=== PATIENT | female | born 1935 | race Caucasian/White ===

== ENCOUNTER 2017-02-15 10:19 | Emergency (ER) | payer MEDICARE, OTHER | END 2017-02-15 14:36 | disposition home or self-care (01) | LOC: D.ER 10:19 | DX: M54.5 Low back pain (principal); M54.2 Cervicalgia; R07.89 Other chest pain; V43.52XA Car driver injured in collision with other type car in traffic accident, initial encounter; Y93.89 Activity, other specified; Y92.410 Unspecified street and highway as the place of occurrence of the external cause; E78.5 Hyperlipidemia, unspecified; K58.9 Irritable bowel syndrome, unspecified ==

== ENCOUNTER → 2018-06-20 08:50 | Outpatient (CLI) | payer MEDICARE, OTHER | END | disposition home or self-care (01) | LOC: D.RT 06-16 09:00 | DX: J42 Unspecified chronic bronchitis (principal); R05 Cough ==

== ENCOUNTER → 2018-07-13 13:02 | Outpatient (CLI) | payer MEDICARE, OTHER | END | disposition home or self-care (01) | LOC: D.CT 13:02 | DX: I27.9 Pulmonary heart disease, unspecified (principal) ==

== ENCOUNTER → 2018-07-17 13:16 | Outpatient (CLI) | payer MEDICARE, OTHER | END | disposition home or self-care (01) | LOC: D.NM 07-14 11:00 | DX: I26.99 Other pulmonary embolism without acute cor pulmonale (principal) ==

== ENCOUNTER → 2018-12-14 08:09 | Outpatient (CLI) | payer MEDICARE, OTHER ==
[2018-12-14 08:37] LABS: BASOPHILS 0.4 % (0-2); HEMOGLOBIN 12.9 g/dL (12-16); IMMATURE GRANULOCYTES 0.2 % (0-5); LYMPHOCYTES 25.9 % (15-50); MCH 28.7 pg (26.0-34.0); MCHC 33.1 g/dL (31.0-37.0); MCV 86.9 fL (80.0-100.0); MEAN PLATELET VOLUME 10.2 fL (7.4-10.4); MONOCYTES 7.2 % (2-11); NEUTROPHILS 64.3 % (40-80); PLATELET COUNT 261 10x3/uL (130-400); RBC 4.49 10x6/uL (4.00-5.40); RDW 14.6 % (11.5-14.5)
[2018-12-17 03:06] LABS: IMMUNOGLOBULIN E 8 IU/mL (0-100)
== END | disposition home or self-care (01) ==
LOC: D.LAB 08:00 → D.CT 08:30
PROVIDERS: Internal Medicine Pulmonary Disease
DX: J98.11 Atelectasis (principal); J45.991 Cough variant asthma

== ENCOUNTER 2019-08-21 07:04 | Outpatient (CLI) | payer MEDICARE, OTHER | END 2019-08-21 23:59 | disposition home or self-care (01) | LOC: D.MAMMO 07:04 | PROVIDERS: ATTEND Family Medicine | DX: Z12.31 Encounter for screening mammogram for malignant neoplasm of breast (principal) ==

== ENCOUNTER 2020-02-01 15:56 | Inpatient (IN) | payer MEDICARE, OTHER ==
[~2020-02-01] VITALS: Ht 157.5 cm; Wt 87.2 kg
--- NOTE | 2020-02-01 16:30 | NUR ---
PT ARRIVES TO ROOM VIA WHEELCHAIR AAO X 4. AT BEDSIDE. PT REPORTSABDOMINAL DISCOMFORT AND STATES THAT SHE HAS NOT HAD A BM SINCE 01/25/2020. PT ABDOMEN IS DISTENDED AND TENDER UPON PALPATION. BS ARE HYPOACTIVE AND VERY FAINT. PT REPORTS THAT SHE IS STILL PASSING GAS BUT STATES "JUST LITTLE BITTY ONES". PT DENIES PRESENCE OF BURNING/DYSURIA. PT DENIES PRESENCE OF N/V AT THIS TIME. RESPIRATIONS ARE EVEN ADN UNLABORED. BRUISES NOTED TO BLE. DISCOLORATION NOTED TO PT LIPS. BILATERAL PEDAL PULSES PALP. INCENTIVE SPIROMETER AT BEDSIDE. PT EDUCATED ON USE AND PT VERBALIZES UNDERSTANDING. BENJA ALARM PLACED ON PT BED. PT STATES "I FALL ALL OF THE TIME. I DONT KNOW WHY. I JUST GET DIZZY AND FALL DOWN". PT EDUCATED ON FALL RISKS AND FALL PRECAUTIONS. PT VERBALIZES UNDERSTANDING AND AGREES TO USE CALL LIGHT FOR ASSISTANCE. ALL FALL PRECAUTIONS IN PLACE EXCEPT FOR YELLOW GOWN. PT STATES "I JUST CHANGED INTO THIS ONE". BED IS IN THE LOWEST POSITION. CALL LIGHT AND BEDSIDE TABLE ARE WITHIN REACH. SIDE RAILS X 2. PT DENIES FURTHER NEEDS. WILL CONT TO MONITOR.
[2020-02-01] MEDS ORDERED: PHENERGAN25 M1 PO (16:37)
[2020-02-01] MEDS ORDERED: AMBIEN10 MG PO (16:38)
[2020-02-01] MEDS ORDERED: FENOFIBRATE134 MG PO (16:39)
[2020-02-01] MEDS ORDERED: ZOCOR20 MG PO (16:40)
[2020-02-01] MEDS ORDERED: PAZEO2.5 ML EACH EYE (16:42)
[2020-02-01 17:00] VITALS: BP 140/60; BMI 28.6
--- NOTE | 2020-02-01 17:25 | NUR ---
20G X 1 ATTEMPT TO RIGHT AC. PT TOLERATED WELL.
[2020-02-01 17:55] LABS: ALBUMIN 3.1 g/dL (3.4-5.0); BILIRUBIN - DIRECT 0.74 mg/dL (0.00-0.30); BILIRUBIN - INDIRECT 0.36 mg/dL (0.00-1.00); BILIRUBIN - TOTAL 1.1 mg/dL (0.2-1.3); PROTEIN - SERUM 6.2 g/dL (6.4-8.2)
[2020-02-01 19:20] LABS: CALCIUM 9.5 mg/dL (8.5-10.1); CARBON DIOXIDE 19.7 mmol/L (21.0-32.0); CREATININE - SERUM 1.9 mg/dL (0.6-1.3); POTASSIUM - SERUM 3.7 mmol/L (3.5-5.1)
[2020-02-01 20:00] VITALS: BP 142/71
[2020-02-01 21:20] VITALS: BP 117/74
--- NOTE | 2020-02-01 21:20 | NUR ---
REC'D PATIENT FROM FLOOR, IN W/C. UNSTEADY GAIT TO TRANSFER TO BED. A/O X 4. CLEAR SPEECH. BREATHING ON ROOM AIR AT 94%. BOWEL SOUNDS ACTIVE X 4 QUADS. NORMAL SINUS. ABD FIRM AND DISTENDED. F/C PLACED WITH IMMEDIATE 350ML URINE RETURN. ORIENTED TO ROOM.
--- NOTE | 2020-02-01 21:22 | NUR ---
PT STARTED ON DILAUDID HARNESS CUTTER AND THEN TAKEN TO ICU VIA WHEELCHAIR AFTER REPORT WAS CALLED TO ICU. ROOM [id number]
[2020-02-01 21:45] LABS: BASOPHILS 0.1 % (0-2); EOSINOPHILS 0 % (0-7); HEMATOCRIT 31.9 % (36.0-48.0); HEMOGLOBIN 11.1 g/dL (12-16); IMMATURE GRANULOCYTES 2.3 % (0-5); LYMPHOCYTES 6.2 % (15-50); MCH 29.2 pg (26.0-34.0); MCHC 34.8 g/dL (31.0-37.0); MCV 83.9 fL (80.0-100.0); MEAN PLATELET VOLUME 10.1 fL (7.4-10.4); MONOCYTES 4.9 % (2-11); NEUTROPHILS 86.5 % (40-80); PLATELET COUNT 253 10x3/uL (130-400); RDW 14.5 % (11.5-14.5); WBC 15.4 10x3/uL (4.8-10.8)
[2020-02-01 21:51] LABS: ANION GAP 10.9 mmol/L (8-16); CALCIUM 9.7 mg/dL (8.5-10.1); CREATININE - SERUM 1.6 mg/dL (0.6-1.3); POTASSIUM - SERUM 3.3 mmol/L (3.5-5.1)
[2020-02-01 21:55] LABS: CARBON DIOXIDE 27.4 mmol/L (21.0-32.0)
[2020-02-01 22:00] VITALS: BP 118/64
[2020-02-01 22:03] LABS: BILIRUBIN NEGATIVE (NEGATIVE); GLUCOSE NEGATIVE (NEGATIVE); KETONE NEGATIVE (NEGATIVE); NITRITE NEGATIVE (NEGATIVE); SPECIFIC GRAVITY 1.015 (1.005-1.020); UROBILINOGEN NORMAL (NORMAL)
[2020-02-01 23:00] VITALS: BP 116/51
--- NOTE | 2020-02-01 23:00 | NUR ---
DENIES ANY NEEDS. CALL LIGHT IN REACH. CONT C/O PAIN BUT STATES HYDROMORPHONE HELPS.
[2020-02-02] VITALS (27 sets, daily range): BP systolic 76–149; BP diastolic 53–94
--- NOTE | 2020-02-02 01:00 | NUR ---
PATIENT MILD CONFUSION ABOUT WHAT IS HAPPENING RIGHT NOW, BUT ABLE TO ANSWER CORRECTLY PERSON, PLACE, AND TIME. PATIENT WAS HITTING DIRECTOR OF COMMUNITY EDUCATION BUTTON AND SAYING SHE WAS TRYING TO TURN IT OFF. EDUCATED ON USE OF DIRECTOR OF COMMUNITY EDUCATION AND DIRECTOR OF COMMUNITY EDUCATION BUTTON, PATIENT STILL CONFUSED. DENIES ANY PAIN. HOLDING HYDROMORPHONE AT THIS TIME. PATIENT ISN'T DROWSY, JUST CONFUSION AT TO WHAT IS HAPPENING RIGHT NOW.
--- NOTE | 2020-02-02 03:00 | NUR ---
RE-ASSESSMENT COMPLETED. PT VERY CONFUSED. PATIENT IS SAYING SHE IS NOT GOING TO HAVE TO SURGERY, ASKING "WHY ARE YOU DOING THIS TO ME." ATTEMPTED TO REORIENT SEVERAL TIMES.
[2020-02-02 04:34] LABS: BASOPHILS 0.1 % (0-2); EOSINOPHILS 0.2 % (0-7); HEMATOCRIT 31.2 % (36.0-48.0); HEMOGLOBIN 10.8 g/dL (12-16); IMMATURE GRANULOCYTES 3.1 % (0-5); LYMPHOCYTES 5.7 % (15-50); MCH 28.7 pg (26.0-34.0); MCHC 34.6 g/dL (31.0-37.0); MEAN PLATELET VOLUME 10.1 fL (7.4-10.4); MONOCYTES 6.5 % (2-11); NEUTROPHILS 84.4 % (40-80); PLATELET COUNT 251 10x3/uL (130-400); RBC 3.76 10x6/uL (4.00-5.40); RDW 14.5 % (11.5-14.5); WBC 13.2 10x3/uL (4.8-10.8)
[2020-02-02 04:48] LABS: ALBUMIN 2.5 g/dL (3.4-5.0); BILIRUBIN - TOTAL 0.88 mg/dL (0.2-1.3); CALCIUM 9.1 mg/dL (8.5-10.1); CARBON DIOXIDE 31.2 mmol/L (21.0-32.0); CREATININE - SERUM 1.4 mg/dL (0.6-1.3); MAGNESIUM - SERUM 2.2 mg/dL (1.8-2.4); PHOSPHOROUS 2.8 mg/dL (2.5-4.9); PROTEIN - SERUM 6.3 g/dL (6.4-8.2)
[2020-02-02 04:54] LABS: ANION GAP 11.5 mmol/L (8-16); POTASSIUM - SERUM 2.7 mmol/L (3.5-5.1)
--- NOTE | 2020-02-02 05:00 | NUR ---
REFUSES BATH. TRIED CALLING (LEFT MESSAGE) AND SON-IN-LAW (LEFT MESSAGE). PLACED PHONE IN PATIENT'S ROOM AND EDUCATED PT THAT WE'RE WAITING ON RETURN CALL. PATIENT ASKED IF SHE COULD USE THE PHONE TO CALL AND THIS NURSE HANDED PHONE TO PATIENT
--- NOTE | 2020-02-02 06:41 | NUR ---
PATIENT CONT TO REFUSE BATH. STATES SHE ISN'T HAVING SURGERY. PATIENT STATES THAT SHE WAS NEVER TOLD ABOUT SURGERY. [facility] CALLED DR. MCLEOD AND NEW ORDER FOR ELECT PROTOCOL. ATTEMPTED TO REORIENT AGAIN. REC'D PHONE CALL FROM , UPDATED HIM. HE STATED SHE IS HAVING SURGERY AND ASKED TO TALK TO HER.
--- NOTE | 2020-02-02 10:25 | NUR ---
CONCENTS SIGNED BY PTS THIS AM. PT CONFUSED. ASSISTED TO BSC FOR BM. PT DID NOT HAVE RESULTS. PAIN WELL CONTROLED USING PRESS LEADER.
[2020-02-02 14:00] LABS: HEMATOCRIT 35.1 % (36.0-48.0); HEMOGLOBIN 11.8 g/dL (12-16); MCH 28.6 pg (26.0-34.0); MCHC 33.6 g/dL (31.0-37.0); MEAN PLATELET VOLUME 10.4 fL (7.4-10.4); RBC 4.12 10x6/uL (4.00-5.40); RDW 14.9 % (11.5-14.5)
[2020-02-02 14:03] LABS: MCV 85.2 fL (80.0-100.0); PLATELET COUNT 335 10x3/uL (130-400); WBC 9.8 10x3/uL (4.8-10.8)
[2020-02-02 14:07] LABS: CALCIUM 7.3 mg/dL (8.5-10.1); CARBON DIOXIDE 24.7 mmol/L (21.0-32.0); CREATININE - SERUM 1.2 mg/dL (0.6-1.3)
[2020-02-02 14:08] LABS: POTASSIUM - SERUM 3.7 mmol/L (3.5-5.1)
[2020-02-02 14:52] LABS: EOSINOPHILS 1 % (0-7); LYMPHOCYTES 12 % (15-50); MONOCYTES 6 % (2-11); NEUTROPHILS 81 % (40-80); PLATELET ESTIMATE NORMAL
--- NOTE | 2020-02-02 15:47 | NUR ---
DR REBOLLEDO HERE AT BS AND HE SPOKE TO SEVERAL FAMILY MEMBERS AT BS. PT CONFUSED AND ATTEMPTING TO PULL AT LINES. REC'D ORDER FOR RESTRAINTS TO WRIST.
[2020-02-02 18:26] LABS: BASOPHILS 0.2 % (0-2); EOSINOPHILS 0 % (0-7); HEMATOCRIT 35.6 % (36.0-48.0); HEMOGLOBIN 11.9 g/dL (12-16); IMMATURE GRANULOCYTES 2.5 % (0-5); LYMPHOCYTES 3.9 % (15-50); MCH 28.6 pg (26.0-34.0); MCHC 33.4 g/dL (31.0-37.0); MCV 85.6 fL (80.0-100.0); MEAN PLATELET VOLUME 10.5 fL (7.4-10.4); MONOCYTES 7.1 % (2-11); NEUTROPHILS 86.3 % (40-80); PLATELET COUNT 333 10x3/uL (130-400); RBC 4.16 10x6/uL (4.00-5.40); RDW 15.1 % (11.5-14.5)
[2020-02-02 18:32] LABS: WBC 12.9 10x3/uL (4.8-10.8)
--- NOTE | 2020-02-02 18:46 | NUR ---
PT TACHYCARDIA HR 130, EKG SHOWS ST. PT RESPONDING VERY LITTLE TO VERBAL AND PAINFUL STIMULI. NARCAN GIVEN WITH VERY LITTLE RESULTS. ABG'S AND CALLED TO DR REBOLLEDO. 1 AMP SODIUM BICARB GIVEN. PT IS WAKING UP A LITTLE MORE.ENCOURAGED TO COUGH. PT DOES COUGH WITH FAIR EFFORT. UPO REPORTED 30CC FOR PAST 4 HRS, REC'D ORDER FOR BUMEX.
--- NOTE | 2020-02-02 19:00 | NUR ---
ASSESSMENT COMPLETED. LAYING IN BED. EYES CLOSED, LETHARGIC. RESPONDS TO NAME BUT CONFUSED TO PLACE, TIME, AND SITUATION. O2 AT 4L HF NC. REPOSITIONED
--- NOTE | 2020-02-02 21:00 | NUR ---
FROM 0717-0078, URINE OUTPUT WAS [address] SINCLAIR AND DR. POWELL WAS NOTIFIED AND CONSULT APPROX AROUND 1999. NEW ORDERS FROM DR. POWELL FOR BIPAP AT 40%. RT PLACED ON PATIENT. NO HYDROMORHPONE HAS BEEN GIVEN. ASKED PATIENT IF SHE WAS IN PAIN AND SHE RESPONDED WITH NO. CONT BEING LETHARGIC
--- NOTE | 2020-02-02 23:00 | NUR ---
RE-ASSESSMENT COMPLETED. REPOSITIONED. NEW ORDERS REC'D FROM DR. SINCLAIR TO CHANGE FLUIDS. URINE OUTPUT FROM 9664-1038= 8 ML. NEW FLUIDS WERE STARTED. PT CONT CONFUSION. ATTEMPTED TO REORIENT.
[2020-02-03] VITALS (24 sets, daily range): BP systolic 113–162; BP diastolic 58–86
--- NOTE | 2020-02-03 01:00 | NUR ---
REPOSITIONED. BIPAP ON. DENIES ANY PAIN OR NEEDS. RESPONDING MORE TO NURSE. URINE OUTPUT HOURLY IS NOT CHANGING, APPROX 10ML/HR.
--- NOTE | 2020-02-03 02:04 | NUR ---
SPOKE WITH DR. SINCLAIR. HEART RATE IN 130'S AND URINE OUTPUT STILL LOW. NEW ORDER FOR FLUID BOLUS OF 200 ML, CXR THIS AM, TROP AND BNP LAB WITH AM LABS.
--- NOTE | 2020-02-03 03:00 | NUR ---
RE-ASSESSMENT COMPLETED. URINE OUTPUT INCREASING. HEART RATE DECREASING.
--- NOTE | 2020-02-03 05:00 | NUR ---
URINE OUTPUT CONT TO INCREASE. REPOSITIONED. BIPAP ON. DENIES ANY NEEDS
[2020-02-03 05:35] LABS: BASOPHILS 0.3 % (0-2); EOSINOPHILS 0 % (0-7); HEMATOCRIT 30.8 % (36.0-48.0); HEMOGLOBIN 10.4 g/dL (12-16); IMMATURE GRANULOCYTES 1.3 % (0-5); LYMPHOCYTES 5.6 % (15-50); MCH 28.6 pg (26.0-34.0); MCHC 33.8 g/dL (31.0-37.0); MCV 84.6 fL (80.0-100.0); MEAN PLATELET VOLUME 10.3 fL (7.4-10.4); MONOCYTES 7.6 % (2-11); NEUTROPHILS 85.2 % (40-80); PLATELET COUNT 307 10x3/uL (130-400); RBC 3.64 10x6/uL (4.00-5.40); RDW 15.2 % (11.5-14.5); WBC 15.2 10x3/uL (4.8-10.8)
[2020-02-03 06:11] LABS: ALKALINE PHOSPHATASE 48 U/L (30-120); ALT (SGPT) 21 U/L (10-68); CALC OSMOLALITY 299 mosm/kg (275-300); CALCIUM 7.3 mg/dL (8.5-10.1); CARBON DIOXIDE 25.6 mmol/L (21.0-32.0); CHLORIDE - SERUM 110 mmol/L (98-107); GLUCOSE 168 mg/dL (74-106); MAGNESIUM - SERUM 1.9 mg/dL (1.8-2.4); POTASSIUM - SERUM 3.8 mmol/L (3.5-5.1); PRO BNP 1216 pg/mL (0-450); SODIUM 144 mmol/L (136-145); UREA NITROGEN 37 mg/dL (7-18)
[2020-02-03 06:17] LABS: CREATININE - SERUM 1.6 mg/dL (0.6-1.3); PHOSPHOROUS 3.6 mg/dL (2.5-4.9)
[2020-02-03 06:18] LABS: ALBUMIN 1.4 g/dL (3.4-5.0); PROTEIN - SERUM 4.5 g/dL (6.4-8.2); TROPONIN-I < 0.017 ng/mL (0.000-0.060); eGFR NON AFRICAN AMERICAN 33 mL/min (90-120)
--- NOTE | 2020-02-03 10:54 | NUR ---
DR POWELL SPOKE TO FAMILY AT . PT BATHED AND TURNED. INSTRUCTED I.S. PT WITH POOR EFFORT. WILL CONTINUE TO ASST WITH I.S.
--- NOTE | 2020-02-03 11:52 | NUR ---
PT TURNED AND ASSISTED WITH I.S. PT PULLS LESS THAN 500 ON IS WITH FAIR EFFORT. PT STILL CONFUSED BUT IS FOLLOWING COMMAND.
--- NOTE | 2020-02-03 15:55 | OP ---
PATIENT NAME: MIKE CASANOVA MEDICAL RECORD: [id number] :37 LOCATION:[facility] D.2306 ADMISSION DATE:02/01/20 SURGEON: OMA REBOLLEDO MD DATE OF OPERATION: 02/02/2020 PREOPERATIVE DIAGNOSES: 1. Pneumoperitoneum 2. Metabolic acidosis. 3. Acute kidney injury. POSTOPERATIVE DIAGNOSES: 1. Pneumoperitoneum 2. Metabolic acidosis. 3. Acute kidney injury. 4. Perforated sigmoid diverticulitis with diffuse peritonitis. 5. Hinchey grade IV, diverticular perforation. 6. Right large ovarian cyst. PROCEDURE: 1. Open subtotal colectomy. 2. Right oophorectomy. 3. Central venous line placement. SURGEON: Oma Rebolledo MD ROLL FORMER: None. BLOOD LOSS: Please see the anesthesia sheet. DRAINS: Times 2 (19-Greek round fully fluted drains). COMPLICATIONS: None. The risks, possible complications, and alternatives of the procedure were explained to the patient. She elects to proceed. I also discussed this with the patient's family. I specifically discussed with them the risk of bleeding requiring emergency reoperation, infection, and colostomy formation. OPERATIVE COURSE: The patient was conveyed to the operating room electively on 02/02/2020. General anesthesia was induced by the anesthesia staff. The right neck was sterilely prepped and draped. A local anesthetic was used to infiltrate the skin and subcutaneous tissues at the base of the right neck. The right internal jugular vein was percutaneously accessed in an antegrade fashion. A guidewire passed easily. A small skin irwin was accomplished. A vessel dilator was used to dilate a subcutaneous tract. . A 16-cm triple lumen central venous catheter was inserted to the hub. It was sutured in place times 3. All lumens flushed easily and aspirated dark, nonpulsatile blood. An x-ray will be obtained postoperatively. The central venous line was placed due to the need for multiple drips postoperatively as well as TPN. The abdomen was sterilely prepped and draped. A small paramedian incision was accomplished at the umbilicus. I entered the peritoneal cavity through the linea alba. I noted a feculent smell. No bilious staining and therefore, I felt that this was likely a diverticular perforation rather than a perforated OPERATIVE REPORT [id number] MIKE CASANOVA gastric or duodenal ulcer. I lengthened my incision in cephalad caudad direction. An Malcolm retractor was placed. Indeed, I identified an area of perforation of the sigmoid colon and there was a diffuse contamination with exudate as well as purulence throughout the abdominal cavity. There was an area of supple rectum distal to the sigmoid colon. As I have discussed with the patient and her family preoperatively, I may be myself in a situation where I will have to give her a Estela procedure with a colostomy versus a subtotal colectomy with a ileorectostomy. The patient has a terrible constipation and states frankly she would not mind having looser stools. We discussed how a diversion of the fecal stream must occur or we could eliminate the proximal fecal strain by removal of the colon by a subtotal colectomy. I chose the distal and extended my resection to the junction of the sigmoid colon and the rectum. A window was created in the mesorectum here and I stapled across this junction with the TOI-75 stapler. I incised along the left white line of Toldt. I entered the left inner sigmoid fossa. The left ureter was retracted during the operation and was undamaged. I began to takedown the mesentery of the sigmoid colon with the Super Jaw EnSeal device. I took down the mesentery of the descending colon through the Super Jaw EnSeal device, which ligates and divides. I took down splenic flexure of the colon. I then removed a good bit of the omentum from the transverse colon utilizing the Super Jaw EnSeal device. I came around sealed and divided the transverse colon mesentery. I incised the retroperitoneal attachments to the hepatic flexure. I then incised along the ileum and I stapled across the distal ileum with a TOI-75 stapler. The specimen was sent to pathology. I irrigated with hydrogen peroxide and aspirated. We removed as much of the exudate off the small bowel as we could just by wiping it away. I elevated the large right ovarian cyst. I then excised the ovary with the cyst by sealing and dividing just proximal to the ovary, it from the fallopian tube. I then irrigated and aspirated again. There was no evidence of bleeding. I brought the ileum into position to the rectal suturing the antimesenteric borders together in a side by side with 3-0 Vicryls. A small enterotomy and small proctotomy were accomplished. Anvils of the TOI-75 stapler with a green load were advanced and fired. The resulting antrorectal defect was closed with a single firing of the TA 60 stapler. There appeared to have been no leakage from this anastomosis. It appeared to be widely patent. I ensured the small bowel was not twisted on its mesentery. I ran the small bowel from the ligament of Treitz to the anastomosis. I checked placement of the nasogastric tube and it was well placed within the stomach. Two 19-Greek drains were brought out, one in the left flank and one in the right flank, one on the right was placed under the acute margin of the liver. The one on the left was placed down in the pelvis. The midline fascia was approximated with a running looped #1 PDS from cephalad to caudad direction. The drain was sutured to skin with 3-0 nylons. A wound VAC sponge was cut to the midline defect. Cellophane-type dressings were applied over the wound VAC sponge which was then scored stents. The wound VAC OPERATIVE REPORT [id number] MIKE CASANOVA J disc was applied and it held a good "raisin" and applied to suction. The patient was then extubated and conveyed post-anesthesia care unit and then she will be returned to the intensive care unit. TRANSINT:[id number] Voice Confirmation ID: [id number] DOCUMENT ID: [id number] OMA REBOLLEDO MD at 1555 CC: DARVIN MCLEOD [id number] DICTATION DATE: 02/02/201948 [employer] MATH TUTOR: 02/03/20 0135 [facility] IN [facility] [address] [id number]
--- NOTE | 2020-02-03 16:39 | CN ---
PATIENT NAME:MIKE CASANOVA MEDICAL RECORD: [id number] : 39 LOCATION:[facility]2306 ADMIT DATE: 02/01/20 ACCOUNT: [id number] CONSULTING PHYSICIAN: BRYANT SINCLAIR MD REFERRING PHYSICIAN: DARVIN MCLEOD MD DATE OF CONSULTATION: 02/02/2020 RENAL CONSULTATION CONSULTING PHYSICIAN: Darvin Mcleod MD The patient is in room 2306 at [facility] in [place], [place]. REASON FOR CONSULTATION: Assistance in management of postoperative oliguria and acute kidney injury. HISTORY OF PRESENT ILLNESS: This is an 84-year-old female who was admitted from primary care doctor's office with obstipation and pneumoperitoneum with obstipation for over a week. The patient underwent surgical resection and was noted to have hypotension and decreased urine output postoperative period. Over the last couple of hours, the patient has been receiving volume resuscitation, had been on some pressor support in the ICU and has started to urinate more. The patient has been evaluated, treatment plan reviewed, chart reviewed and discussed with nursing staff. The patient is unable to give much of a history as she is somewhat lethargic after her operative procedure. The patient had primary anastomosis after partial colectomy. Currently, she is in the ICU setting, on pressor support, IV fluids and blood pressure in the mid 110s-115 systolic with heart rate in the 115-120s. PAST MEDICAL AND SURGICAL HISTORY: Pertinent for: 1. Emphysema. 2. Frailty. 3. Chronic bowel disease. ALLERGIES: REPORTED TO NONSTEROIDAL MEDICATIONS. MEDICATIONS: Medications were reviewed included fibrate from outpatient, simvastatin, zolpidem, promethazine, and eyedrops. REVIEW OF SYSTEMS: Unable to obtain review of systems and they were mostly obtained from the records. Apparently, though she had been having abdominal complaints, constipation for about a week and was getting around to assure she was very weak. No reports of nonsteroidals in records were noted. PHYSICAL EXAMINATION: VITAL SIGNS: Blood pressure in the 115 range, heart rate in the 120s. GENERAL: She is lethargic, but she does arouse and tries to mumble. She did not recognize and I said that she will be alright, she said no. NECK: Neck veins appear to be flattened. CARDIAC: No lift or heave. CHEST: She is breathing comfortably. She has nasal cannula oxygen. CONSULT REPORT [id number] MIKE CASANOVA ABDOMEN: Shows incision. EXTREMITIES: She has tenting of the skin, warm extremities, nailbeds. Good capillary refill. Overall, she appears to be volume deplete. LABORATORY AND DIAGNOSTIC TESTS: Reveal white cell count 15.4, hemoglobin 11.1, and platelet count is 253 and that was from 02/01/2020. From 02/03/2020 the most recent the white count has come down to 9.8, hemoglobin 11.8, platelet count 335. Sodium most recent today on 02/02/2020 revealed sodium 141, potassium 3.7, chloride 109, bicarbonate 24.7, BUN 34, creatinine 1.2, which is down from 1.6 on admission 02/01/2020, glucose 175, calcium 7.3, albumin 2.5. Cultures are pending. Medications have been reviewed and currently include IV Pepcid, Zosyn, and IV Protonix as well as a hydromorphone pump. Imaging results revealed a chest x-ray that revealed pneumoperitoneum and abdominal CT that revealed uelja-ql-vrfisfwg amount of free air within the abdomen concerning for rupture of hollow viscus of unknown origin. Findings concerning for enteritis versus ileus versus small-bowel obstruction. Moderate severe distention of the gallbladder concerning for hydrops,left adnexal mass, probably representing ovarian cyst, wall thickening of the sigmoid colon, which was felt to be related to under distention and/or colitis. IMPRESSION: 1. Status post subtotal colectomy with ileorectostomy for pneumoperitoneum and perforation of sigmoid colon due to diverticulitis. 2. Sepsis related to above. 3. Acute kidney injury with volume depletion, likely reversible. 4. Malnutrition. 5. Chronic obstructive pulmonary disease. RECOMMENDATIONS: 1. Continue IV fluids. I agree with surgical medical management. I suspect that the patient may get a little worse before it gets better. However, it is a good sign that she is starting to urinate after appropriate volume expansion at this time. 2. Avoid nonsteroidal medications, other nephrotoxic medications. We may end up switching her IV fluids a little bit and monitor the progress. Again, I expect hopefully that she will continue to improve with the current treatment plan. We will continue to follow. The case has been discussed with surgery. TRANSINT:[id number] Voice Confirmation ID: [id number] DOCUMENT ID: [id number] BRYANT SINCLAIR MD at 1639 CC: MAXIMINO GODINEZ MD [id number] DICTATION DATE: 02/02/202117 STOCK RANCH SUPERVISOR: 02/03/20 1246 ADM IN [place] [id number] [place] [id number]
--- NOTE | 2020-02-03 18:58 | NUR ---
1500-DR SINCLAIR HERE ON ROUNDS. REC'D NEW ORDERS. PT TURNED AND REPOSITIONED FOR COMFORT.
--- NOTE | 2020-02-03 19:00 | NUR ---
ASSESSMENT COMPLETED. CONFUSION CONT. REPOSITIONED. TEMP 100.1. TOOK BLANKETS OFF PATIENT
--- NOTE | 2020-02-03 21:00 | NUR ---
TEMP 99.3. CALL DR. REBOLLEDO WITH NEW ORDERS REC'D.
--- NOTE | 2020-02-03 23:00 | NUR ---
RE-ASSESSMENT COMPLETED. BIPAP ON. REPOSITIONED
[2020-02-04] VITALS (24 sets, daily range): BP systolic 151–171; BP diastolic 63–93; Ht 157.5 cm; Wt 87.2 kg
--- NOTE | 2020-02-04 01:00 | NUR ---
TEMP CONT TO COME DOWN. REPOSITIONED
--- NOTE | 2020-02-04 03:00 | NUR ---
RE-ASSESSMENT COMPLETED. REPOSITIONED. BIPAP ON
--- NOTE | 2020-02-04 05:00 | NUR ---
CONFUSION CONT. REPOSITIONED.
--- NOTE | 2020-02-04 06:07 | NUR ---
TEMP 99.3. CALLED DR. REBOLLEDO AND NEW ORDERS REC'D.
[2020-02-04 07:05] LABS: MCH 28.4 pg (26.0-34.0); MCHC 34.1 g/dL (31.0-37.0); MCV 83.3 fL (80.0-100.0); MEAN PLATELET VOLUME 10.1 fL (7.4-10.4); PLATELET COUNT 278 10x3/uL (130-400); RDW 15.4 % (11.5-14.5); WBC 17.1 10x3/uL (4.8-10.8)
[2020-02-04 07:06] LABS: HEMATOCRIT 22.9 % (36.0-48.0); HEMOGLOBIN 7.8 g/dL (12-16); RBC 2.75 10x6/uL (4.00-5.40)
--- NOTE | 2020-02-04 07:30 | NUR ---
0700 DR BROWN AT BEDSIDE PT PLACED ON CONTACT ISOLATION RE ESBL IN ABDOMINAL WOUND PATIENT WEARING BPAP AT40% NO DISTRESS NOTED ASSESSMENT COMPLETE
[2020-02-04 07:42] LABS: ALBUMIN 1.4 g/dL (3.4-5.0); ANION GAP 11.3 mmol/L (8-16); BILIRUBIN - TOTAL 0.54 mg/dL (0.2-1.3); CALCIUM 7.1 mg/dL (8.5-10.1); CARBON DIOXIDE 26.7 mmol/L (21.0-32.0); MAGNESIUM - SERUM 1.9 mg/dL (1.8-2.4); PROTEIN - SERUM 4.4 g/dL (6.4-8.2)
[2020-02-04 07:43] LABS: PHOSPHOROUS 1.9 mg/dL (2.5-4.9)
[2020-02-04 10:11] LABS: LYMPHOCYTES 11 % (15-50); MONOCYTES 11 % (2-11); NEUTROPHILS 71 % (40-80); PLATELET ESTIMATE NORMAL
[2020-02-04 10:12] LABS: ANISOCYTOSIS OCC
--- NOTE | 2020-02-04 10:32 | NUR ---
0900 SPOUSE AT BEDSIDE INSTRUCTED ON PPE VOICED UNDERSTANDING
--- NOTE | 2020-02-04 10:34 | NUR ---
1015 STARTED ONE UNIT PRBC ORDERED BY DR BROWN
--- NOTE | 2020-02-04 12:45 | NUR ---
1230 PRBC INFUSION COMPLETE NO INDICATION OF ANY REACTION PLACED BPAP ON STANDBY AND PUT ON 4L NC 99% NOTED
--- NOTE | 2020-02-04 12:47 | NUR ---
1245 DR WONG ROUNDING ON PATIENT CVP 7
[2020-02-04 18:19] LABS: HEMATOCRIT 28.5 % (36.0-48.0); HEMOGLOBIN 9.4 g/dL (12-16)
--- NOTE | 2020-02-04 19:00 | NUR ---
Report received, care assumed. Pt is laying in bed with eyes open. No needs at this time. Inital assessment completed, see flowsheet for details. No s/s of distress noted at this time. Will continue to monitor.
--- NOTE | 2020-02-04 21:00 | NUR ---
Pt is resting in bed with visiting at bedside. Pt compains about gown being on, about the stickers being on, she wants all of it off and wants to leave. Attempted to reorient pt, she said that we were all liars. No needs noted. No s/s of distress. Will continue to monitor.
--- NOTE | 2020-02-04 23:00 | NUR ---
Reassessment completed, see flowsheet for details. Pt is laying in bed with eyes open at this time. No needs noted. No s/s of distress. Will continue to monitor.
[2020-02-05] VITALS (24 sets, daily range): BP systolic 134–187; BP diastolic 65–95
--- NOTE | 2020-02-05 01:00 | NUR ---
Pt is laying in bed with eyes closed. No needs voiced at this time. No s/s of distress. Will continue to monitor.
--- NOTE | 2020-02-05 03:00 | NUR ---
Reassessment completed, see flowsheet for details. No needs voiced at this time. No s/s of distress. Will continue to monitor.
--- NOTE | 2020-02-05 05:00 | NUR ---
Pt is laying in bed with eyes closed. No needs voiced. No s/s of distress noted. Will continue to monitor.
[2020-02-05 06:03] LABS: ANION GAP 8.8 mmol/L (8-16); CALCIUM 7.8 mg/dL (8.5-10.1); CARBON DIOXIDE 31.4 mmol/L (21.0-32.0); CREATININE - SERUM 0.8 mg/dL (0.6-1.3); MAGNESIUM - SERUM 1.8 mg/dL (1.8-2.4); PHOSPHOROUS 1.6 mg/dL (2.5-4.9); POTASSIUM - SERUM 3.2 mmol/L (3.5-5.1); VANCOMYCIN - RANDOM 7.3 ug/mL (10.0-20.0)
--- NOTE | 2020-02-05 07:10 | NUR ---
REPORT RECIEVED FROM [facility] SHIFT AND PATIENT CARE ASSUMED. PATIENT LAYING IN BED ON BACK WITH EYES OPEN.PATIENT DID NOT HAVE A VERBAL OR NON VERBAL RESPONSE TO ANY QUESTIONS. INITIAL ASSESMENT COMPLETED. SEE FLOWSHEET. NO S/S OF DISTRESS WILL CONTINUE WITH PLAN OF CARE. SR UPX 2 BED INH LOW POSTION AND CALL LIGHT IN REACH.
[2020-02-05 07:32] LABS: BASOPHILS 0.4 % (0-2); EOSINOPHILS 0.2 % (0-7); IMMATURE GRANULOCYTES 7.5 % (0-5); LYMPHOCYTES 6.8 % (15-50); MCH 28.3 pg (26.0-34.0); MCHC 33.5 g/dL (31.0-37.0); MCV 84.4 fL (80.0-100.0); MEAN PLATELET VOLUME 10.2 fL (7.4-10.4); MONOCYTES 5.6 % (2-11); NEUTROPHILS 79.5 % (40-80); PLATELET COUNT 282 10x3/uL (130-400); RDW 15.4 % (11.5-14.5); WBC 16.6 10x3/uL (4.8-10.8)
[2020-02-05 07:41] LABS: HEMOGLOBIN 11.4 g/dL (12-16); RBC 4.03 10x6/uL (4.00-5.40)
--- NOTE | 2020-02-05 08:15 | NUR ---
IN RROM. ANSWERED ALL QUESTIONS TO SATISFACTION.
--- NOTE | 2020-02-05 10:30 | NUR ---
DR WONG IN ROOM. NEW ORDERS RECEIVED.
--- NOTE | 2020-02-05 11:45 | NUR ---
RE-ASSESMENT COMPLETED. PATIENT IS STABLE AND VSS. WILL CONTINUE TO MONITOR. SR UP X 2 BED IN LOW POSITION AND CALL LIGHT IN REACH.
--- NOTE | 2020-02-05 13:11 | NUR ---
Nutrition follow-up: Chart, labs reviewed TPN @ 60 ml/hr Labs: K, PO4 low TPN electolytes adjusted and new TPN ordered @ 60 ml/hr Also ordered 20% 250 ml intralipids q [address] Pittman - no return of bowel function today RDN following.
--- NOTE | 2020-02-05 13:45 | NUR ---
DR REBOLLEDO IN ROOM. NEW ORDERS RECIEVED TO PULL JESSICA DRAINS. DENTON JESSICA DRAINS REMOVED PER PROTOCOL WITH PRESSURE DRSG APPLIED. PATIENT TOLERATED WELL. WILL CONTINUE WITH PLAN OF CARE. SR UP X 2 BED IN LOW POSITION AND CALL LIGHT IN REACH.
--- NOTE | 2020-02-05 16:19 | NUR ---
PATIENT RESTING QUIETLY WITH AT BS. PATIENT IS STABLE AND VSS. WILL CONTINUE TO MONITOR. SR UP X 2 BED IN LOW POSITION AND CALL LIGHT IN REACH.
--- NOTE | 2020-02-05 18:20 | NUR ---
PATIENT IS AWAKE AND ALERT. ORIENTED TO NAME ONLY. PERFORMED ORAL CARE, WIPED DOWN WITH BATH CLOTHS, APPLIED LOTION ALL OVER INCLUDING FACE. BRUSHED PATIENT HAIR AND COMLETE LINEN CHANGE COMPLETED. WHEN ASKED PATIENT IF ANYTHING ELSE NEEDED PATIENT REPLIED"IM JUST PERFECT." PATIENT SPOUSE ASKED IF THIS NURSE COULD RETURN TOMORROW FOR PATIENT CARE. REPOSITIONED PATIENT FOR COMFORT. RANGE OF MOTION TO ALL EXTREMETIES. WILL CONTINUE TO MONITOR. SR UP X 2 BED IN LOW POSITION AND CALL LIGHT IN REACH.
[2020-02-05 18:30] LABS: ANION GAP 8.4 mmol/L (8-16); CALCIUM 7.7 mg/dL (8.5-10.1); CARBON DIOXIDE 33.2 mmol/L (21.0-32.0); CREATININE - SERUM 0.8 mg/dL (0.6-1.3); POTASSIUM - SERUM 3.6 mmol/L (3.5-5.1)
--- NOTE | 2020-02-05 19:45 | NUR ---
RECIEVED SHIFT REPORT FROM DAY[facility]. PT ALERT AND ORIENTED TO SELF ONLY. PT STATES NO NEEDS AT THIS TIME. IV SITE RT INTERNAL JUGULAR DRESSING CLEAN DRY AND INTACT. FLUIDS GOING. RT AC SL DRESSING CLEAN DRY AND INTACT. NO SIGNS OF INFECTION OR INFULTRATION. LUNG SOUNDS DIMINISHED. BOWEL SOUNDS HYPO ACTIVEX4. SOFT WRIST RESTRAINTS IN PLACE. WOUND VAC TO ABD DRESSING CLEAN DRY AND INTACT. JUDD IN PLACE CLEAN DRY AND ITNACT. SCDS ON. BED ALARM ON. BED RAILS UPX2. NG TUBE LT NARE. WILL CONTINUE PLAN OF CARE. CALL LIGHT IN REACH. BED LOWERED AND LOCKED.
--- NOTE | 2020-02-05 20:40 | MORECARE ---
CASE MANAGEMENT DISCHARGE SUMMARY PATIENT: MIKE CASANOVA UNIT: [id number] ADM DATE: 02/01/20 AGE: 84 : 37 SEX: F ROOM/BED: D.2306 AUTHOR: SHAR EUBANKS PHYSICIAN: REFERRING PHYSICIAN: DARVIN MCLEOD MD DATE OF SERVICE: 02/05/20 Discharge Plan Patient Name: MIKE CASANOVA [facility] [facility] 1935 Planned Disposition: Anticipated Discharge Date: Discharge Date: Expected LOS: Initial Reviewer: [email or web address] Initial Review Date: 02/01/2020 Generated: 02/05/20 9:39 pm DCPIA - Discharge Planning Initial Assessment Updated by [email or web address]: Cassi Whalen on 02/05/20 8:38 pm * Is the patient Alert and Oriented? Yes * How many steps to enter\exit or inside your home? Patient Name: MIKE CASANOVA Page [id number] at 2040 All edits/amendments must be made on the electronic document DICTATION DATE: 02/05/202038 GLASS TECHNICIAN/INSTALLER: VINCENT 02/05/202038 RPT#: [id number] DC DATE: STATUS: ADM IN [facility] [address] [place] [address] END OF REPORT
--- NOTE | 2020-02-05 20:47 | MORECARE ---
CASE MANAGEMENT DISCHARGE SUMMARY PATIENT: MIKE CASANOVA UNIT: [id number] ADM DATE: 02/01/20 AGE: 84 : 37 SEX: F ROOM/BED: D.2306 AUTHOR: SHAR EUBANKS PHYSICIAN: REFERRING PHYSICIAN: DARVIN MCLEOD MD DATE OF SERVICE: 02/05/20 Discharge Plan Patient Name: MIKE CASANOVA Facility: [facility]:[place] : 1935 Planned Disposition: Anticipated Discharge Date: Discharge Date: Expected LOS: Initial Reviewer: [id number] Initial Review Date: 02/01/2020 Generated: 02/05/20 9:47 pm Comments DCP- Discharge Planning Updated by [email or web address]: Cassi Whalen on 02/05/20 7:[address] CM attempted to meet with patient but she is slightly confused per nursing. Family not available at this time. CM will try call them for d/c plan. CM will continue to follow and assist as needed with discharge planning / needs. DCPIA - Discharge Planning Initial Assessment Updated by [id number]: Cassi Whalen on 02/05/20 8:38 pm * Is the patient Alert and Oriented? Yes * How many steps to enter\exit or inside your home? Last DP export: 02/05/20 7:40 p Patient Name: MIKE CASANOVA Page 23706 at 2046 All edits/amendments must be made on the electronic document DICTATION DATE: 02/05/202046 LABEL REWINDER: VINCENT 02/05/202046 RPT#: [id number] DC DATE: STATUS: ADM IN [facility] [address] [place] [address] END OF REPORT
--- NOTE | 2020-02-05 22:00 | NUR ---
PT RESTING IN BED. EYES CLOSED. NO SIGNS OF DISTRESS. BREATHING EVEN AND UNLABORED. VITAL SIGNS STABLE. 2LO2 NASAL CANNULA. WILL CONTINUE PLAN OF CARE. CALL LIGHT IN REACH. BED LOWERED AND LOCKED. FSBS 104.
[2020-02-06] VITALS (20 sets, daily range): BP systolic 120–167; BP diastolic 59–91
--- NOTE | 2020-02-06 | NUR ---
PT RESTING IN BED. ALERT TO SELF ONLY. PT STATES NO NEEDS AT THIS TIME. JUDD CARE DONE. SOFT WRIST RESTRAINTS ON. BED LOWERED AND LOCKED. BED RAILS UPX2. WILL CONTINUE PLAN OF CARE. CALL LIGHT IN REACH.
--- NOTE | 2020-02-06 02:00 | NUR ---
PT RESTING IN BED. EYES CLOSED. NO SIGNS OF DISTRESS. VITALS STABLE. WILL CONTINUE PLAN OF CARE. CALL LIGHT IN REACH. BED LOWERED AND LOCKED.
--- NOTE | 2020-02-06 03:32 | NUR ---
PT RESTING IN BED. ALERT TO SELF. ORAL CARE PREFORMED. NO SIGNS OF DISTRESS. BREATHING EVEN AND UNLABORED. 2LO2 NASAL CANNULA. WILL CONITNUE PLAN OF CARE. CALL LIGHT IN REACH. BED LOWERED AND LOCKED. BED RAILS UPX2.
--- NOTE | 2020-02-06 06:00 | NUR ---
PT RESTING IN BED. EYES OPEN. ORIENTED TO SELF. PT HAD BOWEL MOVEMENT WITHOUT KNOWING SHE DID. FULL BED BATH GIVEN. PT STATES NO OTHER NEEDS AT THIS TIME. VITALS STABLE. WILL CONTINUE PLAN OF CARE. CALL LIGHT IN REACH. BED LOWERED AND LOCKED.
--- NOTE | 2020-02-06 06:30 | NUR ---
I have reviewed this patient and I concur with the Shift Assessment completed by the Licensed Practical Nurse today this shift.
[2020-02-06 07:07] LABS: ALBUMIN 1.6 g/dL (3.4-5.0); ALKALINE PHOSPHATASE 69 U/L (30-120); ALT (SGPT) 19 U/L (10-68); BILIRUBIN - TOTAL 0.66 mg/dL (0.2-1.3); CALC OSMOLALITY 286 mosm/kg (275-300); CALCIUM 7.8 mg/dL (8.5-10.1); CARBON DIOXIDE 32.4 mmol/L (21.0-32.0); CHLORIDE - SERUM 105 mmol/L (98-107); CREATININE - SERUM 0.7 mg/dL (0.6-1.3); GLUCOSE 106 mg/dL (74-106); MAGNESIUM - SERUM 1.9 mg/dL (1.8-2.4); PHOSPHOROUS 3.1 mg/dL (2.5-4.9); POTASSIUM - SERUM 3.6 mmol/L (3.5-5.1); PROTEIN - SERUM 5.1 g/dL (6.4-8.2); SODIUM 142 mmol/L (136-145); UREA NITROGEN 23 mg/dL (7-18); eGFR NON AFRICAN AMERICAN 85 mL/min (90-120)
--- NOTE | 2020-02-06 07:21 | NUR ---
LAB HERE FOR VANC TROUGH, DRAWN FROM CVL
[2020-02-06 07:35] LABS: BASOPHILS 0.2 % (0-2); EOSINOPHILS 0.7 % (0-7); HEMATOCRIT 32.2 % (36.0-48.0); HEMOGLOBIN 10.6 g/dL (12-16); IMMATURE GRANULOCYTES 8.4 % (0-5); LYMPHOCYTES 11.1 % (15-50); MCHC 32.9 g/dL (31.0-37.0); MEAN PLATELET VOLUME 9.8 fL (7.4-10.4); MONOCYTES 8.5 % (2-11); NEUTROPHILS 71.1 % (40-80); PLATELET COUNT 328 10x3/uL (130-400); RBC 3.79 10x6/uL (4.00-5.40); RDW 15.4 % (11.5-14.5); WBC 19.3 10x3/uL (4.8-10.8)
--- NOTE | 2020-02-06 09:00 | NUR ---
MORNING MEDS GIVEN PER JAN FLOWSHEET
--- NOTE | 2020-02-06 09:29 | NUR ---
Nutrition follow-up: NPO TPN @ 60 ml/hr intralipids Q 48 hours Labs reviewed Will continue current TPN at this time RDN following.
--- NOTE | 2020-02-06 09:45 | NUR ---
INCONTINENT OF DIARRHEA STOOL, SKINCARE AND LINEN CHANGE COMPLETED
--- NOTE | 2020-02-06 11:00 | NUR ---
NO ACUTE CHANGE FROM PREVIOUS ASSESSMENT, VSS, DENIES PAIN AT THIS TIME
--- NOTE | 2020-02-06 11:26 | NUR ---
WOUND VAC DRESSING CHANGE DATE: 02/06/2020 WOUND LOCATION: abdomen WOUND MEASUREMENTS: 16cm x 4cm x 3cm WOUND DESCRIPTION: pink MUSCLE, TENDON, OR BONE EXPOSED? no DRAINAGE AMOUNT/DESCRIPTION: moderate serosanguinous ODOR? no TYPE OF SPONGE USED AND AMOUNT: black x 2 (wound bed x 1 + trac pad x 1) SETTINGS: -125mmhg low continuous TEACHING: na
--- NOTE | 2020-02-06 11:45 | NUR ---
INCONTINENT OF DIARRHEA STOOL, SKINCARE AND LINEN CHANGE COMPLETED
--- NOTE | 2020-02-06 14:00 | NUR ---
YELLING FROM ROOM, INCONTINENT OF FORMED AND DIARRHEA STOOL, SKINCARE AND LINEN CHANGE COMPLETED
--- NOTE | 2020-02-06 15:30 | NUR ---
YELLING FROM ROOM, INCONTINENT OF DIARRHEA STOOL, SKINCARE AND LINEN CHANGE COMPLETED
--- NOTE | 2020-02-06 16:06 | NUR ---
SPOUSE AT BEDSIDE, STATUS UPDATED, AWAITING FILMS TO BE COMPLETED TOMORROW FOR CT ABDOMEN/PELVIS,
--- NOTE | 2020-02-06 16:50 | NUR ---
CALLED TO ROOM INCONTINENT OF SMALL DIARRHEA STOOL, SKINCARE AND LINC CHANGE COMPLETED
--- NOTE | 2020-02-06 17:08 | NUR ---
CALLED TO ROOM, INCONTINENT OF STOOL, SKINCARE AND LINEN CHANGE COMPLETED
--- NOTE | 2020-02-06 18:45 | NUR ---
REPORT CALLED TO TONNY ON [facility] FOR PENDING TRASFER TO [phone] PC TO SPOUSE, GIVEN ROOM NUMBER FOR PENDING TRANSFER TO [phone]
--- NOTE | 2020-02-06 19:30 | NUR ---
ADMITED TO ROOM FROM ICUALERT AND ORIENTIATED, ABD DRESSING AND WOUND VAC INTACT, CONFUSED AT TIMES, RIGHT IJ DRESSING INTACT, DENIES PAIN OR NEEDS AT THIS TIME, ORIENTIATED TO CALL LIGHT, SEE ASSESSMENT
--- NOTE | 2020-02-06 19:35 | NUR ---
TRANSFERRED TO 2209 VIA BED, AAO, NO SIGNS OF DISTRESS, SET UP IN ROOM, RESTING QUIETLLY WITH CALL LIGHT IN REACH, NO NEEDS AT THIS TIME
--- NOTE | 2020-02-06 21:45 | NUR ---
INCONTIENT OF SMALL AMOUT LIQUID STOOL, PADS CHANGED SKIN CARE
[2020-02-07 00:20] VITALS: BP 138/54
--- NOTE | 2020-02-07 02:10 | NUR ---
INCONTIENT OF SM AMOUT LOOSE STOOL, PADS CHANGED WITH SKIN CARE GIVEN
[2020-02-07 06:03] LABS: ALBUMIN 1.5 g/dL (3.4-5.0); ANION GAP 8.4 mmol/L (8-16); BILIRUBIN - TOTAL 0.52 mg/dL (0.2-1.3); CARBON DIOXIDE 28.3 mmol/L (21.0-32.0); CREATININE - SERUM 0.8 mg/dL (0.6-1.3); MAGNESIUM - SERUM 2.1 mg/dL (1.8-2.4); POTASSIUM - SERUM 3.7 mmol/L (3.5-5.1); PROTEIN - SERUM 4.7 g/dL (6.4-8.2)
[2020-02-07 06:13] LABS: PHOSPHOROUS 4.1 mg/dL (2.5-4.9)
[2020-02-07 06:17] VITALS: BP 128/56
[2020-02-07 06:54] LABS: HEMATOCRIT 29.2 % (36.0-48.0); HEMOGLOBIN 9.6 g/dL (12-16); MCH 28.2 pg (26.0-34.0); MCHC 32.9 g/dL (31.0-37.0); MCV 85.9 fL (80.0-100.0); PLATELET COUNT 351 10x3/uL (130-400); RDW 15.6 % (11.5-14.5); WBC 19.8 10x3/uL (4.8-10.8)
--- NOTE | 2020-02-07 08:54 | NUR ---
PATIENT CLEANED UP. SOME BM IN FRONT OF PATIENT. SM AMOUNT IN BACK. BED ALARM APPLIED. PT GIVEN ORAL CONTRAST BY DARA FROM CT. CL IN REACH. MACI IN ROOM. WCTM
[2020-02-07 08:58] VITALS: BP 132/63
[2020-02-07 09:21] LABS: ANISOCYTOSIS OCC; HYPOCHROMASIA OCC; LYMPHOCYTES 21 % (15-50); MONOCYTES 19 % (2-11); NEUTROPHILS 59 % (40-80); PLATELET ESTIMATE NORMAL
--- NOTE | 2020-02-07 11:32 | NUR ---
Nutrition follow-up: Chart and labs reviewed Electrolytes adjusted TPN @ 60 ml/hr RDN following.
[2020-02-07 12:26] VITALS: BP 142/65
--- NOTE | 2020-02-07 14:03 | NUR ---
PATIENT STATES SHE IS READY TO GET UP AND START MOVING. CL IN REACH. MACI IN ROOM. WCTM
--- NOTE | 2020-02-07 14:56 | NUR ---
DAUGHTER LILY IN ROOM. PATIENT CLEANED UP. HAD A GREEN LOOSE BM. CL IN REACH. WCTM
[2020-02-07 17:15] VITALS: BP 145/60
[2020-02-07 18:08] LABS: AEROBE ID Final report (())
--- NOTE | 2020-02-07 18:40 | NUR ---
PATIENT STATES SHE IS FINISHED EATING. RECLINED HER BACK TO HER LIKING. CL IN REACH. TM
[2020-02-07 20:00] VITALS: BP 124/49
[2020-02-08] VITALS: BP 131/62
[2020-02-08 04:00] VITALS: BP 140/53
[2020-02-08 06:36] LABS: ANION GAP 9.7 mmol/L (8-16); CALCIUM 8.1 mg/dL (8.5-10.1); CARBON DIOXIDE 26.3 mmol/L (21.0-32.0); CREATININE - SERUM 0.8 mg/dL (0.6-1.3); PHOSPHOROUS 4.3 mg/dL (2.5-4.9)
--- NOTE | 2020-02-08 07:36 | NUR ---
ALERT AND ORIENTED TO SELF. LUNGS CLEAR BILATERALLY. HEART SOUNDS S1 AND S2 HEARD IN ALL [place]. BOWEL SOUNDS ACTIVE X 4. WOUND VAC IN PLACE TO MIDLINE ABD INCISION. IV TO RIGHT IJ PATENT WITHOUT REDNESS. IV TO RIGHT AC PATENT WITHOUT REDNESS. BED LOW. FALL PRECAUTIONS IN PLACE. CALL LLANOS AND PERSONAL ITEMS IN REACH. WILL CONTINUE TO MONITOR.
[2020-02-08 08:18] LABS: BASOPHILS 0.1 % (0-2); HEMATOCRIT 28.9 % (36.0-48.0); HEMOGLOBIN 9.4 g/dL (12-16); IMMATURE GRANULOCYTES 9.6 % (0-5); LYMPHOCYTES 9.3 % (15-50); MCH 28.2 pg (26.0-34.0); MCHC 32.5 g/dL (31.0-37.0); MCV 86.8 fL (80.0-100.0); MEAN PLATELET VOLUME 10.3 fL (7.4-10.4); MONOCYTES 6.9 % (2-11); NEUTROPHILS 73.1 % (40-80); PLATELET COUNT 393 10x3/uL (130-400); RBC 3.33 10x6/uL (4.00-5.40); RDW 15.7 % (11.5-14.5); WBC 20.4 10x3/uL (4.8-10.8)
[2020-02-08 09:39] VITALS: BP 153/67
--- NOTE | 2020-02-08 11:56 | NUR ---
WOUND VAC DRESSING CHANGE DATE: 02/08/2020 WOUND LOCATION: midline abd WOUND MEASUREMENTS: 16cm x 4cm x 3cm WOUND DESCRIPTION: pink MUSCLE, TENDON, OR BONE EXPOSED? no DRAINAGE AMOUNT/DESCRIPTION: moderate serous ODOR? no TYPE OF SPONGE USED AND AMOUNT: black x 2 SETTINGS: -125mmhg low continuous TEACHING: n/a pt slept through dressing change
--- NOTE | 2020-02-08 12:15 | NUR ---
Nutrition follow-up: Diet advanced to clear liquids TPN continues @ 60 ml/hr with intralipids q 48 hours Labs reviewed Will continue current TPN RDN following.
[2020-02-08 12:17] VITALS: BP 141/60
--- NOTE | 2020-02-08 14:41 | NUR ---
RESTING IN BED. AT BEDSIDE. WILL CONTINUE TO MONITOR.
[2020-02-08 16:37] VITALS: BP 144/57
[2020-02-08 20:00] VITALS: BP 147/70
[2020-02-09] VITALS: BP 113/59
--- NOTE | 2020-02-09 00:21 | NUR ---
CLEANED PATIENT FROM INCONTINENT STOOL. LIQUID. APPLIED BOUDREAUXS, TOLERATED WELL. RESPOSITIONED TO RIGHT SIDE.
[2020-02-09 04:00] VITALS: BP 127/51
[2020-02-09 06:51] LABS: ANION GAP 10.9 mmol/L (8-16); CALCIUM 8.2 mg/dL (8.5-10.1); CARBON DIOXIDE 25.3 mmol/L (21.0-32.0); CREATININE - SERUM 0.8 mg/dL (0.6-1.3); PHOSPHOROUS 3.4 mg/dL (2.5-4.9); POTASSIUM - SERUM 4.2 mmol/L (3.5-5.1)
[2020-02-09 08:00] VITALS: BP 123/59
--- NOTE | 2020-02-09 08:25 | NUR ---
RESTING IN BED, EYES CLOSED, NO DISTRESS NOTED, IV INFUSING PER RIJ, JUDD TO GRAVITY, WOUND VAC TO ABD, CONTACT ISOLATION, CONT TO MONITOR
[2020-02-09 12:01] VITALS: BP 137/56
[2020-02-09 16:00] VITALS: BP 143/61
[2020-02-09 17:08] LABS: AEROBE ID Final report (())
--- NOTE | 2020-02-09 18:00 | NUR ---
PT HAVING LOOSE ORANGE STOOLS TODAY, MEDICATED X1, CONT TO MONITOR
[2020-02-09 19:38] VITALS: BP 147/67
--- NOTE | 2020-02-09 22:00 | NUR ---
RESPOSITIONED TO THE LEFT SIDE
--- NOTE | 2020-02-10 01:45 | NUR ---
TUBING CHANGED PER POLICY PROTOCOL.
[2020-02-10 04:33] VITALS: BP 124/46
[2020-02-10 05:48] LABS: BASOPHILS 0.2 % (0-2); EOSINOPHILS 1.7 % (0-7); HEMOGLOBIN 8.3 g/dL (12-16); IMMATURE GRANULOCYTES 4.3 % (0-5); LYMPHOCYTES 10.9 % (15-50); MCH 28.2 pg (26.0-34.0); MCHC 31.9 g/dL (31.0-37.0); MCV 88.4 fL (80.0-100.0); MEAN PLATELET VOLUME 10.1 fL (7.4-10.4); MONOCYTES 8.1 % (2-11); NEUTROPHILS 74.8 % (40-80); PLATELET COUNT 449 10x3/uL (130-400); RBC 2.94 10x6/uL (4.00-5.40); RDW 15.6 % (11.5-14.5)
[2020-02-10 05:55] LABS: WBC 12.5 10x3/uL (4.8-10.8)
[2020-02-10 06:01] LABS: ALBUMIN 1.4 g/dL (3.4-5.0); ALKALINE PHOSPHATASE 44 U/L (30-120); ALT (SGPT) 10 U/L (10-68); BILIRUBIN - TOTAL 0.47 mg/dL (0.2-1.3); CALC OSMOLALITY 277 mosm/kg (275-300); CALCIUM 8.1 mg/dL (8.5-10.1); CARBON DIOXIDE 23.8 mmol/L (21.0-32.0); CHLORIDE - SERUM 107 mmol/L (98-107); CREATININE - SERUM 0.7 mg/dL (0.6-1.3); GLUCOSE 106 mg/dL (74-106); MAGNESIUM - SERUM 1.8 mg/dL (1.8-2.4); PHOSPHOROUS 2.9 mg/dL (2.5-4.9); PROTEIN - SERUM 4.7 g/dL (6.4-8.2); SODIUM 138 mmol/L (136-145); eGFR NON AFRICAN AMERICAN 85 mL/min (90-120)
[2020-02-10 06:03] LABS: UREA NITROGEN 18 mg/dL (7-18)
--- NOTE | 2020-02-10 07:54 | NUR ---
RESTING IN BED, EYES CLOSED, NO DISTRESS NOTED, IV INFUSING WITH NS, TPN AND PROTONIX, JUDD TO GRAVITY, WOUND VAC TO ABD, O2 AT 2L PER NC, CONT TO MONITOR SUGARS AND PAIN
[2020-02-10 09:02] VITALS: BP 132/66
[2020-02-10 11:29] VITALS: BP 138/66
--- NOTE | 2020-02-10 11:36 | NUR ---
UP IN CHAIR FOR APPROX 1 HR, C/O BEING TIRED, CONT TO MONITOR SUGARS
--- NOTE | 2020-02-10 12:39 | NUR ---
Nutrition follow-up: Diet:full liquids TPN at 60 ml/hr; intrappids q 48 hours Labs reviewed Will continue current TPN regimen RDN following.
[2020-02-10 16:05] VITALS: BP 143/54
--- NOTE | 2020-02-10 17:46 | NUR ---
REHAB NOTE - Acute Rehab Unit will continue to monitor for patient placement with the Acute Rehab Unit.
--- NOTE | 2020-02-10 18:44 | MORECARE ---
CASE MANAGEMENT DISCHARGE SUMMARY PATIENT: MIKE CASANOVA UNIT: [id number] ADM DATE: 02/01/20 AGE: 84 : 37 SEX: F ROOM/BED: D.2210 AUTHOR: SHAR EUBANKS PHYSICIAN: REFERRING PHYSICIAN: DARVIN MCLEOD MD DATE OF SERVICE: 02/10/20 Discharge Plan Patient Name: MIKE CASANOVA Facility: [facility]:[place] : 1935 Planned Disposition: Inpatient Rehab Anticipated Discharge Date: Discharge Date: Expected LOS: Initial Reviewer: [email or web address] Initial Review Date: 02/01/2020 Generated: 02/10/20 7:44 pm DCP- Discharge Planning Updated by [email or web address]: Cassi Whalen on 02/05/20 7:[address] CM attempted to meet with patient but she is slightly confused per nursing. Family not available at this time. CM will try call them for d/c plan. CM will continue to follow and assist as needed with discharge planning / needs. DCPIA - Discharge Planning Initial Assessment Updated by [email or web address]: Cassi Whalen on 02/10/20 6:44 pm * Is the patient Alert and Oriented? Yes * How many steps to enter\exit or inside your home? * PCP SHANI * Pharmacy [facility] * Preadmission Environment Home with Family * ADLs Independent * Equipment Walker * List name and contact numbers for known caregivers / representatives who currently or will assist patient after discharge: KRZYSZTOF GUTIERREZ [phone] MACI CASANOVA - [phone] * Verbal permission to speak to the caregivers and representatives has been obtained from the patient. Yes * Community resources currently utilized None * Additional services required to return to the preadmission environment? No * Can the patient safely return to the preadmission environment? Yes * Has this patient been hospitalized within the prior 30 days at any hospital? No Last DP export: 02/05/20 7:47 p Patient Name: MIKE CASANOVA Page 54539 at 5374 All edits/amendments must be made on the electronic document DICTATION DATE: 03/22/20 1844 GROCERY STORE BAGGER: VINCENT 02/10/201843 RPT#: [id number] DC DATE: STATUS: ADM IN [facility] [address] [place] [address] END OF REPORT
--- NOTE | 2020-02-10 18:51 | MORECARE ---
CASE MANAGEMENT DISCHARGE SUMMARY PATIENT: MIKE CASANOVA UNIT: [id number] ADM DATE: 02/01/20 AGE: 84 : 37 SEX: F ROOM/BED: D.2210 AUTHOR: RAIMUNDO,DOC PHYSICIAN: REFERRING PHYSICIAN: DARVIN MCLEOD MD DATE OF SERVICE: 02/10/20 Discharge Plan Patient Name: MIKE CASANOVA Facility: [facility]:[place] : 1935 Planned Disposition: Inpatient Rehab Anticipated Discharge Date: Discharge Date: Expected LOS: Initial Reviewer: [email or web address] Initial Review Date: 02/01/2020 Generated: 02/10/20 7:50 pm Comments DCP- Discharge Planning Updated by [email or web address]: Cassi Whalen on 02/10/20 5:[address] Patient Name: MIKE CASANOVA Admission Status: Urgent Accout number: [id number] Admission Date: 02-01-2020 : 1935 Admission Diagnosis: Attending: DARVIN MCLEOD Current LOS: 9 Anticipated DC Date: Planned Disposition: Inpatient Rehab Primary Insurance: MEDICARE A & B Discharge Planning Comments: CM spoke with patient to complete initial dc planning assessment. CM educated patient on the CM role and verbal consent given by patient to complete assessment. Patient lives at home with her where she is independent with her care. At discharge patient plans to go to inpatient rehab @ [facility]. FRANCA completed CM discussed availability of home health, rehab services, and medical equipment. Patient states that her family will drive her home upon discharge. Patient may require HH upon discharge for wound care. Patient denied known discharge needs at this time. CM will continue to follow and will assist as needed with dc plans/needs. Stopperer Assembler: Cassi Whalen DCP- Discharge Planning Updated by [id number]: Cassi Whalen on 02/05/20 7:[address] CM attempted to meet with patient but she is slightly confused per nursing. Family not available at this time. CM will try call them for d/c plan. CM will continue to follow and assist as needed with discharge planning / needs. DCPIA - Discharge Planning Initial Assessment Updated by [email or web address]: Cassi Whalen on 02/10/20 6:44 pm * Is the patient Alert and Oriented? Yes * How many steps to enter\exit or inside your home? * PCP SHANI * Pharmacy [facility] * Preadmission Environment Home with Family * ADLs Independent * Equipment Walker * List name and contact numbers for known caregivers / representatives who currently or will assist patient after discharge: KRZYSZTOF GUTIERREZ [phone] MACI CASANOVA - [phone] * Verbal permission to speak to the caregivers and representatives has been obtained from the patient. Yes * Community resources currently utilized None * Additional services required to return to the preadmission environment? No * Can the patient safely return to the preadmission environment? Yes * Has this patient been hospitalized within the prior 30 days at any hospital? No Last DP export: 02/10/20 5:44 p Patient Name: MIKE CASANOVA Page [id number] at 1851 All edits/amendments must be made on the electronic document DICTATION DATE: 02/10/201849 MERCHANDISING ASSISTANT: VINCENT 02/10/201849 RPT#: [id number] DC DATE: STATUS: ADM IN [facility] [address] [place] [address] END OF REPORT
--- NOTE | 2020-02-10 19:15 | NUR ---
PATIENT AWAKE AND WATCHING TV. DENIES PAIN. PATIENT HAS RIGHT EJ, NS/INT ABX/PROTONIX/AND TPN INFUSING. WEARING 2L VIA HFC. WEARING SCD'S BILATERALLY. CURRENTLY HAS A JUDD CATHETER. PATIENT IS ALERT TO SELF, PLACE, AND SITUATION. DISORIENTED TO TIME. REORIENTED PATIENT. REPOSITIONED TO SIDE. DENIES FURTHER NEEDS AT THIS TIME. CALL LIGHT IN REACH. CPOC. BENJA ALARM IN PLACE.
[2020-02-10 20:00] VITALS: BP 135/43
--- NOTE | 2020-02-10 22:55 | NUR ---
INCONTINENT BOWEL MOVEMENT. BED BATH AND CHANGE PROVIDED. CPOC.
[2020-02-11] VITALS: BP 150/43
--- NOTE | 2020-02-11 01:48 | NUR ---
I have reviewed this patient and I concur with the Shift Assessment completed by the Licensed Practical Nurse today this shift.
--- NOTE | 2020-02-11 03:04 | NUR ---
LARGE INCONTINENT BOWEL MOVEMENT. BED CHANGE AND BED BATH PROVIDED.
[2020-02-11 04:00] VITALS: BP 147/52
[2020-02-11 04:58] LABS: ANION GAP 11.2 mmol/L (8-16); CALCIUM 7.7 mg/dL (8.5-10.1); CARBON DIOXIDE 23.7 mmol/L (21.0-32.0); CREATININE - SERUM 0.8 mg/dL (0.6-1.3); MAGNESIUM - SERUM 1.6 mg/dL (1.8-2.4); POTASSIUM - SERUM 3.9 mmol/L (3.5-5.1); VANCOMYCIN - TROUGH 17.5 ug/mL (10.0-20.0)
--- NOTE | 2020-02-11 09:00 | NUR ---
Nutrition follow-up: TPN rate decreased to 40 ml/hr per Dr. [facility]man Pharm[facility] notified. Labs reviewed Diet advanced to regular as tolerated PO intake poor at this time; however, as TPN rated decreases pts appetite may increase 2/2 dextrose infusion may cause anorexia. RDN following.
[2020-02-11 09:05] VITALS: BP 138/45
[2020-02-11 11:51] VITALS: BP 131/48
--- NOTE | 2020-02-11 13:57 | NUR ---
WOUND VAC DRESSING CHANGE DATE: 02/11/2020 WOUND LOCATION: abdomen WOUND MEASUREMENTS: 16cm x 3.5cm x 2cm (improved) WOUND DESCRIPTION: pink MUSCLE, TENDON, OR BONE EXPOSED? no DRAINAGE AMOUNT/DESCRIPTION: small serosanguinous ODOR? no TYPE OF SPONGE USED AND AMOUNT: black SETTINGS:-125mmhg low continuous Pt tolerated well.
[2020-02-11 15:26] VITALS: BP 132/57
[2020-02-11 16:08] LABS: AEROBE ID Final report (())
[2020-02-11 20:29] VITALS: BP 123/42
--- NOTE | 2020-02-11 22:55 | NUR ---
REC'D CHGE OF SHIFT WALKING ROUNDS SUPINE POSITION 02 HIGH XOCHILT RESP DEEP AND EVEN.ADB DRSG DRY AND INTACT WITH WOUND VAC IN PLACE JUDD PATENT DRAINING LITE STRAW YELLOW COLORED URINE. WILL CONTINUE TO MONITOR AND FOLLOW CURRENT PLAN OF CARE.
--- NOTE | 2020-02-11 23:45 | NUR ---
I have reviewed this patient and I concur with the Shift Assessment completed by the Licensed Practical Nurse today this shift.
[2020-02-12 00:25] VITALS: BP 127/52
[2020-02-12 05:48] VITALS: BP 120/82
--- NOTE | 2020-02-12 07:01 | NUR ---
PT IS RESTING IN BED WITH EYES OPEN. RESPIRATIONS ARE EVEN AND UNLABORED. PT IS CONFUSED TO SITUATION BUT IS EASILY REORIENTED AT THIS TIME. JUDD CATHETER CLAMPED TO D/C CATHETER UPON COMPLETION OF BLADDER TRANINIG. MIDLINE INCISION TO ABDOMEN NOTED WITH WOUND VAC IN PLACE DRESSING IS CDI. SCDS ARE ON BLE. RIGHT IJ INFUSING PER ORDER WITHOUT DIFFICULTY. FALL PRECAUTIONS ARE IN PLACE. PT DENIES PRESENCE OF PAIN/N/V/DYSPNEA AT THIS TIME. BED IS IN THE LOWEST POSITION. CALL LIGHT AND BEDSIDE TABLE ARE WITHIN REACH. SIDE RAILS X 2. PT DENIES FURTHER NEEDS. WILL CONT TO MONITOR.
[2020-02-12 07:48] LABS: CALC OSMOLALITY 282 mosm/kg (275-300); CALCIUM 8.1 mg/dL (8.5-10.1); CARBON DIOXIDE 26.8 mmol/L (21.0-32.0); CHLORIDE - SERUM 108 mmol/L (98-107); CREATININE - SERUM 0.6 mg/dL (0.6-1.3); GLUCOSE 113 mg/dL (74-106); MAGNESIUM - SERUM 1.8 mg/dL (1.8-2.4); PHOSPHOROUS 3.3 mg/dL (2.5-4.9); POTASSIUM - SERUM 4.2 mmol/L (3.5-5.1); SODIUM 141 mmol/L (136-145); UREA NITROGEN 14 mg/dL (7-18); eGFR NON AFRICAN AMERICAN > 90 mL/min (90-120)
[2020-02-12 08:46] VITALS: BP 131/72
--- NOTE | 2020-02-12 08:46 | NUR ---
PT STATES URGE TO VOID. JUDD CATHETER UNCLAMPED AND URINE FLOWS WITHOUT DIFFICULTY INTO COLLECTION BAG. PT STATES FEELING OF RELIEF. JUDD CLAMPED AGAIN FOR BLADDER TRAINING.
--- NOTE | 2020-02-12 10:29 | MORECARE ---
CASE MANAGEMENT DISCHARGE SUMMARY PATIENT: MIKE CASANOVA UNIT: [id number] ADM DATE: 02/01/20 AGE: 84 : 37 SEX: F ROOM/BED: D.2210 AUTHOR: RAIMUNDO,DOC PHYSICIAN: REFERRING PHYSICIAN: DARVIN MCLEOD MD DATE OF SERVICE: 02/12/20 Discharge Plan Patient Name: MIKE CASANOVA Facility: [facility]:[place] : 1935 Planned Disposition: Inpatient Rehab Anticipated Discharge Date: Discharge Date: Expected LOS: Initial Reviewer: [email or web address] Initial Review Date: 02/01/2020 Generated: 02/12/20 11:29 am Comments DCP- Discharge Planning Updated by [email or web address]: Alma Souza on 02/12/20 9:[address] PATIENT TO BE DISCHARGED TO INPATIENT REHAB TODAY, IMM SERVED AND EXPLAINED TO SPOUSE AND FRANCA ALSO SIGNED FOR [facility] IN[facility]IENT REHAB. [facility]. CM TO FOLLOW AND ASSIST NEEDED DCP- Discharge Planning Updated by [email or web address]: Cassi Whalen on 02/10/20 5:[address] Patient Name: MIKE CASANOVA Admission Status: Urgent Accout number: [id number] Admission Date: 02-01-2020 : 1935 Admission Diagnosis: Attending: DARVIN MCLEOD Current LOS: 9 Anticipated DC Date: Planned Disposition: Inpatient Rehab Primary Insurance: MEDICARE A & B Discharge Planning Comments: CM spoke with patient to complete initial dc planning assessment. CM educated patient on the CM role and verbal consent given by patient to complete assessment. Patient lives at home with her where she is independent with her care. At discharge patient plans to go to inpatient rehab @ [facility]. FRANCA completed CM discussed availability of home health, rehab services, and medical equipment. Patient states that her family will drive her home upon discharge. Patient may require HH upon discharge for wound care. Patient denied known discharge needs at this time. CM will continue to follow and will assist as needed with dc plans/needs. Motor Equipment Sergeant: Cassi Whalen DCP- Discharge Planning Updated by [email or web address]: Cassi Whalen on 02/05/20 7:[address] CM attempted to meet with patient but she is slightly confused per nursing. Family not available at this time. CM will try call them for d/c plan. CM will continue to follow and assist as needed with discharge planning / needs. DCPIA - Discharge Planning Initial Assessment Updated by [email or web address]: Cassi Whalen on 02/10/20 6:44 pm * Is the patient Alert and Oriented? Yes * How many steps to enter\exit or inside your home? * PCP SHANI * Pharmacy [facility] * Preadmission Environment Home with Family * ADLs Independent * Equipment Walker * List name and contact numbers for known caregivers / representatives who currently or will assist patient after discharge: KRZYSZTOF GUTIERREZ [phone] MACI CASANOVA - [phone] * Verbal permission to speak to the caregivers and representatives has been obtained from the patient. Yes * Community resources currently utilized None * Additional services required to return to the preadmission environment? No * Can the patient safely return to the preadmission environment? Yes * Has this patient been hospitalized within the prior 30 days at any hospital? No Coverage Notice Reviewer: [id number] - Cassi Whalen Notice Issued Date-Time: 02/10/2020 16:45 Notice Type: Patient Choice Letter Notice Delivered To: Patient Relationship to Patient: Self Eligibility Supervisor Name: Delivery Method: PHONE - Phone Soraya Days: Prior Verbal Notification: Yes Recipient Understood Notice: Yes Recipient Signature: Med Rec Note Co-signed by Attending: Coverage Notice Comment: PATIENT GAVE VERBAL CONSENT D/T ISOLATION Reviewer: [id number] - Alma Souza Notice Issued Date-Time: 02/12/2020 10:20 Notice Type: IM Discharge Notice Notice Delivered To: Family Member Relationship to Patient: Spouse Eligibility Supervisor Name: HUDSON BENTLEY Delivery Method: HAND - Hand Delivered Soraya Days: Prior Verbal Notification: Recipient Understood Notice: Yes Recipient Signature: Yes Med Rec Note Co-signed by Attending: Coverage Notice Comment: IMM SERVED AND EXPLAINED FRANCA FOR INPATIENT REHAB AT [facility] Last DP export: 02/10/20 5:51 p Patient Name: MIKE CASANOVA Page [id number] at 1029 All edits/amendments must be made on the electronic document DICTATION DATE: 02/12/20 1029 AGRICULTURAL AND FORESTRY SUPERVISOR: VINCENT 02/12/20 1029 RPT#: [id number] DC DATE: STATUS: ADM IN [facility] [address] [place] [address] END OF REPORT
--- NOTE | 2020-02-12 10:30 | NUR ---
JUDD CATHETER DC PER ORDER. 10ML SALINE REMOVED FROM STABILIZATION BULB PRIOR TO REMOVAL OF CATHETER TUBING. 250ML DARK YELLOW URINE EMPTIED FROM BAG. PT TOLERATED WELL.
[2020-02-12] MEDS ORDERED: LOPERAMIDE HCL2 MG PO (10:41)
[2020-02-12] MEDS ORDERED: FLORAJEN3 CAPS460 MG PO (10:41)
--- NOTE | 2020-02-12 15:22 | NUR ---
ALL DISCHARGE INSTRUCTIONS COVERED WITH PT. PT IS AAO X 4. ALL DISCHARGE PAPERS SIGNED. PT STATES THAT SHE HAS ALL BELONGINGS EXCEPT FOR "A PAIR OF GLASSES THAT I HAVENT SEEN IN A FEW DAYS". PT TRANSPORTED FROM ROOM VIA WHEELCHAIR WITH WOUND VAC DRESSING INTACT AND CVL INFUSING PER ORDER. DVL DRESSING IS CDI WITH BIOPATCH IN PLACE. PT DENIES FURTHER QUESTIONS/NEEDS/CONCERNS AT THIS TIME. WILL NOTIFY PT FAMILY OF PT TRANSFER. PT THANKS THIS NURSE FOR CARE GIVEN DURING THIS SHIFT AND DENIES FURTHER NEEDS.
--- NOTE | 2020-02-12 15:51 | MORECARE ---
CASE MANAGEMENT DISCHARGE SUMMARY PATIENT: MIKE CASANOVA UNIT: [id number] ADM DATE: 02/01/20 AGE: 84 : 37 SEX: F ROOM/BED: D.2210 AUTHOR: RAIMUNDO,DOC PHYSICIAN: REFERRING PHYSICIAN: DARVIN MCLEOD MD DATE OF SERVICE: 02/12/20 Discharge Plan Patient Name: MIKE CASANOVA Facility: [facility]:[place] : 1935 Planned Disposition: Inpatient Rehab Anticipated Discharge Date: Discharge Date: 02/12/2020 Expected LOS: 0 Initial Reviewer: [email or web address] Initial Review Date: 02/01/2020 Generated: 02/12/20 4:50 pm Comments DCP- Discharge Planning Updated by [email or web address]: Alma Souza on 02/12/20 9:[address] PATIENT TO BE DISCHARGED TO INPATIENT REHAB TODAY, IMM SERVED AND EXPLAINED TO SPOUSE AND FRANCA ALSO SIGNED FOR [facility]PAT[facility]AB. [facility]. CM TO FOLLOW AND ASSIST NEEDED DCP- Discharge Planning Updated by [id number]: Cassi Whalen on 02/10/20 5:[address] Patient Name: MIKE CASANOVA Admission Status: Urgent Accout number: [id number] Admission Date: 02-01-2020 : 1935 Admission Diagnosis: Attending: DARVIN MCLEOD Current LOS: 9 Anticipated DC Date: Planned Disposition: Inpatient Rehab Primary Insurance: MEDICARE A & B Discharge Planning Comments: CM spoke with patient to complete initial dc planning assessment. CM educated patient on the CM role and verbal consent given by patient to complete assessment. Patient lives at home with her where she is independent with her care. At discharge patient plans to go to inpatient rehab @ [facility]. FRANCA completed CM discussed availability of home health, rehab services, and medical equipment. Patient states that her family will drive her home upon discharge. Patient may require HH upon discharge for wound care. Patient denied known discharge needs at this time. CM will continue to follow and will assist as needed with dc plans/needs. Sewing Demonstrator: Cassi Whalen DCP- Discharge Planning Updated by [email or web address]: Cassi Whalen on 02/05/20 7:[address] CM attempted to meet with patient but she is slightly confused per nursing. Family not available at this time. CM will try call them for d/c plan. CM will continue to follow and assist as needed with discharge planning / needs. DCPIA - Discharge Planning Initial Assessment Updated by [id number]: Cassi Whalen on 02/10/20 6:44 pm * Is the patient Alert and Oriented? Yes * How many steps to enter\exit or inside your home? * PCP SHANI * Pharmacy [facility] * Preadmission Environment Home with Family * ADLs Independent * Equipment Walker * List name and contact numbers for known caregivers / representatives who currently or will assist patient after discharge: KRZYSZTOF GUTIERREZ [phone] MACI CASANOVA - [phone] * Verbal permission to speak to the caregivers and representatives has been obtained from the patient. Yes * Community resources currently utilized None * Additional services required to return to the preadmission environment? No * Can the patient safely return to the preadmission environment? Yes * Has this patient been hospitalized within the prior 30 days at any hospital? No Coverage Notice Reviewer: [id number] - Cassi Marlee Notice Issued Date-Time: 02/10/2020 16:45 Notice Type: Patient Choice Letter Notice Delivered To: Patient Relationship to Patient: Self Toy Mechanic Name: Delivery Method: PHONE - Phone Soraya Days: Prior Verbal Notification: Yes Recipient Understood Notice: Yes Recipient Signature: Med Rec Note Co-signed by Attending: Coverage Notice Comment: PATIENT GAVE VERBAL CONSENT D/T ISOLATION Reviewer: [id number] - Alma Souza Notice Issued Date-Time: 02/12/2020 10:20 Notice Type: IM Discharge Notice Notice Delivered To: Family Member Relationship to Patient: Spouse Toy Mechanic Name: HUDSON BENTLEY Delivery Method: HAND - Hand Delivered Soraya Days: Prior Verbal Notification: Recipient Understood Notice: Yes Recipient Signature: Yes Med Rec Note Co-signed by Attending: Coverage Notice Comment: IMM SERVED AND EXPLAINED FRANCA FOR INPATIENT REHAB AT [facility] Last DP export: 02/12/20 9:29 a Patient Name: MIKE CASANOVA Page [phone] at 1551 All edits/amendments must be made on the electronic document DICTATION DATE: 02/12/20 1550 TOBACCO CLASSER: VINCENT 02/12/20 1550 RPT#: [id number] DC DATE:02/12/20 STATUS: DIS IN [facility] [address] [place] [address] END OF REPORT
== END 2020-02-12 15:26 | DRG 853 ==
LOC: D.ICU 15:56 → D.SDCHOLD 15:56 → D.MS 15:56 → D.ICU 21:26 → D.MS 02-06 19:30
PROVIDERS: Anesthesiology; Internal Medicine Nephrology; Internal Medicine Pulmonary Disease; Surgery; ADMIT Family Medicine; ATTEND Family Medicine
PROC: 0UT00ZZ Resection of Right Ovary, Open Approach (ICD-10-PCS; 2020-02-02)
PROC: 05HM33Z Insertion of Infusion Device into Right Internal Jugular Vein, Percutaneous Approach (ICD-10-PCS; 2020-02-02)
PROC: 0DTL0ZZ Resection of Transverse Colon, Open Approach (ICD-10-PCS; principal; 2020-02-02 11:30)
PROC: 5A09457 Assistance with Respiratory Ventilation, 24-96 Consecutive Hours, Continuous Positive Airway Pressure (ICD-10-PCS; 2020-02-03)
PROC: 5A09357 Assistance with Respiratory Ventilation, Less than 24 Consecutive Hours, Continuous Positive Airway Pressure (ICD-10-PCS; 2020-02-09)
DX: A41.9 Sepsis, unspecified organism (principal); J95.821 Acute postprocedural respiratory failure; G93.41 Metabolic encephalopathy; N17.9 Acute kidney failure, unspecified; K57.20 Diverticulitis of large intestine with perforation and abscess without bleeding; J98.11 Atelectasis; E46 Unspecified protein-calorie malnutrition; K66.8 Other specified disorders of peritoneum; D64.9 Anemia, unspecified; J43.9 Emphysema, unspecified; N83.201 Unspecified ovarian cyst, right side; Z68.36 Body mass index [BMI] 36.0-36.9, adult; E87.6 Hypokalemia; I10 Essential (primary) hypertension; E11.9 Type 2 diabetes mellitus without complications; Z87.891 Personal history of nicotine dependence

== ENCOUNTER 2020-02-12 15:13 | Inpatient (IN) | payer MEDICARE, OTHER ==
[~2020-02-12] VITALS: Ht 157.5 cm; Wt 68.0 kg
--- NOTE | ~2020-02-12 | RHP ---
PATIENT: MIKE CASANOVA MEDICAL RECORD: [id number] ACCOUNT: [id number] LOCATION:[id number] : [birth year] ADMISSION DATE: 02/12/20 REHABILITATION HISTORY AND PHYSICAL EXAMINATION POST ADMISSION PHYSICIAN EXAMINATION ADMITTING DIAGNOSIS: Metabolic acute encephalopathy. HISTORY OF PRESENT ILLNESS: The patient is an 84-year-old female patient who is a direct admit from PCP's office. She presented in the office not feeling well. She had a dry mouth, not had a bowel movement for over a week. She has some abdominal discomfort. She denied fever, was having intermittent chills. She denied cough. She was noted to have leukocytosis with a white count of 13,000. She was admitted for IV fluids and IV antibiotics. General surgery and nephrology were consulted. CT of her abdomen and pelvis showed a moderate amount of free air within the diaphragm concerning for rupture of a hollow viscus. The patient had an enteritis versus ileus and small-bowel obstruction, wall thickening of her sigmoid colon. She had some under distention and colitis. She had moderate to severe distention of her gallbladder concerning for hydrops. The patient wean in for surgery. She had some abnormal ABGs status post procedure and metabolic acidosis. She had pulmonary consultation done. The patient had postop fever with a T-max of 100, confusion, sinus tachycardia. She had acute blood loss anemia and received blood for this. She also had been on TPN and IV albumin. Previously, she was living along with her spouse and was independent with ADLs and mobility. Currently, she had prolonged immobility, generalized weakness, especially in her lower extremities, affecting her tolerance for PT. She is very fatigued, has limited flexion and extension, proximal muscle strength is decreased. She is mod to max assist for ADLs and mod to max assist for sit to stand and bed to chair. She will need acute rehab to get back to her prior level of functioning and return home. COMORBIDITIES: Include acute encephalopathy, respiratory failure, acute kidney injury, anemia, anxiety, debility, fatigue, low albumin, metabolic acidosis. She is status post open subtotal colectomy, status post a right oophorectomy, status post central venous line PEG placement. PAST MEDICAL HISTORY: Significant for cataracts, she has got a history of emphysema, asthma, chronic cough. PAST SURGICAL HISTORY: Includes neck surgery. ALLERGIES: NONSTEROIDAL ANTI-INFLAMMATORIES. CURRENT MEDICATIONS: Include Floranex daily. She is on Calmoseptine to apply daily. She is on fenofibrate 145 mg daily, simvastatin 20 mg at bedtime. She is on Beverly 10/325 one tab q.4 hours p.r.n., promethazine 25 mg t.i.d. p.r.n., Imodium 2 mg q.6 hours p.r.n. diarrhea. HABITS: No alcohol or tobacco use. FAMILY HISTORY: Noncontributory. SOCIAL HISTORY: The patient hopes to return back home and get back to her prior level of functioning. HISTORY AND PHYSICAL [id number] MIKE CASANOVA REVIEW OF SYSTEMS: GENERAL: Does complain of weakness and fatigue. HEENT: Denies cold, cough, or congestion. CARDIOVASCULAR: Denies any chest pain. PHYSICAL EXAMINATION: VITAL SIGNS: Stable, afebrile. GENERAL: An elderly female, in no acute distress upon exam. HEENT: Normocephalic and atraumatic. Mucosa moist. NECK: Supple. No lymphadenopathy. LUNGS: Clear at this time with no wheeze or rales. HEART: Regular rate and rhythm. No murmurs, rubs, or gallops. ABDOMEN: Soft. She does have tenderness which is appropriate for this stage, status post surgery. She does have normal bowel sounds at this time, surgical incision was good. EXTREMITIES: No clubbing, cyanosis or edema. NEUROLOGIC: She is intact. LABORATORY DATA: Her white count is 11.4, H&H 8 and 25, and platelet count was noted to be 682. Sodium 137, potassium 3.8, BUN and creatinine of 13 and 0.7, and blood sugar is noted to be 149. ASSESSMENT: This is an 84-year-old female patient admitted to rehab with a working diagnosis of acute metabolic encephalopathy. The patient has potential to make improvement. We instituted the following multidisciplinary therapies including but not limited to physical, occupational, respiratory, speech, nutritional services, prosthetics and orthotics. Given her complex medical condition and risks for more complications, rehabilitation services cannot be provided at a low level of care such as senior living facility. PLAN: 1. Admit to [facility] for intensive inpatient therapy to include the following disciplines: A. Physical therapy to improve gait, all transfer skills and bed mobility to a modified independent level. B. Occupational therapy to improve activities of daily living. C. Case management to assist with discharge planning and placement options. D. Nutrition to assist with nutritional needs. E. Rehabilitation nursing to assist in monitoring the patient's underlying medical conditions and to assist with any type of bowel or bladder management. 2. The patient's current medication and medical care will be continued. 3. The patient will be placed on standard fall precautions. 4. I am going to add some Questran for loose bowel movements. 5. We will discuss the patient with care team staff meeting this week. TRANSINT:[id number] Voice Confirmation ID: [id number] DOCUMENT ID: [id number] WILLIAM notes whether there has been none or any medical/functional change since admission: - No change since pre-admission screen. WILLIAM attests patient continues to be appropriate for IRF: - Continues to be appropriate. HISTORY AND PHYSICAL [id number] MIKE CASANOVA JOHN SCOTT MD CC: [id number] DICTATION DATE: 02/13/20 1203 REGISTERED DENTAL HYGIENIST: 02/13/20 1239 ADM IN [place] [place] [id number] [place] [address]
[~2020-02-12 15:13] MED LIST: AMBIEN10 MG PO; FENOFIBRATE134 MG PO; FLORAJEN3 CAPS460 MG PO; LOPERAMIDE HCL2 MG PO; PAZEO2.5 ML EACH EYE; PHENERGAN25 M1 PO; ZOCOR20 MG PO
[2020-02-12 15:23] VITALS: BP 155/54; BMI 27.5
--- NOTE | 2020-02-12 19:30 | NUR ---
GREETED PATIENT AND INTRODUCED MYSELF HER NURSE. PATIENT CLEANED OF INCONTINENT URINE AND REPOSTIONED FOR COMFORT IN BED. RESPIRATIONS EVEN. NO S/S OF DISTRESS. CALL LIGHT ON RIGHT SIDE OF PATIENT WITHIN REACH.
[2020-02-12 20:00] VITALS: BP 150/62
[2020-02-13 05:44] LABS: CALC OSMOLALITY 276 mosm/kg (275-300); CALCIUM 7.7 mg/dL (8.5-10.1); CHLORIDE - SERUM 105 mmol/L (98-107); CREATININE - SERUM 0.7 mg/dL (0.6-1.3); GLUCOSE 149 mg/dL (74-106); POTASSIUM - SERUM 3.8 mmol/L (3.5-5.1); SODIUM 137 mmol/L (136-145); UREA NITROGEN 13 mg/dL (7-18); eGFR NON AFRICAN AMERICAN 85 mL/min (90-120)
[2020-02-13 06:23] LABS: HEMATOCRIT 25.9 % (36.0-48.0); HEMOGLOBIN 8.4 g/dL (12-16); LYMPHOCYTES 13.2 % (15-50); MCH 28.6 pg (26.0-34.0); MCHC 32.4 g/dL (31.0-37.0); MCV 88.1 fL (80.0-100.0); MEAN PLATELET VOLUME 10.4 fL (7.4-10.4); NEUTROPHILS 76.6 % (40-80); RBC 2.94 10x6/uL (4.00-5.40); RDW 14.7 % (11.5-14.5); WBC 11.4 10x3/uL (4.8-10.8)
[2020-02-13 06:27] LABS: PLATELET COUNT 682 10x3/uL (130-400)
[2020-02-13 08:00] VITALS: BP 143/56
--- NOTE | 2020-02-13 09:16 | NUR ---
PATIENT ADMITTED [facility] FROM ACUTE FLOOR. IS PATIENT PCP. DME AT HOME IS A WALKER. DISCHARGE PLANS ARE FOR PATIENT TO DISCHARGE HOME WITH SPOUSE. WILL CONTINUE TO FOLLOW WITH PATIENT.
[2020-02-13 13:09] VITALS: Ht 157.5 cm; Wt 68.0 kg
--- NOTE | 2020-02-13 14:32 | NUR ---
WOUND VAC DRESSING CHANGE DATE: 02/13/20 WOUND LOCATION: ABDOMEN WOUND MEASUREMENTS: 15.5CM X 3.5CM X 2CM (IMPROVED) WOUND DESCRIPTION: PINK/RED MUSCLE, TENDON, OR BONE EXPOSED? NO DRAINAGE AMOUNT/DESCRIPTION: SMALL SEROSANGUINOUS ODOR? NONE TYPE OF SPONGE USED AND AMOUNT: BLACK X 1 SETTINGS: -125MMHG LOW CONTINUOUS TEACHING: FREQUENCY OF DRESSING CHANGES PT TOLERATED WELL.
--- NOTE | 2020-02-13 14:52 | NUR ---
CARE TEAM MEETING: PATIENT IS NEW TO UNIT AND WILL BE RA AT NEXT MEETING. WILL CONTINUE TO FOLLOW WITH PATIENT.
--- NOTE | 2020-02-13 19:50 | NUR ---
GREETED PATIENT AND INTRODUCED MYSELF HER NURSE. PATIENT IS CURRENTLY LAYING IN BED RECEIVING ONE UNIT OF PRBC. RESPIRATIONS EVEN. NO S/S OF DISTRESS. VITAL SIGNS STABLE. PT DENIES ANY FURHTER NEEDS AT THIS TIME. CALL LIGHT WITHIN REACH LAYING IN PATIENTS LAP.
--- NOTE | 2020-02-13 21:21 | NUR ---
INFUSION COMPLETE OF FIRST UNIT OF PRBC.
--- NOTE | 2020-02-13 21:48 | NUR ---
2ND UNIT OF PRBC STARTING TO INFUSE. PT AOX4. VITALS - T-98.3, P-101, RR-17, BP 154/56, SPO2 99.
[2020-02-13 22:00] VITALS: BP 132/49
--- NOTE | 2020-02-13 22:05 | NUR ---
15 MINUTE VITAL CHECK ON BLOOD INFUSION. T-98.1, P-100, RR-17, BP 153/58, SP02-99.
--- NOTE | 2020-02-14 00:20 | NUR ---
2ND UNIT OF PRBC COMPLETE. PT. AOX4. VITALS - T-98.2, P-103, RR-18, BP 164/65, SP02 - 94. CALL LIGHT IN REACH.
--- NOTE | 2020-02-14 01:51 | NUR ---
PT AWAKE AND WATCHING TV. RESPIRATIONS EVEN. NO S/S OF DISTRESS. CALL LIGHT WITHIN REACH LAYING ON PTS. LAP.
[2020-02-14 08:00] VITALS: BP 159/57
[2020-02-14 18:38] VITALS: BP 146/74
--- NOTE | 2020-02-14 20:00 | NUR ---
GREETED PATIENT AND INTRODUCED MYSELF HER NURSE. PATIENT IS CONFUSED THIS EVENING AND STATES THAT SHE DOESNT KNOW WHERE SHE IS. REORIENTATED PATIENT TO SURROUNDINGS AND STAFF. RESPIRATIONS EVEN. NO S/S OF DISTRESS. CALL LIGHT IN REACH.
--- NOTE | 2020-02-14 21:12 | NUR ---
PT EXTREMELY CONFUSED AT THIS TIME. ATTEMPTED TO REORIENT PATIENT. PT IS SCREAMING " I NEED POLICE PROTECTION, BECAUSE I KNOW WHAT IS GOING ON." THIS NURSE CALLED PATIENTS FROM HER ROOM AND ASKED IF HE COULD TRY AND CALM PATIENT DOWN. MARISA.
--- NOTE | 2020-02-14 22:37 | NUR ---
PT MUCH CALMER AND ORIENTATED AT THIS TIME. ASSISTED PATIENT TO BATHROOM USING ONE PERSON ASSIST AND WHEELCHAIR. BACK TO BED AND REPOSITIONED FOR COMFORT. CALL LIGHT WITHIN REACH LAYING ON PATIENTS CHEST.
--- NOTE | 2020-02-15 00:49 | NUR ---
PT RESTING QUIETLY WITH EYES CLOSED. RESPIRATIONS EVEN. NO S/S OF DISTRESS. CALL LIGHT WITHIN REACH LAYING ON PATIENTS LEFT SIDE.
[2020-02-15 06:49] LABS: BASOPHILS 0.6 % (0-2); EOSINOPHILS 1.1 % (0-7); HEMOGLOBIN 10.3 g/dL (12-16); IMMATURE GRANULOCYTES 0.5 % (0-5); MCH 27.7 pg (26.0-34.0); MCHC 32.2 g/dL (31.0-37.0); MEAN PLATELET VOLUME 9.6 fL (7.4-10.4); MONOCYTES 10.1 % (2-11); NEUTROPHILS 69.7 % (40-80); PLATELET COUNT 632 10x3/uL (130-400); RBC 3.72 10x6/uL (4.00-5.40); RDW 15.1 % (11.5-14.5); WBC 8.7 10x3/uL (4.8-10.8)
[2020-02-15 06:54] LABS: CALC OSMOLALITY 277 mosm/kg (275-300); CALCIUM 8.6 mg/dL (8.5-10.1); CARBON DIOXIDE 27.5 mmol/L (21.0-32.0); CHLORIDE - SERUM 106 mmol/L (98-107); CREATININE - SERUM 0.6 mg/dL (0.6-1.3); GLUCOSE 103 mg/dL (74-106); POTASSIUM - SERUM 3.3 mmol/L (3.5-5.1); SODIUM 139 mmol/L (136-145); UREA NITROGEN 13 mg/dL (7-18); eGFR NON AFRICAN AMERICAN > 90 mL/min (90-120)
[2020-02-15 08:02] VITALS: BP 146/68
--- NOTE | 2020-02-15 11:44 | NUR ---
WOUND VAC DRESSING CHANGE DATE: 02/15/2020 WOUND LOCATION: ABDOMEN WOUND MEASUREMENTS: 15.4CM X 3.5CM X 2CM WOUND DESCRIPTION: PINK/RED MUSCLE, TENDON, OR BONE EXPOSED? NO DRAINAGE AMOUNT/DESCRIPTION: SMALL SEROSANGUINOUS ODOR? NO TYPE OF SPONGE USED AND AMOUNT: BLACK X 1 SETTINGS: -125MMHG LOW CONTINUOUS TEACHING: DRESSING CHANGES M-W-F PT TOLERATED WELL.
--- NOTE | 2020-02-15 12:57 | NUR ---
RESTING QUIETLY IN BED. WOUND VAC IN PLACE TO ABD. DRAINAGE IS BLOODY LOOKING. SHE DENIES INCREASED PAIN. SCABS AND SCUFFS NOTED TO LLE. SHE ASKS FOR HELP WHEN SHE CAN DO THINGS FOR HERSELF (LIKE WIPING BUTTOCKS, LIFTING LEGS). SHE ALSO GETS UPSET WHEN SHE IS ENCOURAGED TO DO FOR HERSELF INSTEAD OF STAFF DOING TASKS FOR HER. CALL LIGHT IN REACH
--- NOTE | 2020-02-15 19:36 | NUR ---
AWAKE AND ALERT. RESTING IN BED WITH RESPIRATIONS UNLABORED. RIGHT IJ INTACT. REMAINS IN CONTACT ISOLATION. WOUND VAC IN PLACE. NO ACUTE DISTRESS NOTED. CALL LIGHT IN REACH.
[2020-02-15 20:00] VITALS: BP 159/64
--- NOTE | 2020-02-16 01:58 | NUR ---
RESTING IN BED WITH NO DISTRESS NOTED. RESPIRATIONS UNLABORED.
--- NOTE | 2020-02-16 07:38 | NUR ---
RESTING QUIETLY IN BED. NOT WEARING BIPAP AT PRESENT. SIDE RAILS UP X2. CALL LIGHT IN [facility]
[2020-02-16 08:21] VITALS: BP 175/71
--- NOTE | 2020-02-16 18:39 | NUR ---
LAYING DOWN IN BED. JUST HAD BM IN TOILET. WOUND VAC INTACT TO ABD. CALL LIGHT IN REACH
--- NOTE | 2020-02-16 19:38 | NUR ---
PT RESTING QUIETLY. CL IN REACH. NO DISTRESS NOTED. RESP EVEN AND UNLABORED. A.O X4. R IJ INTACT. WOUND VAC INTACT. ISOLATION FOR CONTACT. WILL CONTINUE TO MONITOR.
--- NOTE | 2020-02-17 01:14 | NUR ---
I have reviewed this patient and I concur with the Shift Assessment completed by the Licensed Practical Nurse today this shift.
[2020-02-17 09:23] VITALS: BP 148/67
[2020-02-17 13:15] LABS: BASOPHILS 0.5 % (0-2); EOSINOPHILS 1.2 % (0-7); HEMATOCRIT 35.5 % (36.0-48.0); HEMOGLOBIN 11.2 g/dL (12-16); IMMATURE GRANULOCYTES 0.5 % (0-5); LYMPHOCYTES 17.1 % (15-50); MCH 28.1 pg (26.0-34.0); MCHC 31.5 g/dL (31.0-37.0); MCV 89.2 fL (80.0-100.0); MEAN PLATELET VOLUME 9.7 fL (7.4-10.4); NEUTROPHILS 69.7 % (40-80); PLATELET COUNT 579 10x3/uL (130-400); RBC 3.98 10x6/uL (4.00-5.40); RDW 14.7 % (11.5-14.5); WBC 8.1 10x3/uL (4.8-10.8)
[2020-02-17 13:28] LABS: BILIRUBIN - DIRECT 0.23 mg/dL (0.00-0.30); BILIRUBIN - INDIRECT 0.24 mg/dL (0.00-1.00); BILIRUBIN - TOTAL 0.47 mg/dL (0.2-1.3); PROTEIN - SERUM 5.9 g/dL (6.4-8.2)
--- NOTE | 2020-02-17 14:26 | NUR ---
LABS CALLED TO DR LOPEZ.
--- NOTE | 2020-02-17 19:18 | NUR ---
PT LYING IN BED WATCHING TV. CL IN REACH. DENIES NEEDS OR PAIN AT THIS TIME. BED IN LOW SIDE RAILS X2. A/O X3. LUNGS CLEAR. BOWEL ACTIVE X4. RIGHT IJ INTACT. RESP EVEN AND UNLABORED. WILL CONTINUE TO MONITOR. BED ALARM ON.
[2020-02-17 22:34] VITALS: BP 156/78
--- NOTE | 2020-02-18 00:54 | NUR ---
I have reviewed this patient and I concur with the Shift Assessment completed by the Licensed Practical Nurse today this shift.
[2020-02-18 05:46] LABS: BASOPHILS 0.1 % (0-2); EOSINOPHILS 0.1 % (0-7); HEMATOCRIT 32.5 % (36.0-48.0); IMMATURE GRANULOCYTES 0.3 % (0-5); LYMPHOCYTES 9.2 % (15-50); MCH 27.6 pg (26.0-34.0); MCHC 30.8 g/dL (31.0-37.0); MCV 89.8 fL (80.0-100.0); MEAN PLATELET VOLUME 9.9 fL (7.4-10.4); MONOCYTES 8.4 % (2-11); NEUTROPHILS 81.9 % (40-80); PLATELET COUNT 519 10x3/uL (130-400); RBC 3.62 10x6/uL (4.00-5.40); RDW 14.6 % (11.5-14.5)
[2020-02-18 05:50] LABS: WBC 12.4 10x3/uL (4.8-10.8)
[2020-02-18 05:51] LABS: ANION GAP 12.4 mmol/L (8-16); CALCIUM 8.5 mg/dL (8.5-10.1); CARBON DIOXIDE 25.9 mmol/L (21.0-32.0); POTASSIUM - SERUM 3.3 mmol/L (3.5-5.1)
--- NOTE | 2020-02-18 07:45 | NUR ---
LAYING IN BED. EYES CLOSED. CALL LIGT IN REACH
[2020-02-18 08:20] VITALS: BP 154/93
--- NOTE | 2020-02-18 08:30 | NUR ---
SITTING UP IN BED FOR BREAKFAST. DENIES N/V THIS AM. DENIES ABD PAIN. STATES SHE HAS NOT HAD DIARRHEA IN LAST WHILE AND IS HOPEFUL IT WILL NO CONTINUE. SHE IS CONT OF B/B
--- NOTE | 2020-02-18 13:51 | NUR ---
Nutrition follow-up: Diet: Regular as tolerated Pt confused at times per nursing PO intake poor. Labs reviewed Wt: 150# +BM, loose Febrile at this time Will continue to provide food choices, honor food preferences and provide nutritional supplements and fortified foods. RDN following.
--- NOTE | 2020-02-18 14:32 | NUR ---
WOUND VAC DRESSING CHANGE DATE: 02/18/20 WOUND LOCATION: ABDOMEN WOUND MEASUREMENTS: 15CM X 2.5CM X 1CM (IMPROVED) WOUND DESCRIPTION: RED/PINK/VASCULAR MUSCLE, TENDON, OR BONE EXPOSED? NO DRAINAGE AMOUNT/DESCRIPTION: SMALL SEROSANGUINOUS ODOR? NO TYPE OF SPONGE USED AND AMOUNT: BLACK SETTINGS: -125MMHG LOW CONTINUOUS PT. TOLERATED WELL.
--- NOTE | 2020-02-18 15:57 | NUR ---
RESTING QUIETLY IN BED. EYES CLOSED. HAS HAD LOW GRADE FEVER TODAY AND STATED SHE DID NOT FEEL WELL. SHE REFUSED THERAPY. WOUND VAC STILL IN PLACE TO ABD. MIN DRAINAGE OF BLOODY LIQUID NOTED TO WOUND VAC. CALL LIGHT IN REACH, BED IN LOWEST POSITION, SIDE RAILS UP X2.
--- NOTE | 2020-02-18 19:08 | NUR ---
GREETED PATIENT AND INTRODUCED MYSELF HER NURSE. ASSISTED PATIENT TO BATHROOM USING WHEELCHAIR AND ONE PERSON ASSIST. RESPIRATIONS EVEN. NO S/S OF DISTRESS. CALL LIGHT WITHIN REACH LAYING ON PATIENTS RIGHT SIDE.
[2020-02-18 19:49] VITALS: BP 150/55
--- NOTE | 2020-02-18 23:42 | NUR ---
PT RESTING QUIETLY IN BED WATCHING TV. RESPIRATIONS EVEN. NO S/S OF DISTRESS. CALL LIGHT WITHIN REACH.
--- NOTE | 2020-02-19 03:03 | NUR ---
PT RESTING QUIETLY WITH EYES CLOSED. RESPIRATIONS EVEN. NO S/S OF DISTRESS. CALL LIGHT WITHIN REACH ON PATIENTS RIGHT SIDE.
[2020-02-19 06:52] LABS: BASOPHILS 0.4 % (0-2); EOSINOPHILS 3.3 % (0-7); HEMATOCRIT 34.5 % (36.0-48.0); HEMOGLOBIN 10.6 g/dL (12-16); IMMATURE GRANULOCYTES 0.6 % (0-5); MCH 27.5 pg (26.0-34.0); MCHC 30.7 g/dL (31.0-37.0); MCV 89.4 fL (80.0-100.0); MEAN PLATELET VOLUME 9.7 fL (7.4-10.4); MONOCYTES 12.8 % (2-11); NEUTROPHILS 68.9 % (40-80); RBC 3.86 10x6/uL (4.00-5.40); RDW 14.6 % (11.5-14.5)
[2020-02-19 07:02] LABS: PLATELET COUNT 412 10x3/uL (130-400)
[2020-02-19 08:00] VITALS: BP 155/62
--- NOTE | 2020-02-19 08:00 | NUR ---
SHIFT ASSMT COMPLETED.BREAKFAST GIVEN
--- NOTE | 2020-02-19 19:12 | NUR ---
GREETED PATIENT AND INTRODUCED MYSELF HER NURSE. PATIENT IS CURRENTLY LAYING IN BED WATCHING TV AT THIS TIME. BEDSIDE SHIFT REPORT COMPLETED FROM OFF GOING NURSE. RESPIRATIONS EVEN. NO S/S OF DISTRESS. DENIES ANY FURTHER NEEDS AT THIS TIME. CALL LIGHT WITHIN REACH LAYING ON PATIENTS LAP.
[2020-02-19 19:33] VITALS: BP 169/70
--- NOTE | 2020-02-19 23:43 | NUR ---
PT RESTING QUIETLY WITH EYES CLOSED. RESPIRATIONS EVEN. NO S/S OF DISTRESS. CALL LIGHT WITHIN REACH LAYING ON PATIENTS CHEST.
[2020-02-20 06:53] LABS: BASOPHILS 0.5 % (0-2); EOSINOPHILS 3.2 % (0-7); HEMOGLOBIN 10.2 g/dL (12-16); IMMATURE GRANULOCYTES 0.7 % (0-5); LYMPHOCYTES 16.9 % (15-50); MCH 27.4 pg (26.0-34.0); MCHC 30.9 g/dL (31.0-37.0); MCV 88.7 fL (80.0-100.0); MEAN PLATELET VOLUME 9.7 fL (7.4-10.4); MONOCYTES 11.6 % (2-11); NEUTROPHILS 67.1 % (40-80); PLATELET COUNT 366 10x3/uL (130-400); RBC 3.72 10x6/uL (4.00-5.40); RDW 14.4 % (11.5-14.5); WBC 5.9 10x3/uL (4.8-10.8)
[2020-02-20 07:00] LABS: CALC OSMOLALITY 274 mosm/kg (275-300); CALCIUM 8.1 mg/dL (8.5-10.1); CARBON DIOXIDE 26.9 mmol/L (21.0-32.0); CHLORIDE - SERUM 103 mmol/L (98-107); CREATININE - SERUM 0.7 mg/dL (0.6-1.3); GLUCOSE 114 mg/dL (74-106); POTASSIUM - SERUM 3.2 mmol/L (3.5-5.1); SODIUM 138 mmol/L (136-145); UREA NITROGEN 8 mg/dL (7-18); eGFR NON AFRICAN AMERICAN 85 mL/min (90-120)
[2020-02-20 07:35] VITALS: BP 149/66
--- NOTE | 2020-02-20 08:00 | NUR ---
SHIFT ASSMT COMPLETED.WND VAC TO ABD IN PLACE AND WORKING APPROP.
--- NOTE | 2020-02-20 11:33 | NUR ---
SPOUSE WOULD LIKE [facility] AT ICHARGE.
--- NOTE | 2020-02-20 14:31 | NUR ---
CARE TEAM MEETING: PATIENT IS DOING WELL IN THERAPY. TENATIVE DISCHARGE DATE IS 02/27/2020. WILL CONTINUE TO FOLLOW WITH PATIENT.
--- NOTE | 2020-02-20 14:35 | NUR ---
WOUND VAC DRESSING CHANGE DATE: 02/20/2020 WOUND LOCATION: ABDOMEN WOUND MEASUREMENTS: 14CM X 2CM X 1CM (IMPROVED) WOUND DESCRIPTION: BEEFY RED MUSCLE, TENDON, OR BONE EXPOSED? NO DRAINAGE AMOUNT/DESCRIPTION: SMALL SEROUS ODOR? NO TYPE OF SPONGE USED AND AMOUNT: BLACK X 1 SETTINGS:-125MMHG LOW CONTINUOUS TEACHING: HEALING PROCESS, FUNCTION OF WOUND VAC THERAPY, DRESSING CHANGES AND HOME THERAPY
--- NOTE | 2020-02-20 19:54 | NUR ---
PT IN BED ASLEEP, AROUSES TO VOICE, FALL PRECAUTIONS IN PLACE, NO NEEDS NOTED, FLUIDS/CALL LIGHT WITHIN REACH
--- NOTE | 2020-02-20 22:58 | NUR ---
PT ASLEEP, AROUSES EASILY TO VOICE, FALL PRECAUTIONS IN PLACE, FLUIDS/CALL LIGHT WITHIN REACH
--- NOTE | 2020-02-21 04:46 | NUR ---
PT ASLEEP FALL PRECAUTIONS IN PLACE, FLUIDS/CALL LIGHT WITHIN REACH
--- NOTE | 2020-02-21 07:30 | NUR ---
A/A/OX4. C/O PAIN AND REQUESTS TYLENOL. ONE TYLENOL EX STRENGTH GIVE PO WITH DIFFICULTY. NO OTHER REQUESTS VOICED. WOUND VAC OPERATING PROPERLY WITH MOD AMT BLOODY DRAINAGE IN CHAMBER. SIDERAILS UP X 2, CALL LIGHT IN REACH AND BED IN LOW LOCKED POSITION. WILL CONTINUE POC.
[2020-02-21 07:58] VITALS: BP 174/67
--- NOTE | 2020-02-21 15:38 | NUR ---
RESTING QUIETLY WITH EYES CLOSED, RESP EVEN AND UNLABORED. WOKE EASILY FOR MEDICATION WHEN NAME CALLED. DENIES ANY NEEDS OR PAIN AT THIS TIME.
--- NOTE | 2020-02-21 19:20 | NUR ---
PT LYING IN BED. ASSISTED TO AND FROM BATHROOM. DENIES FURTHER NEEDS. CL IN REACH. BED ALARM ON. BED IN LOW SIDE RAILS X2. WOUND VAC TO ABD INTACT. RESP EVEN AND UNLABORED. LUNGS CLEAR. BOWEL ACTIVE X4. A/O X4. WILL CONTINUE TO MONITOR.
--- NOTE | 2020-02-22 00:24 | NUR ---
I have reviewed this patient and I concur with the Shift Assessment completed by the Licensed Practical Nurse today this shift.
[2020-02-22 05:36] LABS: BASOPHILS 0.3 % (0-2); EOSINOPHILS 3.8 % (0-7); HEMATOCRIT 33.1 % (36.0-48.0); HEMOGLOBIN 10.3 g/dL (12-16); IMMATURE GRANULOCYTES 0.8 % (0-5); LYMPHOCYTES 27.6 % (15-50); MCH 27.5 pg (26.0-34.0); MCHC 31.1 g/dL (31.0-37.0); MCV 88.5 fL (80.0-100.0); MEAN PLATELET VOLUME 10.2 fL (7.4-10.4); NEUTROPHILS 55.5 % (40-80); PLATELET COUNT 374 10x3/uL (130-400); RBC 3.74 10x6/uL (4.00-5.40); RDW 14.7 % (11.5-14.5); WBC 6.3 10x3/uL (4.8-10.8)
[2020-02-22 05:47] LABS: CALC OSMOLALITY 278 mosm/kg (275-300); CALCIUM 8.7 mg/dL (8.5-10.1); CARBON DIOXIDE 28.5 mmol/L (21.0-32.0); CHLORIDE - SERUM 105 mmol/L (98-107); CREATININE - SERUM 0.6 mg/dL (0.6-1.3); GLUCOSE 107 mg/dL (74-106); POTASSIUM - SERUM 3.3 mmol/L (3.5-5.1); SODIUM 141 mmol/L (136-145); UREA NITROGEN 8 mg/dL (7-18); eGFR NON AFRICAN AMERICAN > 90 mL/min (90-120)
[2020-02-22 07:38] VITALS: BP 157/72
--- NOTE | 2020-02-22 13:08 | NUR ---
LAYING DOWN IN BED. HAS C/O NAUSEA WITH NO EMESIS. WOUND VAC IN PLACE TO ABD. MOD ASST TO TRANSFER. CALL LIGHT IN REACH. BED IN LOWEST POSITION.
--- NOTE | 2020-02-22 15:30 | NUR ---
WOUND VAC DRESSING CHANGE DATE: 02/22/2020 WOUND LOCATION: ABDOMEN WOUND MEASUREMENTS: 14CM X 2CM X 0.8CM (IMPROVED) WOUND DESCRIPTION: BEEFY RED MUSCLE, TENDON, OR BONE EXPOSED? NO DRAINAGE AMOUNT/DESCRIPTION: SMALL SEROUS ODOR? NO TYPE OF SPONGE USED AND AMOUNT: BLACK X 1 SETTINGS: -125MMHG LOW CONTINUOUS TEACHING: HOME HEALTH VAC DRESSING CHANGES/HEALING PROCESS PT TOLERATED WELL.
--- NOTE | 2020-02-22 19:50 | NUR ---
PATIENT RECEIVED SITTING UP IN BED. ASSESSMENT & VITAL SIGNS DONE. PATIENT TOILETED & HAD SOFT FORMED BM & VOID. PATIENT RETURNED TO BED. BED LOW. ALARM ON. CALL LIGHT WITHIN REACH. WILL CONTINUE TO MONITOR.
[2020-02-22 21:45] VITALS: BP 138/62
--- NOTE | 2020-02-23 02:59 | NUR ---
I have reviewed this patient and I concur with the Shift Assessment completed by the Licensed Practical Nurse today this shift.
--- NOTE | 2020-02-23 04:30 | NUR ---
PATIENT EYES CLOSED. RESPIRATIONS 18 & EVEN. BED LOW. ALARM ON. CALL LIGHT WITHIN REACH. WILL CONTINUE TO MONITOR.
[2020-02-23 08:00] VITALS: BP 134/71
--- NOTE | 2020-02-23 08:00 | NUR ---
SHIFT ASSMT COMPLETED.BREAKFAST GIVEN THIS AM.AMBULATED TO BATHROOM AND BACK TO .CL IN REACH.WND VAC IN WORKING ORDER.
--- NOTE | 2020-02-23 12:00 | NUR ---
REFUSES LUNCH.WILL HAVE AN ENSURE FOR LATER.
--- NOTE | 2020-02-23 16:00 | NUR ---
SITTING UP IN WC BESIDE BED.DENIES NEEDS.
[2020-02-23 20:00] VITALS: BP 147/66
--- NOTE | 2020-02-23 20:00 | NUR ---
PATIENT RECEIVED SITTING UP IN BED WATCHING TV. ASSESSMENT & VITAL SIGNS DONE. NO C/O PAIN OR DISTRESS. BED LOW. ALARM ON. CALL LIGHT WITHIN REACH. WILL CONTINUE TO MONITOR.
--- NOTE | 2020-02-24 01:27 | NUR ---
I have reviewed this patient and I concur with the Shift Assessment completed by the Licensed Practical Nurse today this shift.
[2020-02-24 08:00] VITALS: BP 137/64
--- NOTE | 2020-02-24 08:00 | NUR ---
SHIFT ASSMT COMPLETED.BREAKFAST GIVEN.TAKEN TO BATHROOM AND UP IN WC TO EAT.
--- NOTE | 2020-02-24 16:00 | NUR ---
UP TO BATHRM WITH RW.ENSURE GIVEN.STATES NO SUPPER TONIGHT.WND VAC WORKING ORDERED.
--- NOTE | 2020-02-24 19:20 | NUR ---
GREETED PATIENT AND INTRODUCED MYSELF HER NURSE. ASSISTED PATIENT TO BATHROOM USING ONE PERSON ASSIST AND WALKER. BACK TO BED AND REPOSITIONED FOR COMFORT. RESPIRATIONS EVEN. NO S/S OF DISTRESS. CALL LIGHT IN REACH. DENIES ANY FURTHER NEEDS AT THIS TIME.
[2020-02-24 20:00] VITALS: BP 114/63
--- NOTE | 2020-02-25 03:23 | NUR ---
PT RESTING QUIETLY WITH EYES CLOSED. RESPIRAITONS EVEN. NO S/S OF DISTRESS. CALL LIGHT IN REACH.
[2020-02-25 06:48] LABS: BASOPHILS 0.3 % (0-2); EOSINOPHILS 3.9 % (0-7); HEMOGLOBIN 10.9 g/dL (12-16); IMMATURE GRANULOCYTES 1.6 % (0-5); LYMPHOCYTES 21.6 % (15-50); MCH 27.5 pg (26.0-34.0); MCHC 30.3 g/dL (31.0-37.0); MCV 90.7 fL (80.0-100.0); MEAN PLATELET VOLUME 10.3 fL (7.4-10.4); MONOCYTES 12.2 % (2-11); NEUTROPHILS 60.4 % (40-80); PLATELET COUNT 339 10x3/uL (130-400); RBC 3.97 10x6/uL (4.00-5.40); RDW 15.1 % (11.5-14.5); WBC 10.2 10x3/uL (4.8-10.8)
[2020-02-25 07:00] LABS: CALC OSMOLALITY 273 mosm/kg (275-300); CALCIUM 9.3 mg/dL (8.5-10.1); CARBON DIOXIDE 30.6 mmol/L (21.0-32.0); CHLORIDE - SERUM 102 mmol/L (98-107); CREATININE - SERUM 0.7 mg/dL (0.6-1.3); GLUCOSE 111 mg/dL (74-106); POTASSIUM - SERUM 4.5 mmol/L (3.5-5.1); SODIUM 136 mmol/L (136-145); UREA NITROGEN 15 mg/dL (7-18); eGFR NON AFRICAN AMERICAN 85 mL/min (90-120)
[2020-02-25 07:54] VITALS: BP 127/64
--- NOTE | 2020-02-25 10:18 | NUR ---
LAYING IN BED RESTING QUIETLY. DENIES NEEDS OR C/O
--- NOTE | 2020-02-25 12:52 | NUR ---
SITTING UP IN WC IN ROOM, EYES CLOSED. DID NOT EAT MUCH LUNCH AT ALL, STILL C/O NAUSEA AT TIMES. NO EMESIS NOTED. ZOFRAN ODT WAS GIVEN AT HER REQUEST. SHE USES WALKER AND WC TO GET AROUND. WOUND VAC STILL IN PLACE TO ABD. MIN DRAINAGE NOTED. PT REMAINS ON ISOLATION. CALL LIGHT IN REACH
--- NOTE | 2020-02-25 14:05 | NUR ---
IN THERAPY GYM.
--- NOTE | 2020-02-25 15:44 | NUR ---
WOUND VAC DRESSING CHANGE DATE: 02/25/2020 WOUND LOCATION: ABD WOUND MEASUREMENTS: 13CM X 2CM X 0.7CM WOUND DESCRIPTION: RED/BEEFY MUSCLE, TENDON, OR BONE EXPOSED? NO DRAINAGE AMOUNT/DESCRIPTION: SMALL SEROUS ODOR? NO TYPE OF SPONGE USED AND AMOUNT: BLACK X 1 SETTINGS: -125MMHG LOW CONTINUOUS TEACHING: HOME WOUND VAC PT TOLERATED WELL.
--- NOTE | 2020-02-25 19:30 | NUR ---
GREETED PATIENT AND INTRODUCED MYSELF HER NURSE. ASSISTED PATIENT TO BATHROOM USING ONE PERSON ASSIST AND WALKER. BACK TO BED AND REPOSITIONED FOR COMFORT. RESPIRATIONS EVEN. NO S/S OF DISTRESS. CALL LIGHT IN REACH.
[2020-02-25 19:45] VITALS: BP 134/59
--- NOTE | 2020-02-26 01:56 | NUR ---
PT RESTING QUIETLY WITH EYES CLOSED. RESPIRATIONS EVEN. NO S/S OF DISTRESS. CALL LIGHT IN REACH.
[2020-02-26 08:00] VITALS: BP 141/68
--- NOTE | 2020-02-26 13:14 | NUR ---
Nutrition follow-up: Diet: Regular as tolerated Ensure PRN PO intake continues to be poor; pt refusing some meals Pt has been c/o nausea Wound VAC continues to abdomen labs reviewed Pt would benefit from an appetite stimulant RDN following.
--- NOTE | 2020-02-26 13:44 | NUR ---
RESTING QUIETLY IN BED. WOUND VAC STILL IN PLACE TO ABD. SHE RECENTLY HAD PAIN PILL FOR THERAPY COMING UP. SHE IS USING A WALKER VERY WELL AND IS DOING HER OWN [facility].
[2020-02-26 20:00] VITALS: BP 140/59
--- NOTE | 2020-02-26 20:00 | NUR ---
PATIENT RECEIVED SITTING UP IN BED WATCHING TV. ASSESSMENT & VITAL SIGNS DONE. NO C/O PAIN OR DISTRESS AT THIS TIME. CALL LIGHT WITHIN REACH. WOUND VAC CONTINUES. ALARM ON. WILL CONTINUE TO MONITOR.
--- NOTE | 2020-02-27 00:10 | NUR ---
PATIENT USED CALL LIGHT FOR ASSIST. PATIENT AMBULATED TO BATHROOM WITH SLOW, STEADY GAIT. VOID & SOFT BROWN COLORED BM. PATIENT RETURNED TO LOW BED. ALARM ON. CALL LIGHT WITHIN REACH. WILL CONTINUE TO MONITOR.
--- NOTE | 2020-02-27 02:44 | NUR ---
PATIENT USED CALL LIGHT FOR ASSIST. PATIENT USED ROLLING WALKER TO BATHROOM. SLOW, STEADY GAIT. VOID ONLY. PATIENT RETURNED TO LOW BED. ALARM ON. CALL LIGHT WITHIN REACH. WILL CONTINUE TO MONITOR.
--- NOTE | 2020-02-27 03:52 | NUR ---
I have reviewed this patient and I concur with the Shift Assessment completed by the Licensed Practical Nurse today this shift.
[2020-02-27 07:14] LABS: BASOPHILS 0.5 % (0-2); EOSINOPHILS 2.4 % (0-7); HEMATOCRIT 38.8 % (36.0-48.0); HEMOGLOBIN 11.9 g/dL (12-16); IMMATURE GRANULOCYTES 1.8 % (0-5); LYMPHOCYTES 32.6 % (15-50); MCH 27.7 pg (26.0-34.0); MCHC 30.7 g/dL (31.0-37.0); MCV 90.2 fL (80.0-100.0); MEAN PLATELET VOLUME 10.7 fL (7.4-10.4); MONOCYTES 12.3 % (2-11); NEUTROPHILS 50.4 % (40-80); RDW 15.1 % (11.5-14.5); WBC 11.6 10x3/uL (4.8-10.8)
[2020-02-27 07:20] LABS: PLATELET COUNT 461 10x3/uL (130-400)
[2020-02-27 07:28] LABS: ANION GAP 12.5 mmol/L (8-16); CALCIUM 9.4 mg/dL (8.5-10.1); CARBON DIOXIDE 30.3 mmol/L (21.0-32.0); CREATININE - SERUM 0.9 mg/dL (0.6-1.3); POTASSIUM - SERUM 4.8 mmol/L (3.5-5.1)
--- NOTE | 2020-02-27 08:00 | NUR ---
SHIFT ASSMT COMPLETED.PLAN TO DC HOME TODAY.
[2020-02-27 08:56] VITALS: BP 134/63
[2020-02-27] MEDS ORDERED: XANAX0.25 MG PO (08:58)
[2020-02-27] MEDS ORDERED: HYDROCODON-ACE1 EA10 PO (08:58)
[2020-02-27] MEDS ORDERED: FLAGYL500 MG PO (08:59)
--- NOTE | 2020-02-27 10:46 | NUR ---
PATIENT DISCHARGING HOME TODAY WITH FAMILY.[facility] WILL PROVIDE THERAPY AT HOME. [facility] HAS PROVIDED A WOUND VAC FOR PATIENT FOR HOME USE. DR. MCLEOD 03/04/20 @ 11:40, DR. REBOLLEDO 03/13/20 @ 9:15. PATIENT CHOICE FORM FOR HOME HEALTH AND [facility] FORM SIGNED,ONE GIVEN TO PATIENT AND ONE FILED IN CHART. [employer] FORM SIGNED BY PATIENT AND FORM GIVEN TO PATIENT. NO COMPARE DATA REVIEWED FAMILY HAS USED [facility] IN THE PAST. DISHCARGE INSTRUCTIONS FAXED TO PCP , HOME HEALTH AND REVIEWED WITH PATIENT PER PRIMARY NURSE.
--- NOTE | 2020-02-27 11:20 | NUR ---
SAMUEL WITH WND CARE CHANGED OVER FROM HOSPITAL WND VAC TO HOME WND VAC.
--- NOTE | 2020-02-27 13:25 | NUR ---
WOUND VAC DRESSING CHANGE DATE: 02/27/2020 WOUND LOCATION: ABD WOUND MEASUREMENTS: 13CM X 2CM X 0.5CM WOUND DESCRIPTION: BEEFY RED MUSCLE, TENDON, OR BONE EXPOSED? NO DRAINAGE AMOUNT/DESCRIPTION: SMALL SEROUS ODOR? NO TYPE OF SPONGE USED AND AMOUNT: BLACK SETTINGS: -125MMHG LOW CONTINUOUS TEACHING: HOME VAC USE/DRESSING CHAGES BY HH/TROUBLESHOOTING ALARMS
--- NOTE | 2020-02-27 13:30 | NUR ---
REVIEWED HOME CARE AND MEDS.KAPIL CALLED TO [facility].
== END 2020-02-27 13:15 | disposition home health service (06) | DRG 70 ==
LOC: D.REHAB 15:13
PROVIDERS: Family Medicine; ADMIT Emergency Medicine; ATTEND Emergency Medicine
DX: G93.41 Metabolic encephalopathy (principal); J96.90 Respiratory failure, unspecified, unspecified whether with hypoxia or hypercapnia; N17.9 Acute kidney failure, unspecified; E87.2 Acidosis; E87.1 Hypo-osmolality and hyponatremia; E46 Unspecified protein-calorie malnutrition; D64.9 Anemia, unspecified; F41.9 Anxiety disorder, unspecified; R53.81 Other malaise; R53.83 Other fatigue; J43.9 Emphysema, unspecified; Z98.890 Other specified postprocedural states; R13.12 Dysphagia, oropharyngeal phase; E87.6 Hypokalemia

== ENCOUNTER 2020-03-18 11:45 | Inpatient (IN) | payer MEDICARE, OTHER ==
[~2020-03-18] VITALS: Ht 157.5 cm; Wt 70.1 kg
[~2020-03-18 11:45] MED LIST changes: +FLAGYL500 MG PO; +HYDROCODON-ACE1 EA10 PO; +XANAX0.25 MG PO
[2020-03-18] MEDS ORDERED: HALOPERIDOL1 MG PO (11:53)
[2020-03-18] MEDS ORDERED: PROTONIX40 MG PO (11:54)
[2020-03-18] MEDS ORDERED: VALIUM10 MG PO (11:56)
[2020-03-18 12:20] LABS: CALC OSMOLALITY 272 mosm/kg (275-300); CALCIUM 9.7 mg/dL (8.5-10.1); CARBON DIOXIDE 27.4 mmol/L (21.0-32.0); CHLORIDE - SERUM 98 mmol/L (98-107); CREATININE - SERUM 0.8 mg/dL (0.6-1.3); GLUCOSE 85 mg/dL (74-106); POTASSIUM - SERUM 3.8 mmol/L (3.5-5.1); SODIUM 137 mmol/L (136-145); UREA NITROGEN 13 mg/dL (7-18); eGFR NON AFRICAN AMERICAN 73 mL/min (90-120)
[2020-03-18 12:29] LABS: ALKALINE PHOSPHATASE 75 U/L (30-120); ALT (SGPT) 12 U/L (10-68); AMYLASE - SERUM 33 U/L (25-115); LIPASE 61 U/L (73-393); MAGNESIUM - SERUM 1.5 mg/dL (1.8-2.4); PROTEIN - SERUM 6.9 g/dL (6.4-8.2); TROPONIN-I < 0.017 ng/mL (0.000-0.060)
[2020-03-18 12:37] LABS: BASOPHILS 0.4 % (0-2); EOSINOPHILS 6.2 % (0-7); HEMATOCRIT 40.4 % (36.0-48.0); HEMOGLOBIN 12.7 g/dL (12-16); IMMATURE GRANULOCYTES 0.3 % (0-5); LYMPHOCYTES 22.7 % (15-50); MCH 27.9 pg (26.0-34.0); MCHC 31.4 g/dL (31.0-37.0); MCV 88.8 fL (80.0-100.0); MEAN PLATELET VOLUME 10.7 fL (7.4-10.4); MONOCYTES 10.2 % (2-11); NEUTROPHILS 60.2 % (40-80); RBC 4.55 10x6/uL (4.00-5.40); RDW 14.1 % (11.5-14.5); WBC 7.8 10x3/uL (4.8-10.8)
[2020-03-18 12:39] LABS: PLATELET COUNT 300 10x3/uL (130-400)
[2020-03-18 13:30] VITALS: BP 133/74
--- NOTE | 2020-03-18 14:50 | NUR ---
PT INCONT OF LARGE AMTS WATERY, FOUL SMELLING STOOL. SPECIMEN OBTAINED, LABELED AT BS AND SENT TO LAB
[2020-03-18 15:30] VITALS: BP 137/69
--- NOTE | 2020-03-18 17:37 | NUR ---
REPORT TO EDILMA CHO
[2020-03-18 17:45] VITALS: BP 134/68
--- NOTE | 2020-03-18 18:01 | NUR ---
TRANSPORTED TO ROOM # 2231, TALIB MAXWELL. BANANA BAG INFUSING @ 125 ML/HR
--- NOTE | 2020-03-18 18:38 | NUR ---
SHE DOES NOT KNOW WHAT MEDICATIONS SHE TAKES. SHE TOLD ME A NUMBER FOR HER , MACI, . I JUST GOT A VOICE MAIL THAT WAS FULL, TIMES 2 ATTEMPTS. I CALLED [facility] TO VARIFIY HER MEDICATINS AND THEY DO NOT HAVE ANY INFORMATION ABOUT HER MEDICATIONS.
[2020-03-18 20:00] VITALS: BP 146/74
--- NOTE | 2020-03-18 22:57 | NUR ---
REMAINS VERBALLY UNCOOPERATIVE THREATING TO CALL POLICE SCREAMING SOMEONE CALL 911 THEY'RE TRYING TO KILL ME.DR. REBOLLEDO CALLING INQUIRING ABOUT PT COULD HEAR HER IN BACKGROUND SCREAMING.STATES WILL CALL [facility] TO MOVE TO ICU FOR CLOSER OBSERVATION AND MANAGEMENT FOR OVER NIGHT.REPORT CALLED TO [facility] VIA WHEELCHAIR
--- NOTE | 2020-03-18 23:14 | NUR ---
ATTEMPTED TO CALL AND NOTIFY OF TRANSFER TO CVICU OVERNIGHT PER DR. REBOLLEDO PATIENT VERY VERBAL SCREAMING CALL 911 HELP ME NUMBER STATES NOT RECEIVING CALLS AT THIS TIME
[2020-03-18 23:30] VITALS: BP 136/59
--- NOTE | 2020-03-18 23:53 | NUR ---
PT RECEIVED TO UNIT VIA WHEELCHAIR WITH NURSE AND TECH. PT TRANSFERRED SELF TO BED. PT PLACED ON MONITOR. CONFUSION NOTED. PT CALM WITH NO BEHAVIORS NOTED AT THIS TIME. PT WITH MVI TO LEFT WRIST. WILL CONTINUE TO OBSERVE.
[2020-03-19] VITALS (24 sets, daily range): BP systolic 96–157; BP diastolic 39–73; BMI 210.0
--- NOTE | 2020-03-19 02:16 | NUR ---
PT UP TO BEDSIDE COMMODE WITH URINE AND WATERY BM NOTED. NO OTHER NEEDS NOTED. PERICARE PROVIDED WITH BARRIER CREAM APPLIED. WILL CONTINUE TO OBSERVE.
[2020-03-19 04:07] LABS: BASOPHILS 0.4 % (0-2); EOSINOPHILS 2.3 % (0-7); HEMATOCRIT 34.4 % (36.0-48.0); HEMOGLOBIN 10.5 g/dL (12-16); IMMATURE GRANULOCYTES 0.5 % (0-5); LYMPHOCYTES 21.5 % (15-50); MCH 27.3 pg (26.0-34.0); MCHC 30.5 g/dL (31.0-37.0); MCV 89.4 fL (80.0-100.0); MEAN PLATELET VOLUME 10.3 fL (7.4-10.4); MONOCYTES 8.5 % (2-11); NEUTROPHILS 66.8 % (40-80); PLATELET COUNT 268 10x3/uL (130-400); RBC 3.85 10x6/uL (4.00-5.40); RDW 14.1 % (11.5-14.5); WBC 7.3 10x3/uL (4.8-10.8)
[2020-03-19 04:43] LABS: ALBUMIN 2.4 g/dL (3.4-5.0); ALKALINE PHOSPHATASE 60 U/L (30-120); ALT (SGPT) 9 U/L (10-68); BILIRUBIN - TOTAL 0.53 mg/dL (0.2-1.3); CALCIUM 8.5 mg/dL (8.5-10.1); CARBON DIOXIDE 22.3 mmol/L (21.0-32.0); CHLORIDE - SERUM 101 mmol/L (98-107); CREATININE - SERUM 0.7 mg/dL (0.6-1.3); GLUCOSE 79 mg/dL (74-106); PHOSPHOROUS 2.7 mg/dL (2.5-4.9); POTASSIUM - SERUM 3.6 mmol/L (3.5-5.1); PROTEIN - SERUM 5.5 g/dL (6.4-8.2); SODIUM 136 mmol/L (136-145); TROPONIN-I < 0.017 ng/mL (0.000-0.060); eGFR NON AFRICAN AMERICAN 85 mL/min (90-120)
[2020-03-19 04:47] LABS: CALC OSMOLALITY 269 mosm/kg (275-300); MAGNESIUM - SERUM 1.9 mg/dL (1.8-2.4); UREA NITROGEN 9 mg/dL (7-18)
--- NOTE | 2020-03-19 19:00 | NUR ---
REPORT RECEIVED. PT DISORIENTED TO PLACE, TIME, SITUATION. ASSESSMENT COMPLETED, SEE FLOWSHEET. PIV IN LEFT FOREARM, SEE IV FLOWSHEET. NO ACUTE DISTRESS NOTED AT THIS TIME.
--- NOTE | 2020-03-19 21:00 | NUR ---
PT ASSISTED TO BEDSIDE COMMODE. 300ML OUTPUT OF URINE NOTED. ASSISTED BACK TO BED WITHOUT DIFFICULTY.
--- NOTE | 2020-03-19 23:00 | NUR ---
PT RESTING IN BED, REASSESSMENT COMPLETED.
--- NOTE | 2020-03-19 23:45 | NUR ---
PT ASSISTED TO BEDSIDE COMMODE, SMALL AMOUNT OF LOOSE BM NOTED WITH MODERATE AMOUNT OF URINE. ASSISTED TO BED.
[2020-03-20] VITALS (22 sets, daily range): BP systolic 113–168; BP diastolic 44–72
--- NOTE | 2020-03-20 01:00 | NUR ---
PT RESTING IN BED, NO ACUTE DISTRESS NOTED.
--- NOTE | 2020-03-20 03:00 | NUR ---
PT DISORIENTED TO PLACE, TIME, SITUATION. PLEASANTLY CONFUSED. ASSISTED TO BEDSIDE COMMODE, DENIES PAIN AT THIS TIME. REASSESSMENT COMPLETED, SEE FLOWSHEET.
--- NOTE | 2020-03-20 05:00 | NUR ---
PT RESTING IN BED, NO ACUTE DISTRESS NOTED.
[2020-03-20 06:33] LABS: BASOPHILS 0.3 % (0-2); EOSINOPHILS 6.3 % (0-7); HEMATOCRIT 35.1 % (36.0-48.0); HEMOGLOBIN 10.7 g/dL (12-16); IMMATURE GRANULOCYTES 0.5 % (0-5); LYMPHOCYTES 27.8 % (15-50); MCH 27.2 pg (26.0-34.0); MCHC 30.5 g/dL (31.0-37.0); MCV 89.3 fL (80.0-100.0); MEAN PLATELET VOLUME 10.4 fL (7.4-10.4); MONOCYTES 12.5 % (2-11); NEUTROPHILS 52.6 % (40-80); PLATELET COUNT 246 10x3/uL (130-400); RBC 3.93 10x6/uL (4.00-5.40); RDW 14.2 % (11.5-14.5); WBC 6.3 10x3/uL (4.8-10.8)
[2020-03-20 07:03] LABS: ALBUMIN 2.3 g/dL (3.4-5.0); ALKALINE PHOSPHATASE 61 U/L (30-120); ALT (SGPT) 7 U/L (10-68); BILIRUBIN - TOTAL 0.45 mg/dL (0.2-1.3); CALCIUM 7.8 mg/dL (8.5-10.1); CHLORIDE - SERUM 107 mmol/L (98-107); GLUCOSE 73 mg/dL (74-106); PHOSPHOROUS 2.6 mg/dL (2.5-4.9); POTASSIUM - SERUM 3.3 mmol/L (3.5-5.1); PROTEIN - SERUM 5.2 g/dL (6.4-8.2); SODIUM 143 mmol/L (136-145); eGFR NON AFRICAN AMERICAN > 90 mL/min (90-120)
[2020-03-20 07:04] LABS: CALC OSMOLALITY 280 mosm/kg (275-300); CREATININE - SERUM 0.5 mg/dL (0.6-1.3); MAGNESIUM - SERUM 1.3 mg/dL (1.8-2.4); UREA NITROGEN 3 mg/dL (7-18)
[2020-03-20 09:05] LABS: BACTERIA MODERATE /hpf (NEGATIVE); BILIRUBIN NEGATIVE (NEGATIVE); EPITHELIAL CELLS RARE /hpf (0-5); GLUCOSE NEGATIVE (NEGATIVE); KETONE SMALL mg/dL (NEGATIVE); NITRITE NEGATIVE (NEGATIVE); RED CELLS - URINE RARE /hpf (0-5); UROBILINOGEN NORMAL (NORMAL); WHITE CELLS - URINE 0-5 /hpf (NEGATIVE)
[2020-03-20 09:06] LABS: HYALINE CAST RARE /lpf (NONE SEEN)
--- NOTE | 2020-03-20 19:00 | NUR ---
REPORT RECEIVED. ASSESSMENT COMPLETED, SEE FLOWSHEET. PIV IN LEFT FOREARM INFUSING, SEE IV FLOWSHEET. WILL CONTINUE TO MONITOR.
--- NOTE | 2020-03-20 22:27 | NUR ---
PT HAVING MULTIPLE LIQUID STOOLS OF GREEN-BROWN COLOR. BED BATH GIVEN, WILL CONTINUE TO MONITOR.
[2020-03-21] VITALS (24 sets, daily range): BP systolic 139–175; BP diastolic 57–92
--- NOTE | 2020-03-21 03:00 | NUR ---
REASSESSMENT COMPLETED, SEE FLOWSHEET. PT RESTING IN BED AT THIS TIME.
[2020-03-21 07:03] LABS: BASOPHILS 0.2 % (0-2); EOSINOPHILS 6.2 % (0-7); HEMATOCRIT 38.2 % (36.0-48.0); IMMATURE GRANULOCYTES 0.6 % (0-5); LYMPHOCYTES 27.4 % (15-50); MCH 27.2 pg (26.0-34.0); MCHC 31.4 g/dL (31.0-37.0); MONOCYTES 9.5 % (2-11); NEUTROPHILS 56.1 % (40-80); PLATELET COUNT 293 10x3/uL (130-400); RBC 4.41 10x6/uL (4.00-5.40)
[2020-03-21 07:22] LABS: MCV 86.6 fL (80.0-100.0); WBC 8.1 10x3/uL (4.8-10.8)
[2020-03-21 07:23] LABS: ALBUMIN 2.5 g/dL (3.4-5.0); ALKALINE PHOSPHATASE 66 U/L (30-120); ALT (SGPT) 7 U/L (10-68); BILIRUBIN - TOTAL 0.63 mg/dL (0.2-1.3); CALCIUM 8.3 mg/dL (8.5-10.1); CARBON DIOXIDE 20.7 mmol/L (21.0-32.0); CHLORIDE - SERUM 105 mmol/L (98-107); CREATININE - SERUM 0.6 mg/dL (0.6-1.3); GLUCOSE 80 mg/dL (74-106); SODIUM 140 mmol/L (136-145); eGFR NON AFRICAN AMERICAN > 90 mL/min (90-120)
[2020-03-21 07:27] LABS: CALC OSMOLALITY 273 mosm/kg (275-300); UREA NITROGEN 2 mg/dL (7-18)
[2020-03-21 07:38] LABS: POTASSIUM - SERUM 2.7 mmol/L (3.5-5.1)
--- NOTE | 2020-03-21 10:20 | NUR ---
Nutrition Follow-up: Pt confused. Nursing reports pt with poor PO intake but that pt states she will drink strawberry ensure; pt states she does not like meat or cream soups. Noted pt with multiple liquid stools overnight. Diet: Regular, Mech Soft Labs noted: K+ 2.7, Ca 8.3, Alb 2.5 Meds noted: Protonix, Questran, Lomotil, Imodium, Pepcid, NS @ 125, electrolyte protocol -+Ensure with meals. -Encourage PO intake and honor food preferences within diet restrictions. -Pt may benefit from appetite stimulant. -If PO intake remains poor, rec consider nutrition support. -Need new wt; last wt: 1147# (03/19). -RD following.
--- NOTE | 2020-03-21 18:18 | MORECARE ---
CASE MANAGEMENT DISCHARGE SUMMARY PATIENT: MIKE CASANOVA UNIT: [id number] ADM DATE: 03/19/20 AGE: 84 : 37 SEX: F ROOM/BED: [facility] AUTHOR: SHAR EUBANKS PHYSICIAN: REFERRING PHYSICIAN: EZEQUIEL RAYA MD DATE OF SERVICE: 03/21/20 Discharge Plan Patient Name: MIKE CASANOVA Facility: [facility]:[place] : 1935 Planned Disposition: Anticipated Discharge Date: Discharge Date: Expected LOS: Initial Reviewer: [email or web address] Initial Review Date: 03/18/2020 Generated: 03/21/20 7:18 pm Patient Name: MIKE ACSANOVA Page [phone] at 1818 All edits/amendments must be made on the electronic document DICTATION DATE: 03/21/201817 CORNCOB PIPE MANUFACTURING SUPERVISOR: VINCENT 03/21/201817 RPT#: [id number] DC DATE: STATUS: ADM IN [facility] [address] [place] [address] END OF REPORT
--- NOTE | 2020-03-21 18:32 | MORECARE ---
CASE MANAGEMENT DISCHARGE SUMMARY PATIENT: MIKE GONZALEZ UNIT: [id number] ADM DATE: 03/19/20 AGE: 84 : 37 SEX: F ROOM/BED: D.[facility] AUTHOR: RAIMUNDO,DOC PHYSICIAN: REFERRING PHYSICIAN: EZEQUIEL RAYA MD DATE OF SERVICE: 03/21/20 Discharge Plan Patient Name: MIKE GONZALEZ Facility: [facility]:[place] : 1935 Planned Disposition: Anticipated Discharge Date: Discharge Date: Expected LOS: Initial Reviewer: [email or web address] Initial Review Date: 03/18/2020 Generated: 03/21/20 7:31 pm Comments DCP- Discharge Planning Updated by [email or web address]: Cassi Whalen on 03/21/20 5:[address] Patient Name: MIKE GONZALEZ Admission Status: ER Accout number: [id number] Admission Date: 03-19-2020 : 1935 Admission Diagnosis:DIARRHEA, UNSPECIFIED Attending: EZEQUIEL RAYA Current LOS: 2 Anticipated DC Date: Planned Disposition: Primary Insurance: MEDICARE A & B Discharge Planning Comments: CM met with patient to complete initial dc planning assessment. CM educated patient on the CM role and verbal consent given by patient to complete assessment. Patient lives at home with her . At discharge patient plans to return home and feels this is a safe discharge. CM discussed availability of home health, rehab services, and medical equipment. Daughter would like patient to go to SNF facility. She states that her father is not able to take care. Patient denied known discharge needs at this time. CM will continue to follow and will assist as needed with dc plans/needs. Gasoline Catalyst Operator: Cassi Whalen DCPIA - Discharge Planning Initial Assessment Updated by [email or web address]: Cassi Whalen on 03/21/20 6:24 pm * Is the patient Alert and Oriented? Yes * How many steps to enter\exit or inside your home? * PCP [facility] * Pharmacy [facility] * Preadmission Environment Home with Family * ADLs Partial Dependent * Partial ADLs (Assistance needed) Ambulation Bathing Dressing Eating Medication Management Toileting Transfers * Equipment Rolling Walker * List name and contact numbers for known caregivers / representatives who currently or will assist patient after discharge: Aida Garcia - daughter - [phone] Jitendra Gonzalez - spouse- [phone] * Verbal permission to speak to the caregivers and representatives has been obtained from the patient. Yes * Community resources currently utilized Home Health * Please name any agencies selected above. [facility] * Additional services required to return to the preadmission environment? No * Can the patient safely return to the preadmission environment? Yes * Has this patient been hospitalized within the prior 30 days at any hospital? Yes Last DP export: 03/21/20 5:18 pm Patient Name: MIKE GONZALEZ Page [phone] at 1832 All edits/amendments must be made on the electronic document DICTATION DATE: 03/21/201830 ASSISTANT DRAFTER: VINCENT 03/21/201830 RPT#: [id number] DC DATE: STATUS: ADM IN [facility] [address] [place] [address] END OF REPORT
--- NOTE | 2020-03-21 19:00 | NUR ---
PT ASSESSMENT COMPLETED AT THIS TIME, NO CHANGES NOTED FROM NURSE REPORT, PT TALKING ON THE PHONE AND IS VERY CONFUSED, PT UNABLE TO UNDERSTAND THE NURSES NAME. PT C/O LEFT ARM HURTING AND BILAT FEET BURNING, PT'S FEET WERE UN COVERED AND PT STATED THAT WAS BETTER, PT'S IV WAS CHAECKED AND VERY GOOD BLOOD RETURN NOTED AND FLUSHED WITHOUT DIFFCULTY. VSS, WILL MONITOR FOR CHANGES
--- NOTE | 2020-03-21 21:13 | NUR ---
PT IS VERY CONFUSED, WAS ABLE TO GET PT TO TAKE LOMOTIL PILLS AFTER SOME TIME AND PT DRANK ABOUT HALF OF THE QUESTRAN LIGHT. PT STILL UNABLE TO BE REORIENTED, WILL MONITOR FOR CHANGES
--- NOTE | 2020-03-21 21:45 | NUR ---
IV WAS NOTED TO BE LEAKING FROM LEFT WRIST SITE, IV WAS REMOVED AND DRESSING WAS PLACED OVER SITE, CATH WAS INTACT, NO BLEEDING NOTED. 0 IV RESITED TO LEFT HAND, PT YELLING AND TRYING RESIST STAFF IV WAS SITED WITH 22 GA X 1 ATTEMPT, AND SECURED TO LEFT HAND AND F/A. PT STARTED TO CALM DOWN AFTER IV WAS SECURED. PT CALLING OUT FOR HER MOTHER AND GRANNY. UNABLE TO REORIENT PATIENT TO TIME, PLACE, OR SITUATION
--- NOTE | 2020-03-21 22:00 | NUR ---
PAGING ONCALL FOR PCP DUE TO INCREASED CONFUSION AND YELLING OUT
--- NOTE | 2020-03-21 22:05 | NUR ---
DR CHEN CALLED BACK WITH NEW ORDERS
--- NOTE | 2020-03-21 22:18 | NUR ---
PT YELLING OUT FOR HER SISTER AND GETTING UPSET WITH STAFF WHEN TRYING TO REORIENT PT, PRN HALDOL GIVEN AT THIS TIME
--- NOTE | 2020-03-21 23:00 | NUR ---
PT REASSESSMENT COMPLETED A THIS TIME, PT STILL VERY CONFUSED BUT LESS AGITATED, PT MORE CALM AND FOLLOWING DIRECTIONS. WILL MOINTOR FOR CHANGES
[2020-03-22] VITALS (23 sets, daily range): BP systolic 118–177; BP diastolic 45–99
--- NOTE | 2020-03-22 00:46 | NUR ---
PT ASSISTED UP TO BSC AT THIS TIME, PT VOIDED APPROX 150 ML OF URINE AND HAD A SMALL LOOSE BM
--- NOTE | 2020-03-22 01:00 | NUR ---
PT RESTING WITH EYE CLOSED, NO DISTRESS NOTED, WILL MONITOR FOR CHANGES
--- NOTE | 2020-03-22 03:01 | NUR ---
PT ASSISSTED BACK UP TO BSC, PT VERY ANXIOUS AND STATIGN THAT SHE WAS SCARED WHEN TRYING TO GET UP, PT GIVEN PRN MEDS AT THIS TIME, WILL MONITOR FOR HR TO DECREASE AND BECOME MORE STABLE
--- NOTE | 2020-03-22 05:06 | NUR ---
PT ASSISTED UP TO BSC AND PT VOIDED APPROX 200 ML, PT ASSISTED BACK TO BED, NO DISTRESS NOTED, WILL MONITOR FOR CHANGES
[2020-03-22 05:59] LABS: BASOPHILS 0.3 % (0-2); EOSINOPHILS 4.4 % (0-7); HEMATOCRIT 36.1 % (36.0-48.0); HEMOGLOBIN 11.5 g/dL (12-16); IMMATURE GRANULOCYTES 0.4 % (0-5); LYMPHOCYTES 23.4 % (15-50); MCH 27.3 pg (26.0-34.0); MCHC 31.9 g/dL (31.0-37.0); MCV 85.5 fL (80.0-100.0); MEAN PLATELET VOLUME 9.8 fL (7.4-10.4); MONOCYTES 10.4 % (2-11); NEUTROPHILS 61.1 % (40-80); PLATELET COUNT 288 10x3/uL (130-400); RBC 4.22 10x6/uL (4.00-5.40); RDW 14.2 % (11.5-14.5); WBC 6.9 10x3/uL (4.8-10.8)
[2020-03-22 06:27] LABS: ALBUMIN 2.2 g/dL (3.4-5.0); ALKALINE PHOSPHATASE 59 U/L (30-120); ALT (SGPT) 6 U/L (10-68); BILIRUBIN - TOTAL 0.55 mg/dL (0.2-1.3); CALC OSMOLALITY 273 mosm/kg (275-300); CALCIUM 8.2 mg/dL (8.5-10.1); CARBON DIOXIDE 18.9 mmol/L (21.0-32.0); CHLORIDE - SERUM 105 mmol/L (98-107); CREATININE - SERUM 0.5 mg/dL (0.6-1.3); GLUCOSE 96 mg/dL (74-106); POTASSIUM - SERUM 3.2 mmol/L (3.5-5.1); PROTEIN - SERUM 5.3 g/dL (6.4-8.2); SODIUM 139 mmol/L (136-145); eGFR NON AFRICAN AMERICAN > 90 mL/min (90-120)
[2020-03-22 06:37] LABS: UREA NITROGEN 1 mg/dL (7-18)
--- NOTE | 2020-03-22 09:37 | NUR ---
0930: DR. MCLEOD NOTIFIED OF POSITIVE D DIMER. NEW ORDER REC'D FOR CT ANGIO TO RULE OUT PE.
--- NOTE | 2020-03-22 09:50 | NUR ---
IV STARTED WITH 20G ON 1ST ATTEMPT IN R WRIST.
--- NOTE | 2020-03-22 09:58 | NUR ---
TO XRAY FOR CT.
--- NOTE | 2020-03-22 10:15 | NUR ---
RETURNED FROM CT.
--- NOTE | 2020-03-22 10:50 | NUR ---
NEW ORDERS REC'D FROM DR. MCLEOD.
[2020-03-22 14:10] LABS: POTASSIUM - SERUM 3.6 mmol/L (3.5-5.1)
[2020-03-22 14:13] LABS: MAGNESIUM - SERUM 0.9 mg/dL (1.8-2.4)
--- NOTE | 2020-03-22 17:45 | NUR ---
1730: MIDLINE ABD DRESSING CHANGED. SITE CLEANED WITH NS AND REDRESSED USING 4X4S WET TO DRY WITH NS AND SECURED WITH MEDIPORE TAPE. WOUND PINK. SMALL AMT MALODOROUS SEROUS DRAINAGE NOTED.
--- NOTE | 2020-03-22 19:00 | NUR ---
PT ASSESSMENT COMPLETED AT THIS TIME, NO CHANGES NOTED FROM NURSE REPORT, PT BEING ASSISTED BACK TO BED FROM BSC, PT IS STILL VERY CONFUSED, PT BECOMING VERY UPSET AND CRYING WHEN TAKING ABOUT HER FAMILY, VSS, WILL MONTIOR FOR CHANGES
--- NOTE | 2020-03-22 21:00 | NUR ---
PT RESTING WITH EYES CLOSED, RESP EVEN AND NON LABORED, VSS, WILL MONITOR FOR CHANGES
[2020-03-22 21:01] LABS: MAGNESIUM - SERUM 2.1 mg/dL (1.8-2.4); POTASSIUM - SERUM 3.5 mmol/L (3.5-5.1)
--- NOTE | 2020-03-22 23:00 | NUR ---
PT REASSESSMENT COMPLETED AT THIS TIME, PT IS AWAKE AND VERY CONFUSED, PT GIVEN SOME WATER TO DRINK, PT REPOSITIONED IN THE BED, VSS WILL MONITOR FOR CHANGES
[2020-03-23] VITALS (24 sets, daily range): BP systolic 96–166; BP diastolic 45–90
--- NOTE | 2020-03-23 01:13 | NUR ---
PT CONFUSED BUT FOLLOWING COMMANDS, PT ASSISTED UP TO BSC AND PATIENT VOIDED, HR 120-14, PT ASSISTED BACK TO BED AND AFTER PATIENT WE RESTING HR DECREASED TO 110-120 WILL MONITOR FOR CHANGES
--- NOTE | 2020-03-23 02:34 | NUR ---
PT ASSISTED UP TO BSC, PT CONFUSED BUT ASKING QUESTIONS ABOUT HER CARE AND HOW LONG IT WILL TAKE, PT UNABLE TO UNDER STAND THAT SHE IS HSOPITALIZED BUT CONCERNED ABOUT HER FAMILY AND GETTING UPSET AND TEARFUL, PT'S HR 140, PT WAS ASSISTED BACK TO BED AFTER VOIDING AND PT STILL CONCERED AND AKSING THE NURSE REANDOM QUESTIONS, PT GIVEN PRN ANXITEY MEDS AT THIS TIME
--- NOTE | 2020-03-23 03:00 | NUR ---
PT RESTING WITH EYES CLOSED, RESP EVEN AND NON LABORED, REASSESSMENT COMPLETED AND NO CHANGES NOTED FROM PREVIOUS EXAM
--- NOTE | 2020-03-23 04:35 | NUR ---
WHILE ROUNDING ON THE PATIENT, PT ADVISED THAT SHE NEED TO USE THE BATHROOM, PT WAS BEING ASSISTED UP TO THE BSC WHEN THE PT HAD A LARGE EPISODE OF WATERY DIARRHEA. PT WAS HELPED TO BSC WHERE SHE HAD APPROX 300 MORE ML OF WATERY DIARRHEA. PT GIVEN CHG BATH AND COMPLETE LINENS WHERE CHANGED, PT WAS THEN HELPED BACK TO BED
[2020-03-23 05:42] LABS: HEMATOCRIT 42.1 % (36.0-48.0); HEMOGLOBIN 13.6 g/dL (12-16); LYMPHOCYTES 24.6 % (15-50); MCH 27.9 pg (26.0-34.0); MCHC 32.3 g/dL (31.0-37.0); MCV 86.4 fL (80.0-100.0); MEAN PLATELET VOLUME 10.2 fL (7.4-10.4); NEUTROPHILS 62.5 % (40-80); PLATELET COUNT 300 10x3/uL (130-400); RBC 4.87 10x6/uL (4.00-5.40); RDW 14.8 % (11.5-14.5)
[2020-03-23 05:43] LABS: WBC 10.6 10x3/uL (4.8-10.8)
[2020-03-23 06:31] LABS: ALBUMIN 2.5 g/dL (3.4-5.0); ALKALINE PHOSPHATASE 73 U/L (30-120); CALC OSMOLALITY 275 mosm/kg (275-300); CALCIUM 8.5 mg/dL (8.5-10.1); CHLORIDE - SERUM 106 mmol/L (98-107); CREATININE - SERUM 0.4 mg/dL (0.6-1.3); GLUCOSE 111 mg/dL (74-106); PROTEIN - SERUM 5.9 g/dL (6.4-8.2); SODIUM 140 mmol/L (136-145); UREA NITROGEN 1 mg/dL (7-18); eGFR NON AFRICAN AMERICAN > 90 mL/min (90-120)
[2020-03-23 06:32] LABS: ALT (SGPT) 17 U/L (10-68); POTASSIUM - SERUM 4.4 mmol/L (3.5-5.1)
--- NOTE | 2020-03-23 10:00 | NUR ---
VERBALLY AGRESSIVE AND THREATENING. ON THE PHONE WITH DAUGHTER AND FOR OVER 10 MIN. UNWILLING TO TAKE QUESTRAN. THREW HER QUESTRAN ACROSS THE OVERBED TABLE. 1015: UNWILLING TO ASSIST WITH GETTING BACK TO BED. BACK TO BED WITH ASSISTANCE FROM 2 NURSES. REPOSITIONED ONTO R SIDE. INSTRUCTED ON USE OF CALL LIGHT.
--- NOTE | 2020-03-23 19:39 | NUR ---
PATIENT RESTING IN BED COVER ON. ON ROOM AIR. TALKING WITH STAFF.NO NEEDS AT THIS TIME.
--- NOTE | 2020-03-23 21:48 | NUR ---
PATIENT HAS TAKEN MEDICATION WITH NO ISSIUE THIS MEDPASS. IS NOW SLEEPING HEAD OF BED AT 35 [address]. PILLOW BETWEEN KNEES. IVTO RIGHT WRIST WITH NS AT 125ML/HR IN PLACE AND PATIENT. IV TO LEFT HAND IS SL. SHE IN ON LOVENOX BID. PATIENT IS CONFUSED X 3. REPORT SHOWED SMALL PE TO RIGHT SIDE . BRUSING AND EDEMA IS NOTE TO BUE AND BLE. DRESSING TO MIDLINE ABDOMEN IS CLEAN DRY AND INTACT. CALL LIGHT AND WATER IN REACH CHECKED OFTEN FOR NEEDS AND SAFETY.
--- NOTE | 2020-03-23 23:35 | NUR ---
PATIENT IN BED TRYING TO GET OUT , PULLING ON LINES, YELLING OUT. VALIUUM GIVEN PER PRN ORDER. MULTABLE ATEMPTS TO REORENT WITH NO RESULT. CHECKED OFTEN FOR NEEDS AND SAFETY.
[2020-03-24] VITALS (14 sets, daily range): BP systolic 119–195; BP diastolic 52–100
--- NOTE | 2020-03-24 01:40 | NUR ---
SLEEPING NO S/S OF DISTRESS. NPO AT MIDNIGHT. CHECKED OFTEN FOR NEEDS AND SAFETY.
--- NOTE | 2020-03-24 03:59 | NUR ---
AWAKLE WITH MULTABLE ATEMPS TO GET OUT OF BED. REDIRECT EACH TIMR. NPO AT MIDNIGHT PER ORDER.
--- NOTE | 2020-03-24 05:24 | NUR ---
PATIENT MOVING AROUND A LOT WHEN B/P TAKEN ATEMPTING TO GET UP.
--- NOTE | 2020-03-24 05:54 | NUR ---
PATIENT AWAKE VERY CONFUSED STAED SHE WAS HURTTING GAVE PRN MARYCO PER ORDRE WITH PROTONIX. SHE IS UPSET TALKING ABOUT PUTTING PEOPLE IN BOXES, AND CRYING, REDIRECTED HER. SHE WAS PULLING AT B/P CUFF, AND LINES REDIRECTED.RESTING AT THE MOMENT.
--- NOTE | 2020-03-24 07:00 | NUR ---
PT REPORT RECEIVED FROM WOOD ENGRAVER NURSE. NO ACUTE SIGNS OF DISTRESS NOTED. PT RESTING IN BED. EKG OBTAINED AND PLACED IN CHART. SHIFT ASSESSMENT COMPLETED. WILL CONTINUE TO MONITOR
--- NOTE | 2020-03-24 08:15 | NUR ---
DR MCLEOD IN ROOM SPEAKING WITH PT. NO NEW ORDERS RECEIVED. STATED THAT THE PT CAN GO TO MED 2 AFTER PROCEDURE TODAY.
--- NOTE | 2020-03-24 09:38 | NUR ---
Nutrition Follow-up: NPO for EGD and PEG placement. PO intake has been poor. Reportedly continues to have liquid stools. Wt: 148.8# (03/24); 145.2# (03/22) Labs reviewed Meds noted: Protonix, Questran, Imodium, Pepcid, NS @ 125, Lomotil, electrolyte protocol -When PEG ok to use, rec initiate Osmolite 1.5 @ 15 mL/hr and increase by 10 mL/hr to goal rate of 40 mL/hr (provides 1440 kcal, 60 g protein, 732 mL H2O daily) + H2O flushes 25 mL q hr. -Monitor wt. -RD following.
--- NOTE | 2020-03-24 13:50 | NUR ---
DR REBOLLEDO IN ROOM. PREPARING TO START EGD AND PEG TUBE PLACEMENT. WILL CONTINUE TO MONITOR
--- NOTE | 2020-03-24 16:00 | NUR ---
SPOKE WITH PT . UPDATE GIVEN.
--- NOTE | 2020-03-24 17:31 | NUR ---
CALLED REPORT TO [facility] ON MED 2. PREPARING TO TRANSFER PT OVER TO MED 2.
--- NOTE | 2020-03-24 17:49 | MORECARE ---
CASE MANAGEMENT DISCHARGE SUMMARY PATIENT: MIKE GONZALEZ UNIT: [id number] ADM DATE: 03/19/20 AGE: 84 : 37 SEX: F ROOM/BED: D[facility] AUTHOR: RAIMUNDO,DOC PHYSICIAN: REFERRING PHYSICIAN: EZEQUIEL RAYA MD DATE OF SERVICE: 03/24/20 Discharge Plan Patient Name: MIKE GONZALEZ Facility: [facility]:[place] : 1935 Planned Disposition: Anticipated Discharge Date: Discharge Date: Expected LOS: Initial Reviewer: [email or web address] Initial Review Date: 03/18/2020 Generated: 03/24/20 6:49 pm Comments DCP- Discharge Planning Updated by [email or web address]: Cassi Whalen on 03/21/20 5:[address] Patient Name: MIKE GONZALEZ Admission Status: ER Accout number: [id number] Admission Date: 03-19-2020 : 1935 Admission Diagnosis:DIARRHEA, UNSPECIFIED Attending: EZEQUIEL RAYA Current LOS: 2 Anticipated DC Date: Planned Disposition: Primary Insurance: MEDICARE A & B Discharge Planning Comments: CM met with patient to complete initial dc planning assessment. CM educated patient on the CM role and verbal consent given by patient to complete assessment. Patient lives at home with her . At discharge patient plans to return home and feels this is a safe discharge. CM discussed availability of home health, rehab services, and medical equipment. Daughter would like patient to go to SNF facility. She states that her father is not able to take care. Patient denied known discharge needs at this time. CM will continue to follow and will assist as needed with dc plans/needs. Division Controller: Cassi Whalen DCPIA - Discharge Planning Initial Assessment Updated by [email or web address]: Cassi Whalen on 03/21/20 6:24 pm * Is the patient Alert and Oriented? Yes * How many steps to enter\exit or inside your home? * PCP [facility] * Pharmacy [facility] * Preadmission Environment Home with Family * ADLs Partial Dependent * Partial ADLs (Assistance needed) Ambulation Bathing Dressing Eating Medication Management Toileting Transfers * Equipment Rolling Walker * List name and contact numbers for known caregivers / representatives who currently or will assist patient after discharge: Aida Garcia - daughter - [phone] Jitendra Gonzalez - spouse- [phone] * Verbal permission to speak to the caregivers and representatives has been obtained from the patient. Yes * Community resources currently utilized Home Health * Please name any agencies selected above. [facility] * Additional services required to return to the preadmission environment? No * Can the patient safely return to the preadmission environment? Yes * Has this patient been hospitalized within the prior 30 days at any hospital? Yes External Providers External Provider: [facility] Next Contact Date: Service Request Date: Service Type: Resolution: Reviewer: Comments: Last DP export: 03/21/20 5:32 pm Patient Name: MIKE GONZALEZ Page [phone] at 1740 All edits/amendments must be made on the electronic document DICTATION DATE: 03/24/201748 SKIDDER: VINCENT 03/24/201748 RPT#: [id number] DC DATE: STATUS: ADM IN [facility] [address] [place] [address] END OF REPORT
--- NOTE | 2020-03-24 17:57 | MORECARE ---
CASE MANAGEMENT DISCHARGE SUMMARY PATIENT: MIKE GONZALEZ UNIT: [id number] ADM DATE: 03/19/20 AGE: 84 : 37 SEX: F ROOM/BED: D.[facility] AUTHOR: RAIMUNDO,DOC PHYSICIAN: REFERRING PHYSICIAN: EZEQUIEL RAYA MD DATE OF SERVICE: 03/24/20 Discharge Plan Patient Name: MIKE GONZALEZ Facility: [facility]:[place] : 1935 Planned Disposition: Anticipated Discharge Date: Discharge Date: Expected LOS: Initial Reviewer: [email or web address] Initial Review Date: 03/18/2020 Generated: 03/24/20 6:56 pm Comments DCP- Discharge Planning Updated by [email or web address]: Cassi Whalen on 03/21/20 5:[address] Patient Name: MIKE GONZALEZ Admission Status: ER Accout number: [id number] Admission Date: 03-19-2020 : 1935 Admission Diagnosis:DIARRHEA, UNSPECIFIED Attending: EZEQUIEL RAYA Current LOS: 2 Anticipated DC Date: Planned Disposition: Primary Insurance: MEDICARE A & B Discharge Planning Comments: CM met with patient to complete initial dc planning assessment. CM educated patient on the CM role and verbal consent given by patient to complete assessment. Patient lives at home with her . At discharge patient plans to return home and feels this is a safe discharge. CM discussed availability of home health, rehab services, and medical equipment. Daughter would like patient to go to SNF facility. She states that her father is not able to take care. Patient denied known discharge needs at this time. CM will continue to follow and will assist as needed with dc plans/needs. Electronic Publisher: Cassi Whalen DCPIA - Discharge Planning Initial Assessment Updated by [email or web address]: Cassi Whalen on 03/21/20 6:24 pm * Is the patient Alert and Oriented? Yes * How many steps to enter\exit or inside your home? * PCP [facility] * Pharmacy [facility] * Preadmission Environment Home with Family * ADLs Partial Dependent * Partial ADLs (Assistance needed) Ambulation Bathing Dressing Eating Medication Management Toileting Transfers * Equipment Rolling Walker * List name and contact numbers for known caregivers / representatives who currently or will assist patient after discharge: Aida Garcia - daughter - [phone] Jitendra Gonzalez - spouse- [phone] * Verbal permission to speak to the caregivers and representatives has been obtained from the patient. Yes * Community resources currently utilized Home Health * Please name any agencies selected above. [facility] * Additional services required to return to the preadmission environment? No * Can the patient safely return to the preadmission environment? Yes * Has this patient been hospitalized within the prior 30 days at any hospital? Yes Last DP export: 03/24/20 4:49 pm Patient Name: MIKE GONZALEZ Page [phone] at 1757 All edits/amendments must be made on the electronic document DICTATION DATE: 03/24/201755 TECHNOLOGY INSTRUCTOR: VINCENT 03/24/201755 RPT#: [id number] DC DATE: STATUS: ADM IN [facility] [address] [place] [address] END OF REPORT
--- NOTE | 2020-03-24 18:03 | MORECARE ---
CASE MANAGEMENT DISCHARGE SUMMARY PATIENT: MIKE GONZALEZ UNIT: [id number] ADM DATE: 03/19/20 AGE: 84 : 37 SEX: F ROOM/BED: D.03 AUTHOR: RAIMUNDO,DOC PHYSICIAN: REFERRING PHYSICIAN: EZEQUIEL RAYA MD DATE OF SERVICE: 03/24/20 Discharge Plan Patient Name: MIKE GONZALEZ Facility: [facility]:[place] : 1935 Planned Disposition: Anticipated Discharge Date: Discharge Date: Expected LOS: Initial Reviewer: [email or web address] Initial Review Date: 03/18/2020 Generated: 03/24/20 7:03 pm Comments DCP- Discharge Planning Updated by [email or web address]: Cassi Whalen on 03/24/20 5:[address] CM called and spoke with daughter Aida [facility] [place] [phone]. Aida stated that she had spoken with he dad and they all agree that the patient needs jail care. FRANCA completed for [facility]. CM faxed over clinicals this evening for referral. CM will continue to follow and assist as needed with discharge planning / needs. DCP- Discharge Planning Updated by [email or web address]: Cassi Whalen on 03/21/20 5:[address] Patient Name: MIKE GONZALEZ Admission Status: ER Accout number: [id number] Admission Date: 03-19-2020 : 1935 Admission Diagnosis:DIARRHEA, UNSPECIFIED Attending: EZEQUIEL RAYA Current LOS: 2 Anticipated DC Date: Planned Disposition: Primary Insurance: MEDICARE A & B Discharge Planning Comments: CM met with patient to complete initial dc planning assessment. CM educated patient on the CM role and verbal consent given by patient to complete assessment. Patient lives at home with her . At discharge patient plans to return home and feels this is a safe discharge. CM discussed availability of home health, rehab services, and medical equipment. Daughter would like patient to go to SNF facility. She states that her father is not able to take care. Patient denied known discharge needs at this time. CM will continue to follow and will assist as needed with dc plans/needs. Scrub Technician: Cassi Whalen DCPIA - Discharge Planning Initial Assessment Updated by [email or web address]: Cassi Whalen on 03/21/20 6:24 pm * Is the patient Alert and Oriented? Yes * How many steps to enter\exit or inside your home? * PCP hawa * [facility] * Preadmission Environment Home with Family * ADLs Partial Dependent * Partial ADLs (Assistance needed) Ambulation Bathing Dressing Eating Medication Management Toileting Transfers * Equipment Rolling Walker * List name and contact numbers for known caregivers / representatives who currently or will assist patient after discharge: Aida DuDominickfabio - daughter - [phone] Jitendra Gonzalez - spouse- [phone] * Verbal permission to speak to the caregivers and representatives has been obtained from the patient. Yes * Community resources currently utilized Home Health * Please name any agencies selected above. [facility] * Additional services required to return to the preadmission environment? No * Can the patient safely return to the preadmission environment? Yes * Has this patient been hospitalized within the prior 30 days at any hospital? Yes Last DP export: 03/24/20 4:57 pm Patient Name: MIKE GONZALEZ Page 75081 at 1803 All edits/amendments must be made on the electronic document DICTATION DATE: 03/24/201802 CARTRIDGE GAUGER: VINCENT 03/24/201802 RPT#: [id number] DC DATE: STATUS: ADM IN [facility] [address] [place] [address] END OF REPORT
--- NOTE | 2020-03-24 19:22 | NUR ---
RESTING WITH EYES CLOSED SRX2 BED LOW AND LOCKED CALL LIGHT IS IN REACH
--- NOTE | 2020-03-24 20:27 | NUR ---
FOUND PREVIOUS ORDER FOR TELEMETRY
--- NOTE | 2020-03-24 20:49 | NUR ---
pty is awake and confused monitor placed and rytme is st 120s PT IS COMPLETELY DISORIENTED AND UNABLE TO FOLLOW DIRECTION BED ALARM IS ON BED LOCKED SAFTY DONE PT SPIT OUT PO MEDS
--- NOTE | 2020-03-24 21:48 | NUR ---
PT HR TACHING UP TO 140 PT IS CONFUSED AND THRASHING IN BED HALDOL 2 MG IM GIVEN
--- NOTE | 2020-03-24 23:59 | NUR ---
RESTING WITH EYES CLOSED HR DOWN TO 100
--- NOTE | 2020-03-25 04:11 | NUR ---
PT NOW AWAKE AND AGAIN HR IS 140
--- NOTE | 2020-03-25 05:17 | NUR ---
PER TECH PT CO PAIN I WILL ATTEMPT TO GIVE HYDROCODONE PO ALONG WITH AM MED
[2020-03-25 05:19] LABS: BASOPHILS 0.1 % (0-2); HEMATOCRIT 39.3 % (36.0-48.0); HEMOGLOBIN 12.7 g/dL (12-16); IMMATURE GRANULOCYTES 0.3 % (0-5); LYMPHOCYTES 30.7 % (15-50); MCH 27.1 pg (26.0-34.0); MCHC 32.3 g/dL (31.0-37.0); MEAN PLATELET VOLUME 10.1 fL (7.4-10.4); MONOCYTES 7.7 % (2-11); NEUTROPHILS 60.2 % (40-80); RBC 4.68 10x6/uL (4.00-5.40); RDW 14.4 % (11.5-14.5); WBC 9.9 10x3/uL (4.8-10.8)
[2020-03-25 05:30] LABS: PLATELET COUNT 377 10x3/uL (130-400)
[2020-03-25 05:41] LABS: ALBUMIN 2.2 g/dL (3.4-5.0); ALKALINE PHOSPHATASE 69 U/L (30-120); ALT (SGPT) 15 U/L (10-68); BILIRUBIN - TOTAL 0.63 mg/dL (0.2-1.3); CALC OSMOLALITY 277 mosm/kg (275-300); CALCIUM 7.7 mg/dL (8.5-10.1); CARBON DIOXIDE 25.2 mmol/L (21.0-32.0); CHLORIDE - SERUM 103 mmol/L (98-107); CREATININE - SERUM 0.3 mg/dL (0.6-1.3); GLUCOSE 86 mg/dL (74-106); PHOSPHOROUS 2.8 mg/dL (2.5-4.9); PROTEIN - SERUM 5.6 g/dL (6.4-8.2); SODIUM 142 mmol/L (136-145); UREA NITROGEN 1 mg/dL (7-18); eGFR NON AFRICAN AMERICAN > 90 mL/min (90-120)
[2020-03-25 06:14] LABS: MAGNESIUM - SERUM 0.9 mg/dL (1.8-2.4); POTASSIUM - SERUM 2.6 mmol/L (3.5-5.1)
[2020-03-25 08:29] VITALS: BP 143/60
--- NOTE | 2020-03-25 10:56 | NUR ---
Nutrition Consult/Follow-up: Received consult for TF recs. S/p PEG placement yesterday. Wt: 149.9# (03/25); 148.8# (03/24); 145.2# (03/22) Labs noted: K+ 2.6, Ca 7.7, Mg 0.9, Alb 2.2 Meds noted: Protonix, Questran, Pepcid, Lomotil, NS @ 125 -When PEG ok to use, start Osmolite 1.5 @ 15 mL/hr and increase by 10 mL/hr q 6 hrs to goal rate of 40 mL/hr + H2O flushes 25 mL q hr. -RD following. Thanks for the consult!
[2020-03-25 12:22] VITALS: BP 117/61
--- NOTE | 2020-03-25 12:36 | MORECARE ---
CASE MANAGEMENT DISCHARGE SUMMARY PATIENT: MIKE GONZALEZ UNIT: [id number] ADM DATE: 03/19/20 AGE: 84 : 37 SEX: F ROOM/BED: D.9213 AUTHOR: RAIMUNDO,DOC PHYSICIAN: REFERRING PHYSICIAN: EZEQUIEL RAYA MD DATE OF SERVICE: 03/25/20 Discharge Plan Patient Name: MIKE GONZALEZ Facility: [facility]:[place] : 1935 Planned Disposition: Anticipated Discharge Date: Discharge Date: Expected LOS: Initial Reviewer: [email or web address] Initial Review Date: 03/18/2020 Generated: 03/25/20 1:36 pm Comments DCP- Discharge Planning Updated by [email or web address]: Yaneli Kaur on 03/25/20 11:[address] CM called Carolyne Castillo liaison for [facility] and Rehab and they have not received a referral. I faxed clinical for their review. CM will continue to follow and assist with discharge planning/needs. DCP- Discharge Planning Updated by [email or web address]: Cassi Whalen on 03/24/20 5:[address] CM called and spoke with daughter Taty Ferro [phone]. Taty stated that she had spoken with he dad and they all agree that the patient needs long-term care. FRANCA completed for [facility]. CM faxed over clinicals this evening for referral. CM will continue to follow and assist as needed with discharge planning / needs. DCP- Discharge Planning Updated by [id number]: Cassi Whalen on 03/21/20 5:[address] Patient Name: MIKE GONZALEZ Admission Status: ER Accout number: [id number] Admission Date: 03-19-2020 : 1935 Admission Diagnosis:DIARRHEA, UNSPECIFIED Attending: EZEQUIEL RAYA Current LOS: 2 Anticipated DC Date: Planned Disposition: Primary Insurance: MEDICARE A & B Discharge Planning Comments: CM met with patient to complete initial dc planning assessment. CM educated patient on the CM role and verbal consent given by patient to complete assessment. Patient lives at home with her . At discharge patient plans to return home and feels this is a safe discharge. CM discussed availability of home health, rehab services, and medical equipment. Daughter would like patient to go to SNF facility. She states that her father is not able to take care. Patient denied known discharge needs at this time. CM will continue to follow and will assist as needed with dc plans/needs. Dental Tech: Cassi Whalen DCPIA - Discharge Planning Initial Assessment Updated by [email or web address]: Cassi Whalen on 03/21/20 6:24 pm * Is the patient Alert and Oriented? Yes * How many steps to enter\exit or inside your home? * PCP [facility]wa * Pharmacy [facility] * Preadmission Environment Home with Family * ADLs Partial Dependent * Partial ADLs (Assistance needed) Ambulation Bathing Dressing Eating Medication Management Toileting Transfers * Equipment Rolling Walker * List name and contact numbers for known caregivers / representatives who currently or will assist patient after discharge: Taty Garcia - daughter - [phone] Jitendra Gonzalez - spouse- [phone] * Verbal permission to speak to the caregivers and representatives has been obtained from the patient. Yes * Community resources currently utilized Home Health * Please name any agencies selected above. [facility] * Additional services required to return to the preadmission environment? No * Can the patient safely return to the preadmission environment? Yes * Has this patient been hospitalized within the prior 30 days at any hospital? Yes External Providers External Provider: [facility] Next Contact Date: Service Request Date: Service Type: Resolution: Reviewer: Comments: Coverage Notice Reviewer: [id number] - Cassi Whalen Notice Issued Date-Time: 03/24/2020 17:00 Notice Type: Patient Choice Letter Notice Delivered To: Family Member Relationship to Patient: Daughter Hand Edge Bander Name: taty ferro Delivery Method: PHONE - Phone Soraya Days: Prior Verbal Notification: Yes Recipient Understood Notice: Yes Recipient Signature: Med Rec Note Co-signed by Attending: Coverage Notice Comment: [facility] DP export: 03/24/20 5:03 pm Patient Name: MIKE GONZALEZ Page 80982 at 1236 All edits/amendments must be made on the electronic document DICTATION DATE: 03/25/20 1236 SOLDERING MACHINE TENDER: DM 03/25/20 1236 RPT#: [id number] DC DATE: STATUS: ADM IN [facility] [address] [place] [address] END OF REPORT
[2020-03-25 13:52] LABS: CARBON DIOXIDE 28.2 mmol/L (21.0-32.0); CHLORIDE - SERUM 103 mmol/L (98-107); GLUCOSE 123 mg/dL (74-106); SODIUM 140 mmol/L (136-145)
[2020-03-25 13:53] LABS: CALC OSMOLALITY 275 mosm/kg (275-300); CREATININE - SERUM 0.5 mg/dL (0.6-1.3); MAGNESIUM - SERUM 2.4 mg/dL (1.8-2.4); POTASSIUM - SERUM 3.2 mmol/L (3.5-5.1); UREA NITROGEN 2 mg/dL (7-18); eGFR NON AFRICAN AMERICAN > 90 mL/min (90-120)
--- NOTE | 2020-03-25 16:27 | NUR ---
I have reviewed this patient and I concur with the Shift Assessment completed by the Licensed Practical Nurse today this shift.
[2020-03-25 17:13] VITALS: BP 155/72
--- NOTE | 2020-03-25 19:22 | NUR ---
PT IS AWAKE AND EXTREMELY CONFUSED I CAN UNDERSTYAND THAT SHE IS CALLING ME RACHEAL I ATTEMPT TI REORIENTATE HER BED LOW AND LOCKED CALL LIGHT IS IN REACH IV INFUSING PT ALSO DISROBING
[2020-03-25 20:00] VITALS: BP 157/58
--- NOTE | 2020-03-25 21:42 | NUR ---
NO RISIDUAL IN PEG TUBE BEGAN FEEDINGS OF OSMALITE 1.5 AT 15ML/HR PT HR 112 PT IS ANXIOUS HOLORING OUT AT ME WHEN I TOLD HER I WAS PEDRO SPRINGER
[2020-03-26] VITALS: BP 162/74
[2020-03-26 04:00] VITALS: BP 170/64
--- NOTE | 2020-03-26 04:23 | NUR ---
FEEDING CONT AT 15ML/HR NO MORE THAT 5ML RESIDUAL DURING CHECKS
[2020-03-26 06:32] LABS: CALC OSMOLALITY 276 mosm/kg (275-300); CALCIUM 7.6 mg/dL (8.5-10.1); CARBON DIOXIDE 24.4 mmol/L (21.0-32.0); CHLORIDE - SERUM 106 mmol/L (98-107); GLUCOSE 100 mg/dL (74-106); SODIUM 141 mmol/L (136-145); UREA NITROGEN 2 mg/dL (7-18)
[2020-03-26 06:41] LABS: CREATININE - SERUM 0.3 mg/dL (0.6-1.3); MAGNESIUM - SERUM 1.5 mg/dL (1.8-2.4); POTASSIUM - SERUM 3.1 mmol/L (3.5-5.1); eGFR NON AFRICAN AMERICAN > 90 mL/min (90-120)
[2020-03-26 08:00] VITALS: BP 153/71
--- NOTE | 2020-03-26 11:29 | NUR ---
Nutrition Follow-up: TF started yesterday. Nursing reports receiving TF @ 25 mL/hr this AM with tolerance. Tolerated puree with thin liquids with no s/s aspiration; ST still recs nutritional needs be met via PEG 2/2 poor PO intake. Diet: Osmolite 1.5 - goal rate 40 mL/hr + H2O 25 mL q hr Wt: 149.9# (03/25); 148.8# (03/24); 144.4# (03/23) Labs noted: K+ 3.1, Ca 7.6, Mg 1.5 Meds noted: Protonix, Questran, Pepcid, Lomotil, NS @ 50, electrolyte protocol -Rec continue to advance TF to goal as tolerated. -Monitor wt. -RD following.
--- NOTE | 2020-03-26 11:42 | NUR ---
I have reviewed this patient and I concur with the Shift Assessment completed by the Licensed Practical Nurse today this shift.
[2020-03-26 12:00] VITALS: BP 118/60
--- NOTE | 2020-03-26 13:48 | MORECARE ---
CASE MANAGEMENT DISCHARGE SUMMARY PATIENT: MIKE GONZALEZ UNIT: [id number] ADM DATE: 03/19/20 AGE: 84 : 37 SEX: F ROOM/BED: D.9782 AUTHOR: RAIMUNDO,DOC PHYSICIAN: REFERRING PHYSICIAN: EZEQUIEL RAYA MD DATE OF SERVICE: 03/26/20 Discharge Plan Patient Name: MIKE GONZALEZ Facility: [facility]:[place] : 1935 Planned Disposition: Anticipated Discharge Date: Discharge Date: Expected LOS: Initial Reviewer: [email or web address] Initial Review Date: 03/18/2020 Generated: 03/26/20 2:47 pm Comments DCP- Discharge Planning Updated by [id number]: Naida Webb on 03/26/20 12:[address] Updated information faced to Carolyne Castillo @[phone], . DCP- Discharge Planning Updated by [email or web address]: Yaneli Kaur on 03/25/20 11:[address] CM called Carolyne Castillo, liaison for [facility] and Rehab and they have not received a referral. I faxed clinical for their review. CM will continue to follow and assist with discharge planning/needs. DCP- Discharge Planning Updated by [email or web address]: Cassi Whalen on 03/24/20 5:[address] CM called and spoke with daughter Taty Ferro [phone]. Taty stated that she had spoken with he dad and they all agree that the patient needs [facility] care. FRANCA completed for [facility]. CM faxed over clinicals this evening for referral. CM will continue to follow and assist as needed with discharge planning / needs. DCP- Discharge Planning Updated by [email or web address]: Cassi Whalen on 03/21/20 5:[address] Patient Name: MIKE GONZALEZ Admission Status: ER Accout number: [id number] Admission Date: 03-19-2020 : 1935 Admission Diagnosis:DIARRHEA, UNSPECIFIED Attending: EZEQUIEL RAYA Current LOS: 2 Anticipated DC Date: Planned Disposition: Primary Insurance: MEDICARE A & B Discharge Planning Comments: CM met with patient to complete initial dc planning assessment. CM educated patient on the CM role and verbal consent given by patient to complete assessment. Patient lives at home with her . At discharge patient plans to return home and feels this is a safe discharge. CM discussed availability of home health, rehab services, and medical equipment. Daughter would like patient to go to SNF facility. She states that her father is not able to take care. Patient denied known discharge needs at this time. CM will continue to follow and will assist as needed with dc plans/needs. Bale Breaker Operator: Cassi Whalen DCPIA - Discharge Planning Initial Assessment Updated by [email or web address]: Cassi Whalen on 03/21/20 6:24 pm * Is the patient Alert and Oriented? Yes * How many steps to enter\exit or inside your home? * PCP [facility] * Pharmacy [facility] * Preadmission Environment Home with Family * ADLs Partial Dependent * Partial ADLs (Assistance needed) Ambulation Bathing Dressing Eating Medication Management Toileting Transfers * Equipment Rolling Walker * List name and contact numbers for known caregivers / representatives who currently or will assist patient after discharge: Taty Garcia - daughter - [phone] Jitendra Gonzalez - spouse- [phone] * Verbal permission to speak to the caregivers and representatives has been obtained from the patient. Yes * Community resources currently utilized Home Health * Please name any agencies selected above. [facility] * Additional services required to return to the preadmission environment? No * Can the patient safely return to the preadmission environment? Yes * Has this patient been hospitalized within the prior 30 days at any hospital? Yes Coverage Notice Reviewer: [id number] - Cassi Whalen Notice Issued Date-Time: 03/24/2020 17:00 Notice Type: Patient Choice Letter Notice Delivered To: Family Member Relationship to Patient: Daughter Phlebotomist Prn Name: taty ferro Delivery Method: PHONE - Phone Soraya Days: Prior Verbal Notification: Yes Recipient Understood Notice: Yes Recipient Signature: Med Rec Note Co-signed by Attending: Coverage Notice Comment: [facility] Last DP export: 03/25/20 11:36 am Patient Name: MIKE GONZALEZ Page 17360 at 1348 All edits/amendments must be made on the electronic document DICTATION DATE: 03/26/201346 REPAIR WEAVER: VINCENT 03/26/201346 RPT#: [id number] DC DATE: STATUS: ADM IN [facility] [address] [place] [address] END OF REPORT
[2020-03-26 16:00] VITALS: BP 139/74
--- NOTE | 2020-03-26 16:26 | MORECARE ---
CASE MANAGEMENT DISCHARGE SUMMARY PATIENT: MIKE GONZALEZ UNIT: [id number] ADM DATE: 03/19/20 AGE: 84 : 37 SEX: F ROOM/BED: D.3083 AUTHOR: RAIMUNDO,DOC PHYSICIAN: REFERRING PHYSICIAN: EZEQUIEL RAYA MD DATE OF SERVICE: 03/26/20 Discharge Plan Patient Name: MIKE GONZALEZ Facility: [facility]:[place] : 1935 Planned Disposition: Anticipated Discharge Date: Discharge Date: Expected LOS: Initial Reviewer: [email or web address] Initial Review Date: 03/18/2020 Generated: 03/26/20 5:25 pm Comments DCP- Discharge Planning Updated by [email or web address]: Naida Webb on 03/26/20 3:[address] Re-faxed updated information to Carolyne Castillo @[phone]. DCP- Discharge Planning Updated by [email or web address]: Naida Webb on 03/26/20 12:[address] Updated information faced to Carolyne Castillo @[phone], . DCP- Discharge Planning Updated by [email or web address]: Yaneli Kaur on 03/25/20 11:[address] CM called Carolyne Castillo, liaison for [facility] and Rehab and they have not received a referral. I faxed clinical for their review. CM will continue to follow and assist with discharge planning/needs. DCP- Discharge Planning Updated by [id number]: Cassi Whalen on 03/24/20 5:[address] CM called and spoke with daughter Taty Ferro [phone]. Taty stated that she had spoken with he dad and they all agree that the patient needs [facility] care. FRANCA completed for [facility]. CM faxed over clinicals this evening for referral. CM will continue to follow and assist as needed with discharge planning / needs. DCP- Discharge Planning Updated by [id number]: Cassi Whalen on 03/21/20 5:[address] Patient Name: MIKE GONZALEZ Admission Status: ER Accout number: [id number] Admission Date: 03-19-2020 : 1935 Admission Diagnosis:DIARRHEA, UNSPECIFIED Attending: EZEQUIEL RAYA Current LOS: 2 Anticipated DC Date: Planned Disposition: Primary Insurance: MEDICARE A & B Discharge Planning Comments: CM met with patient to complete initial dc planning assessment. CM educated patient on the CM role and verbal consent given by patient to complete assessment. Patient lives at home with her . At discharge patient plans to return home and feels this is a safe discharge. CM discussed availability of home health, rehab services, and medical equipment. Daughter would like patient to go to SNF facility. She states that her father is not able to take care. Patient denied known discharge needs at this time. CM will continue to follow and will assist as needed with dc plans/needs. Metal Tank Erector: Cassi Whalen DCPIA - Discharge Planning Initial Assessment Updated by [email or web address]: Cassi Whalen on 03/21/20 6:24 pm * Is the patient Alert and Oriented? Yes * How many steps to enter\exit or inside your home? * PCP [facility] * [facility] * Preadmission Environment Home with Family * ADLs Partial Dependent * Partial ADLs (Assistance needed) Ambulation Bathing Dressing Eating Medication Management Toileting Transfers * Equipment Rolling Walker * List name and contact numbers for known caregivers / representatives who currently or will assist patient after discharge: Taty Garcia - daughter - [phone] Jitendra Gonzalez - spouse- [phone] * Verbal permission to speak to the caregivers and representatives has been obtained from the patient. Yes * Community resources currently utilized Home Health * Please name any agencies selected above. [facility] * Additional services required to return to the preadmission environment? No * Can the patient safely return to the preadmission environment? Yes * Has this patient been hospitalized within the prior 30 days at any hospital? Yes Coverage Notice Reviewer: [id number] - Cassi Whalen Notice Issued Date-Time: 03/24/2020 17:00 Notice Type: Patient Choice Letter Notice Delivered To: Family Member Relationship to Patient: Daughter Joy Operator Name: taty ferro Delivery Method: PHONE - Phone Soraya Days: Prior Verbal Notification: Yes Recipient Understood Notice: Yes Recipient Signature: Med Rec Note Co-signed by Attending: Coverage Notice Comment: [facility] Last DP export: 03/26/20 12:48 pm Patient Name: MIKE GONZALEZ Page 91083 at 1626 All edits/amendments must be made on the electronic document DICTATION DATE: 03/26/201624 SUPERVISOR ROVING: VINCENT 03/26/201624 RPT#: [id number] DC DATE: STATUS: ADM IN [facility] [address] [place] [address] END OF REPORT
--- NOTE | 2020-03-26 17:18 | OP ---
PATIENT NAME: MIKE CASANOVA MEDICAL RECORD: [id number] :[birth year] LOCATION:D.M2 D.2104 ADMISSION DATE:03/19/20 SURGEON: CHRISTIAN REBOLLEDO MD DATE OF OPERATION: 03/24/2020 PREOPERATIVE DIAGNOSES: 1. Acute malnutrition. 2. Feeding problems. POSTOPERATIVE DIAGNOSES: 1. Acute malnutrition 2. Feeding problems. PROCEDURE: 1. Esophagogastroduodenoscopy with antral biopsies. 2. Placement of 20-Filipino percutaneous endoscopic gastrostomy tube. SURGEON: Christian Rebolledo MD WARNING COORDINATION METEOROLOGIST: None. BLOOD LOSS: Minimal. ANESTHESIA: Local with IV sedation. COMPLICATIONS: None. The risks, possible complications, and alternatives to the procedure were explained to the patient and her family. A consent form was signed. I specifically discussed with them was early dislodgement of the gastrostomy tube, which likely would prompt an exploratory laparotomy. The patient has been confused. OPERATIVE COURSE: The patient was seen in her ICU bed. The entire procedure was performed in the presence of several of the GI crew members as well as the nurse irrigation installation specialist. The abdomen was sterilely prepped and draped. IV sedation was induced by the anesthesia staff. A bite block was inserted. A gastroscope was inserted into the mouth. It was advanced easily into the hypopharynx. The esophagus was easily intubated as were the stomach and duodenum. Upon withdrawal, retroflexed and angulus views were obtained. Antral biopsies were obtained. I then cleansed the anterior abdominal wall skin. We are able to transilluminate the anterior abdominal wall and visualize this externally. Additionally, I was able to indent the anterior abdominal wall and visualize this endoscopically. A local anesthetic was used to infiltrate the skin and subcutaneous tissues at the proposed site for placement of the gastrostomy tube. A transverse incision was accomplished. An endoscopic snare was advanced down through the gastroscope. The snare was deployed. Through the skin incision, I advanced an Angiocath-type catheter and punctured the fundus of the stomach on the first try. OPERATIVE REPORT [id number] MIKE CASANOVA I advanced a wire down through the Angiocath. This was grasped with the endoscopic snare and the gastroscope and the wire were then withdrawn out through the mouth. The wire was then attached to a pull-type gastrostomy tube, which was then pulled into place. I then performed another endoscopy of the esophagus and stomach. There had been no false passage or perforation of the gastrostomy tube, which appeared to be well placed. The gastroscope was then withdrawn under direct vision. The gastrostomy tube was shortened. Hub and flange devices were attached. An abdominal binder was then placed in order to prevent the patient from getting to the gastrostomy tube and pulling it out. The patient was then recovered from sedation. A sterile dressing was applied. TRANSINT:[id number] Voice Confirmation ID: [id number] DOCUMENT ID: [id number] CHRISTIAN REBOLLEDO MD at 1718 CC: [id number] DICTATION DATE: 03/25/20 175 DIRECTOR OF INSTITUTIONAL SALES: 03/26/20 0042 ADM IN [facility] [address] [place] [address]
--- NOTE | 2020-03-26 19:30 | NUR ---
PT IN BED, AWAKE AND CONFUSED, TRYING TO GET OUT OF BED, RESP EVEN AND UNLABORED. NO DISTRESS NOTED. CL IN REACH, SR UP X 2.
[2020-03-26 20:00] VITALS: BP 125/51
[2020-03-27 04:00] VITALS: BP 151/71; BP 155/67
[2020-03-27 06:22] LABS: BASOPHILS 0.3 % (0-2); EOSINOPHILS 3.2 % (0-7); HEMATOCRIT 39.7 % (36.0-48.0); HEMOGLOBIN 12.5 g/dL (12-16); IMMATURE GRANULOCYTES 0.3 % (0-5); LYMPHOCYTES 30.2 % (15-50); MCH 27.2 pg (26.0-34.0); MCHC 31.5 g/dL (31.0-37.0); MCV 86.3 fL (80.0-100.0); MEAN PLATELET VOLUME 10.4 fL (7.4-10.4); MONOCYTES 11.5 % (2-11); NEUTROPHILS 54.5 % (40-80); RDW 14.7 % (11.5-14.5); WBC 6.8 10x3/uL (4.8-10.8)
[2020-03-27 06:39] LABS: PLATELET COUNT 295 10x3/uL (130-400)
[2020-03-27 06:54] LABS: ALBUMIN 2.1 g/dL (3.4-5.0); ALKALINE PHOSPHATASE 89 U/L (30-120); ALT (SGPT) 14 U/L (10-68); BILIRUBIN - TOTAL 0.48 mg/dL (0.2-1.3); CALCIUM 7.9 mg/dL (8.5-10.1); CARBON DIOXIDE 26.6 mmol/L (21.0-32.0); CHLORIDE - SERUM 109 mmol/L (98-107); GLUCOSE 107 mg/dL (74-106); MAGNESIUM - SERUM 1.4 mg/dL (1.8-2.4); SODIUM 143 mmol/L (136-145)
[2020-03-27 06:55] LABS: CALC OSMOLALITY 281 mosm/kg (275-300); CREATININE - SERUM 0.4 mg/dL (0.6-1.3); PHOSPHOROUS 1.9 mg/dL (2.5-4.9); POTASSIUM - SERUM 3.8 mmol/L (3.5-5.1); UREA NITROGEN 3 mg/dL (7-18); eGFR NON AFRICAN AMERICAN > 90 mL/min (90-120)
[2020-03-27 08:56] VITALS: BP 158/76
--- NOTE | 2020-03-27 09:15 | NUR ---
PERFORMED ORAL CARE ON PT AND SHE BEGAN THROWING UP GREEN FLUID. ASPIRATED PEG TUBE AND RECEIVED 250ML RESIDUAL. STOPPED TUBE FEEDING. CLEANED PT. WILL CTM.
--- NOTE | 2020-03-27 13:44 | NUR ---
I have reviewed this patient and I concur with the Shift Assessment completed by the Licensed Practical Nurse today this shift.
[2020-03-27 13:50] VITALS: BP 140/66
--- NOTE | 2020-03-27 15:40 | MORECARE ---
CASE MANAGEMENT DISCHARGE SUMMARY PATIENT: MIKE GONZALEZ UNIT: [id number] ADM DATE: 03/19/20 AGE: 84 : 37 SEX: F ROOM/BED: D.210 AUTHOR: RAIMUNDO,DOC PHYSICIAN: REFERRING PHYSICIAN: EZEQUIEL RAYA MD DATE OF SERVICE: 03/27/20 Discharge Plan Patient Name: MIKE GONZALEZ Facility: [facility]:[place] : 1935 Planned Disposition: Anticipated Discharge Date: Discharge Date: Expected LOS: Initial Reviewer: [email or web address] Initial Review Date: 03/18/2020 Generated: 03/27/20 4:40 pm Comments DCP- Discharge Planning Updated by [email or web address]: Naida Webb on 03/27/20 2:[address] Carolyne Castillo called and [facility] At present the patient is refusing to participate with PT and is Max assist for bed mobility, still very confused. CM will update additional information 03/28. DCP- Discharge Planning Updated by [id number]: Naida Webb on 03/26/20 3:[address] Re-faxed updated information to Carolyne Castillo @[phone]. DCP- Discharge Planning Updated by [id number]: Naida Webb on 03/26/20 12:[address] Updated information faced to Carolyne Castillo @[phone], . DCP- Discharge Planning Updated by [email or web address]: Yaneli Kaur on 03/25/20 11:[address] CM called Carolyne Castillo, liaison for [facility] and Rehab and they have not received a referral. I faxed clinical for their review. CM will continue to follow and assist with discharge planning/needs. DCP- Discharge Planning Updated by [id number]: Cassi Whalen on 03/24/20 5:[address] CM called and spoke with daughter Taty Ferro [phone]. Taty stated that she had spoken with he dad and they all agree that the patient needs nursing home care. FRANCA completed for [facility] and Rehab. CM faxed over clinicals this evening for referral. CM will continue to follow and assist as needed with discharge planning / needs. DCP- Discharge Planning Updated by [id number]: Cassi Whalen on 03/21/20 5:[address] Patient Name: MIKE GONZALEZ Admission Status: ER Accout number: [id number] Admission Date: 03-19-2020 : 1935 Admission Diagnosis:DIARRHEA, UNSPECIFIED Attending: EZEQUIEL RAYA Current LOS: 2 Anticipated DC Date: Planned Disposition: Primary Insurance: MEDICARE A & B Discharge Planning Comments: CM met with patient to complete initial dc planning assessment. CM educated patient on the CM role and verbal consent given by patient to complete assessment. Patient lives at home with her . At discharge patient plans to return home and feels this is a safe discharge. CM discussed availability of home health, rehab services, and medical equipment. Daughter would like patient to go to SNF facility. She states that her father is not able to take care. Patient denied known discharge needs at this time. CM will continue to follow and will assist as needed with dc plans/needs. Cello Teacher: Cassi Whalen DCPIA - Discharge Planning Initial Assessment Updated by [id number]: Cassi Whalen on 03/21/20 6:24 pm * Is the patient Alert and Oriented? Yes * How many steps to enter\exit or inside your home? * PCP hawa * Pharmacy [facility] * Preadmission Environment Home with Family * ADLs Partial Dependent * Partial ADLs (Assistance needed) Ambulation Bathing Dressing Eating Medication Management Toileting Transfers * Equipment Rolling Walker * List name and contact numbers for known caregivers / representatives who currently or will assist patient after discharge: Taty DuDominickfabio - daughter - [phone] Jitendra Gonzalez - spouse- [phone] * Verbal permission to speak to the caregivers and representatives has been obtained from the patient. Yes * Community resources currently utilized Home Health * Please name any agencies selected above[facility] * Additional services required to return to the preadmission environment? No * Can the patient safely return to the preadmission environment? Yes * Has this patient been hospitalized within the prior 30 days at any hospital? Yes Coverage Notice Reviewer: [id number] - Cassi Whalen Notice Issued Date-Time: 03/24/2020 17:00 Notice Type: Patient Choice Letter Notice Delivered To: Family Member Relationship to Patient: Daughter Evaluator Name: taty ferro Delivery Method: PHONE - Phone Soraya Days: Prior Verbal Notification: Yes Recipient Understood Notice: Yes Recipient Signature: Med Rec Note Co-signed by Attending: Coverage Notice Comment: [facility] Last DP export: 03/26/20 3:26 pm Patient Name: MIKE GONZALEZ Page [id number] at 1540 All edits/amendments must be made on the electronic document DICTATION DATE: 03/27/20 1540 NURSING UNIT CLERK: VINCENT 03/27/20 1540 RPT#: [id number] DC DATE: STATUS: ADM IN [facility] [address] [place] [address] END OF REPORT
--- NOTE | 2020-03-27 17:31 | NUR ---
ASPIRATION 90ML RESIDUAL OF GREEN FLUID. STARTED TUBE FEEDING BACK AT 30ML/HR VIA PEG WITH 25ML FLUSHES EVERY HOUR. WILL CTM.
--- NOTE | 2020-03-27 19:18 | NUR ---
PT CONFUSED UNABLE TO RECOGNISE SPEACH RESIDUAL TO PEG 40 CC I LOWERED FEEDING FOR NOW AND WILL HOLD LIMOTIL BED LOW AND LOCKED ALARM ON AND SR X2
[2020-03-27 19:23] VITALS: BP 146/58
[2020-03-27 20:00] VITALS: BP 133/65
[2020-03-28] VITALS: BP 153/60
[2020-03-28 04:00] VITALS: BP 157/63
--- NOTE | 2020-03-28 06:01 | NUR ---
INCREASED FEEDING BACK TO 40 NO MORE THEN 10CC RESIDUAL AT ANYTIME TONIGHT
[2020-03-28 08:49] LABS: CALC OSMOLALITY 283 mosm/kg (275-300); CARBON DIOXIDE 26.5 mmol/L (21.0-32.0); CHLORIDE - SERUM 110 mmol/L (98-107); CREATININE - SERUM 0.4 mg/dL (0.6-1.3); GLUCOSE 107 mg/dL (74-106); MAGNESIUM - SERUM 1.5 mg/dL (1.8-2.4); SODIUM 144 mmol/L (136-145); UREA NITROGEN 4 mg/dL (7-18); eGFR NON AFRICAN AMERICAN > 90 mL/min (90-120)
[2020-03-28 09:14] LABS: HEMATOCRIT 37.9 % (36.0-48.0); HEMOGLOBIN 12.2 g/dL (12-16); LYMPHOCYTES 26.6 % (15-50); MCH 27.2 pg (26.0-34.0); MCHC 32.2 g/dL (31.0-37.0); MCV 84.4 fL (80.0-100.0); MEAN PLATELET VOLUME 9.5 fL (7.4-10.4); NEUTROPHILS 60.4 % (40-80); RBC 4.49 10x6/uL (4.00-5.40); RDW 14.7 % (11.5-14.5); WBC 7.8 10x3/uL (4.8-10.8)
[2020-03-28 09:15] LABS: PLATELET COUNT 356 10x3/uL (130-400)
[2020-03-28 10:17] VITALS: BP 135/65
--- NOTE | 2020-03-28 10:52 | NUR ---
Nutrition Follow-up: Receiving TF @ 40 mL/hr this AM. Nursing reports it was decreased overnight 2/2 residuals but is tolerating currently; small amt of diarrhea this AM. Diet: Osmolite 1.5 @ 40 mL/hr + H2O 25 mL q hr Clear Liquid Wt: 137# (03/28); 149.9# (03/25); 145.2# (03/22) Labs noted: Na 144, K+ 3.0, Glu 107, Ca 8.0, Mg 1.5 Meds noted: Protonix, Questran, Pepcid, Lomotil, NS @ 50, electrolyte protocol -Continue current TF as tolerated. -Monitor wt; wt changes noted. -RD following.
--- NOTE | 2020-03-28 11:10 | NUR ---
MIDLINE ABDOMINAL INCISION TOP OPEN WOUND AND BOTTOMED SCABBED. WET TO DRY WITH NORMAL SALINE DRESSING PLACED ON TOP OF OPEN WOUND AND COVERED WITH BORDERED GAUZE TAPE. PEG TUBE SITE CLEANSEDW [facility] WOUND CLEANSER PATTED DRY AND PLACED NEW DRAIN SPONGES DRESSING ON SITE.
--- NOTE | 2020-03-28 11:44 | NUR ---
CALLED CT AND LET THEM KNOW COVID TEST HAS BEEN ORDERED ON PT. BUT A 20G IV HAS BEEN INSERTED. THEY VERBALIZED UNDERSTANDING.
[2020-03-28 14:42] VITALS: BP 133/70
--- NOTE | 2020-03-28 14:42 | MORECARE ---
CASE MANAGEMENT DISCHARGE SUMMARY PATIENT: MIKE GONZALEZ UNIT: [id number] ADM DATE: 03/19/20 AGE: 84 : 37 SEX: F ROOM/BED: D.2109 AUTHOR: RAIMUNDO,DOC PHYSICIAN: REFERRING PHYSICIAN: EZEQUIEL RAYA MD DATE OF SERVICE: 03/28/20 Discharge Plan Patient Name: MIKE GONZALEZ Facility: [facility]:[place] : 1935 Planned Disposition: Inpatient Rehab Facility Anticipated Discharge Date: Discharge Date: Expected LOS: Initial Reviewer: [email or web address] Initial Review Date: 03/18/2020 Generated: 03/28/20 3:42 pm DCP- Discharge Planning Updated by [id number]: Naida Webb on 03/27/20 2:[address] Carolyne Castillo called and [facility] At present the patient is refusing to participate with PT and is Max assist for bed mobility, still very confused. CM will update additional information 03/28. DCP- Discharge Planning Updated by [id number]: Naida Webb on 03/26/20 3:[address] Re-faxed updated information to Carolyne Castillo @[phone]. DCP- Discharge Planning Updated by [email or web address]: Naida Webb on 03/26/20 12:[address] Updated information faced to Carolyne Castillo @[phone], . DCP- Discharge Planning Updated by [id number]: Yaneli Kaur on 03/25/20 11:[address] CM called Carolyne Castillo, liaison for [facility] and Rehab and they have not received a referral. I faxed clinical for their review. CM will continue to follow and assist with discharge planning/needs. DCP- Discharge Planning Updated by [id number]: Cassi Whalen on 03/24/20 5:[address] CM called and spoke with daughter Taty Ferro [phone]. Taty stated that she had spoken with he dad and they all agree that the patient needs nursing home care. FRANCA completed for [facility] and Rehab. CM faxed over clinicals this evening for referral. CM will continue to follow and assist as needed with discharge planning / needs. DCP- Discharge Planning Updated by [id number]: Cassi Whalen on 03/21/20 5:[address] Patient Name: MIKE GONZALEZ Admission Status: ER Accout number: [id number] Admission Date: 03-19-2020 : 1935 Admission Diagnosis:DIARRHEA, UNSPECIFIED Attending: EZEQUIEL RAYA Current LOS: 2 Anticipated DC Date: Planned Disposition: Primary Insurance: MEDICARE A & B Discharge Planning Comments: CM met with patient to complete initial dc planning assessment. CM educated patient on the CM role and verbal consent given by patient to complete assessment. Patient lives at home with her . At discharge patient plans to return home and feels this is a safe discharge. CM discussed availability of home health, rehab services, and medical equipment. Daughter would like patient to go to SNF facility. She states that her father is not able to take care. Patient denied known discharge needs at this time. CM will continue to follow and will assist as needed with dc plans/needs. Customer Field Representative: Cassi Whalen DCPIA - Discharge Planning Initial Assessment Updated by [email or web address]: Cassi Whalen on 03/21/20 6:24 pm * Is the patient Alert and Oriented? Yes * How many steps to enter\exit or inside your home? * PCP [facility] * Pharmacy [facility] * Preadmission Environment Home with Family * ADLs Partial Dependent * Partial ADLs (Assistance needed) Ambulation Bathing Dressing Eating Medication Management Toileting Transfers * Equipment Rolling Walker * List name and contact numbers for known caregivers / representatives who currently or will assist patient after discharge: Tatyfranco Garcia - daughter - [phone] Jitendra Gonzalez - spouse- [phone] * Verbal permission to speak to the caregivers and representatives has been obtained from the patient. Yes * Community resources currently utilized Home Health * Please name any agencies selected above[facility] * Additional services required to return to the preadmission environment? No * Can the patient safely return to the preadmission environment? Yes * Has this patient been hospitalized within the prior 30 days at any hospital? Yes Coverage Notice Reviewer: [id number] - Cassi Whalen Notice Issued Date-Time: 03/24/2020 17:00 Notice Type: Patient Choice Letter Notice Delivered To: Family Member Relationship to Patient: Daughter Creeler Name: taty ferro Delivery Method: PHONE - Phone Soraya Days: Prior Verbal Notification: Yes Recipient Understood Notice: Yes Recipient Signature: Med Rec Note Co-signed by Attending: Coverage Notice Comment: [facility] Last DP export: 03/27/20 2:40 pm Patient Name: MIKE GONZALEZ Page [phone] at 1442 All edits/amendments must be made on the electronic document DICTATION DATE: 03/28/20 1442 SPECIAL EDUCATION SUPERVISOR: VINCENT 03/28/20 1442 RPT#: [id number] DC DATE: STATUS: ADM IN [facility] [address] [place] [address] END OF REPORT
--- NOTE | 2020-03-28 14:51 | MORECARE ---
CASE MANAGEMENT DISCHARGE SUMMARY PATIENT: MIKE GONZALEZ UNIT: [id number] ADM DATE: 03/19/20 AGE: 84 : 37 SEX: F ROOM/BED: D.8853 AUTHOR: RAIMUNDO,DOC PHYSICIAN: REFERRING PHYSICIAN: EZEQUIEL RAYA MD DATE OF SERVICE: 03/28/20 Discharge Plan Patient Name: MIKE GONZALEZ Facility: [facility]:[place] : 1935 Planned Disposition: Inpatient Rehab Facility Anticipated Discharge Date: Discharge Date: Expected LOS: Initial Reviewer: [email or web address] Initial Review Date: 03/18/2020 Generated: 03/28/20 3:50 pm Comments DCP- Discharge Planning Updated by [email or web address]: Naida Webb on 03/28/20 1:[address] Updated [facility]. DCP- Discharge Planning Updated by [id number]: Naida Webb on 03/27/20 2:[address] Carolyne Castillo called and said she will [facility]. At present the patient is refusing to participate with PT and is Max assist for bed mobility, still very confused. CM will update additional information 03/28. DCP- Discharge Planning Updated by [id number]: Naida Webb on 03/26/20 3:[address] Re-faxed updated information to Carolyne Castillo @[phone]. DCP- Discharge Planning Updated by [email or web address]: Naida Webb on 03/26/20 12:[address] Updated information faced to Carolyne Castillo @[phone], . DCP- Discharge Planning Updated by [email or web address]: Yaneli Kaur on 03/25/20 11:[address] CM called Carolyne Castillo liaison for [facility] and Rehab and they have not received a referral. I faxed clinical for their review. CM will continue to follow and assist with discharge planning/needs. DCP- Discharge Planning Updated by [id number]: Cassi Whalen on 03/24/20 5:[address] CM called and spoke with daughter Taty Ferro [phone]. Taty stated that she had spoken with he dad and they all agree that the patient needs long-term care. FRANCA completed for [facility] and Rehab. CM faxed over clinicals this evening for referral. CM will continue to follow and assist as needed with discharge planning / needs. DCP- Discharge Planning Updated by [id number]: Cassi Whalen on 03/21/20 5:[address] Patient Name: MIKE GONZALEZ Admission Status: ER Accout number: [id number] Admission Date: 03-19-2020 : 1935 Admission Diagnosis:DIARRHEA, UNSPECIFIED Attending: EZEQUIEL RAYA Current LOS: 2 Anticipated DC Date: Planned Disposition: Primary Insurance: MEDICARE A & B Discharge Planning Comments: CM met with patient to complete initial dc planning assessment. CM educated patient on the CM role and verbal consent given by patient to complete assessment. Patient lives at home with her . At discharge patient plans to return home and feels this is a safe discharge. CM discussed availability of home health, rehab services, and medical equipment. Daughter would like patient to go to SNF facility. She states that her father is not able to take care. Patient denied known discharge needs at this time. CM will continue to follow and will assist as needed with dc plans/needs. Refining Still Operator: Cassi Whalen DCPIA - Discharge Planning Initial Assessment Updated by [email or web address]: Cassi Whalen on 03/21/20 6:24 pm * Is the patient Alert and Oriented? Yes * How many steps to enter\exit or inside your home? * PCP [facility] * [facility] * Preadmission Environment Home with Family * ADLs Partial Dependent * Partial ADLs (Assistance needed) Ambulation Bathing Dressing Eating Medication Management Toileting Transfers * Equipment Rolling Walker * List name and contact numbers for known caregivers / representatives who currently or will assist patient after discharge: Taty Garcia - daughter - [phone] Jitendra Gonzalez - spouse- [phone] * Verbal permission to speak to the caregivers and representatives has been obtained from the patient. Yes * Community resources currently utilized Home Health * Please name any agencies selected above[facility] * Additional services required to return to the preadmission environment? No * Can the patient safely return to the preadmission environment? Yes * Has this patient been hospitalized within the prior 30 days at any hospital? Yes Coverage Notice Reviewer: [id number] Harjeet Whalen Notice Issued Date-Time: 03/24/2020 17:00 Notice Type: Patient Choice Letter Notice Delivered To: Family Member Relationship to Patient: Daughter Customer Associate Name: taty ferro Delivery Method: PHONE - Phone Soraya Days: Prior Verbal Notification: Yes Recipient Understood Notice: Yes Recipient Signature: Med Rec Note Co-signed by Attending: Coverage Notice Comment: [facility] Last DP export: 03/28/20 1:42 pm Patient Name: MIKE GONZALEZ Page 14674 at 1451 All edits/amendments must be made on the electronic document DICTATION DATE: 03/28/20 145 CHIEF GAUGER: VINCENT 03/28/20 145 RPT#: [id number] DC DATE: STATUS: ADM IN [facility] [address] [place] [address] END OF REPORT
[2020-03-28 18:14] VITALS: BP 133/68
--- NOTE | 2020-03-28 20:30 | NUR ---
PT ALERT AND CONFUSED. SHE HAS AN ABDOMINAL BINDER COVERING HER PEG TUBE. OSMOLITE INFUSING THROUGH PEG TUBE AT 40ML/HR. SHE HAS NORMAL SALINE INFUSING AT 50ML/HR TO HER LEFT WRIST IV. HER LINENS ARE DRY. PERFORMED ORAL CARE. HER BED IS LOW, BENJA ALARM ON. SIDE RAILS UP x 2.
[2020-03-28 21:21] VITALS: BP 102/66
[2020-03-29 00:01] VITALS: BP 167/81
[2020-03-29 04:00] VITALS: BP 139/61
[2020-03-29 05:10] LABS: HEMATOCRIT 41.6 % (36.0-48.0); HEMOGLOBIN 13.3 g/dL (12-16); LYMPHOCYTES 18.2 % (15-50); MCH 27.1 pg (26.0-34.0); MCV 84.7 fL (80.0-100.0); MEAN PLATELET VOLUME 9.5 fL (7.4-10.4); NEUTROPHILS 68.6 % (40-80); PLATELET COUNT 387 10x3/uL (130-400); RBC 4.91 10x6/uL (4.00-5.40); RDW 14.8 % (11.5-14.5); WBC 10.7 10x3/uL (4.8-10.8)
[2020-03-29 05:20] LABS: ALBUMIN 2.3 g/dL (3.4-5.0); ALKALINE PHOSPHATASE 98 U/L (30-120); BILIRUBIN - TOTAL 0.49 mg/dL (0.2-1.3); CALC OSMOLALITY 275 mosm/kg (275-300); CALCIUM 8.6 mg/dL (8.5-10.1); CARBON DIOXIDE 28.4 mmol/L (21.0-32.0); CHLORIDE - SERUM 105 mmol/L (98-107); CREATININE - SERUM 0.4 mg/dL (0.6-1.3); GLUCOSE 109 mg/dL (74-106); MAGNESIUM - SERUM 1.8 mg/dL (1.8-2.4); POTASSIUM - SERUM 3.9 mmol/L (3.5-5.1); SODIUM 139 mmol/L (136-145); UREA NITROGEN 5 mg/dL (7-18); eGFR NON AFRICAN AMERICAN > 90 mL/min (90-120)
[2020-03-29 05:25] LABS: ALT (SGPT) 20 U/L (10-68)
[2020-03-29 08:25] VITALS: BP 149/69
--- NOTE | 2020-03-29 09:39 | NUR ---
RIGHT WRIST 20G IV INFILTRATED. DC'D WITH CATH INTACT.
--- NOTE | 2020-03-29 10:15 | NUR ---
PT GIVEN ORAL CARE BY THIS NURSE AND FACE WASHED. PT GIVEN SMALL SIPS OF APPLE JUICE WITH NO SIGNS OF ASPIRATION. PT WAS UNABLE SIP USING STRAW. TF BAG CHANGED. ABDOMINAL DRESSING CHANGED ORDERED. PEG TUBE SITE DRESSING CHANGED CLEANSED WITH WOUND CLEANSER, PATTED DRY WITH 4X4'S, AND PLACED 4X4 DRAIN SPONGE AROUND SITE. PT TOLERATED WELL. PT WAS ABLE TO SPEAK MORE CLEARLY TODAY BUT SPEECH WAS STILL GARBLED AND SLURRED. PT WAS UNABLE TO ANSWER ANY ORIENTION QUESTIONS. SHE WOULD JUST ANSWER "YES" TO EVERY QUESTION.
[2020-03-29 12:46] VITALS: BP 160/61
--- NOTE | 2020-03-29 16:10 | NUR ---
PT GIVEN SOME MORE APPLE JUICE. HELD PHONE IN ROOM SO PT COULD SPEAK WITH HER DAUGHTER. BED LOW. CL IN REACH. WILL CONTINUE TO MONITOR.
[2020-03-29 16:21] VITALS: BP 145/51
--- NOTE | 2020-03-29 17:22 | NUR ---
I have reviewed this patient and I concur with the Shift Assessment completed by the Licensed Practical Nurse today this shift.
--- NOTE | 2020-03-29 18:27 | NUR ---
LEFT WRIST 22G IV INFILTRATED. WITH CATH INTACT. X1 ATTEMPT TO START NEW IV. WILL GET ANOTHER NURSE TO TRY.
--- NOTE | 2020-03-29 19:30 | NUR ---
RECEIVED REPORT, WILL ASSUME CARE OF PT, LYING WITH EYES OPEN, NO DISTRESS NOTICED AT THIS TIME, BED IS LOW, SRX3, CALL LIGHT IN REACH, BED ALARM IS ON, WILL CONTINUE PLAN OF CARE
[2020-03-29 20:00] VITALS: BP 140/58
[2020-03-30] VITALS: BP 130/63
[2020-03-30 04:00] VITALS: BP 111/39
[2020-03-30 06:18] LABS: HEMATOCRIT 41.3 % (36.0-48.0); HEMOGLOBIN 13.2 g/dL (12-16); LYMPHOCYTES 25.4 % (15-50); MCH 27.3 pg (26.0-34.0); MCV 85.5 fL (80.0-100.0); MEAN PLATELET VOLUME 9.6 fL (7.4-10.4); NEUTROPHILS 62.1 % (40-80); PLATELET COUNT 412 10x3/uL (130-400); RBC 4.83 10x6/uL (4.00-5.40); RDW 14.9 % (11.5-14.5); WBC 9.9 10x3/uL (4.8-10.8)
[2020-03-30 08:26] VITALS: BP 147/73
[2020-03-30 08:59] LABS: ALBUMIN 2.3 g/dL (3.4-5.0); ALKALINE PHOSPHATASE 89 U/L (30-120); ALT (SGPT) 20 U/L (10-68); BILIRUBIN - TOTAL 0.45 mg/dL (0.2-1.3); CALC OSMOLALITY 279 mosm/kg (275-300); CALCIUM 8.7 mg/dL (8.5-10.1); CARBON DIOXIDE 27.3 mmol/L (21.0-32.0); CHLORIDE - SERUM 106 mmol/L (98-107); CREATININE - SERUM 0.5 mg/dL (0.6-1.3); GLUCOSE 114 mg/dL (74-106); MAGNESIUM - SERUM 1.7 mg/dL (1.8-2.4); POTASSIUM - SERUM 3.2 mmol/L (3.5-5.1); PROTEIN - SERUM 5.7 g/dL (6.4-8.2); SODIUM 141 mmol/L (136-145); UREA NITROGEN 8 mg/dL (7-18); eGFR NON AFRICAN AMERICAN > 90 mL/min (90-120)
[2020-03-30 12:49] VITALS: BP 153/72
[2020-03-30 15:59] VITALS: BP 172/64
--- NOTE | 2020-03-30 19:33 | NUR ---
RECEIVED REPORT, WILL ASSUME CARE OF PT, LYING IN BED WITH EYES OPEN, NO DISTRESS NOTICED AT THIS TIME, BED IS LOW, SRX3, CALL LIGHT IN REACH, WILL CONTINUE PLAN OF CARE, ALARM IS ON
[2020-03-30 20:00] VITALS: BP 119/65
[2020-03-31] VITALS: BP 118/58
--- NOTE | 2020-03-31 03:43 | NUR ---
I have reviewed this patient and I concur with the Shift Assessment completed by the Licensed Practical Nurse today this shift.
[2020-03-31 04:00] VITALS: BP 156/66
[2020-03-31 05:46] LABS: ALBUMIN 2.2 g/dL (3.4-5.0); ALKALINE PHOSPHATASE 86 U/L (30-120); ALT (SGPT) 22 U/L (10-68); BILIRUBIN - TOTAL 0.36 mg/dL (0.2-1.3); CALC OSMOLALITY 277 mosm/kg (275-300); CALCIUM 8.6 mg/dL (8.5-10.1); CARBON DIOXIDE 26.5 mmol/L (21.0-32.0); CHLORIDE - SERUM 106 mmol/L (98-107); CREATININE - SERUM 0.5 mg/dL (0.6-1.3); GLUCOSE 105 mg/dL (74-106); POTASSIUM - SERUM 3.6 mmol/L (3.5-5.1); PROTEIN - SERUM 5.7 g/dL (6.4-8.2); SODIUM 140 mmol/L (136-145); eGFR NON AFRICAN AMERICAN > 90 mL/min (90-120)
[2020-03-31 05:56] LABS: UREA NITROGEN 11 mg/dL (7-18)
[2020-03-31 08:35] VITALS: BP 143/78
[2020-03-31 09:28] LABS: HEMATOCRIT 39.1 % (36.0-48.0); HEMOGLOBIN 12.6 g/dL (12-16); LYMPHOCYTES 28.1 % (15-50); MCH 27.5 pg (26.0-34.0); MCHC 32.2 g/dL (31.0-37.0); MCV 85.2 fL (80.0-100.0); MEAN PLATELET VOLUME 9.8 fL (7.4-10.4); NEUTROPHILS 56.5 % (40-80); PLATELET COUNT 413 10x3/uL (130-400); RBC 4.59 10x6/uL (4.00-5.40); RDW 14.9 % (11.5-14.5); WBC 12.1 10x3/uL (4.8-10.8)
--- NOTE | 2020-03-31 09:42 | NUR ---
TF CHANGED. ABDOMINAL DRESSING CHANGED ORDERED. PEG TUBE SITE DRESSING CLEANSED WITH WOUND CLEANSER, PATTED DRY WITH 4X4'S, AND PLACED 4x4 DRAIN SPONGE AROUND SITE. PT TOLERATED WELL. DRESSINGS WERE NOT CHANGED YESTERDAY LAST DATE ON DRESSINGS WAS 03/29/20. O.T CONSULT PLACED. O.T. DID ORAL CARE. P.T. HELPED THIS NURSE DO A COMPLETE LINEN CHANGE. PT STATES SHE HAS NO PAIN. BED LOW. HOB AT 35 DEGREES. CL IN REACH.
--- NOTE | 2020-03-31 10:21 | NUR ---
Nutrition Follow-up: Nursing reports pt tolerating TF. Noted IVF d/c'd. 0% breakfast recorded. Diet: Osmolite 1.5 @ 40 mL/hr + H2O flushes 25 mL q hr Clear Liquid Wt: 138.6# (03/31); 137# (03/28); 145.2# (03/22) Labs noted: Alb 2.2 Meds noted: Protonix, Questran, electrolyte protocol -Increase H2O flushes to 30 mL q hr /2 IVF being d/c'd. -Monitor wt; noted daily wts ordered. -RD following.
[2020-03-31 13:15] VITALS: BP 139/73
--- NOTE | 2020-03-31 13:34 | MORECARE ---
CASE MANAGEMENT DISCHARGE SUMMARY PATIENT: MIKE GONZALEZ UNIT: [id number] ADM DATE: 03/19/20 AGE: 84 : 37 SEX: F ROOM/BED: D.9344 AUTHOR: RAIMUNDO,DOC PHYSICIAN: REFERRING PHYSICIAN: EZEQUIEL RAYA MD DATE OF SERVICE: 03/31/20 Discharge Plan Patient Name: MIKE GONZALEZ Facility: [facility]:[place] : 1935 Planned Disposition: Inpatient Rehab Facility Anticipated Discharge Date: Discharge Date: Expected LOS: Initial Reviewer: [email or web address] Initial Review Date: 03/18/2020 Generated: 03/31/20 2:33 pm Comments DCP- Discharge Planning Updated by [email or web address]: Yaneli Kaur on 03/31/20 12:[address] Updated clinical faxed to felice Trimble for [facility] and Rehab, and to the facility. CM will continue to follow and assist with discharge planning/needs. DCP- Discharge Planning Updated by [email or web address]: Naida Webb on 03/28/20 1:[address] Updated [facility] DCP- Discharge Planning Updated by [email or web address]: Naida Webb on 03/27/20 2:[address] Carolyne Castillo called and said she will [facility]. At present the patient is refusing to participate with PT and is Max assist for bed mobility, still very confused. CM will update additional information 03/28. DCP- Discharge Planning Updated by [email or web address]: Naida Webb on 03/26/20 3:[address] Re-faxed updated information to Carolyne Castillo @[phone]. DCP- Discharge Planning Updated by [id number]: Naida Webb on 03/26/20 12:[address] Updated information faced to Carolyne Castillo @[phone], . DCP- Discharge Planning Updated by [email or web address]: Yaneli Kaur on 03/25/20 11:[address] CM called felice Trimble for [facility] and Rehab and they have not received a referral. I faxed clinical for their review. CM will continue to follow and assist with discharge planning/needs. DCP- Discharge Planning Updated by [id number]: Cassi Whalen on 03/24/20 5:[address] CM called and spoke with daughter Taty Ferro [phone]. Taty stated that she had spoken with he dad and they all agree that the patient needs long-term care. FRANCA completed for [facility]. CM faxed over clinicals this evening for referral. CM will continue to follow and assist as needed with discharge planning / needs. DCP- Discharge Planning Updated by [id number]: Cassi Whalen on 03/21/20 5:[address] Patient Name: MIKE GONZALEZ Admission Status: ER Accout number: [id number] Admission Date: 03-19-2020 : 1935 Admission Diagnosis:DIARRHEA, UNSPECIFIED Attending: EZEQUIEL RAYA Current LOS: 2 Anticipated DC Date: Planned Disposition: Primary Insurance: MEDICARE A & B Discharge Planning Comments: CM met with patient to complete initial dc planning assessment. CM educated patient on the CM role and verbal consent given by patient to complete assessment. Patient lives at home with her . At discharge patient plans to return home and feels this is a safe discharge. CM discussed availability of home health, rehab services, and medical equipment. Daughter would like patient to go to SNF facility. She states that her father is not able to take care. Patient denied known discharge needs at this time. CM will continue to follow and will assist as needed with dc plans/needs. Career Services Coordinator: Cassi Whalen DCPIA - Discharge Planning Initial Assessment Updated by [email or web address]: Cassi Whalen on 03/21/20 6:24 pm * Is the patient Alert and Oriented? Yes * How many steps to enter\exit or inside your home? * PCP [facility] * [facility] * Preadmission Environment Home with Family * ADLs Partial Dependent * Partial ADLs (Assistance needed) Ambulation Bathing Dressing Eating Medication Management Toileting Transfers * Equipment Rolling Walker * List name and contact numbers for known caregivers / representatives who currently or will assist patient after discharge: Taty Garcia - daughter - [phone] Jitendra Gonzalez - spouse- [phone] * Verbal permission to speak to the caregivers and representatives has been obtained from the patient. Yes * Community resources currently utilized Home Health * Please name any agencies selected above[facility] * Additional services required to return to the preadmission environment? No * Can the patient safely return to the preadmission environment? Yes * Has this patient been hospitalized within the prior 30 days at any hospital? Yes Coverage Notice Reviewer: [id number] Harjeet Whalen Notice Issued Date-Time: 03/24/2020 17:00 Notice Type: Patient Choice Letter Notice Delivered To: Family Member Relationship to Patient: Daughter Data Scientist Name: taty ferro Delivery Method: PHONE - Phone Soraya Days: Prior Verbal Notification: Yes Recipient Understood Notice: Yes Recipient Signature: Med Rec Note Co-signed by Attending: Coverage Notice Comment: [facility] Last DP export: 03/28/20 1:51 pm Patient Name: MIKE GONZALEZ Page [id number] at 1334 All edits/amendments must be made on the electronic document DICTATION DATE: 03/31/20 1333 REPAIR MANAGER: VINCENT 03/31/20 1333 RPT#: [id number] DC DATE: STATUS: ADM IN [facility] [address] [place] [address] END OF REPORT
--- NOTE | 2020-03-31 14:42 | NUR ---
SPEECH THERAPY PT RECOMENDS PT TO BE NPO.
[2020-03-31 14:59] LABS: BILIRUBIN NEGATIVE (NEGATIVE); GLUCOSE NEGATIVE (NEGATIVE); KETONE NEGATIVE (NEGATIVE); NITRITE NEGATIVE (NEGATIVE); SPECIFIC GRAVITY 1.015 (1.005-1.020); UROBILINOGEN NORMAL (NORMAL)
--- NOTE | 2020-03-31 15:25 | NUR ---
PT COUGHING UP MUCUS. YAUNKER SUCTION HOOKED UP. PINK FOAM HEEL PROTECTORS PLACED BILATERALLY.
--- NOTE | 2020-03-31 16:07 | NUR ---
BILATERAL HEELS ARE BOGGY AND SLOW TO EDY. BUTTOCKS/KEYANA AREA REDDENED FROM IRRITATION D/T INCONTINENCE. ABDOMINAL INCISION INTACT WITH CLEAN DRESSING IN PLACE. PEG TUBE LEFT ABD. RECOMMENDED CALMOSEPTINE CREAM FOR BUTTOCKS/KEYANA AREA. TURN/REPOSITION Q 2 HOURS HEEL PROTECTORS AND FLOAT HEELS OFF THE MATTRESS AIR OVERLAY MATTRESS. WOUND CARE CONTINUES TO MONITOR.
--- NOTE | 2020-03-31 16:18 | NUR ---
OT NOTE: PT COMPLETED BUE AAROM TOLERATED. PT COMPLETED UE POSITIONING WITH MAX A. [phone] THANK YOU,NICA SUN
--- NOTE | 2020-03-31 16:40 | NUR ---
LEGAL COORDINATOR CALLED THIS NURSE INTO PT'S ROOM O2 SAT AT 80% ON ROOM AIR. PT IN RESPIRATORY DISTRESS AND COUGHING. SUCTIONED PT'S MOUTH BUT DID NOT GET ANYTHING OUT. PT PLACED ON O2 A 8L AND O2 SAT AT 93%. CALLED DR. MCLEOD'S OFFICE AND THEY STATE HE IS GONE FOR THE DAY BUT DR. RAYA IS CORE INSERTER. I ASKED TO SPEAK WITH HIM. SPOKE WITH DR. RAYA OVER THE PHONE AND HE STATES TO GET MIDLINE OR PICC LINE AND IF NOT GET CVL, ORDER LASIX 40MG IV BID AND MUCINEX 600MG BID, CONSULT DR. WONG, AND GET A STAT CHEST XR. I VERBALIZED UNDERSTANDING.
--- NOTE | 2020-03-31 16:53 | NUR ---
VASCULAR ACCESS NURSE NOT HERE AT THIS TIME. CALLED AND SPOKE WITH DR. JACINTO AND HE STATES HE WILL COME PLACE CVL.
--- NOTE | 2020-03-31 17:13 | NUR ---
SPOKE WITH PT'S OVER THE PHONE HUDSON CASANOVA AND GOT VERBAL CONSENT FOR CVL PLACMENT AND HE WANTS PT TO REMAIN A FULL CODE. ADY FRANCE VERIFIED WITH THIS NURSE OVER THE PHONE FOR FULL CODE AND CVL PLACEMENT.
--- NOTE | 2020-03-31 17:22 | NUR ---
DR. JUDITH CARVER AND ORAL SUCTIONED TF FROM PT. HE STATES PT HAS BEEN ASPIRATING TF AND HE TURNED TF PUMP OFF. HE STATES DO NOT PUT ANYTHING ELSE THROUGH PT'S TUBE AT THIS TIME. NO FEEDINGS OR MEDS. I VERBALIZED UNDERSTANDING. HE ALSO STATES TO SUCTION PT FREQUENTLY AND PT'S HOB TO STAY AT 45 DEGREES. I VERBALIZED UNDERSTANDING. PT'S DAUGHTER CALLED AT THIS TIME AND TOLD HER ALL THIS TIME AND SHE TOLD PT'S .
--- NOTE | 2020-03-31 17:50 | NUR ---
SPOKE WUJILLIAN WATERS AND HE STATES TO SPEAK WITH DECKHAND CLAM DREDGE SURGEON ABOUT GETTING PEG TUBE PLACED FURTHER DOWN. SPOKE WITH DR. JACINTO IN PERSON ABOUT THIS AND HE STATES THAT IS SOMETHING THAT DOES NOT NEED TO BE DONE.
[2020-03-31 18:23] VITALS: BP 147/65
--- NOTE | 2020-03-31 18:25 | NUR ---
LEFT SUBCLAVIANCVL PLACED BY AND VERIFIED WITH XR. ABLE TO USE CVL NOW. AWAITING CHEST XR RESULTS AND WILL PAGE DR. LILI LABOYOR FURTHER ORDERS.
--- NOTE | 2020-03-31 19:09 | NUR ---
DR. WONG STATED XR SHOWED LUNGS ARE CLEAR AND PT NO LONGER NEEDS IV LASIX AND THAT HE ORDERED IV ABX. I CALLED AND SPOKE WITH DR. RAYA AND GAVWE HIM UDTE. HE STATES TO DC LASIX. I VERBALIZED UNDERSTANDING.
--- NOTE | 2020-03-31 20:00 | NUR ---
REPORTED TO THIS NURSE TEMP. 102.4, HR 120, BP 160/79. CALLED AND SPOEKW TIH DR. RAYA HE STATEST HAT IS NOT UNUSUAL FOR A PT WHO HAS BEEN ASPIRATING. HE STATES TO ORDER TYLENOL 650MG PER RECTAL Q6HP. I VERBALIZED UNDERSTANDING.
[2020-03-31 20:49] VITALS: BP 167/60
--- NOTE | 2020-03-31 23:15 | NUR ---
PT O2 SAT 99% ON 5L NC. RESPIRATORY THERAPIST IN HER ROOM. SHE WAS PLACED ON 6L HIGH FLOW NASAL CANNULA. O2 SAT CAME UP TO 95%. SUCTIONING COMPLETED FOR ORAL SECRETIONS. WILL CONTINUE TO MONITOR.
--- NOTE | 2020-03-31 23:18 | NUR ---
CHANGED SUPPLEMENTAL 02 TO HFNC 7L DUE TO SPO2 DESATURATION OF 88% BILATERAL CRACKLES TO ANTERIOR DICKINSON OF AUSCULTATION LOOSE COUGH NOTED SPO2 CURRENTLY 92 AND HOLDING
[2020-04-01] VITALS (7 sets, daily range): BP systolic 102–138; BP diastolic 46–69; Ht 157.5 cm; Wt 70.1 kg
[2020-04-01 06:05] LABS: HEMATOCRIT 36.2 % (36.0-48.0); HEMOGLOBIN 11.8 g/dL (12-16); MCH 27.4 pg (26.0-34.0); MCHC 32.6 g/dL (31.0-37.0); MCV 84.2 fL (80.0-100.0); MEAN PLATELET VOLUME 9.7 fL (7.4-10.4); PLATELET COUNT 364 10x3/uL (130-400); RDW 14.7 % (11.5-14.5); WBC 21.4 10x3/uL (4.8-10.8)
[2020-04-01 06:13] LABS: ALBUMIN 2.1 g/dL (3.4-5.0); ANION GAP 14.7 mmol/L (8-16); BILIRUBIN - TOTAL 0.55 mg/dL (0.2-1.3); CALCIUM 8.7 mg/dL (8.5-10.1); CARBON DIOXIDE 24.2 mmol/L (21.0-32.0); MAGNESIUM - SERUM 1.6 mg/dL (1.8-2.4); PHOSPHOROUS 5.2 mg/dL (2.5-4.9); POTASSIUM - SERUM 3.9 mmol/L (3.5-5.1); PROTEIN - SERUM 5.3 g/dL (6.4-8.2)
[2020-04-01 06:14] LABS: CREATININE - SERUM 0.8 mg/dL (0.6-1.3)
--- NOTE | 2020-04-01 07:00 | NUR ---
RECEIVED REPORT. ASSUMED CARE OF PATIENT. CALL LIGHT WITHIN REACH. PATIENT ON BIPAP AT THIS TIME. RESTING WITH EYES CLOSED. WHITE BOARD UPDATED DURING BEDSIDE SHIFT REPORT. NO DISTRESS.
--- NOTE | 2020-04-01 07:56 | NUR ---
HERE AND ORDER CLARIFIED THAT PATIENT CAN RECIEVE MEDICATIONS WITH SMALL AMOUNT OF WATER VIA GTUBE AND TO KEEP HOB UP AT 45 DEGRESS.
--- NOTE | 2020-04-01 08:07 | NUR ---
PAGED TO CLARIFY ORDERS, PATIENT ABLE TO RECEIVE MEDICATIONS OR NOT VIA PEG?
--- NOTE | 2020-04-01 10:01 | NUR ---
SPOKE WITH AND PATIENT MAY HAVE MEDICATIONS WITH SMALL AMOUNT OF WATER, MAKE SURE PATIENT IS BEING ADEQUATELY SUCTIONED, AND CONTINUE TO KEEP HOB ELEVATED AT [address] WONG. ALSO RECEIVED ORDERS TO REMOVE PATIENT FROM BIPAP AT THIS TIME AND SEE HOW WELL HER OXYGEN SATS HOLD.
--- NOTE | 2020-04-01 10:15 | NUR ---
PATIENT REMOVED FROM BIPAP, PLACED ON HFNC @ 5L/MIN. PATIENT O2 BYD21-21%. EASILY AROUSED. TOLERATED MEDICATIONS VIA PEG. ORAL CARE PROVIDED.
--- NOTE | 2020-04-01 10:52 | NUR ---
O2 SAT REMAINS AT 95% ON 5L HFNC. CALL LIGHT WITHIN REACH. EXTENDED MERROPENEM INFUSING AT THIS TIME. NO DISTRESS.
[2020-04-01 11:53] LABS: ANISOCYTOSIS OCC; LYMPHOCYTES 9 % (15-50); MONOCYTES 8 % (2-11); NEUTROPHILS 81 % (40-80); PLATELET ESTIMATE NORMAL
--- NOTE | 2020-04-01 12:14 | NUR ---
PROCALAMINE INITIATED AT THIS TIME. NO DISTRESS.
--- NOTE | 2020-04-01 14:36 | NUR ---
1ST STEP OVERLAY PLACED UNDER PATIENT.
--- NOTE | 2020-04-01 16:21 | NUR ---
OT NOTE: PT COMPLETED FACE AND HAND HYGIENE WITH TOTAL A. [id number] THANK YOU,NICA SUN
--- NOTE | 2020-04-01 16:35 | NUR ---
ON UNIT AND REQUESTS PATIENT TO BE MOVED TO ICU TO BE MONITORED MORE CLOSELY PATIENT REQUIRES REQUENT SUCTIONING. PATIENT WILL BE MOVED TO ROOM 4680.
--- NOTE | 2020-04-01 19:20 | NUR ---
REPORT RECEIVED, WILL CONTINUE POC. PATIENT IS RESTING WITH EYES CLOSED, RR EVEN AND UNLABORED ON 6L HFNC. LT SUBCLAVIAN TRIPLE LUMEN INFUSING PROCAL @ 75ML/HR. ABD INCISION WELL APPROXIMATED, DRSG C/D/I, ABD BINDER IN PLACE. HEEL PROTECTORS ON. PATIENT VERY LETHARGIC, WILL CALL REPORT TO DARA IN ICU. CL IN REACH, BED LOCKED AND LOWERED. WILL CTM.
--- NOTE | 2020-04-01 20:20 | NUR ---
REPORT GIVEN TO EDILMA DIAMOND IN ICU. PATIENT TO GO TO ROOM 2301. PATIENT TRANSFERED AT THIS TIME.
--- NOTE | 2020-04-01 20:23 | NUR ---
PT ARRIVED TO ICU ACCOMPANIED BY NURSING STAFF. WILL CONTINUE TO MONITOR AT THIS TIME.
--- NOTE | 2020-04-01 21:00 | NUR ---
PT REPOSITIONED FOR COMFORT. WILL CONTINUE TO MONITOR.
--- NOTE | 2020-04-01 23:00 | NUR ---
REASSESMENT COMPLETE, SEE FLOWSHEET.
[2020-04-02] VITALS (24 sets, daily range): BP systolic 105–161; BP diastolic 49–127
--- NOTE | 2020-04-02 01:00 | NUR ---
PT REPOSITIONED FOR COMFORT. WILL CONTINUE TO MONITOR.
--- NOTE | 2020-04-02 03:00 | NUR ---
REASSESSMENT COMPLETED, SEE FLOWSHEET.
--- NOTE | 2020-04-02 05:00 | NUR ---
JUDD INSERTED PER ORDER, REPOSITIONED FOR COMFORT.
[2020-04-02 05:46] LABS: BASOPHILS 0.1 % (0-2); EOSINOPHILS 3.5 % (0-7); HEMATOCRIT 31.9 % (36.0-48.0); HEMOGLOBIN 9.9 g/dL (12-16); IMMATURE GRANULOCYTES 0.6 % (0-5); LYMPHOCYTES 12.8 % (15-50); MCH 26.9 pg (26.0-34.0); MEAN PLATELET VOLUME 9.6 fL (7.4-10.4); MONOCYTES 8.7 % (2-11); NEUTROPHILS 74.3 % (40-80); PLATELET COUNT 293 10x3/uL (130-400); RBC 3.68 10x6/uL (4.00-5.40); RDW 15.2 % (11.5-14.5)
[2020-04-02 06:10] LABS: ALBUMIN 1.6 g/dL (3.4-5.0); ALKALINE PHOSPHATASE 93 U/L (30-120); BILIRUBIN - TOTAL 0.45 mg/dL (0.2-1.3); CALC OSMOLALITY 271 mosm/kg (275-300); CALCIUM 8.3 mg/dL (8.5-10.1); CARBON DIOXIDE 28.8 mmol/L (21.0-32.0); CHLORIDE - SERUM 105 mmol/L (98-107); GLUCOSE 102 mg/dL (74-106); MAGNESIUM - SERUM 1.6 mg/dL (1.8-2.4); POTASSIUM - SERUM 3.4 mmol/L (3.5-5.1); SODIUM 135 mmol/L (136-145); UREA NITROGEN 19 mg/dL (7-18); VANCOMYCIN - TROUGH 48.5 ug/mL (10.0-20.0)
[2020-04-02 06:12] LABS: ALT (SGPT) 13 U/L (10-68); CREATININE - SERUM 0.5 mg/dL (0.6-1.3); PHOSPHOROUS 2.1 mg/dL (2.5-4.9); eGFR NON AFRICAN AMERICAN > 90 mL/min (90-120)
[2020-04-02 06:14] LABS: MCV 86.7 fL (80.0-100.0)
--- NOTE | 2020-04-02 07:55 | NUR ---
PC FROM DAUGHTER KARO, SECURITY CODE GIVEN, STATUS UPDATED, CONSENT FOR BRONCHOSCOPY GIVEN WITNESS BY DAVIAN CASSIDY RN
--- NOTE | 2020-04-02 08:12 | NUR ---
DR MCLEOD HERE FOR EVAL, ORDER GIVEN TO RESTART MAG OX AND MELATONIN
--- NOTE | 2020-04-02 09:00 | NUR ---
MORNING MEDS GIVEN PER JAN FLOWSHEET
--- NOTE | 2020-04-02 09:30 | NUR ---
Nutrition follow-up: Pt NPO PEG tube with only meds 2/2 BIPAP and aspiration of TF ProcalAmine started @ 75 ml/hr Labs reviewed RDN following.
--- NOTE | 2020-04-02 11:00 | NUR ---
TEARFUL AND AGITATED, UNABLE TO CONSOLE, REPOSOTITONED FOR COMFORT, NO OTHER ACUTE CHANGES FROM PREVIOUS, VSS DENIES PAIN
--- NOTE | 2020-04-02 15:00 | NUR ---
YELLING FROM ROOM, PULLED OFF UPDRAFT TREATMENT, UNABLE TO GET PATIENT TO COOPERATE, TREATMENT STOPPED, NO OTHER ACUTE CHANGE FROM PREVIOUS
[2020-04-03] VITALS (24 sets, daily range): BP systolic 99–153; BP diastolic 50–92
[2020-04-03 05:19] LABS: BASOPHILS 0.3 % (0-2); EOSINOPHILS 7.4 % (0-7); HEMATOCRIT 31.1 % (36.0-48.0); HEMOGLOBIN 9.8 g/dL (12-16); IMMATURE GRANULOCYTES 0.7 % (0-5); LYMPHOCYTES 20.5 % (15-50); MCH 27.1 pg (26.0-34.0); MCHC 31.5 g/dL (31.0-37.0); MCV 86.1 fL (80.0-100.0); MEAN PLATELET VOLUME 9.7 fL (7.4-10.4); MONOCYTES 8.8 % (2-11); NEUTROPHILS 62.3 % (40-80); PLATELET COUNT 305 10x3/uL (130-400); RBC 3.61 10x6/uL (4.00-5.40); RDW 15.1 % (11.5-14.5)
[2020-04-03 05:47] LABS: ALBUMIN 1.6 g/dL (3.4-5.0); ALKALINE PHOSPHATASE 105 U/L (30-120); BILIRUBIN - TOTAL 0.43 mg/dL (0.2-1.3); CALCIUM 7.8 mg/dL (8.5-10.1); CARBON DIOXIDE 28.9 mmol/L (21.0-32.0); CHLORIDE - SERUM 106 mmol/L (98-107); CREATININE - SERUM 0.4 mg/dL (0.6-1.3); GLUCOSE 99 mg/dL (74-106); MAGNESIUM - SERUM 1.8 mg/dL (1.8-2.4); PHOSPHOROUS 2.4 mg/dL (2.5-4.9); POTASSIUM - SERUM 3.4 mmol/L (3.5-5.1); PROTEIN - SERUM 5.1 g/dL (6.4-8.2); SODIUM 139 mmol/L (136-145); eGFR NON AFRICAN AMERICAN > 90 mL/min (90-120)
[2020-04-03 05:48] LABS: ALT (SGPT) 18 U/L (10-68); CALC OSMOLALITY 277 mosm/kg (275-300); UREA NITROGEN 12 mg/dL (7-18)
--- NOTE | 2020-04-03 07:00 | NUR ---
REC'D REPORT AND RESUMED CARE, AWAKE AND CONFUSED, O2 VIA HFNC AT 8L, SAT 96%, RIGHT SUBC WITH PROCAL AT 75 CC/HR AND NS AT 10 CC/HR, ABDOMINAL BINDER WITH PEG TUBE IN PLACE, JUDD TO GRAVITY WITH CLEAR YELLOW DRAINAGE TO BAG, AIR OVERLAY IN USE, DENIES PAIN, REPOSITIONED TO RIGHT SIDE WITH PILLOW TO BACK, LEFT SC ENTRY SITE BLEEDING, SAND BAG IN PLACE, WILL CONTINUE WITH POC
--- NOTE | 2020-04-03 07:45 | NUR ---
LEFT SC CVL DRESSING CHANGE COMPLETED, FIBULAR ADDED FOR EXCESS BLEEDING, TOLERATED WITHOUT DIFFICULTY
--- NOTE | 2020-04-03 08:20 | NUR ---
DR MCLEOD AT BEDSIDE FOR EVAL, PLANNING FOR KUB TODAY
--- NOTE | 2020-04-03 08:30 | NUR ---
LIQUOR MAKER HERE FOR PLANNED KUB, FILM COMPLETED
--- NOTE | 2020-04-03 09:15 | NUR ---
MORNING MEDS GIVEN PER JAN FLOWSHEET
--- NOTE | 2020-04-03 11:00 | NUR ---
RESTING WITH NO SIGN OF DISTRESS, VSS, DENIES PAIN, NO ACUTE CHANGE FROM PREVIOUS ASSESSMENT
--- NOTE | 2020-04-03 13:55 | NUR ---
DR WONG HERE FOR EVAL, NEW ORDER TO RESTART TF GIVEN
--- NOTE | 2020-04-03 14:30 | NUR ---
OT AT BEDSIDE, EXAM LIMITED DUE TO LIMITED COOPERATION
--- NOTE | 2020-04-03 15:00 | NUR ---
AWAKE AND CONFUSED, NO AUCTE CHANGE FROM ENRIQUE ASSESSMENT
--- NOTE | 2020-04-03 17:45 | NUR ---
INCONTINENT OF LARGE DIARRHEA STOOL, SKINCARE AND LINEN CHANGE COMPLETED, BUTT PASTE APPLIED TO KEYANA AREA AND BUTTOCKS
[2020-04-04] VITALS (24 sets, daily range): BP systolic 107–168; BP diastolic 49–97
[2020-04-04 06:14] LABS: ALBUMIN 1.7 g/dL (3.4-5.0); ALKALINE PHOSPHATASE 120 U/L (30-120); ALT (SGPT) 19 U/L (10-68); BILIRUBIN - TOTAL 0.37 mg/dL (0.2-1.3); CALC OSMOLALITY 277 mosm/kg (275-300); CALCIUM 8.6 mg/dL (8.5-10.1); CARBON DIOXIDE 28.4 mmol/L (21.0-32.0); CHLORIDE - SERUM 105 mmol/L (98-107); CREATININE - SERUM 0.4 mg/dL (0.6-1.3); GLUCOSE 123 mg/dL (74-106); MAGNESIUM - SERUM 1.9 mg/dL (1.8-2.4); PHOSPHOROUS 2.4 mg/dL (2.5-4.9); POTASSIUM - SERUM 3.9 mmol/L (3.5-5.1); PROTEIN - SERUM 5.5 g/dL (6.4-8.2); SODIUM 138 mmol/L (136-145); UREA NITROGEN 14 mg/dL (7-18); eGFR NON AFRICAN AMERICAN > 90 mL/min (90-120)
[2020-04-04 06:30] LABS: BASOPHILS 0.3 % (0-2); EOSINOPHILS 10.5 % (0-7); HEMATOCRIT 33.9 % (36.0-48.0); HEMOGLOBIN 10.4 g/dL (12-16); IMMATURE GRANULOCYTES 0.9 % (0-5); LYMPHOCYTES 29.3 % (15-50); MCH 26.4 pg (26.0-34.0); MCHC 30.7 g/dL (31.0-37.0); MEAN PLATELET VOLUME 9.6 fL (7.4-10.4); MONOCYTES 9.2 % (2-11); NEUTROPHILS 49.8 % (40-80); PLATELET COUNT 327 10x3/uL (130-400); RBC 3.94 10x6/uL (4.00-5.40); RDW 14.7 % (11.5-14.5); WBC 7.7 10x3/uL (4.8-10.8)
--- NOTE | 2020-04-04 07:00 | NUR ---
REC'D REPORT AND RESUMED CARE, AWAKE AND CONFUSED, O2 VIA HFNC AT 6L, LEFT SC WITH PROCAL INFUSING AT 75 CC/HR, AND NS AT 5 CC/HR, MIDLINE ABDOMINAL DRESSING CDI, ULQ PEG IN PLACE WITH OSMILITE 1.5 INFUSING AT 10 CC/HR, RESIDUAL CHESK 20 CC, JUDD TO GRAIVTY WITH CLEAR YELLOW DRAINAGE AND GRAINY SEDIMENT TO BAG, HEEL BOOTS ON B/L, ASSESSMENT COMPLETED PER FLOWSHEET, DENIES PAIN, AIR OVERLAY MATTRESS IN USE, REPOSITIONED UP AND TO BACK WITH HEELS FLOATED
--- NOTE | 2020-04-04 09:00 | NUR ---
MORNING MEDS GIVEN VIA G TUBE, TOLERATED WITHOUT DIFFICULTY
--- NOTE | 2020-04-04 09:57 | NUR ---
Nutrition follow-up: Pt continues NPO. TF of Osmolite 1.5 restarted via PEG at 10 ml/hr with no advancement at this time per Dr. Yeboah. Labs reviewed Wt: 137# RDN following.
--- NOTE | 2020-04-04 11:00 | NUR ---
RESTING WITH NO SIGNS OF DISTRESS, VSS, NO ACUTE CHANGE FROM PREVIOUS ASSESSMENT, WILL CONTINUE TO MONITOR
[2020-04-04 13:19] LABS: BACTERIA FEW /hpf (NEGATIVE); BILIRUBIN NEGATIVE (NEGATIVE); EPITHELIAL CELLS 0-5 /hpf (0-5); GLUCOSE NEGATIVE (NEGATIVE); KETONE NEGATIVE (NEGATIVE); NITRITE NEGATIVE (NEGATIVE); SPECIFIC GRAVITY 1.005 (1.005-1.020); UROBILINOGEN NORMAL (NORMAL); WHITE CELLS - URINE 0-5 /hpf (NEGATIVE); YEAST >1+ WITH HYPHAE /hpf (NONE SEEN)
--- NOTE | 2020-04-04 14:00 | NUR ---
DR DENTON HERE FOR SHAHANA, DISCUSSED POC, STATES HE WILL WRITE A NOT AND MAKE RECCOMENDATIONS
[2020-04-05] VITALS (24 sets, daily range): BP systolic 95–160; BP diastolic 41–99
--- NOTE | 2020-04-05 01:30 | NUR ---
ORAL CARE PROVIDED, PT POSITIONED FOR COMFORT, VSS.
--- NOTE | 2020-04-05 05:30 | NUR ---
LIQUID BROWN BM NOTED. COMPLETE LINEN CHANGE, CHG BATH AND PERICARE PROVIDED, ODALIS'S APPLIED TO EXCORIATED KEYANA AREA.
[2020-04-05 06:24] LABS: BASOPHILS 0.6 % (0-2); EOSINOPHILS 7.7 % (0-7); HEMATOCRIT 34.1 % (36.0-48.0); HEMOGLOBIN 10.7 g/dL (12-16); IMMATURE GRANULOCYTES 1.3 % (0-5); LYMPHOCYTES 28.4 % (15-50); MCH 26.7 pg (26.0-34.0); MCHC 31.4 g/dL (31.0-37.0); MEAN PLATELET VOLUME 9.2 fL (7.4-10.4); MONOCYTES 10.3 % (2-11); NEUTROPHILS 51.7 % (40-80); PLATELET COUNT 334 10x3/uL (130-400); RBC 4.01 10x6/uL (4.00-5.40); RDW 14.7 % (11.5-14.5); WBC 6.9 10x3/uL (4.8-10.8)
[2020-04-05 06:39] LABS: ALBUMIN 1.9 g/dL (3.4-5.0); ALKALINE PHOSPHATASE 127 U/L (30-120); BILIRUBIN - TOTAL 0.39 mg/dL (0.2-1.3); CALC OSMOLALITY 276 mosm/kg (275-300); CALCIUM 8.4 mg/dL (8.5-10.1); CARBON DIOXIDE 27.9 mmol/L (21.0-32.0); CHLORIDE - SERUM 106 mmol/L (98-107); GLUCOSE 112 mg/dL (74-106); POTASSIUM - SERUM 3.7 mmol/L (3.5-5.1); PROTEIN - SERUM 5.6 g/dL (6.4-8.2); SODIUM 138 mmol/L (136-145); UREA NITROGEN 12 mg/dL (7-18); VANCOMYCIN - RANDOM 10.9 ug/mL (10.0-20.0)
[2020-04-05 06:43] LABS: ALT (SGPT) 26 U/L (10-68); CREATININE - SERUM 0.6 mg/dL (0.6-1.3); eGFR NON AFRICAN AMERICAN > 90 mL/min (90-120)
--- NOTE | 2020-04-05 07:35 | NUR ---
RESIDUAL NOTED 4ML PER PEG.
--- NOTE | 2020-04-05 08:02 | NUR ---
LYING IN BED AWAKE AND CONFUSED AT THIS TIME. VSS. NO ACUTE DISTRESS NOTED. PT UNABLE TO CORRECTLY STATE NAME, PLACE, TIME, OR SITUATION. PT STATED THE YEAR WAS 2001 AND SHE WAS [place] [employer]. ATTEMPTED TO REORIENTATE, WAS UNCESSFUL. WILL CONTINUE TO ATTEMPT TO REORIENTATE. REPOSITIONING Q2H. ORAL CARE PROVIDED Q2H WITH SUCTIONING. WILL CONTINUE PLAN OF CARE.
--- NOTE | 2020-04-05 10:32 | NUR ---
NO ACUTE DISTRESS NOTED. NO CHANGE. VSS. PT NOTED ABLE TO STATE NAME AND THAT SHE WANTS TO WATCH [place] ON TV. UNABLE TO STATE TIME, LOCATION, OR SITUATION. STATED WE WERE [place] [employer] AND THE YEAR WAS . REORIENTATION PROVIDED, WAS UNSUCCESSFUL. WILL CONTINUE TO CLOSELY OBSERVE.
--- NOTE | 2020-04-05 12:34 | NUR ---
RESTING IN BED AT THIS TIME, REAPIRATIONS STEADY AND UNLABORED. NO ACUTE DISTRESS NOTED. AWAKENS EASILY WHEN SPOKEN TO. CONFUSED TO ALL BUT ABLE TO STATE NAME. REORIENTATION PROVIDED. VSS. WILL CONTINUE PLAN OF CARE.
--- NOTE | 2020-04-05 12:35 | NUR ---
PER DR WONG, INCREASE TUBE FEEDS TO 20ML/HR.
--- NOTE | 2020-04-05 12:44 | CN ---
PATIENT NAME:MIKE CASANOVA MEDICAL RECORD: [id number] : 37 LOCATION:[facility] ADMIT DATE: 03/19/20 ACCOUNT: [id number] CONSULTING PHYSICIAN: MELVIN DENTON MD REFERRING PHYSICIAN: EZEQUIEL RAYA MD DATE OF CONSULTATION: 04/04/2020 IDENTIFYING DATA: The patient is 84 years old and admitted to the hospital on a voluntary basis. CHIEF COMPLAINT: Confusion. HISTORY OF PRESENT ILLNESS: The patient has been in the hospital since the end of February. She has had a convoluted medical history and that includes some weakness, diarrhea and abdominal surgery along with some respiratory issues and pneumonia. She is currently in the ICU and is impaired and delirious. She is holding a telephone upside down and talking into the wrong end to no one on the other end. She is not oriented. She is labile, angry and answers questions, but none of the responses make much sense. I am consulted to assist with her behaviors, which have been disruptive, angry and are difficult to manage. ASSESSMENT: 1. Delirium secondary to multiple medical factors. 2. Rule out dementia. PLAN: The patient is 84 years old. It is unclear if she has a preexisting dementia, although there is nothing that I have found mentioned in medical records. She currently is not making very good sense. She is disorganized as I described. I am going to manage her with a low dose of scheduled Xanax along with a low dose of a scheduled antipsychotic. She has no history that I have found of substance abuse. The difficulty in this management will be to relieve her symptoms of agitation without causing excessive sedation. I will continue to follow her as needed. TRANSINT:[id number] Voice Confirmation ID: [id number] DOCUMENT ID: [id number] MELVIN DENTON MD at 1244 CC: [id number] DICTATION DATE: 04/04/20 1419 ELECTRONIC PAGE MAKEUP SYSTEM OPERATOR: 04/04/207 ADM IN [place] [id number] [place] [address]
--- NOTE | 2020-04-05 14:26 | NUR ---
LYING IN BED RESTING AT THIS TIME. RESPIRATIONS STEADY AND UNLABORED. AWAKENS EASILY WHEN SPOKEN TO. VSS. TURNED Q2H. ORAL CARE PROVIDED Q2H. WILL CONTINUE PLAN OF CARE.
--- NOTE | 2020-04-05 16:26 | NUR ---
INCONTINENT BOWEL MOVEMENT NOTED AT THIS TIME. TOTAL LINEN CHANGE, KEYANA CARE, JUDD CARE PROVIDED. VSS. NO ACUTE DISTRESS NOTED. WILL CONTINUE PLAN OF CARE.
--- NOTE | 2020-04-05 18:27 | NUR ---
NO ACUTE DISTRESS NOTED. NO CHANGE. VSS. WILL CONTINUE PLAN OF CARE.
--- NOTE | 2020-04-05 19:20 | NUR ---
RESUMED CARE OF PT, ASSESSMENT PER FLOWSHEET. ORAL CARE WITH SUCTIONING PROVIDED, POSITIONED FOR COMFORT SUPPORTED WITH PILLOWS, HR SR WITH PAC'S ON CM, VSS.
--- NOTE | 2020-04-05 21:31 | NUR ---
HS MEDS ADMINISTERED PER MD ORDER.
--- NOTE | 2020-04-05 23:15 | NUR ---
REASSESSMENT PER FLOWSHEET, HR SR WITH PAC'S ON CM, VSS, ORAL CARE PROVIDED, POSITIONED FOR COMFORT.
[2020-04-06] VITALS (24 sets, daily range): BP systolic 101–164; BP diastolic 35–95
--- NOTE | 2020-04-06 01:30 | NUR ---
PT POSITIONED FOR COMFORT SUPPORTED WITH PILLOWS, ORAL CARE PROVIDED, MOUTH MOISTURIZER APPLIED.
--- NOTE | 2020-04-06 04:43 | NUR ---
PT RESTLESS AND AGITATED, SCREAMING TO "CALL THE POLICE" AND "GET OUT OF HER HOUSE". ALL ATTEMPTS TO REORIENT PATIENT ARE UNSUCCESSFUL, PRN ATIVAN 0.5MG ADMINISTERED PER MD ORDER. WILL MONITOR FOR DESIRED EFFECT.
[2020-04-06 06:15] LABS: BASOPHILS 0.4 % (0-2); EOSINOPHILS 8.1 % (0-7); HEMATOCRIT 32.6 % (36.0-48.0); HEMOGLOBIN 10.2 g/dL (12-16); IMMATURE GRANULOCYTES 1.1 % (0-5); LYMPHOCYTES 28.6 % (15-50); MCH 26.8 pg (26.0-34.0); MCHC 31.3 g/dL (31.0-37.0); MCV 85.6 fL (80.0-100.0); MEAN PLATELET VOLUME 9.1 fL (7.4-10.4); MONOCYTES 8.5 % (2-11); NEUTROPHILS 53.3 % (40-80); PLATELET COUNT 306 10x3/uL (130-400); RBC 3.81 10x6/uL (4.00-5.40); RDW 14.7 % (11.5-14.5)
[2020-04-06 06:30] LABS: ALBUMIN 1.9 g/dL (3.4-5.0); ALKALINE PHOSPHATASE 123 U/L (30-120); ALT (SGPT) 25 U/L (10-68); BILIRUBIN - TOTAL 0.35 mg/dL (0.2-1.3); CALC OSMOLALITY 280 mosm/kg (275-300); CALCIUM 8.7 mg/dL (8.5-10.1); CARBON DIOXIDE 28.2 mmol/L (21.0-32.0); CHLORIDE - SERUM 107 mmol/L (98-107); CREATININE - SERUM 0.6 mg/dL (0.6-1.3); GLUCOSE 123 mg/dL (74-106); POTASSIUM - SERUM 3.8 mmol/L (3.5-5.1); PROTEIN - SERUM 5.4 g/dL (6.4-8.2); SODIUM 139 mmol/L (136-145); eGFR NON AFRICAN AMERICAN > 90 mL/min (90-120)
[2020-04-06 06:31] LABS: UREA NITROGEN 18 mg/dL (7-18)
--- NOTE | 2020-04-06 06:31 | NUR ---
PT RESTING IN BED IN NO APPARENT DISTRESS, HR 99 ON CM, VSS, CONT POC.
--- NOTE | 2020-04-06 08:54 | NUR ---
PT AWAKE IN BED AT THIS TIME, CONFUSED. PT NOTED TO SAY THINGS SUCH "HE THE SAME TIME I ." ATTEMPTED TO REORIENTATE PT, UNSUCCESSFUL. WILL CONTINUE TO ATTEMPT. VSS. WILL CONTINUE PLAN OF CARE.
--- NOTE | 2020-04-06 10:56 | NUR ---
INCONTINENT BOWEL MOVEMENT NOTED AT THIS TIME, TOTAL LINEN CHANGE PROVIDED. JUDD CARE PROVIDED. VSS. TURNED Q2H, ORAL CARE PROVIDED Q2H. WILL CONTINUE PLAN OF CARE.
--- NOTE | 2020-04-06 12:57 | NUR ---
SPOKE WITH PTS , UPDATES PROVIDED AFTER CALL IN CODE VERIFIED. PTS ALSO ASKED TO TALK ON THE PHONE WITH PT. PHONE PROVIDED TO PT SO COULD SPEAK WITH HER. PT STILL CONFUSED STATING THAT HER WAS AND THAT HE WAS SUPPOSED TO CALL HER TODAY. REORIENTATION PROVIDED. WILL CONTINUE PLAN OF CARE.
--- NOTE | 2020-04-06 14:00 | NUR ---
PER JACQUI JOSEPH TO TRANSFER PT TO FLOOR.
--- NOTE | 2020-04-06 14:55 | NUR ---
PT NOTED INCREASED LEVEL OF AGGITATION WITH SCREAMING, CRYING, ALONG WITH HEART RATE SINUS TACH TRENDING 110 TO 136. PT STATES SHE IS WORRIED ABOUT [place]. ATTEMPTED TO REORIENTATE PT, UNABLE TO REORIENTATE HER, PT REMAINS CONFUSED. YELLING "YOU'RE [place] TOWN!" WILL CONTINUE TO ATTEMPT TO REORIENTATE PT. ALSO PRN ATIVAN ADMIN PER ORDERS FOR AGGITATION. WILL CONTINUE TO CLOSELY OBSERVE.
--- NOTE | 2020-04-06 16:21 | NUR ---
CHG BATH PROVIDED TO PT AT THIS TIME. TOTAL LINEN CHANGE PROVIDED. VSS. PT STILL CONFUSED, REORIENTATION PROVIDED. ASSISTED WITH REPOSITIONING AND ORAL CARE Q2H. WILL CONTINUE PLAN OF CARE.
--- NOTE | 2020-04-06 18:22 | NUR ---
PT STILL CONFUSED STATING, "HEY BOY" AND YELLING "KRANTHI." REORIENTATION ATTEMPTED TO BE PROVIDED, PT UNABLE TO REORIENTATE. VSS. WILL CONTINUE PLAN O CARE.
--- NOTE | 2020-04-06 19:00 | NUR ---
REPORT RECEVIED FROM THE OFF GOING RN. SEE ASSESSMENT IN THE PTS FLOW SHEET. PT IN BED CONFUSED BUT ALERT. PT VSS. LEFT SUBCLAVIAN CVL NOTED. DRESSING HAS DRIED BLOOD UNDER IT BUT DRESSING INTACT. ABD BINDER OVER THE PTS ABD WITH A PEG TUBE NOTED WITH TUBE FEEDINGS INFUSING. 0 RESIDUAL NOTED. PATENCY CHECKED VIA ASCULTATION. FC NOTED WITH CLEAR, YELLOW URINE. SINUS TACH NOTED ON THE MONITOR. CALL LIGHT IN REACH. WILL CONT POC.
--- NOTE | 2020-04-06 21:00 | NUR ---
PT REPOSITIONED. CQLL LIGHT IN REACH. VSS. WILLC ONT POC.
[2020-04-07] VITALS (24 sets, daily range): BP systolic 117–165; BP diastolic 53–135
--- NOTE | 2020-04-07 01:00 | NUR ---
PT VSS. PT RESTING WITH HER EYES CLOSED. CALL LIGHT IN REACH. WILLC ONT POC.
--- NOTE | 2020-04-07 02:00 | NUR ---
PT INCON OF BOWEL. PT RECIEVED A FULL CHD BATH AND LINEN CHANGE. PT TOLERATED WELL. WILL CONT POC.
--- NOTE | 2020-04-07 03:00 | NUR ---
REASSESSMENT COMPLETED. SEE FLOW SHEET. CALL LIGHT IN REACH. WILL CONT POC.
--- NOTE | 2020-04-07 05:00 | NUR ---
PT AWAKE TRYING TO TAKE HER BIPAP MASK OFF. PT REDIRECTED FREQUENTLY. PT VSS. WILL CONT POC.
[2020-04-07 06:08] LABS: % SATURATION 13 % (15-55); IRON 27 ug/dl (35-150); TOTAL IRON BIND CAPACITY 202 ug/dl (260-445); UNSAT IRON BIND CAPACITY 175 ug/dl (150-375)
[2020-04-07 08:18] LABS: BASOPHILS 0.6 % (0-2); EOSINOPHILS 7.8 % (0-7); HEMATOCRIT 31.9 % (36.0-48.0); HEMOGLOBIN 9.8 g/dL (12-16); IMMATURE GRANULOCYTES 0.8 % (0-5); LYMPHOCYTES 20.8 % (15-50); MCH 26.9 pg (26.0-34.0); MCHC 30.7 g/dL (31.0-37.0); MEAN PLATELET VOLUME 9.6 fL (7.4-10.4); MONOCYTES 10.4 % (2-11); NEUTROPHILS 59.6 % (40-80); PLATELET COUNT 329 10x3/uL (130-400); RBC 3.64 10x6/uL (4.00-5.40); RDW 14.9 % (11.5-14.5); WBC 7.2 10x3/uL (4.8-10.8)
[2020-04-07 08:29] LABS: ALBUMIN 1.8 g/dL (3.4-5.0); ALKALINE PHOSPHATASE 128 U/L (30-120); ALT (SGPT) 26 U/L (10-68); BILIRUBIN - TOTAL 0.27 mg/dL (0.2-1.3); CALC OSMOLALITY 279 mosm/kg (275-300); CALCIUM 8.4 mg/dL (8.5-10.1); CARBON DIOXIDE 27.5 mmol/L (21.0-32.0); CHLORIDE - SERUM 106 mmol/L (98-107); CREATININE - SERUM 0.4 mg/dL (0.6-1.3); GLUCOSE 112 mg/dL (74-106); POTASSIUM - SERUM 3.8 mmol/L (3.5-5.1); PROTEIN - SERUM 5.4 g/dL (6.4-8.2); SODIUM 139 mmol/L (136-145); UREA NITROGEN 15 mg/dL (7-18); eGFR NON AFRICAN AMERICAN > 90 mL/min (90-120)
[2020-04-07 08:33] LABS: MCV 87.6 fL (80.0-100.0)
--- NOTE | 2020-04-07 10:07 | NUR ---
Nutrition follow-up: Pt NPO Osmolite 1.5 monica infusing @ 20 ml/hr; slowly increasing to goal rate of 50 ml/hr via PEG tube Labs reviewed Pt remains confused and yelling out Wt: 154# RDN following.
--- NOTE | 2020-04-07 11:00 | NUR ---
REASSESSED. NO CHANGES NOTED. SITTING UP IN BED YELLING AT STAFF. INSTRUCT TO PT MUST QUIET DOWN DUE TO BEING IN HOSPITAL.
--- NOTE | 2020-04-07 11:40 | NUR ---
BILATERAL HEELS CONTINUE TO BE BOGGY AND SLOW TO EDY. RED EXCORIATION NOTED AT BUTTOCKS/KEYANA AREA FROM INCONTINENCE. CALMOSEPTINE CREAM IS BEING USED DAILY/BID AND PRN. PT IS BEING TURNED/REPOSITIONED Q 2 HOURS AND HEELS ARE BEING FLOATED OFF THE MATTRESS/PILLOWS. HEEL PROTECTORS ARE ALSO IN PLACE. PT IS ON AN AIR OVERLAY MATTRESS. WOUND CARE CONTINUES TO MONITOR.
--- NOTE | 2020-04-07 13:21 | PN ---
PATIENT:MIKE CASANOVA MEDICAL RECORD: [id number] LOCATION:[facility].230 ADMISSION DATE: 03/19/20 PROGRESS NOTE DATE OF SERVICE: 04/06/2020 SUBJECTIVE: The patient's case was discussed with staff. She has no new complaint. OBJECTIVE: The patient is disorganized and somewhat agitated. She thinks I am someone named Mitchel, but when I explained that I am not she becomes angry and tells me to leave. I do not do so and attempted to ask a few questions, and defer she was angry, but then later she did answer some of the questions, although none of the answers made any real sense. ASSESSMENT: Dementia. PLAN: The patient's baseline level of cognition is uncertain. She continues to be seriously ill and in the intensive care unit. All of these factors certainly would contribute to an underlying delirium. I do not think she is excessively sedated with the medication that she is currently receiving. I am going to increase the scheduled dose of Xanax slightly. I will monitor her progress. At this point, she obviously would need 26-regz-a-day supervision, but that a call that is a little premature given her underlying medical status. TRANSINT:[id number] Voice Confirmation ID: [id number] DOCUMENT ID: [id number] MELVIN DENTON MD at 1321 CC: [id number] DICTATION DATE: 04/06/20 1112 ORDINARY SEAMAN: 04/06/20 1438 ADM IN [facility] [address] [place] [address]
--- NOTE | 2020-04-07 16:03 | MORECARE ---
CASE MANAGEMENT DISCHARGE SUMMARY PATIENT: MIKE GONZALEZ UNIT: [id number] ADM DATE: 03/19/20 AGE: 84 : 37 SEX: F ROOM/BED: D.2301 AUTHOR: RAIMUNDO,DOC PHYSICIAN: REFERRING PHYSICIAN: DARVIN MCLEOD MD DATE OF SERVICE: 04/07/20 Discharge Plan Patient Name: MIKE GONZALEZ Facility: [facility]:[place] : 1935 Planned Disposition: Inpatient Rehab Facility Anticipated Discharge Date: Discharge Date: Expected LOS: Initial Reviewer: [email or web address] Initial Review Date: 03/18/2020 Generated: 04/07/20 5:03 pm Comments DCP- Discharge Planning Updated by [email or web address]: Cassi Whalen on 04/07/20 2:[address] CM FAXED UPDATE CLINICALS TO [facility] EVAL FOR PLACEMENT. CM WILL CONTINUE TO FOLLOW AND ASSIST NEEDED WITH D/C PLANNING / NEEDS. DCP- Discharge Planning Updated by [email or web address]: Yaneli Kaur on 03/31/20 12:[address] Updated clinical faxed to Carolyne Castillo, liaison for [facility], and to the facility. CM will continue to follow and assist with discharge planning/needs. DCP- Discharge Planning Updated by [id number]: Naida Webb on 03/28/20 1:[address] Updated information [facility] Cast[facility]. DCP- Discharge Planning Updated by [email or web address]: Naida Webb on 03/27/20 2:[address] Carolyne Castillo called and said she will continue to [facility]. At present the patient is refusing to participate with PT and is Max assist for bed mobility, still very confused. CM will update additional information 03/28. DCP- Discharge Planning Updated by [email or web address]: Naida Webb on 03/26/20 3:[address] Re-faxed updated information to Carolyne Castillo @[phone]. DCP- Discharge Planning Updated by [id number]: Naida Webb on 03/26/20 12:[address] Updated information faced to Carolyne Castillo @[phone], . DCP- Discharge Planning Updated by [email or web address]: Yaneli Kaur on 03/25/20 11:[address] CM called Carolynegold Castillo, liaison for [facility] and Rehab and they have not received a referral. I faxed clinical for their review. CM will continue to follow and assist with discharge planning/needs. DCP- Discharge Planning Updated by [email or web address]: Cassi Whalen on 03/24/20 5:[address] CM called and spoke with daughter Taty Ferro [phone]. Taty stated that she had spoken with he dad and they all agree that the patient needs [facility] care. FRANCA completed for [facility]. CM faxed over clinicals this evening for referral. CM will continue to follow and assist as needed with discharge planning / needs. DCP- Discharge Planning Updated by [email or web address]: Cassi Whalen on 03/21/20 5:[address] Patient Name: MIKE GONZALEZ Admission Status: ER Accout number: [id number] Admission Date: 03-19-2020 : 1935 Admission Diagnosis:DIARRHEA, UNSPECIFIED Attending: EZEQUIEL RAYA Current LOS: 2 Anticipated DC Date: Planned Disposition: Primary Insurance: MEDICARE A & B Discharge Planning Comments: CM met with patient to complete initial dc planning assessment. CM educated patient on the CM role and verbal consent given by patient to complete assessment. Patient lives at home with her . At discharge patient plans to return home and feels this is a safe discharge. CM discussed availability of home health, rehab services, and medical equipment. Daughter would like patient to go to SNF facility. She states that her father is not able to take care. Patient denied known discharge needs at this time. CM will continue to follow and will assist as needed with dc plans/needs. Filing Writer: Cassi Whalen DCPIA - Discharge Planning Initial Assessment Updated by [email or web address]: Cassi Whalen on 03/21/20 6:24 pm * Is the patient Alert and Oriented? Yes * How many steps to enter\exit or inside your home? * PCP [facility] * [facility] * Preadmission Environment Home with Family * ADLs Partial Dependent * Partial ADLs (Assistance needed) Ambulation Bathing Dressing Eating Medication Management Toileting Transfers * Equipment Rolling Walker * List name and contact numbers for known caregivers / representatives who currently or will assist patient after discharge: Taty Garcia - daughter - [phone] Jitendra Gonzalez - spouse- [phone] * Verbal permission to speak to the caregivers and representatives has been obtained from the patient. Yes * Community resources currently utilized Home Health * Please name any agencies selected above. [facility] * Additional services required to return to the preadmission environment? No * Can the patient safely return to the preadmission environment? Yes * Has this patient been hospitalized within the prior 30 days at any hospital? Yes Coverage Notice Reviewer: [id number] Harjeet Whalen Notice Issued Date-Time: 03/24/2020 17:00 Notice Type: Patient Choice Letter Notice Delivered To: Family Member Relationship to Patient: Daughter [employer] Physical Education Teacher Name: taty ferro Delivery Method: PHONE - Phone Soraya Days: Prior Verbal Notification: Yes Recipient Understood Notice: Yes Recipient Signature: Med Rec Note Co-signed by Attending: Coverage Notice Comment: [facility] Last DP export: 03/31/20 12:34 p Patient Name: MIKE GONZALEZ Page [phone] at 1603 All edits/amendments must be made on the electronic document DICTATION DATE: 04/07/20 1603 CREDIT COLLECTIONS CLERK: VINCENT 04/07/20 160 RPT#: [id number] DC DATE: STATUS: ADM IN [facility] [address] [place] [address] END OF REPORT
--- NOTE | 2020-04-07 19:00 | NUR ---
REPORT RECEVIED FROM THE OFF GOING RN. SEE ASSESSMENT IN THE PTS FLOW SHEET. PT CONFUSED. VSS. LEFT SUBCLAVIAN DRESSING INTACT. SEE IV GTTS IN THE FLOW SHEET. ABD BINDER ON WITH A PEG TUBE NOTED WITH NO RESIDUAL NOTED. DRESSING C/D/I. FC NOTED WITH BLOOD/CLEAR DRAINAGE NTOED. CALL LIGHT IN REACH. WILL CONT POC.
--- NOTE | 2020-04-07 19:00 | NUR ---
REPORT RECIEVED FROM THE OFF GOING RN. SEE ASSESSMENT IN THE PTS FLOW SHEET. PT LYING IN BED RESPONSIVE BUT WAS NOTIFIED IN REPORT THAT THE PT RECIEVED PAIN MEDICATION. PT FOLLOWS COMMANDS. VSS AT THIS TIME. IR TEAM AND DR KIMBALL AT THE PTS BEDSIDE PREPARING TO GO TO IR.
--- NOTE | 2020-04-07 21:00 | NUR ---
PT RESTING QUITELY WITH NO ISSUES. VSS. WILL CONT POC.
--- NOTE | 2020-04-07 23:00 | NUR ---
REASSESSMENT COMPLTED. SEE FLOW SHEET. VSS. WILL CONT POC.
[2020-04-08] VITALS (24 sets, daily range): BP systolic 109–169; BP diastolic 56–799
--- NOTE | 2020-04-08 02:55 | NUR ---
PT INC OF BOWEL. LIQUID STOOL NOTED. STOOL SAMPLE COLLECTED AND SENT TO THE LAB. PT CLEANED AND LINENS CHANGED. CALL LIGHT IN REACH. WILL CONT POC.
--- NOTE | 2020-04-08 03:00 | NUR ---
PT REASSESSED. SEE FLOW SHEET. WILL CONT POC.
--- NOTE | 2020-04-08 05:00 | NUR ---
PT AWAKE AND CONFUSED. REMAINS ON BIPAP. VSS. WILL CONT POC.
[2020-04-08 05:28] LABS: BASOPHILS 0.5 % (0-2); EOSINOPHILS 9.5 % (0-7); HEMATOCRIT 34.2 % (36.0-48.0); HEMOGLOBIN 10.6 g/dL (12-16); IMMATURE GRANULOCYTES 0.7 % (0-5); MEAN PLATELET VOLUME 9.5 fL (7.4-10.4); MONOCYTES 8.3 % (2-11); PLATELET COUNT 353 10x3/uL (130-400); RBC 3.93 10x6/uL (4.00-5.40); WBC 8.1 10x3/uL (4.8-10.8)
[2020-04-08 05:52] LABS: CALC OSMOLALITY 279 mosm/kg (275-300); CALCIUM 8.8 mg/dL (8.5-10.1); CARBON DIOXIDE 29.4 mmol/L (21.0-32.0); CHLORIDE - SERUM 107 mmol/L (98-107); CREATININE - SERUM 0.4 mg/dL (0.6-1.3); GLUCOSE 103 mg/dL (74-106); POTASSIUM - SERUM 3.7 mmol/L (3.5-5.1); SODIUM 140 mmol/L (136-145); UREA NITROGEN 15 mg/dL (7-18); eGFR NON AFRICAN AMERICAN > 90 mL/min (90-120)
--- NOTE | 2020-04-08 07:00 | NUR ---
ASSESSMENT PER FLOWSHEET. O2 ON AT 2LITERS. PT CONFUSED AND RAMBLING.
--- NOTE | 2020-04-08 12:31 | NUR ---
Nutrition follow-up: Order placed to increase osmolite 1.5 monica to goal rate of 50 ml/hr with 400 ml H2O flush q 4 hours. Recommend as pt tolerates TF at 40 ml/hr to discontinue procalamine PPN RDN following.
--- NOTE | 2020-04-08 13:18 | PN ---
PATIENT:MIKE CASANOVA MEDICAL RECORD: [id number] LOCATION:[facility] D.230 ADMISSION DATE: 03/19/20 PROGRESS NOTE DATE OF SERVICE: 04/07/2020 SUBJECTIVE: The patient's case was discussed with staff. She has no new complaint. OBJECTIVE: The patient is disorganized, delusional and agitated. ASSESSMENT: Delirium. PLAN: The Trilafon has not been very effective. I am going to discontinue it and start her on Zyprexa at 5 mg via her NG tube every evening. This patient is impaired significantly. I do not know what her baseline level was prior to being admitted here. It would seem that her prognosis is exceedingly poor in the long run. TRANSINT:[id number] Voice Confirmation ID: [id number] DOCUMENT ID: [id number] MELVIN DENTON MD at 1318 CC: [id number] DICTATION DATE: 04/07/20 1509 SENIOR PROGRAM MANAGER: 04/07/20 2143 ADM IN [place] [id number] [place] [address]
--- NOTE | 2020-04-08 15:06 | NUR ---
OT NOTE: ATTEMPTED TO SEE PT IN AM BUT WAS IN TO SEE HER THIS AM.. PT SEEN IN PM.. REMAINS CONFUSED AND INITIALLY SPEECH WAS UNINTELLIGABLE, HOWEVER, AFTER PT BECAME MORE ALERT, HER SPEECH IMPROVED. PT LABILE THROUGHOUT TMT SESSION BUT EASILY REDIRECTED. 02 SATS REMAINED IN UPPER 80S WITH 2L O2.. WHEN PT WAS ASKED TO TAKE DEEP BREATHS, IT IMMEDIATELY WENT UP TO 94-97.. RESTING HEART RATE STILL HIGH AT APPROX 110...PT DOING BETTER WITH FOLLOWING SIMPLE COMMANDS TODAY; IF PT CONT TO DO WELL TOMORROW, WILL ATTEMPT EOB SITTING. WILL REQUIRE EXTENSIVE ASSIST DUE TO SEVERE GENERALIZED WEAKNESS. JONNA RAYO, OTR/L [id number]
--- NOTE | 2020-04-08 16:07 | NUR ---
HERE AT BEDSIDE. UPDATE GIVEN.
--- NOTE | 2020-04-08 16:46 | MORECARE ---
CASE MANAGEMENT DISCHARGE SUMMARY PATIENT: MIKE GONZALEZ UNIT: [id number] ADM DATE: 03/19/20 AGE: 84 : 37 SEX: F ROOM/BED: D.2301 AUTHOR: RAIMUNDO,DOC PHYSICIAN: REFERRING PHYSICIAN: DARVIN MCLEOD MD DATE OF SERVICE: 04/08/20 Discharge Plan Patient Name: MIKE GONZALEZ Facility: [facility]:[place] : 1935 Planned Disposition: Inpatient Rehab Facility Anticipated Discharge Date: Discharge Date: Expected LOS: Initial Reviewer: [email or web address] Initial Review Date: 03/18/2020 Generated: 04/08/20 5:46 pm DCP- Discharge Planning Updated by [email or web address]: Cassi Whalen on 04/08/20 3:[address] CM spoke with Flaca with [facility] and gave update faxed more information. Awaiting acceptance for discharge. CM will continue to follow and assist as needed with discharge planning / needs. DCP- Discharge Planning Updated by [id number]: Cassi Whalen on 04/07/20 2:[address] CM FAXED UPDATE CLINICALS TO [facility] EVAL FOR PLACEMENT. CM WILL CONTINUE TO FOLLOW AND ASSIST NEEDED WITH D/C PLANNING / NEEDS. DCP- Discharge Planning Updated by [id number]: Yaneli Kaur on 03/31/20 12:[address] Updated clinical faxed to Flaca Castillo, liaison for [facility], and to the facility. CM will continue to follow and assist with discharge planning/needs. DCP- Discharge Planning Updated by [id number]: Naida Webb on 03/28/20 1:[address] Updated information faxed to Flaca Castillo, [facility]. DCP- Discharge Planning Updated by [id number]: Naida Webb on 03/27/20 2:[address] Flaca Castillo called and said she will continue to follow for [facility]. At present the patient is refusing to participate with PT and is Max assist for bed mobility, still very confused. CM will update additional information 03/28. DCP- Discharge Planning Updated by [email or web address]: Naida Webb on 03/26/20 3:[address] Re-faxed updated information to Flaca Castillo @[phone]. DCP- Discharge Planning Updated by [id number]: Naida Webb on 03/26/20 12:[address] Updated information faced to Flaca Castillo @[phone], . DCP- Discharge Planning Updated by [email or web address]: Yaneli Kaur on 03/25/20 11:[address] CM called Flaca Castillo, liaison for [facility] and Rehab and they have not received a referral. I faxed clinical for their review. CM will continue to follow and assist with discharge planning/needs. DCP- Discharge Planning Updated by [id number]: Cassi Whalen on 03/24/20 5:[address] CM called and spoke with daughter Taty Ferro [phone]. Taty stated that she had spoken with he dad and they all agree that the patient needs jail care. FRANCA completed for [facility]. CM faxed over clinicals this evening for referral. CM will continue to follow and assist as needed with discharge planning / needs. DCP- Discharge Planning Updated by [email or web address]: Cassi Whalen on 03/21/20 5:[address] Patient Name: MIKE GONZALEZ Admission Status: ER Accout number: [id number] Admission Date: 03-19-2020 : 1935 Admission Diagnosis:DIARRHEA, UNSPECIFIED Attending: EZEQUIEL RAYA Current LOS: 2 Anticipated DC Date: Planned Disposition: Primary Insurance: MEDICARE A & B Discharge Planning Comments: CM met with patient to complete initial dc planning assessment. CM educated patient on the CM role and verbal consent given by patient to complete assessment. Patient lives at home with her . At discharge patient plans to return home and feels this is a safe discharge. CM discussed availability of home health, rehab services, and medical equipment. Daughter would like patient to go to SNF facility. She states that her father is not able to take care. Patient denied known discharge needs at this time. CM will continue to follow and will assist as needed with dc plans/needs. Sustainable Design Consultant: Cassi Whalen DCPIA - Discharge Planning Initial Assessment Updated by [email or web address]: Cassi Whalen on 03/21/20 6:24 pm * Is the patient Alert and Oriented? Yes * How many steps to enter\exit or inside your home? * PCP [facility] * [facility] * Preadmission Environment Home with Family * ADLs Partial Dependent * Partial ADLs (Assistance needed) Ambulation Bathing Dressing Eating Medication Management Toileting Transfers * Equipment Rolling Walker * List name and contact numbers for known caregivers / representatives who currently or will assist patient after discharge: Taty Garcia - daughter - [phone] Jitendra Gonzalez - spouse- [phone] * Verbal permission to speak to the caregivers and representatives has been obtained from the patient. Yes * Community resources currently utilized Home Health * Please name any agencies selected above. [facility] * Additional services required to return to the preadmission environment? No * Can the patient safely return to the preadmission environment? Yes * Has this patient been hospitalized within the prior 30 days at any hospital? Yes Coverage Notice Reviewer: [id number] - Cassi Whalen Notice Issued Date-Time: 03/24/2020 17:00 Notice Type: Patient Choice Letter Notice Delivered To: Family Member Relationship to Patient: Daughter Technical Support Intern Name: taty ferro Delivery Method: PHONE - Phone Soraya Days: Prior Verbal Notification: Yes Recipient Understood Notice: Yes Recipient Signature: Med Rec Note Co-signed by Attending: Coverage Notice Comment: [facility] Last DP export: 04/07/20 3:04 p Patient Name: MIKE GONZALEZ Page [phone] at 1646 All edits/amendments must be made on the electronic document DICTATION DATE: 04/08/201645 INSURANCE CLAIMS REPRESENTATIVE: VINCENT 04/08/201645 RPT#: [id number] DC DATE: STATUS: ADM IN [facility] [address] [place] [address] END OF REPORT
--- NOTE | 2020-04-08 20:00 | NUR ---
AUPINE IN BED, HOB 40DEGREES. PT ORIENTED TO SELF, ONLY. PT TUBE INFUSING. AUSCULTATED FOR PLACEMENT. RATE INCREASED TO 40, IV PROCALAMINE DECREASED TO 30ML/HR. VS STABLE, NO S/SX OF DISTRESS, CTM.
--- NOTE | 2020-04-08 21:37 | NUR ---
SUPINE IN BED, HOB 30 DEGREES. HEEL PROTECTORS IN USE, EYES CLOSED, PT SNORING, VS STABLE, NO S/SX OF DISTRESS.
--- NOTE | 2020-04-08 23:30 | NUR ---
SUPINE IN BED, HOB 30DEGREES. EYES CLOSED, PT APPEARS TO BE MOUTH BREATHING WHILE SNORING. 2L O2 IN USE, SPO2 98%. VS STABLE, NO S/SX OF DISTRESS. KANGAROO PUMP TUBING CHANGED, PRIMED, AND CONNECTED TO PT. SETTINGS FOR FEEDING AT 40ML/HR, FLUSH 100ML H2O Q 4.
[2020-04-09] VITALS (24 sets, daily range): BP systolic 115–143; BP diastolic 52–82
--- NOTE | 2020-04-09 03:00 | NUR ---
HOB 45 DEGREES. EYES OPEN, IMMEDIATE RESPONSE WHEN ADDRESSED. ORIENTED TO SELF. NO RESIDUAL FROM PEG TUBE, FEEDING INCREASED BY 10 TO THE GOAL OF 50ML/HR. PROCALAMINE DECREASED BY 10 TO 20ML/HR. NO S/SX OF DISTRESS, CTM.
--- NOTE | 2020-04-09 04:31 | NUR ---
I have reviewed this patient and I concur with the Shift Assessment completed by the Licensed Practical Nurse today this shift.
--- NOTE | 2020-04-09 07:00 | NUR ---
ASSESSMENT COMPLETE. MOUTHCARE GIVEN. TEETH BRUSHED. CONTINUES TO BE CONFUSED.
--- NOTE | 2020-04-09 07:22 | NUR ---
Nutrition follow-up: Pt remains NPO; speech following. Osmolite 1.5 increased to goal rate of 50 ml/hr this morning. H2O flush 100 ml q 4 hours; HOB > 30 degrees Labs reviewed Wt: 154# RDN following.
[2020-04-09] MEDS ORDERED: Nystatin Oral Susp [ PO (11:54)
[2020-04-09] MEDS ORDERED: Xopenex 0.63 MG INH INH (11:55)
[2020-04-09] MEDS ORDERED: ELIQUIS5 MG PO (11:55)
[2020-04-09] MEDS ORDERED: CARDIZEM 90 MG90 MG PO (11:56)
[2020-04-09] MEDS ORDERED: QUESTRAN LIG1 PACKET PO (11:56)
[2020-04-09] MEDS ORDERED: [UNRECOGNIZED DRUG - OTHER] PO (11:57)
[2020-04-09] MEDS ORDERED: XANAX0.25 MG PEG (11:57)
[2020-04-09] MEDS ORDERED: CALMOSEPTINE OI71 GM TOPICAL (11:58)
[2020-04-09] MEDS ORDERED: DULCOLAX10 MG/SUPP RC (11:58)
[2020-04-09] MEDS ORDERED: MAG-OX 400 MG400 MG PO (11:58)
[2020-04-09] MEDS ORDERED: ZYPREXA5 MG PO (11:59)
[2020-04-09] MEDS ORDERED: MELATONIN 3 MG1 TAB PEG (11:59)
--- NOTE | 2020-04-09 12:30 | NUR ---
RECTAL TEMP 102.1 DR MCLEOD NOTIFIED, DC CANCEL. [facility]ISON CASE MANAGEMENT INFORMED.
--- NOTE | 2020-04-09 13:00 | NUR ---
CALLED AND INFORM OF TEMP. NO DC TODAY.
--- NOTE | 2020-04-09 13:35 | PN ---
PATIENT:MIKE CASANOVA MEDICAL RECORD: [id number] LOCATION:[facility] D.230 ADMISSION DATE: 03/19/20 PROGRESS NOTE DATE OF SERVICE: 04/08/2020 SUBJECTIVE: The patient's case was discussed with staff. She has no new complaint. OBJECTIVE: The patient is only oriented to person. She is still angry and at times agitated, but the intensity of this has declined significantly. ASSESSMENT: Delirium. PLAN: Current medicines have been reviewed and will be maintained. Her long-term prognosis is guarded. I am going to maintain her on the Zyprexa. I do not think it has had an opportunity to become fully effective, although I am encouraged by what I have observed so far. TRANSINT:[id number] Voice Confirmation ID: [id number] DOCUMENT ID: [id number] MELVIN DENTON MD at 1335 CC: [id number] DICTATION DATE: 04/08/20 1530 SEED TECHNICIAN: 04/09/20 0008 ADM IN [facility] [address] [place] [address]
--- NOTE | 2020-04-09 14:58 | NUR ---
OT NOTE: PT ON HOLD PER NURSING SECONDARY TO FEVER. JONNA RAYO, OTR/L
--- NOTE | 2020-04-09 16:31 | NUR ---
UPDATED ABOUT TEMP. VOICES NO OTHER QUESTIONS.
--- NOTE | 2020-04-09 19:00 | NUR ---
ASSESSMENT COMPLETED PER FLOWSHEETS. PT AWAKE AND ALERT TO NAME, AGITATED AND RESTLESS IN BED, SCRAMING OUTLOUD. REORIENTED. ST ON CM WITH HR AT 126BPM. PT INCONTINENT OF STOOL. KEYANA CARE AND JUDD PROVIDED. SKIN CARE DONE. LINEN AND GOWN CHANGED. REPOSITIONED FOR COMFORT. MOUTH CARE DONE. HOB UP. SIDE RAILS UP. CALL LIGHT IN REACH. DENIES PAIN AT THIS TIME. CONT TO MONITOR.
--- NOTE | 2020-04-09 20:11 | MORECARE ---
CASE MANAGEMENT DISCHARGE SUMMARY PATIENT: MIKE GONZALEZ UNIT: [id number] ADM DATE: 03/19/20 AGE: 84 : 37 SEX: F ROOM/BED: D.2301 AUTHOR: RAIMUNDO,DOC PHYSICIAN: REFERRING PHYSICIAN: DARVIN MCLEOD MD DATE OF SERVICE: 04/09/20 Discharge Plan Patient Name: MIKE GONZALEZ Facility: [facility]:[place] : 1935 Planned Disposition: Inpatient Rehab Facility Anticipated Discharge Date: Discharge Date: Expected LOS: Initial Reviewer: [email or web address] Initial Review Date: 03/18/2020 Generated: 04/09/20 9:11 pm Comments DCP- Discharge Planning Updated by [id number]: Cassi Whalen on 04/09/20 7:[address] CM spoke with Flaca and she stated that [facility] wasn't able to accept patient but [facility] is running secondary insurance for available days and they will take patient today. CM sent updates. Flaca called CM back and stated patient was accepted and to fax discharge orders as soon as available and they will arrange transportation. CM received call from nurse later that patient had spiked a temp and discharge has been cancelled. CM called Flaca and let her know status. CM will continue to follow and assist as needed with discharge planning / needs. Appended by Cassi Whalen on 04/09/2020 20:07 CDT: D/C IMM signed 04/09/20 @ 1123 DCP- Discharge Planning Updated by [email or web address]: Cassi Whalen on 04/08/20 3:[address] CM spoke with Flaca with [facility] and gave update faxed more information. Awaiting acceptance for discharge. CM will continue to follow and assist as needed with discharge planning / needs. DCP- Discharge Planning Updated by [id number]: Cassi Whalen on 04/07/20 2:[address] CM FAXED UPDATE CLINICALS TO [facility] FOR PLACEMENT. CM WILL CONTINUE TO FOLLOW AND ASSIST NEEDED WITH D/C PLANNING / NEEDS. DCP- Discharge Planning Updated by [id number]: Yaneli Kaur on 03/31/20 12:[address] Updated clinical fax[facility] to [facility] and to the facility. CM will continue to follow and assist with discharge planning/needs. DCP- Discharge Planning Updated by [id number]: Naida Webb on 03/28/20 1:[address] Updated [facility] DCP- Discharge Planning Updated by [id number]: Naida Webb on 03/27/20 2:[address] Flaca Castillo called and said she will continue to follow for [facility]. At present the patient is refusing to participate with PT and is Max assist for bed mobility, still very confused. CM will update additional information 03/28. DCP- Discharge Planning Updated by [id number]: Naida Webb on 03/26/20 3:[address] Re-faxed updated information to Flaca Castillo @[phone]. DCP- Discharge Planning Updated by [id number]: Naida Webb on 03/26/20 12:[address] Updated information faced to Flaca Castillo @[phone], . DCP- Discharge Planning Updated by [id number]: Yaneli Kaur on 03/25/20 11:[address] CM called felice Trimble for [facility] and Rehab and they have not received a referral. I faxed clinical for their review. CM will continue to follow and assist with discharge planning/needs. DCP- Discharge Planning Updated by [id number]: Cassi Whalen on 03/24/20 5:[address] CM called and spoke with daughter Taty Ferro [phone]. Taty stated that she had spoken with he dad and they all agree that the patient needs half-way care. FRANCA completed for [facility] and Rehab. CM faxed over clinicals this evening for referral. CM will continue to follow and assist as needed with discharge planning / needs. DCP- Discharge Planning Updated by [id number]: Cassi Whalen on 03/21/20 5:[address] Patient Name: MIKE GONZALEZ Admission Status: ER Accout number: [id number] Admission Date: 03-19-2020 : 1935 Admission Diagnosis:DIARRHEA, UNSPECIFIED Attending: EZEQUIEL RAYA Current LOS: 2 Anticipated DC Date: Planned Disposition: Primary Insurance: MEDICARE A & B Discharge Planning Comments: CM met with patient to complete initial dc planning assessment. CM educated patient on the CM role and verbal consent given by patient to complete assessment. Patient lives at home with her . At discharge patient plans to return home and feels this is a safe discharge. CM discussed availability of home health, rehab services, and medical equipment. Daughter would like patient to go to SNF facility. She states that her father is not able to take care. Patient denied known discharge needs at this time. CM will continue to follow and will assist as needed with dc plans/needs. Senior Wind Turbine Technician: Cassi Whalen DCPIA - Discharge Planning Initial Assessment Updated by [id number]: Cassi Whalen on 03/21/20 6:24 pm * Is the patient Alert and Oriented? Yes * How many steps to enter\exit or inside your home? * PCP [facility] * [facility] * Preadmission Environment Home with Family * ADLs Partial Dependent * Partial ADLs (Assistance needed) Ambulation Bathing Dressing Eating Medication Management Toileting Transfers * Equipment Rolling Walker * List name and contact numbers for known caregivers / representatives who currently or will assist patient after discharge: Taty Garcia - daughter - [phone] Jitendra Gonzalez - spouse- [phone] * Verbal permission to speak to the caregivers and representatives has been obtained from the patient. Yes * Community resources currently utilized Home Health * Please name any agencies selected above. [facility] * Additional services required to return to the preadmission environment? No * Can the patient safely return to the preadmission environment? Yes * Has this patient been hospitalized within the prior 30 days at any hospital? Yes Coverage Notice Reviewer: [id number] Harjeet Whalen Notice Issued Date-Time: 03/24/2020 17:00 Notice Type: Patient Choice Letter Notice Delivered To: Family Member Relationship to Patient: Daughter Fun House Operator Name: taty ferro Delivery Method: PHONE - Phone Soraya Days: Prior Verbal Notification: Yes Recipient Understood Notice: Yes Recipient Signature: Med Rec Note Co-signed by Attending: Coverage Notice Comment: [facility] Reviewer: [id number] - Cassi Marlee Notice Issued Date-Time: 04/09/2020 11:23 Notice Type: IM Discharge Notice Notice Delivered To: Family Member Relationship to Patient: Spouse Fun House Operator Name: HUDSON GONZALEZ Delivery Method: HAND - Hand Delivered Soraya Days: Prior Verbal Notification: Recipient Understood Notice: Yes Recipient Signature: Yes Med Rec Note Co-signed by Attending: Coverage Notice Comment: Last DP export: 04/08/20 3:46 p Patient Name: MIKE GONZALEZ Page [id number] at 2010 All edits/amendments must be made on the electronic document DICTATION DATE: 04/09/202010 CHUMMER: VINCENT 04/09/202010 RPT#: [id number] DC DATE: STATUS: ADM IN [facility] [address] [place] [address] END OF REPORT
--- NOTE | 2020-04-09 21:00 | NUR ---
PT INCONTINENT OF LOOSE STOOL. KEYANA CARE AND JUDD PROVIDED. SKIN DONE. LINEN CHANGED. REPOSITIONED FOR COMFORT. SCHEDULED MEDS GIVEN PER ORDER. PT ASHER WELL. CONT TO MONITOR.
--- NOTE | 2020-04-09 23:00 | NUR ---
REASSESSMENT COMPLETED. SEE FLOWSHEET FOR ALL FINDINGS. NO ACUTE SIGNS OF DISTRESS NOTED AT THIS TIME. VSS. CONT TO MONITOR.
[2020-04-10] VITALS (12 sets, daily range): BP systolic 103–153; BP diastolic 49–78
--- NOTE | 2020-04-10 01:00 | NUR ---
PT RESTING QUIETLY WITHOUT DISTRESS. VSS.
--- NOTE | 2020-04-10 02:20 | NUR ---
PT AGITATED IN BED SCREAMING OUTLOUD. UNABLE TO CALM. ATIVAN 0.5MG IVP GIVEN PER ORDER. REORIENTED WITHOUT RESULTS. CPOC.
--- NOTE | 2020-04-10 03:00 | NUR ---
REASSESSMENT COMPLETED.SEE FLOWSHEETS FOR ALL FINDINGS. NO ACUTE CHANGES NOTED IN PT'S STATUS. VSS. REPOSITIONED FOR COMFORT. HOB UP. SIDE RAILS UP. CALL LIGHT IN REACH.CPOC.
--- NOTE | 2020-04-10 04:00 | NUR ---
I&O COMPLETED TO CHART.
--- NOTE | 2020-04-10 05:05 | NUR ---
AM LABS DRAWN WITHOUT DIFFIC. LAB PENDING.
[2020-04-10 05:58] LABS: BASOPHILS 0.4 % (0-2); EOSINOPHILS 4.6 % (0-7); HEMATOCRIT 31.1 % (36.0-48.0); HEMOGLOBIN 9.7 g/dL (12-16); IMMATURE GRANULOCYTES 0.3 % (0-5); LYMPHOCYTES 22.6 % (15-50); MCH 26.9 pg (26.0-34.0); MCHC 31.2 g/dL (31.0-37.0); MCV 86.4 fL (80.0-100.0); MEAN PLATELET VOLUME 9.9 fL (7.4-10.4); MONOCYTES 5.5 % (2-11); NEUTROPHILS 66.6 % (40-80); PLATELET COUNT 343 10x3/uL (130-400); RDW 15.1 % (11.5-14.5); WBC 11.4 10x3/uL (4.8-10.8)
[2020-04-10 06:29] LABS: ALKALINE PHOSPHATASE 123 U/L (30-120); ALT (SGPT) 24 U/L (10-68); BILIRUBIN - TOTAL 0.36 mg/dL (0.2-1.3); CALC OSMOLALITY 279 mosm/kg (275-300); CARBON DIOXIDE 30.6 mmol/L (21.0-32.0); CHLORIDE - SERUM 103 mmol/L (98-107); CREATININE - SERUM 0.5 mg/dL (0.6-1.3); GLUCOSE 132 mg/dL (74-106); MAGNESIUM - SERUM 1.8 mg/dL (1.8-2.4); PHOSPHOROUS 3.6 mg/dL (2.5-4.9); POTASSIUM - SERUM 3.9 mmol/L (3.5-5.1); PROTEIN - SERUM 5.8 g/dL (6.4-8.2); SODIUM 137 mmol/L (136-145); UREA NITROGEN 24 mg/dL (7-18); eGFR NON AFRICAN AMERICAN > 90 mL/min (90-120)
--- NOTE | 2020-04-10 11:35 | MORECARE ---
CASE MANAGEMENT DISCHARGE SUMMARY PATIENT: MIKE GONZALEZ UNIT: [id number] ADM DATE: 03/19/20 AGE: 84 : 37 SEX: F ROOM/BED: D.2301 AUTHOR: RAIMUNDO,DOC PHYSICIAN: REFERRING PHYSICIAN: DARVIN MCLEOD MD DATE OF SERVICE: 04/10/20 Discharge Plan Patient Name: MIKE GONZALEZ Facility: [facility]:[place] : 1935 Planned Disposition: Inpatient Rehab Facility Anticipated Discharge Date: Discharge Date: Expected LOS: Initial Reviewer: [id number] Initial Review Date: 03/18/2020 Generated: 04/10/20 12:34 pm Comments DCP- Discharge Planning Updated by [email or web address]: Sailaja Layne on 04/10/20 10:[address] Patient Name: MIKE GONZALEZ Admission Status: ER Accout number: [id number] Admission Date: 03-19-2020 : 1935 Admission Diagnosis:DIARRHEA, UNSPECIFIED Attending: DARVIN MCLEOD Current LOS: 22 Anticipated DC Date: Planned Disposition: Inpatient Rehab Facility Primary Insurance: MEDICARE A & B Discharge Planning Comments: FAXED UPDATE TO [facility] WITH [facility]. WAITING TO HEAR BACK IF ACCEPTING TODAY. Grass Farm Laborer: Sailaja Layne DCP- Discharge Planning Updated by [id number]: Cassi Whalen on 04/09/20 7:[address] CM spoke with Carolyne and she stated that [facility] wasn't able to accept patient but [facility] is running secondary insurance for available days and they will take patient today. CM sent updates. Carolyne called CM back and stated patient was accepted and to fax discharge orders as soon as available and they will arrange transportation. CM received call from nurse later that patient had spiked a temp and discharge has been cancelled. CM called Carolyne and let her know status. CM will continue to follow and assist as needed with discharge planning / needs. Appended by Cassi Whalen on 04/09/2020 20:07 CDT: D/C IMM signed 04/09/20 @ 1123 DCP- Discharge Planning Updated by [id number]: Cassi Whalen on 04/08/20 3:[address] CM spoke with Carolyne with [facility] and gave update faxed more information. Awaiting acceptance for discharge. CM will continue to follow and assist as needed with discharge planning / needs. DCP- Discharge Planning Updated by [id number]: Cassi Whalen on 04/07/20 2:[address] CM FAXED UPDATE CLINICALS TO [facility] EVAL FOR PLACEMENT. CM WILL CONTINUE TO FOLLOW AND ASSIST NEEDED WITH D/C PLANNING / NEEDS. DCP- Discharge Planning Updated by [id number]: Yaneli Kaur on 03/31/20 12:[address] Updated clinical [facility], and to the facility. CM will continue to follow and assist with discharge planning/needs. DCP- Discharge Planning Updated by [id number]: Naida Webb on 03/28/20 1:[address] Updated information faxed to [facility]. DCP- Discharge Planning Updated by [id number]: Naida Webb on 03/27/20 2:[address] [facility] called and said [facility] At present the patient is refusing to participate with PT and is Max assist for bed mobility, still very confused. CM will update additional information 03/28. DCP- Discharge Planning Updated by [id number]: Naida Webb on 03/26/20 3:[address] Re-faxed updated information to [facility] Castillo @[phone]. DCP- Discharge Planning Updated by [id number]: Naida Webb on 03/26/20 12:[address] Updated information faced to [facility] Castillo @[phone], . DCP- Discharge Planning Updated by [id number]: Yaneli Kaur on 03/25/20 11:[address] CM called felice Trimble for [facility] and Rehab and they have not received a referral. I faxed clinical for their review. CM will continue to follow and assist with discharge planning/needs. DCP- Discharge Planning Updated by [id number]: Cassi Whalen on 03/24/20 5:[address] CM called and spoke with daughter Taty Ferro [phone]. Taty stated that she had spoken with he dad and they all agree that the patient needs intermediate care. FRANCA completed for [facility] and Rehab. CM faxed over clinicals this evening for referral. CM will continue to follow and assist as needed with discharge planning / needs. DCP- Discharge Planning Updated by [id number]: Cassi Whalen on 03/21/20 5:[address] Patient Name: MIKE GONZALEZ Admission Status: ER Accout number: [id number] Admission Date: 03-19-2020 : 1935 Admission Diagnosis:DIARRHEA, UNSPECIFIED Attending: EZEQUIEL RAYA Current LOS: 2 Anticipated DC Date: Planned Disposition: Primary Insurance: MEDICARE A & B Discharge Planning Comments: CM met with patient to complete initial dc planning assessment. CM educated patient on the CM role and verbal consent given by patient to complete assessment. Patient lives at home with her . At discharge patient plans to return home and feels this is a safe discharge. CM discussed availability of home health, rehab services, and medical equipment. Daughter would like patient to go to SNF facility. She states that her father is not able to take care. Patient denied known discharge needs at this time. CM will continue to follow and will assist as needed with dc plans/needs. Grass Farm Laborer: Cassi Whalen DCPIA - Discharge Planning Initial Assessment Updated by [id number]: Cassi Whalen on 03/21/20 6:24 pm * Is the patient Alert and Oriented? Yes * How many steps to enter\exit or inside your home? * PCP [facility] * [facility] * Preadmission Environment Home with Family * ADLs Partial Dependent * Partial ADLs (Assistance needed) Ambulation Bathing Dressing Eating Medication Management Toileting Transfers * Equipment Rolling Walker * List name and contact numbers for known caregivers / representatives who currently or will assist patient after discharge: Taty Garcia - daughter - [phone] Jitendra Gonzalez - spouse- [phone] * Verbal permission to speak to the caregivers and representatives has been obtained from the patient. Yes * Community resources currently utilized Home Health * Please name any agencies selected above. [facility] * Additional services required to return to the preadmission environment? No * Can the patient safely return to the preadmission environment? Yes * Has this patient been hospitalized within the prior 30 days at any hospital? Yes Coverage Notice Reviewer: [id number] Harjeet Whalen Notice Issued Date-Time: 03/24/2020 17:00 Notice Type: Patient Choice Letter Notice Delivered To: Family Member Relationship to Patient: Daughter Logger Driving Horses Name: taty ferro Delivery Method: PHONE - Phone Soraya Days: Prior Verbal Notification: Yes Recipient Understood Notice: Yes Recipient Signature: Med Rec Note Co-signed by Attending: Coverage Notice Comment: [facility] Reviewer: [id number] Harjeet Whalen Notice Issued Date-Time: 04/09/2020 11:23 Notice Type: IM Discharge Notice Notice Delivered To: Family Member Relationship to Patient: Spouse Logger Driving Horses Name: HUDSON GONZALEZ Delivery Method: HAND - Hand Delivered Soraya Days: Prior Verbal Notification: Recipient Understood Notice: Yes Recipient Signature: Yes Med Rec Note Co-signed by Attending: Coverage Notice Comment: Last DP export: 04/09/20 7:11 p Patient Name: MIKE GONZALEZ Page [id number] at 1135 All edits/amendments must be made on the electronic document DICTATION DATE: 04/10/20 1134 ROLLER MAKER: VINCENT 04/10/20 1134 RPT#: [id number] DC DATE: STATUS: ADM IN [facility] [address] [place] [address] END OF REPORT
--- NOTE | 2020-04-10 12:53 | NUR ---
OT NOTE: PT WITH FIXED GAZE.. UNABLE TO AROUSE PT. PT ASLEEP WITH MOUTH OPEN. PROM PT WAS UNABLE TO PERFORM AROM. DECLINE FROM PREVIOUS DAYS. WASHED PTS FACE WITH COLD CLOTH BUT STILL DID NOT AROUSE. JONNA RAYO,OTR/L [phone]
--- NOTE | 2020-04-10 14:01 | PN ---
PATIENT:MIKE CASANOVA MEDICAL RECORD: [id number] LOCATION:.[facility] D.230 ADMISSION DATE: 03/19/20 PROGRESS NOTE DATE OF SERVICE: 04/09/2020 SUBJECTIVE: The patient's case was discussed with staff. She has no new complaint. OBJECTIVE: The patient is disorganized and only partially oriented. She appears to be in even more distress than she was previously, but I think that is associated with the fact that she is also spiked a temperature. ASSESSMENT: Delirium. PLAN: The patient will be maintained on her Zyprexa for her thought disorganization. I am going to reduce the dose slightly. I think I will obtain the same benefit with a reduction in risk. TRANSINT:[id number] Voice Confirmation ID: [id number] DOCUMENT ID: [id number] MELVIN DENTON MD at 1401 CC: [id number] DICTATION DATE: 04/09/20 1512 BUNDLE SHAKER: 04/10/20 0049 ADM IN [facility] [address] [place] [id number]
--- NOTE | 2020-04-10 15:00 | NUR ---
CVL AND JUDD REMOVED. PT CLEANED AND POSITIONED FOR COMFORT.
--- NOTE | 2020-04-10 15:29 | NUR ---
OT NOTE: PT COMPLETED UE POSITONING WITH TOTAL A. PT COMPLETED UE PROM TOLERATE. PT REQUIRED TOTAL A WITH FACE HYGIENE. 1519-2017 THANK YOU,NICA SUN
--- NOTE | 2020-04-10 15:59 | NUR ---
PT DISCHARGED AND LEFT WITH FACILITY STAFF IN CHAIR.
--- NOTE | 2020-04-11 19:25 | MORECARE ---
CASE MANAGEMENT DISCHARGE SUMMARY PATIENT: MIKE GONZALEZ UNIT: [id number] ADM DATE: 03/19/20 AGE: 84 : 37 SEX: F ROOM/BED: D.2301 AUTHOR: RAIMUNDO,DOC PHYSICIAN: REFERRING PHYSICIAN: DARVIN MCLEOD MD DATE OF SERVICE: 04/11/20 Discharge Plan Patient Name: MIKE GONZALEZ Facility: [facility]:[place] : 1935 Planned Disposition: Inpatient Rehab Facility Anticipated Discharge Date: Discharge Date: 04/10/2020 Expected LOS: Initial Reviewer: [id number] Initial Review Date: 03/18/2020 Generated: 04/11/20 8:25 pm Comments DCP- Discharge Planning Updated by [id number]: Sailaja Layne on 04/10/20 10:[address] Patient Name: MIKE GONZALEZ Admission Status: ER Accout number: [id number] Admission Date: 03-19-2020 : 1935 Admission Diagnosis:DIARRHEA, UNSPECIFIED Attending: DARVIN MCLEOD Current LOS: 22 Anticipated DC Date: Planned Disposition: Inpatient Rehab Facility Primary Insurance: MEDICARE A & B Discharge Planning Comments: FAXED UPDATE TO [facility] WITH [facility]. WAITING TO HEAR BACK IF ACCEPTING TODAY. Timber Estimator: Sailaja Layne DCP- Discharge Planning Updated by [email or web address]: Cassi Whalen on 04/09/20 7:[address] CM spoke with Carolyne and she stated that [facility] wasn't able to accept patient but [facility] is running secondary insurance for available days and they will take patient today. CM sent updates. Carolyne called CM back and stated patient was accepted and to fax discharge orders as soon as available and they will arrange transportation. CM received call from nurse later that patient had spiked a temp and discharge has been cancelled. CM called Carolyne and let her know status. CM will continue to follow and assist as needed with discharge planning / needs. Appended by Cassi Whalen on 04/09/2020 20:07 CDT: D/C IMM signed 04/09/20 @ 1123 DCP- Discharge Planning Updated by [email or web address]: Cassi Whalen on 04/08/20 3:[address] CM spoke with Carolyne with [facility] and gave update faxed more information. Awaiting acceptance for discharge. CM will continue to follow and assist as needed with discharge planning / needs. DCP- Discharge Planning Updated by [id number]: Cassi Whalen on 04/07/20 2:[address] CM FAXED UPDATE CLINICALS TO [facility] FOR PLACEMENT. CM WILL CONTINUE TO FOLLOW AND ASSIST NEEDED WITH D/C PLANNING / NEEDS. DCP- Discharge Planning Updated by [email or web address]: Yaneli Kaur on 03/31/20 12:[address] Updated clinical faxed to felice Trimble for [facility], and to the facility. CM will continue to follow and assist with discharge planning/needs. DCP- Discharge Planning Updated by [id number]: Naida Webb on 03/28/20 1:[address] Updated information faxed to [facility]. DCP- Discharge Planning Updated by [id number]: Naida Webb on 03/27/20 2:[address] Carolyne [facility] called and said she will continue to follow for [facility]. At present the patient is refusing to participate with PT and is Max assist for bed mobility, still very confused. CM will update additional information 03/28. DCP- Discharge Planning Updated by [id number]: Naida Webb on 03/26/20 3:[address] Re-faxed updated information to [facility] @[phone]. DCP- Discharge Planning Updated by [id number]: Naida Webb on 03/26/20 12:[address] Updated information faced to [facility]illo @[phone], . DCP- Discharge Planning Updated by [email or web address]: Yaneli Kaur on 03/25/20 11:[address] CM called felice Trimble for [facility] and they have not received a referral. I faxed clinical for their review. CM will continue to follow and assist with discharge planning/needs. DCP- Discharge Planning Updated by [email or web address]: Cassi Whalen on 03/24/20 5:[address] CM called and spoke with daughter Taty Ferro [phone]. Taty stated that she had spoken with he dad and they all agree that the patient [facility]. FRANCA completed for [facility]. CM faxed over clinicals this evening for referral. CM will continue to follow and assist as needed with discharge planning / needs. DCP- Discharge Planning Updated by [email or web address]: Cassi Whalen on 03/21/20 5:[address] Patient Name: MIKE GONZALEZ Admission Status: ER Accout number: [id number] Admission Date: 03-19-2020 : 1935 Admission Diagnosis:DIARRHEA, UNSPECIFIED Attending: EZEQUIEL RAYA Current LOS: 2 Anticipated DC Date: Planned Disposition: Primary Insurance: MEDICARE A & B Discharge Planning Comments: CM met with patient to complete initial dc planning assessment. CM educated patient on the CM role and verbal consent given by patient to complete assessment. Patient lives at home with her . At discharge patient plans to return home and feels this is a safe discharge. CM discussed availability of home health, rehab services, and medical equipment. Daughter would like patient to go to SNF facility. She states that her father is not able to take care. Patient denied known discharge needs at this time. CM will continue to follow and will assist as needed with dc plans/needs. Timber Estimator: Cassi Whalen DCPIA - Discharge Planning Initial Assessment Updated by [id number]: Cassi Whalen on 03/21/20 6:24 pm * Is the patient Alert and Oriented? Yes * How many steps to enter\exit or inside your home? * PCP [facility] * Pharmacy [facility] * Preadmission Environment Home with Family * ADLs Partial Dependent * Partial ADLs (Assistance needed) Ambulation Bathing Dressing Eating Medication Management Toileting Transfers * Equipment Rolling Walker * List name and contact numbers for known caregivers / representatives who currently or will assist patient after discharge: Taty Garcia - daughter - [phone] Jitendra Gonzalez - spouse- [phone] * Verbal permission to speak to the caregivers and representatives has been obtained from the patient. Yes * Community resources currently utilized Home Health * Please name any agencies selected above. [facility] * Additional services required to return to the preadmission environment? No * Can the patient safely return to the preadmission environment? Yes * Has this patient been hospitalized within the prior 30 days at any hospital? Yes Coverage Notice Reviewer: [id number] Harjeet Whalen Notice Issued Date-Time: 03/24/2020 17:00 Notice Type: Patient Choice Letter Notice Delivered To: Family Member Relationship to Patient: Daughter Plastering Contractor Name: taty ferro Delivery Method: PHONE - Phone Soraya Days: Prior Verbal Notification: Yes Recipient Understood Notice: Yes Recipient Signature: Med Rec Note Co-signed by Attending: Coverage Notice Comment: [facility] Reviewer: [id number] Harjeet Whalen Notice Issued Date-Time: 04/09/2020 11:23 Notice Type: IM Discharge Notice Notice Delivered To: Family Member Relationship to Patient: Spouse Plastering Contractor Name: HUDSON GONZALEZ Delivery Method: HAND - Hand Delivered Soraya Days: Prior Verbal Notification: Recipient Understood Notice: Yes Recipient Signature: Yes Med Rec Note Co-signed by Attending: Coverage Notice Comment: Last DP export: 04/10/20 10:35 a Patient Name: MIKE GONZALEZ Page [phone] at 192 All edits/amendments must be made on the electronic document DICTATION DATE: 04/11/201924 MANNEQUIN MOLD MAKER: VINCENT 04/11/201924 RPT#: [id number] DC DATE:04/10/20 STATUS: DIS IN [facility] [address] [place] [address] END OF REPORT
--- NOTE | 2020-04-14 12:04 | PN ---
PATIENT:MIKE CASANOVA MEDICAL RECORD: [id number] LOCATION:[facility] D.230 ADMISSION DATE: 03/19/20 PROGRESS NOTE DATE OF SERVICE: 04/10/2020 SUBJECTIVE: The patient's case was discussed with staff. She has no new complaint. OBJECTIVE: The patient is disorganized and somewhat agitated. ASSESSMENT: Delirium. PLAN: At this point, I think the patient is probably close to her baseline level of intellectual functioning. Supportive care is being provided. I think that there is not much more that can be done to relieve her level of anxiety and agitation without running the risk of precipitating side effects. TRANSINT:[id number] Voice Confirmation ID: [id number] DOCUMENT ID: [id number] MELVIN DENTON MD at 1204 CC: [id number] DICTATION DATE: 04/10/20 1554 ALIGNER TYPEWRITER: 04/10/20 1749 DIS IN 04/10/20 [facility] [address] [place] [address]
== END 2020-04-10 16:00 | DRG 391 ==
LOC: D.ER 11:45 → D.MS 17:12 → OBSVTIME 17:13 → D.CVICU 23:28 → D.M2 03-19 14:00 → D.ICU 03-19 14:00 → D.M2 03-24 18:00 → D.ICU 04-01 20:30
PROVIDERS: Family Medicine; Internal Medicine Nephrology; Internal Medicine Pulmonary Disease; Surgery; ADMIT Family Medicine; ATTEND Family Medicine
PROC: 0DB68ZX Excision of Stomach, Via Natural or Artificial Opening Endoscopic, Diagnostic (ICD-10-PCS; 2020-03-24)
PROC: 0DH63UZ Insertion of Feeding Device into Stomach, Percutaneous Approach (ICD-10-PCS; principal; 2020-03-24 13:32)
DX: K59.1 Functional diarrhea (principal); J96.01 Acute respiratory failure with hypoxia; G93.41 Metabolic encephalopathy; J69.0 Pneumonitis due to inhalation of food and vomit; N39.0 Urinary tract infection, site not specified; K82.8 Other specified diseases of gallbladder; J43.9 Emphysema, unspecified; E86.0 Dehydration; K59.00 Constipation, unspecified; K21.9 Gastro-esophageal reflux disease without esophagitis; J30.9 Allergic rhinitis, unspecified; R53.1 Weakness; D64.9 Anemia, unspecified; I10 Essential (primary) hypertension; E78.5 Hyperlipidemia, unspecified; M19.90 Unspecified osteoarthritis, unspecified site

== ENCOUNTER 2020-04-11 14:28 | Inpatient (IN) | payer MEDICARE, OTHER ==
[~2020-04-11] VITALS: Ht 157.5 cm; Wt 68.0 kg
[~2020-04-11 14:28] MED LIST changes: +CALMOSEPTINE OI71 GM TOPICAL; +CARDIZEM 90 MG90 MG PO; +DULCOLAX10 MG/SUPP RC; +ELIQUIS5 MG PO; +HALOPERIDOL1 MG PO; +MAG-OX 400 MG400 MG PO; +MELATONIN 3 MG1 TAB PEG; +Nystatin Oral Susp [ PO; +PROTONIX40 MG PO; +QUESTRAN LIG1 PACKET PO; +VALIUM10 MG PO; +XANAX0.25 MG PEG; +Xopenex 0.63 MG INH INH; +ZYPREXA5 MG PO; +[UNRECOGNIZED DRUG - OTHER] PO
--- NOTE | 2020-04-11 14:35 | NUR ---
PT ARRIVES VIA [facility] WITH REPORT OF FEVER AND ELEVATED WBC COUNT, INITIAL TEMP WITH INFRARED THERMOMETER IS 97.1 X 3, TYMPANIC PROBE READS 97.4 AND AXILLARY TEMP IS 98.6, PT IS AWAKE AND ALERT, ORIENTED TO PERSON, RESPIRATIONS EVEN AND UNLABORED, SKIN IS WARM AND DRY, MUCOUS MEMBRANES ARE EXTREMELY DRY, PERRL, ANTERIOR BREATH SOUNDS CLEAR, SHALLOW, PULSES EQUAL, STRONG, TACHYCARDIC @ 123, S1, S2, ABDOMEN SOFT, FLAT, NON-TENDER TO PALPATION, PEG TUBE IN PLACE IN THE LEFT UPPER QUADRANT, CENTRAL VERTICAL ABDOMINAL INCISION NOTED, APPEARS WELL APPROXIMATED AND IN LATER STAGES OF HEALING, NO REDNESS OR DRAINAGE NOTED, WOUND ON THE LEFT LOWER LEG HAS STERI STRIPS IN PLACE AND DRIED BLOOD AROUND THE EDGES, NO SIGNS OF INFECTION, SCATTERED BRUISING ON EXTREMITIES IN DIFFERENT STAGES OF HEALING, NAD NOTED, VS MONITORING ESTABLISHED, CALL LIGHT IN REACH.
[2020-04-11 15:13] LABS: BASOPHILS 0.5 % (0-2); EOSINOPHILS 6.2 % (0-7); HEMATOCRIT 31.3 % (36.0-48.0); IMMATURE GRANULOCYTES 0.3 % (0-5); LYMPHOCYTES 26.3 % (15-50); MCH 27.3 pg (26.0-34.0); MCHC 31.9 g/dL (31.0-37.0); MCV 85.5 fL (80.0-100.0); MEAN PLATELET VOLUME 10.1 fL (7.4-10.4); MONOCYTES 8.8 % (2-11); NEUTROPHILS 57.9 % (40-80); PLATELET COUNT 375 10x3/uL (130-400); RBC 3.66 10x6/uL (4.00-5.40); WBC 9.3 10x3/uL (4.8-10.8)
--- NOTE | 2020-04-11 15:35 | NUR ---
PT AWAKE ON ER STRETCHER, RESPIRATIONS EVEN AND UNLABORED, VS STABLE ON THE MONITOR.
[2020-04-11 15:36] LABS: APTT 29.3 SECONDS (22.8-39.4); INR 1.06 (0.85-1.17); PROTIME 13.8 SECONDS (11.6-15.0)
[2020-04-11 15:42] LABS: CALC OSMOLALITY 280 mosm/kg (275-300); CALCIUM 9.5 mg/dL (8.5-10.1); CARBON DIOXIDE 29.4 mmol/L (21.0-32.0); CHLORIDE - SERUM 103 mmol/L (98-107); CREATININE - SERUM 0.6 mg/dL (0.6-1.3); GLUCOSE 107 mg/dL (74-106); POTASSIUM - SERUM 3.6 mmol/L (3.5-5.1); SODIUM 140 mmol/L (136-145); UREA NITROGEN 18 mg/dL (7-18); eGFR NON AFRICAN AMERICAN > 90 mL/min (90-120)
[2020-04-11 15:59] LABS: ALBUMIN 2.2 g/dL (3.4-5.0); ALKALINE PHOSPHATASE 118 U/L (30-120); ALT (SGPT) 24 U/L (10-68); BILIRUBIN - TOTAL 0.49 mg/dL (0.2-1.3); CREATINE KINASE 29 UL (21-215); PROTEIN - SERUM 6.2 g/dL (6.4-8.2); TROPONIN-I 0.023 ng/mL (0.000-0.060)
[2020-04-11 15:59] LABS: BILIRUBIN NEGATIVE (NEGATIVE); GLUCOSE NEGATIVE (NEGATIVE); KETONE NEGATIVE (NEGATIVE); NITRITE NEGATIVE (NEGATIVE); UROBILINOGEN NORMAL (NORMAL)
[2020-04-11 16:00] LABS: BACTERIA MODERATE /hpf (NEGATIVE); EPITHELIAL CELLS 0-5 /hpf (0-5); RED CELLS - URINE 0-5 /hpf (0-5); YEAST >1+ WITH HYPHAE /hpf (NONE SEEN)
--- NOTE | 2020-04-11 16:35 | NUR ---
PT AWAKE ON ER STRETCHER, RESPIRATIONS EVEN AND UNLABORED, NAD NOTED, PT TALKING ABOUT TELLING "THE MAN THAT WE WILL NOT KILL THE HORSES IF HE ASKS AGAIN" PLEASANT DEMEANOR, NAD NOTED VS STABLE.
--- NOTE | 2020-04-11 18:56 | NUR ---
REPORT CALLED TO [facility] ON MED 2, SOFTWARE DESIGNER NURSE WILL CALL AFTER SHIFT REPORT WHEN READY FOR PATIENT.
--- NOTE | 2020-04-11 20:06 | NUR ---
PT ARRIVED TO ROOM. ALERT TO SELF AND PLACE. LINEN CHANGE PROVIDED. CALL LIGHT IN REACH. WILL CPOC.
[2020-04-11 20:32] VITALS: BP 137/63
[2020-04-11 23:26] VITALS: BP 137/63; BMI 26.5
--- NOTE | 2020-04-12 01:20 | NUR ---
PT CURRENTLY YELLING FOR PEYMANL. STATES "IT IS THE ONLY THING THAT CAN SAVE US". ATTEMPTED TO REDIRECT AND CALM PT UNSUCCESSFULY. WILL CTM.
[2020-04-12 05:17] VITALS: BP 123/49
[2020-04-12 05:33] LABS: BASOPHILS 0.6 % (0-2); EOSINOPHILS 11.7 % (0-7); HEMOGLOBIN 8.4 g/dL (12-16); IMMATURE GRANULOCYTES 0.2 % (0-5); LYMPHOCYTES 30.2 % (15-50); MCH 26.2 pg (26.0-34.0); MCV 87.2 fL (80.0-100.0); MONOCYTES 8.8 % (2-11); NEUTROPHILS 48.5 % (40-80); PLATELET COUNT 328 10x3/uL (130-400); RBC 3.21 10x6/uL (4.00-5.40)
[2020-04-12 05:41] LABS: WBC 6.3 10x3/uL (4.8-10.8)
[2020-04-12 05:49] LABS: CALC OSMOLALITY 281 mosm/kg (275-300); CALCIUM 8.8 mg/dL (8.5-10.1); CARBON DIOXIDE 30.1 mmol/L (21.0-32.0); CHLORIDE - SERUM 107 mmol/L (98-107); CREATININE - SERUM 0.6 mg/dL (0.6-1.3); GLUCOSE 93 mg/dL (74-106); POTASSIUM - SERUM 3.7 mmol/L (3.5-5.1); SODIUM 142 mmol/L (136-145); eGFR NON AFRICAN AMERICAN > 90 mL/min (90-120)
[2020-04-12 05:51] LABS: UREA NITROGEN 11 mg/dL (7-18)
--- NOTE | 2020-04-12 07:25 | NUR ---
PT AWAKE AND CONFUSED, ASKED MULTIPLE ORIENTEATION QUESTIONS, ANSWERED ALL TO THE BEST OF MY ABILITY. NOT ANGRY AT THIS TIME. CL IN REACH, SRX2. BED ALARM ON.
[2020-04-12 09:49] VITALS: BP 153/73
--- NOTE | 2020-04-12 10:09 | NUR ---
PT IS BECOMING MORE AGITATED. SCREAMING REPEATEDLY ABOUT SOME [place] ISLANDER DRUG SHE NEEDS TO TAKE. ALSO SCREAMING WATER WATER WATER WATER REPEATEDLY. TRYING TO KEEP PT CALM BUT IT IS DIFFICULT D/T PTS STATE OF MIND. WILL CNT. TO MONITOR.
--- NOTE | 2020-04-12 10:55 | NUR ---
DAUGHTER AT BEDSIDE.
--- NOTE | 2020-04-12 11:33 | NUR ---
PTS DAUGHTER HAS LEFT, PT IMMEDIATELY STARTED SCREAMING OUT FOR HER. WILL CNT. TO MONITOR. CL IN REACH, SRX2
--- NOTE | 2020-04-12 12:25 | NUR ---
PT AWAKE AND CONFUSED, STILL RANDOMLY HOLLERING OUT FOR ASSISTANCE OUT OF CONFUSION. ASSISTING HOWEVER POSSIBLE. WLL CN.T TO MONITOR. CL IN REACH, SRX2, BED ALARM ON ACTIVE WNL.
[2020-04-12 13:50] VITALS: BP 143/62
--- NOTE | 2020-04-12 18:29 | NUR ---
PT AWAKE AND CONFUSED, YELLING OUT FO RVARIOUS THINGS. CONCERNED ABOUT HER FEEDING PUMP BEING SET RIGHT. WENT THROUGH IT WITH THE PT, ASSURED HER MOMENTARILY BUT ULTIMATELY DID NOT HELP HER ANXIETY. WILL CNT TO TRY AND ALIEVATE THE ANXIETY. CL IN REACH, SRX2, BED ALARM ON AND ACTIVE.
[2020-04-12 18:45] VITALS: BP 140/61
[2020-04-12 20:00] VITALS: BP 138/71
[2020-04-13] VITALS: BP 148/63
[2020-04-13 04:00] VITALS: BP 126/61
[2020-04-13 05:02] LABS: BASOPHILS 1.8 % (0-2); EOSINOPHILS 10.3 % (0-7); HEMATOCRIT 28.2 % (36.0-48.0); HEMOGLOBIN 8.8 g/dL (12-16); IMMATURE GRANULOCYTES 0.4 % (0-5); MCHC 31.2 g/dL (31.0-37.0); MCV 86.5 fL (80.0-100.0); MEAN PLATELET VOLUME 10.4 fL (7.4-10.4); MONOCYTES 9.5 % (2-11); PLATELET COUNT 314 10x3/uL (130-400); RBC 3.26 10x6/uL (4.00-5.40); RDW 14.9 % (11.5-14.5); WBC 5.1 10x3/uL (4.8-10.8)
[2020-04-13 05:25] LABS: ALBUMIN 1.8 g/dL (3.4-5.0); ALKALINE PHOSPHATASE 88 U/L (30-120); ALT (SGPT) 20 U/L (10-68); BILIRUBIN - TOTAL 0.48 mg/dL (0.2-1.3); CALCIUM 8.5 mg/dL (8.5-10.1); CARBON DIOXIDE 26.4 mmol/L (21.0-32.0); CHLORIDE - SERUM 109 mmol/L (98-107); CREATININE - SERUM 0.5 mg/dL (0.6-1.3); GLUCOSE 93 mg/dL (74-106); POTASSIUM - SERUM 3.7 mmol/L (3.5-5.1); PROTEIN - SERUM 5.3 g/dL (6.4-8.2); SODIUM 142 mmol/L (136-145); eGFR NON AFRICAN AMERICAN > 90 mL/min (90-120)
[2020-04-13 05:26] LABS: CALC OSMOLALITY 280 mosm/kg (275-300); UREA NITROGEN 6 mg/dL (7-18)
--- NOTE | 2020-04-13 06:05 | NUR ---
PT HAS BEEN YELLING ALL NIGHT AND TRYING TO GET OUT OF BED TO GO HOME. FREQUENT EPISODES OF ANGER AND THEN CRYING. SHE IS CURRENTLY DEMANDING AT THIS TIME TO TURN THE LIGHTS ON, HOWEVER THEY ARE ON. UNABLE TO REDIRECT AT THIS TIME. REFUSING TO LEAVE 02 ON AT TIME. FALL PRECAUTIONS IN PLACE. WILL CPOC.
--- NOTE | 2020-04-13 07:28 | NUR ---
PT ALERT AND CONFUSED, LYING IN BED ON BACK. PT IS TALKING ABOIUT ORDERS AND DEMANDS, BUT NOT MAKING SPECIFIC REQUESTS. ALL QUESTIONS ANSWERED TO THE BEST OF MY ABILITY. CL IN REACH, SRX2, BED ALARM ON AND WORKING WNL.
--- NOTE | 2020-04-13 09:31 | NUR ---
PT AWAKE AND CONFUSED, LYING IN BED. TURNED TO SIDE. COMPLETE BATH AND BEDCHANGE DONE. CL IN REACH, SRX2, NO FAMILY AT BEDSIDE.
--- NOTE | 2020-04-13 10:01 | NUR ---
PT ATTEMPTED TO STAND WITH PHYSICAL THERAPY. SHE WAS UNABLE. X2 FULL LIFT ASSISTACNE. PT IS NOW EXTREMELY AGITATED, CALLING OUT, AND SCREAMING "DR. LOPEZ LET ME OUT" REPEATEDLY. CL IN REACH, SRX2, BED ALARM ON AND ACTIVE WNL.
[2020-04-13 10:12] VITALS: BP 160/61
--- NOTE | 2020-04-13 10:35 | NUR ---
PT AWAKE AND CONFUSED. SCREAMING OUT REPEATEDLY AND PUSHING CL OVER AND OVER AGAIN. I/VE CONTINUOUSLY GONE IN THE ROOM, UNSURE HOW TO HELP THE PT MORE. PAGED DR. LOPEZ. CL IN REACH,S RX2.
--- NOTE | 2020-04-13 11:40 | NUR ---
I have reviewed this patient and I concur with the Shift Assessment completed by the Licensed Practical Nurse today this shift.
[2020-04-13 13:04] VITALS: BP 139/65
--- NOTE | 2020-04-13 14:21 | NUR ---
PTS HUABND LEFT, SHE IS SCREAMING OUT AGAIN FOR HELP AND YELLING OUT VARIOUS RANDOM NAMES. CL IN REACH, SRX2, BED ALARM ON AND ACTIVE WNL.
--- NOTE | 2020-04-13 15:56 | NUR ---
PT AWAKE AND CONFUSED. HITTING CL REPEATEDLY, CALLING IT HER FAVOURITE "RED BUTTON". FAMILY IS GONE FOR THE DAY. CL IN REACH, SRX2.
--- NOTE | 2020-04-13 18:00 | NUR ---
PT AWAKE AND CONFUSED. AT BEDSIDE. NO COMPLAITNS OR CONCERNS AT THIS TIME, ALL QUESTIONS ANSWERD TO THE BEST OF MY ABILITY. PT IS CONTINUOUSLY PULLING PEG TUBE APART. WHEN I ASKED HER TO QUIT, SHE STATED I'M NOT ODING IT. THE PROCEDED TO HAVE ME HOOK IT BACK UP, SHE PUT HER HANDS IN THE AIR AND SAID NOW WATCH. NOTHING HAPPENED. I TURNED MY BACK AND THE TUBE WAS AGAIN DISCONECTED. I FIXED IT AGAIN AND PT SAID OH NO I'M OT DOING IT! LOOK! SHE PUT HER HANDS BACK IN THE AIR, I WATCHED FOR A FEW MINUTES NOTHING HAPPENED, SHE SAID "OK NOW TURN AROUND". PT THEN DISONNECTED TUBE AGAIN. I AM NOT FOND OF THIS GAME AND WILL CONTINUE TO DISCOURAGE PT FROM DOING THAT. CL IN REACH, SRX2. BED ALARM ON AND ACTIVE WNL.
[2020-04-13 18:53] VITALS: BP 127/58
[2020-04-13 20:30] VITALS: BP 147/53
[2020-04-14 00:30] VITALS: BP 148/66
[2020-04-14 04:30] VITALS: BP 129/52
[2020-04-14 05:15] LABS: BASOPHILS 0.8 % (0-2); EOSINOPHILS 9.9 % (0-7); HEMATOCRIT 29.6 % (36.0-48.0); HEMOGLOBIN 9.1 g/dL (12-16); IMMATURE GRANULOCYTES 0.2 % (0-5); LYMPHOCYTES 38.2 % (15-50); MCH 26.4 pg (26.0-34.0); MCHC 30.7 g/dL (31.0-37.0); MCV 85.8 fL (80.0-100.0); MEAN PLATELET VOLUME 9.8 fL (7.4-10.4); MONOCYTES 9.3 % (2-11); NEUTROPHILS 41.6 % (40-80); RBC 3.45 10x6/uL (4.00-5.40); RDW 14.9 % (11.5-14.5); WBC 4.8 10x3/uL (4.8-10.8)
[2020-04-14 05:23] LABS: PLATELET COUNT 391 10x3/uL (130-400)
[2020-04-14 05:28] LABS: CALCIUM 8.7 mg/dL (8.5-10.1); CARBON DIOXIDE 27.9 mmol/L (21.0-32.0); CHLORIDE - SERUM 109 mmol/L (98-107); CREATININE - SERUM 0.5 mg/dL (0.6-1.3); GLUCOSE 90 mg/dL (74-106); SODIUM 145 mmol/L (136-145); eGFR NON AFRICAN AMERICAN > 90 mL/min (90-120)
[2020-04-14 05:32] LABS: CALC OSMOLALITY 285 mosm/kg (275-300); POTASSIUM - SERUM 2.9 mmol/L (3.5-5.1); UREA NITROGEN 3 mg/dL (7-18)
[2020-04-14 10:37] VITALS: BP 139/65
--- NOTE | 2020-04-14 19:23 | NUR ---
PT IMEDIATLY ASKED ME WHY ARE YOU TREATING ME THIS WAY WHEN I ENTERED THE ROOM AND BEGIN TO QUESTION WHY I THROW PTS IN THE FLOOR....PT HAS BEEN FRESHLY CLEANED I FLUSHED AND RESTARTED PEG FEEDING AT 30/HR PT BEGINS TO ASK ABOUT OUR [place] AND SEEMS TO THINK WE ARE THERE NOW PT BEGINS TO SPEAK SOME BROKEN [place]....PT WANTS TO KNOW ABOUT NAMES ...I DO NOT KNOW THE PEOPLE SHE IS ASKING ABOUT
[2020-04-14 19:47] VITALS: BP 95/65
--- NOTE | 2020-04-14 20:06 | NUR ---
CHECKED AND FEEDING TUBE IS INTACT INFUSING AT 30/HR
--- NOTE | 2020-04-14 21:44 | NUR ---
USED 300cc TO DELIVER MEDS I HAVE HELD FEEDINGS AND WILL RECHECK RESIDUAL BEFORE STARTING BACK
--- NOTE | 2020-04-15 00:12 | NUR ---
PT REMAINS CONFUSED AND DEMANDS THINGS THAT I CAN NOT DO HOB UP 35 DEGREES PEG RESIDUAL GREATER THAN 100 IM LEAVING PEG CLAMPED FLUSHED WITH 50M CC POST MED
[2020-04-15 00:26] VITALS: BP 113/65
--- NOTE | 2020-04-15 05:38 | NUR ---
FOUND NO RESIDUAL SO I STARTED FEEDING BACK
--- NOTE | 2020-04-15 05:45 | NUR ---
pt is asking me why im trying to kill her and telling me she has had a vision and will take no more meds she is hollering out repetatively i want another Dr. they are trying to kill me
--- NOTE | 2020-04-15 07:00 | NUR ---
RECEIVED REPORT. ASSUMED CARE OF PATIENT. PATIENT ALERT/AWAKE AND CONFUSED. PATIENT RECIEVING NEBULIZER TX AT THIS TIME. HOB ELEVATED PATIENT IS CURRENTLY RECEIVING TUBE FEEDING. CALL LIGHT WITHIN REACH. BEDSIDE SHIFT REPORT COMPLETE. WHITE BOARD UPDATED. NO DISTRESS. EDUCATED PRISM MEASURER TO KEEP HOB ELEVATED 30 OR > AT ALL TIMES TO PREVENT ASPIRATION.
[2020-04-15 07:20] LABS: BASOPHILS 1.1 % (0-2); EOSINOPHILS 14.3 % (0-7); HEMATOCRIT 28.7 % (36.0-48.0); HEMOGLOBIN 8.9 g/dL (12-16); IMMATURE GRANULOCYTES 0.2 % (0-5); LYMPHOCYTES 36.8 % (15-50); MCH 26.6 pg (26.0-34.0); MCV 85.9 fL (80.0-100.0); MEAN PLATELET VOLUME 9.5 fL (7.4-10.4); MONOCYTES 9.9 % (2-11); NEUTROPHILS 37.7 % (40-80); PLATELET COUNT 417 10x3/uL (130-400); RBC 3.34 10x6/uL (4.00-5.40); WBC 4.5 10x3/uL (4.8-10.8)
[2020-04-15 07:45] LABS: ALBUMIN 2.1 g/dL (3.4-5.0); ALKALINE PHOSPHATASE 84 U/L (30-120); ALT (SGPT) 17 U/L (10-68); BILIRUBIN - TOTAL 0.46 mg/dL (0.2-1.3); CALC OSMOLALITY 288 mosm/kg (275-300); CALCIUM 8.5 mg/dL (8.5-10.1); CARBON DIOXIDE 28.5 mmol/L (21.0-32.0); CHLORIDE - SERUM 110 mmol/L (98-107); CREATININE - SERUM 0.5 mg/dL (0.6-1.3); GLUCOSE 107 mg/dL (74-106); MAGNESIUM - SERUM 1.7 mg/dL (1.8-2.4); PHOSPHOROUS 3.2 mg/dL (2.5-4.9); SODIUM 147 mmol/L (136-145); UREA NITROGEN 3 mg/dL (7-18); eGFR NON AFRICAN AMERICAN > 90 mL/min (90-120)
[2020-04-15 07:58] LABS: POTASSIUM - SERUM 2.8 mmol/L (3.5-5.1)
[2020-04-15 09:00] VITALS: BP 144/53
--- NOTE | 2020-04-15 10:00 | NUR ---
PT AT BEDSIDE FOR THERAPY.
[2020-04-15 11:11] VITALS: Ht 157.5 cm; Wt 68.0 kg
--- NOTE | 2020-04-15 11:28 | NUR ---
PATIENTS SPOUSE AT BEDSIDE FOR A VISIT. NO DISTRESS.
[2020-04-15 12:00] VITALS: BP 119/58
--- NOTE | 2020-04-15 15:35 | NUR ---
PATIENT IS VERY BELIGERANT AT THIS TIME. PATIENT REFUSING CARES, ONLY HEARING HALF OF WHAT IS DESCRIBED TO HER. PATIENT VERY AGGRESSIVE AND ATTEMPTING TO SNATCH ITEMS FROM THIS NURSES HAND. CALL LIGHT WITHIN REACH. NO DISTRESS.
--- NOTE | 2020-04-15 16:46 | MORECARE ---
CASE MANAGEMENT DISCHARGE SUMMARY PATIENT: MIKE GONZALEZ UNIT: [id number] ADM DATE: 04/11/20 AGE: 84 : 37 SEX: F ROOM/BED: D.2103 AUTHOR: SHAR EUBANKS PHYSICIAN: REFERRING PHYSICIAN: DOMINICK LOPEZ MD DATE OF SERVICE: 04/15/20 Discharge Plan Patient Name: MIKE GONZALEZ [facility] [facility] 1935 Planned Disposition: Inpatient Rehab Facility Anticipated Discharge Date: Discharge Date: Expected LOS: Initial Reviewer: [id number] Initial Review Date: 04/15/2020 Generated: 04/15/20 5:46 pm DCPIA - Discharge Planning Initial Assessment Updated by [id number]: Yaneli Kaur on 04/15/20 4:43 pm * Is the patient Alert and Oriented? No * PCP Dr. Noriega * Pharmacy [facility] * Preadmission Environment [facility] * Facility Name [place] * ADLs Total Dependent * Equipment Walker * List name and contact numbers for known caregivers / representatives who currently or will assist patient after discharge: Dominick Gonzalez - spouse - [phone] Aida Jenkins [facility] - [phone] * Verbal permission to speak to the caregivers and representatives has been obtained from the patient. Yes * Community resources currently utilized Home Health * Please name any agencies selected above. [facility] in the past * Additional services required to return to the preadmission environment? Yes * Can the patient safely return to the preadmission environment? Yes * Has this patient been hospitalized within the prior 30 days at any hospital? Yes External Providers External Provider: [facility] Next Contact Date: Service Request Date: Service Type: Resolution: Reviewer: Comments: Patient Name: MIKE GONZALEZ Page [phone] at 1646 All edits/amendments must be made on the electronic document DICTATION DATE: 04/15/20 1646 TABLE ATTENDANT: VINCENT 04/15/20 1646 RPT#: [id number] DC DATE: STATUS: ADM IN [facility] [address] [facility] [place] [address] END OF REPORT
[2020-04-15 16:47] VITALS: BP 119/62
--- NOTE | 2020-04-15 16:53 | MORECARE ---
CASE MANAGEMENT DISCHARGE SUMMARY PATIENT: MIKE GONZALEZ UNIT: [id number] ADM DATE: 04/11/20 AGE: 84 : 37 SEX: F ROOM/BED: D.1030 AUTHOR: SHAR EUBANKS PHYSICIAN: REFERRING PHYSICIAN: DOMINICK LOPEZ MD DATE OF SERVICE: 04/15/20 Discharge Plan Patient Name: MIKE GONZALEZ Facility: [facility]:[place] : 1935 Planned Disposition: Inpatient Rehab Facility Anticipated Discharge Date: Discharge Date: Expected LOS: Initial Reviewer: [id number] Initial Review Date: 04/15/2020 Generated: 04/15/20 5:52 pm Comments DCP- Discharge Planning Updated by [email or web address]: Yaneli Kaur on 04/15/20 3:[address] Patient Name: MIKE GONZALEZ Admission Status: ER Accout number: [id number] Admission Date: 04-11-2020 : 1935 Admission Diagnosis: Attending: DOMINICK LOPEZ Current LOS: 4 Anticipated DC Date: Planned Disposition: Inpatient Rehab Facility Primary Insurance: MEDICARE A & B Discharge Planning Comments: CM met with patient and in the room to discuss discharge planning/needs. Patient is confused. I spoke with about plan. I informed him that [facility] had denied her on her last admission and that I received a call from [facility] that she will be unable to return to [place]. I informed him of inpatient rehab and SNF available. He states he will speak with Dr. Noriega tomorrow for his recommendation and let me know the plan. CM will continue to follow and assist with discharge planning/needs. Enamel Burner: Yaneli Kaur DCPIA - Discharge Planning Initial Assessment Updated by [id number]: Yaneli Kaur on 04/15/20 4:43 pm * Is the patient Alert and Oriented? No * PCP Dr. Noriega * Pharmacy [facility] * Preadmission Environment Long Term Facility * Facility Name [place] [place] * ADLs Total Dependent * Equipment Walker * List name and contact numbers for known caregivers / representatives who currently or will assist patient after discharge: Dominick Gonzalez - spouse - [phone] Aida Jenkins [facility] - [phone] * Verbal permission to speak to the caregivers and representatives has been obtained from the patient. Yes * Community resources currently utilized Home Health * Please name any agencies selected above. [facility] in the past * Additional services required to return to the preadmission environment? Yes * Can the patient safely return to the preadmission environment? Yes * Has this patient been hospitalized within the prior 30 days at any hospital? Yes Last DP export: 04/15/20 3:46 p Patient Name: MIKE GONZALEZ Page [phone] at 1653 All edits/amendments must be made on the electronic document DICTATION DATE: 04/15/201651 HAND BUFFER: VINCENT 04/15/201651 RPT#: [id number] DC DATE: STATUS: ADM IN [facility] [address] [place] [address] END OF REPORT
--- NOTE | 2020-04-15 17:04 | NUR ---
OT NOTE: PT COMPLETED UE AAROM TOLERATED. PT COMPLETED HAND HYGIENE WITH MIN A. PT REQUIRED VERBAL CUES FOR SEQUENCING. [id number] THANK YOU,NICA SUN
--- NOTE | 2020-04-15 17:06 | NUR ---
OT NOTE: PT DOING BETTER TODAY. REMAINS CONFUSED AND LABILE, HOWEVER, EASILY RE DIRECTED TODAY. BED MOB WITH MIN ASSIST FOR SUPINE TO SIT; MOD ASSIST FOR SIT TO STAND; MOD ASSIST FOR TRANSFER TO BS COMMODE WITH IMPROVED MOVEMENT OF B LES; MAX ASSIST WITH TOILET HYGIENE; MOD ASSIST WITH DONNING/DOFFING GOWN; MAX ASSIST TO MIGUEL SOCKS; SITTING BALANCE ON EOB WAS BETTER TODAY. ABLE TO MAINTAIN STATIC SITTING WITH ONLY 1-2 VERBAL CUES. FREQ REDIRECTION REQUIRED BUT ABLE TO FOLLOW SIMPLE COMMANDS JONNA RAYO, OTR/L [phone]
--- NOTE | 2020-04-15 19:05 | NUR ---
PT RESTING WITH EYES CLOSED FEEDING AT 35 IV PATENT AT 50 WITH 20 KCL IN BAG BED IS LOW AND LOCKED CALL LIGHT WITH PT
[2020-04-15 19:48] VITALS: BP 137/65
--- NOTE | 2020-04-16 00:09 | NUR ---
REMOVED OLD IV CATH INTACT SITE WAS INFILTRATED...STARTED NEW SITE WITH 22 TO INNER RT FA
[2020-04-16 00:12] VITALS: BP 140/55
--- NOTE | 2020-04-16 02:38 | NUR ---
I have reviewed this patient and I concur with the Shift Assessment completed by the Licensed Practical Nurse today this shift.
[2020-04-16 04:55] VITALS: BP 121/61
[2020-04-16 06:26] LABS: BASOPHILS 0.7 % (0-2); EOSINOPHILS 11.5 % (0-7); HEMATOCRIT 31.6 % (36.0-48.0); HEMOGLOBIN 9.7 g/dL (12-16); IMMATURE GRANULOCYTES 0.4 % (0-5); LYMPHOCYTES 25.2 % (15-50); MCH 26.9 pg (26.0-34.0); MCHC 30.7 g/dL (31.0-37.0); MCV 87.8 fL (80.0-100.0); MEAN PLATELET VOLUME 9.7 fL (7.4-10.4); MONOCYTES 10.7 % (2-11); NEUTROPHILS 51.5 % (40-80); PLATELET COUNT 433 10x3/uL (130-400); RDW 15.4 % (11.5-14.5); WBC 7.3 10x3/uL (4.8-10.8)
[2020-04-16 06:41] LABS: ALBUMIN 2.1 g/dL (3.4-5.0); ALKALINE PHOSPHATASE 76 U/L (30-120); ALT (SGPT) 20 U/L (10-68); BILIRUBIN - TOTAL 0.47 mg/dL (0.2-1.3); CALC OSMOLALITY 283 mosm/kg (275-300); CALCIUM 8.5 mg/dL (8.5-10.1); CARBON DIOXIDE 23.8 mmol/L (21.0-32.0); CHLORIDE - SERUM 110 mmol/L (98-107); CREATININE - SERUM 0.7 mg/dL (0.6-1.3); GLUCOSE 95 mg/dL (74-106); POTASSIUM - SERUM 4.1 mmol/L (3.5-5.1); PROTEIN - SERUM 5.2 g/dL (6.4-8.2); SODIUM 144 mmol/L (136-145); UREA NITROGEN 3 mg/dL (7-18); eGFR NON AFRICAN AMERICAN 85 mL/min (90-120)
--- NOTE | 2020-04-16 09:23 | NUR ---
x2 physical therapist got pt up from the bed to the recliner. i asked if nursing staff would be able to walk pt to the bathroom because pt keeps asking. he states no walking to the bathroom pt can go straight ok but not turn at all.
[2020-04-16 09:53] VITALS: BP 122/60
--- NOTE | 2020-04-16 11:21 | NUR ---
PT HOLLERING AND BEING VERY AGGRESSIVE AND TRYING TO HIT THIS NURSE WHEN GIVING CARE. [employer] HELD PT'S HANDS WHILE AM MEDS WERE GIVEN VIA PEG TUBE. PEG TUBE DRESSING CHANGED AND TF BAG CHANGED. PT'S SPOUSE NOW AT BEDSIDE. WILL CONTINUE TO MONITOR.
--- NOTE | 2020-04-16 12:33 | NUR ---
PT UNHOOKED TF AND G-TUBE POURED OUT GASTRIC JUICES WITH AT BEDSIDE. CALLED FOR HELP. STATED TO PT TO NOT DO THAT PT STARTED HOLLERING AND TELLING ME TO LEAVE HER VIRI. TEACHING DONE WITH PT ON IMPORTANCE OF NOT PULLING ON TUBING. PT PASSIVE AND CONFUSED AND YELLING AND BEING GGRESSIVE AND SWATTING AT THIS NURSE. TF HOOKED BACK UP. GOWN AND SOCKS CHANGED. FLLOR CLEANED UP. CALLED [facility] FOR AN ABDOMINAL BINDER.
[2020-04-16 13:33] VITALS: BP 105/49
--- NOTE | 2020-04-16 13:36 | NUR ---
ABDOMINAL BINDER PLACED ON PT. PHYSICAL THERAPY PUT PT BACK IN BED.
--- NOTE | 2020-04-16 13:59 | NUR ---
OT NOTE: PT SEEN IN ALMOST MANIC STATE. PT WITH VERY DRY MOUTH AND CONTINUALLY TALKING WITH INABILITY TO UNDERSTAND WHAT SHE WAS SAYING INITIALLY. PROVIDED ORAL CARE WHICH SLIGHTLY IMPROVED ORAL DRYNESS. PT CONTINUALLY TALKING ABOUT "THIS PLACE BEING BUGGED" SHES VERY PARANOID TODAY AND FEELS THAT EVERYONE IS OUT TO GET HER. PT WAS EASILY REDIRECTED BUT REQUIRED FREQ STOPS IN THERAPY TO REMIND PT WHAT WE ARE DOING AND THAT THIS IS ALL WE NEED TO THINK ABOUT RIGHT NOW.. PT ABLE TO PERFORM BED MOB WITH VERY MIN ASSIST FOR SUPINE TO SIT; TOILET TRANSFER WITH MOD ASSIST AND USE OF WALKER; MAX ASSIST WITH TOILET HYGIENE; PT ABLE TO AMB APPROX 15 FT TO CHAIR WITH MOD ASSIST WITH USE OF GAIT BELT, EQUIP MGMT, WALKER MGMT, AND CONSTANT VERBAL CUES TO STAND UP STRAIGHT..REQUIRED MAX PHYSICAL ASSIST FOR PELVIC ANTERIOR TILT IN STANDING. CONTINUED TO PERFORM COGNITIVE ACTIVITIES AND ORIENTATION TASKS WITH MINIMAL IMPROVEMENT. PT IS PHYICALLY DOING BETTER, HOWEVER, CONFUSION, ANXIETY, AND PARANOIA REMAIN UNCHANGED. JONNA RAYO, OTR/L
--- NOTE | 2020-04-16 14:24 | NUR ---
PT CONFUSED AND HAVING PARANOIA REFUSING SPEECH THERAPY BECAUSE SHE STATES HE IS TRYING TO POISON HER IN THE COURTROOM WITH PUREE FOOD.
--- NOTE | 2020-04-16 15:52 | NUR ---
I have reviewed this patient and I concur with the Shift Assessment completed by the Licensed Practical Nurse today this shift.
--- NOTE | 2020-04-16 16:20 | NUR ---
OT NOTE: PT COMPLETED SIT TO STAND WITH MAX/TOTAL A. PT IS CONFUSED. PT COMPLETED STATIC SITTING AND POSITIONING WITH MOD CUES. PT COMPLETED UE AROM AXS WITH CUES. [phone] SARAH AGUILLON COTA
--- NOTE | 2020-04-16 17:55 | NUR ---
110ML RESIDUAL. TF NOT INCREASED. MEDS GIVEN. PT CONFUSED AND NOT MAKING ANY SENSE WITH CONVERSATIONS. HOB AT 35 DEGREES.BED LOW. CL IN REACH.
[2020-04-16 20:00] VITALS: BP 124/50
[2020-04-17 04:00] VITALS: BP 151/52
--- NOTE | 2020-04-17 04:50 | NUR ---
PATIENT REFUSING AM LABS. PATIENT BECOMING AGGRESSIVE. LAB WILL COME BACK LATER AND TRY AGAIN.
--- NOTE | 2020-04-17 07:32 | NUR ---
PT AWAKE AND CONFUSED. NAKED IN BED, NIGHT NURSE REPORTS PT REFUSES TO PUT CLOTHES BACK ON. PT IS ACTIVELY YELLING DURING BEDSIDE REPORT. CL IN REACH, SRX2, BED ALARM ON AND ACTIVE WNL. NO FAMILY AT BEDSIDE.
[2020-04-17 09:14] VITALS: BP 151/67
--- NOTE | 2020-04-17 09:57 | NUR ---
Rehab Note- Acute Inpatient Rehab prescreen order received. The patient is noted to be having some behavioral problems at this time with yelling out, refusing meds, treatments, refusing to wear clothes, agressive toward staff- at this time the patient's needs cannot be meet at inpatient acte rehab will follow to see if the patient's confusion clears. Thank you for this referral! Megha Malone RN Clinical Liaison, [facility] Rehab
--- NOTE | 2020-04-17 10:04 | NUR ---
PT ALERT AND CONFUSED. ASSISTED BY P/T TO RECLINER. CURRENTLY YELLING PERFUSELY. CLIN REACH, CAHIR ALARM ON ACTIVE WNL
--- NOTE | 2020-04-17 10:18 | NUR ---
Nutrition Follow-up: TF @ 35. Nursing reports difficulty advancing 2/2 residuals/large flush. Refused AM labs. Diet: Osmolite 1.5 - goal rate 50 mL/hr + H2O flushes 100 mL q 4 hrs Wt: 143.3# (04/16); 144.5# (04/11) Meds noted: 1/2NS/KCl @ 50, Protonix, Questran, MagOx, electrolyte protocol -Flushes changed to 25 mL q hr. Continue to advance TF to goal rate as tolerated. -Monitor wt; noted daily wts ordered. -RD following.
[2020-04-17 10:46] LABS: ANION GAP 12.4 mmol/L (8-16); CALCIUM 8.7 mg/dL (8.5-10.1); CARBON DIOXIDE 24.4 mmol/L (21.0-32.0); CREATININE - SERUM 0.8 mg/dL (0.6-1.3); POTASSIUM - SERUM 3.8 mmol/L (3.5-5.1)
[2020-04-17 11:15] LABS: BASOPHILS 0.6 % (0-2); EOSINOPHILS 10.9 % (0-7); HEMATOCRIT 32.3 % (36.0-48.0); HEMOGLOBIN 9.9 g/dL (12-16); IMMATURE GRANULOCYTES 0.3 % (0-5); LYMPHOCYTES 29.8 % (15-50); MCH 26.9 pg (26.0-34.0); MCHC 30.7 g/dL (31.0-37.0); MCV 87.8 fL (80.0-100.0); MEAN PLATELET VOLUME 9.8 fL (7.4-10.4); MONOCYTES 9.7 % (2-11); NEUTROPHILS 48.7 % (40-80); PLATELET COUNT 458 10x3/uL (130-400); RBC 3.68 10x6/uL (4.00-5.40); RDW 15.5 % (11.5-14.5); WBC 6.7 10x3/uL (4.8-10.8)
--- NOTE | 2020-04-17 11:42 | MORECARE ---
CASE MANAGEMENT DISCHARGE SUMMARY PATIENT: MIKE GONZALEZ UNIT: [id number] ADM DATE: 04/11/20 AGE: 84 : 37 SEX: F ROOM/BED: D.4575 AUTHOR: SHAR EUBANKS PHYSICIAN: REFERRING PHYSICIAN: DOMINICK LOPEZ MD DATE OF SERVICE: 04/17/20 Discharge Plan Patient Name: MIKE GONZALEZ Facility: [facility]:[place] : 1935 Planned Disposition: Inpatient Rehab Facility Anticipated Discharge Date: Discharge Date: Expected LOS: Initial Reviewer: [id number] Initial Review Date: 04/15/2020 Generated: 04/17/20 12:42 pm Comments DCP- Discharge Planning Updated by [email or web address]: Yaneli Kaur on 04/17/20 10:[address] with Dr. Noriega post acute care options. Dr. Noriega would like inpatient rehab at [facility] if possible. I spoke with the patient's , he is in agreement to this and FRANCA signed. I have called and left a message with Megha in inpatient rehab and PT/OT assessments noted. CM will continue to follow and assist with discharge planning/needs. DCP- Discharge Planning Updated by [id number]: Yaneli Kaur on 04/15/20 3:[address] Patient Name: MIKE GONZALEZ Admission Status: ER Accout number: [id number] Admission Date: 04-11-2020 : 1935 Admission Diagnosis: Attending: DOMINICK LOPEZ Current LOS: 4 Anticipated DC Date: Planned Disposition: Inpatient Rehab Facility Primary Insurance: MEDICARE A & B Discharge Planning Comments: CM met with patient and in the room to discuss discharge planning/needs. Patient is confused. I spoke with about plan. I informed him that [facility] had denied her on her last admission and that I received a call from Carolyne that she will be unable to return to [place]. I informed him of inpatient rehab and SNF available. He states he will speak with Dr. Noriega tomorrow for his recommendation and let me know the plan. CM will continue to follow and assist with discharge planning/needs. Compressor Mechanic: Yaneli Kaur DCPIA - Discharge Planning Initial Assessment Updated by [id number]: Yaneli Kaur on 04/15/20 4:43 pm * Is the patient Alert and Oriented? No * PCP Dr. Noriega * Pharmacy [facility] * Preadmission Environment Detention Facility * Facility Name [facility] * ADLs Total Dependent * Equipment Walker * List name and contact numbers for known caregivers / representatives who currently or will assist patient after discharge: Dominick Gonzalez - spouse - [phone] Aida Jenkins - DTR - [phone] * Verbal permission to speak to the caregivers and representatives has been obtained from the patient. Yes * Community resources currently utilized Home Health * Please name any agencies selected above. [facility] in the past * Additional services required to return to the preadmission environment? Yes * Can the patient safely return to the preadmission environment? Yes * Has this patient been hospitalized within the prior 30 days at any hospital? Yes Coverage Notice Reviewer: [id number] - Yaneli Kaur Notice Issued Date-Time: 04/17/2020 11:33 Notice Type: Patient Choice Letter Notice Delivered To: Family Member Relationship to Patient: Spouse Crop Setting Out Machine Operator Name: Jitendra Gonzalez Delivery Method: HAND - Hand Delivered Soraya Days: Prior Verbal Notification: Recipient Understood Notice: Yes Recipient Signature: Yes Med Rec Note Co-signed by Attending: Coverage Notice Comment: FRANCA for [facility] inpatient rehab Last DP export: 04/15/20 3:53 p Patient Name: MIKE GONZALEZ Page [id number] at 1142 All edits/amendments must be made on the electronic document DICTATION DATE: 04/17/20 1142 NEWS VIDEOTAPE EDITOR: VINCENT 04/17/20 1142 RPT#: [id number] DC DATE: STATUS: ADM IN [facility] [address] [facility] [place] [address] END OF REPORT
--- NOTE | 2020-04-17 11:55 | MORECARE ---
CASE MANAGEMENT DISCHARGE SUMMARY PATIENT: MIKE GONZALEZ UNIT: [id number] ADM DATE: 04/11/20 AGE: 84 : 37 SEX: F ROOM/BED: D.0770 AUTHOR: SHAR EUBANKS PHYSICIAN: REFERRING PHYSICIAN: DOMINICK LOPEZ MD DATE OF SERVICE: 04/17/20 Discharge Plan Patient Name: MIKE GONZALEZ Facility: [facility]:[place] : 1935 Planned Disposition: Inpatient Rehab Facility Anticipated Discharge Date: Discharge Date: Expected LOS: Initial Reviewer: [email or web address] Initial Review Date: 04/15/2020 Generated: 04/17/20 12:55 pm Comments DCP- Discharge Planning Updated by [id number]: Yaneli Kaur on 04/17/20 10:[address] Rehab note noted. I called Dr. Noriega and order for Dr. Mcdonald consult received. DCP- Discharge Planning Updated by [id number]: Yaneli Kaur on 04/17/20 10:[address]ed with Dr. Noriega post acute care options. Dr. Noriega would like inpatient rehab at [facility] if possible. I spoke with the patient's , he is in agreement to this and FRANCA signed. I have called and left a message with Megha in inpatient rehab and PT/OT assessments noted. CM will continue to follow and assist with discharge planning/needs. DCP- Discharge Planning Updated by [id number]: Yaneli Kaur on 04/15/20 3:[address] Patient Name: MIKE GONZALEZ Admission Status: ER Accout number: [id number] Admission Date: 04-11-2020 : 1935 Admission Diagnosis: Attending: DOMINICK LOPEZ Current LOS: 4 Anticipated DC Date: Planned Disposition: Inpatient Rehab Facility Primary Insurance: MEDICARE A & B Discharge Planning Comments: CM met with patient and in the room to discuss discharge planning/needs. Patient is confused. I spoke with about plan. I informed him that [facility] had denied her on her last admission and that I received a call from Carolyne that she will be unable to return to [place]. I informed him of inpatient rehab and SNF available. He states he will speak with Dr. Noriega tomorrow for his recommendation and let me know the plan. CM will continue to follow and assist with discharge planning/needs. Patient Admitting Clerk: Yaneli Kaur DCPIA - Discharge Planning Initial Assessment Updated by [id number]: Yaneli Vincent on 04/15/20 4:43 pm * Is the patient Alert and Oriented? No * PCP Dr. Noriega * Pharmacy [facility] * Preadmission Environment Senior Care Facility * Facility Name [place] * ADLs Total Dependent * Equipment Walker * List name and contact numbers for known caregivers / representatives who currently or will assist patient after discharge: Dominick Gonzalez - spouse - [phone] Aida Donnellyuire - DTR - [phone] * Verbal permission to speak to the caregivers and representatives has been obtained from the patient. Yes * Community resources currently utilized Home Health * Please name any agencies selected above. [facility] in the past * Additional services required to return to the preadmission environment? Yes * Can the patient safely return to the preadmission environment? Yes * Has this patient been hospitalized within the prior 30 days at any hospital? Yes Coverage Notice Reviewer: [id number] - Yaneli Kaur Notice Issued Date-Time: 04/17/2020 11:33 Notice Type: Patient Choice Letter Notice Delivered To: Family Member Relationship to Patient: Spouse Repairer Hairspring Name: Jitendra Gonzalez Delivery Method: HAND - Hand Delivered Soraya Days: Prior Verbal Notification: Recipient Understood Notice: Yes Recipient Signature: Yes Med Rec Note Co-signed by Attending: Coverage Notice Comment: FRANCA for [facility] inpatient rehab Last DP export: 04/17/20 10:42 a Patient Name: MIKE GONZALEZ Page [phone] at 1155 All edits/amendments must be made on the electronic document DICTATION DATE: 04/17/20 1155 CONSULTING SERVICES MANAGER: VINCENT 04/17/20 1155 RPT#: [id number] DC DATE: STATUS: ADM IN [facility] [address] [place] [address] END OF REPORT
--- NOTE | 2020-04-17 11:58 | NUR ---
I have reviewed this patient and I concur with the Shift Assessment completed by the Licensed Practical Nurse today this shift.
[2020-04-17 13:45] VITALS: BP 124/61
--- NOTE | 2020-04-17 15:35 | NUR ---
OT NOTE: EXTENSIVE TIME SPENT WITH PT TODAY. IN AM, SHE WAS INITIALLY VERY AGITATED.. REFUSING TO LET NURSE PROVIDE ANY ASSISTANCE. PT ASSISTED TO EOB WITH MOD ASSIST. SHE WAS NAKED AND REFUSING TO GET DRESSED. PT REFUSES YELLOW GOWN DAILY STATING THAT SHE HATES YELLOW.. FAMILY BROUGHT IN GOWN FROM HOME AND FINALLY ABLE TO GET PT DRESSED. CONTINUES CONSTANT REDIRECTION.. PERFORMS BETTER WITH STERNESS AND SIMPLE COMMANDS. CONTINUES WITH PARANOIA REGARDING STAFF, LEAVING HER, ROOM BEING "BUGGED", ETC.. ASSISTED PT TO CHAIR WITH USE OF WALKER AND MOD ASSIST X 2. EXTENSIVE TIME REQUIRED TO CALM PT AND FOCUS ON CURRENT TASK. ABLE TO KEEP PT DISTRACTED WHILE NURSNG PROVIDED MEDS THROUGH PEG TUBE...PT UP IN CHAIR AND CONTINUALLY CALLING OUT DIFFERENT NAMES. PROVIDED PT WITH PIECE OF PAPER WITH INFO TO CALM HER (DID NOT HAVE ACCESS TO MEMORY BOARD)..THIS KEPT PT BUSY FOR SHORT AMOUNT OF TIME, HOWEVER, AFTER PT HAD BEEN UP OVER AN HR, SHE WAS BECOMING INCREASINGLY MORE AGITATED. PT AND OT ASSISTED TO BS COMMODE; MAX ASSIST WITH TOILETING. HAD TO CHANGE GOWN, ABD BINDER, ETC.. PT REFUSED ALL OTHER GOWNS SO SHE WAS PLACED IN BED WITHOUT CLOTHES AT THIS TIME. NURSING TO PROVIDE MEDS TO CALM PT SO THAT SHE CAN BE DRESSED. PTS ARRIVED WHICH MADE PT FEEL BETTER. OT CONTINUED WITH MORE COGNITIVE AND ORIENTATION QUESTIONS HOWEVER, PT HAVING DIFFICULTY WITH THESE EXS TODAY. JONNA RAYO, OTR/L [phone]; [phone]
--- NOTE | 2020-04-17 16:17 | NUR ---
SPOKE TO DR. ARIAS HE STATED TO GET DR. CORBETT APPORVAL FOR D/C AND SEE HOW MANY MORE DAYS OF ABX HE WANTS HER ON. DR. DENTON STATES SHE CAN BE TRANSFERED DOWN TO . CARE AT OUR DISCRESTION. SPOKE TO AT BEDSIDE, HE STATES HE UNDERSTANDS THE NEED AND THAT IT'S OK TO DO WHAT WE THINK IS BEST. CASE MANAGMENT DISCUSSED WITH PT FAMILY MEMBER WELL. CL IN REACH, SRX2, BED ALARM ON AND ACTIVE WNL.
--- NOTE | 2020-04-17 16:26 | MORECARE ---
CASE MANAGEMENT DISCHARGE SUMMARY PATIENT: MIKE GONZALEZ UNIT: [id number] ADM DATE: 04/11/20 AGE: 84 : 37 SEX: F ROOM/BED: D.5717 AUTHOR: SHAR EUBANKS PHYSICIAN: REFERRING PHYSICIAN: DOMINICK LOPEZ MD DATE OF SERVICE: 04/17/20 Discharge Plan Patient Name: MIKE GONZALEZ Facility: [facility]:[place] : 1935 Planned Disposition: Inpatient Rehab Facility Anticipated Discharge Date: Discharge Date: Expected LOS: Initial Reviewer: [id number] Initial Review Date: 04/15/2020 Generated: 04/17/20 5:26 pm Comments DCP- Discharge Planning Updated by [id number]: Yaneli Kaur on 04/17/20 3:[address] Mcdonald states patient is appropriate for [facility]. Patient's primary nurse notified Dr. Noriega and he will discharge her in the am to [facility] if medically stable. I spoke with in the room and he is agreeable. IMM explained, signed by and copy placed in MR. CM will continue to follow and assist with discharge planning/needs. DCP- Discharge Planning Updated by [id number]: Yaneli Kaur on 04/17/20 10:[address] Rehab note noted. I called Dr. Noriega and order for Dr. Mcdonald consult received. DCP- Discharge Planning Updated by [id number]: Yaneli Kaur on 04/17/20 10:[address] D[address]ed with Dr. Noriega post acute care options. Dr. Noriega would like inpatient rehab at [facility] if possible. I spoke with the patient's , he is in agreement to this and FRANCA signed. I have called and left a message with Megha in inpatient rehab and PT/OT assessments noted. CM will continue to follow and assist with discharge planning/needs. DCP- Discharge Planning Updated by [id number]: Yaneli Kaur on 04/15/20 3:[address] Patient Name: MIKE GONZALEZ Admission Status: ER Accout number: [id number] Admission Date: 04-11-2020 : 1935 Admission Diagnosis: Attending: DOMINICK LOPEZ Current LOS: 4 Anticipated DC Date: Planned Disposition: Inpatient Rehab Facility Primary Insurance: MEDICARE A & B Discharge Planning Comments: CM met with patient and in the room to discuss discharge planning/needs. Patient is confused. I spoke with about plan. I informed him that [facility] had denied her on her last admission and that I received a call from Carolyne that she will be unable to return to [place]. I informed him of inpatient rehab and SNF available. He states he will speak with Dr. Noriega tomorrow for his recommendation and let me know the plan. CM will continue to follow and assist with discharge planning/needs. Vascular Tech: Yaneli Kaur DCPIA - Discharge Planning Initial Assessment Updated by [id number]: Yaneli Kaur on 04/15/20 4:43 pm * Is the patient Alert and Oriented? No * PCP Dr. Noriega * Pharmacy [facility] * Preadmission Environment Custodial Facility * Facility Name [place] * ADLs Total Dependent * Equipment Walker * List name and contact numbers for known caregivers / representatives who currently or will assist patient after discharge: Dominick Gonzalez - spouse - [phone] Aida Donnellyuire [facility] - [phone] * Verbal permission to speak to the caregivers and representatives has been obtained from the patient. Yes * Community resources currently utilized Home Health * Please name any agencies selected above. [facility] in the past * Additional services required to return to the preadmission environment? Yes * Can the patient safely return to the preadmission environment? Yes * Has this patient been hospitalized within the prior 30 days at any hospital? Yes Coverage Notice Reviewer: [id number] Harjeet Kaur Notice Issued Date-Time: 04/17/2020 11:33 Notice Type: Patient Choice Letter Notice Delivered To: Family Member Relationship to Patient: Spouse Skirt Trimmer Name: Jitendra Gonzalez Delivery Method: HAND - Hand Delivered Soraya Days: Prior Verbal Notification: Recipient Understood Notice: Yes Recipient Signature: Yes Med Rec Note Co-signed by Attending: Coverage Notice Comment: FRANCA for [facility] inpatient rehab and second choice is [place] Reviewer: [id number] Harjeet Kaur Notice Issued Date-Time: 04/17/2020 16:20 Notice Type: IM Discharge Notice Notice Delivered To: Family Member Relationship to Patient: Spouse Skirt Trimmer Name: Jitendra Gonzalez Delivery Method: HAND - Hand Delivered Soraya Days: Prior Verbal Notification: Recipient Understood Notice: Yes Recipient Signature: Yes Med Rec Note Co-signed by Attending: Coverage Notice Comment: IMM explained, signed, given, copy placed in MR Last DP export: 04/17/20 10:55 a Patient Name: MIKE GONZALEZ Page [id number] at 1626 All edits/amendments must be made on the electronic document DICTATION DATE: 04/17/201625 CONTACT WORKER: VINCENT 04/17/201625 RPT#: [id number] DC DATE: STATUS: ADM IN [facility] [address] [place] [address] END OF REPORT
--- NOTE | 2020-04-17 16:27 | NUR ---
SPOKE TO DR. SORENSEN, HE STATES PT CAN BE D/C'D FROM [facility] AFTER TOMORROW MORNINGS DOSES (VANC/ZOSYN).
--- NOTE | 2020-04-17 18:51 | NUR ---
RECEIVED BEDSIDE REPORT. PATIENT IS RESTING COMFORTABLY IN BED. RESPIRATIONS ARE EVEN AND UNLABORED. NO S/S OF DISTRESS. CALL LIGHT WITHIN REACH. WILL CPOC.
[2020-04-17 20:00] VITALS: BP 136/48
[2020-04-18] VITALS: BP 142/52
[2020-04-18 04:00] VITALS: BP 120/57
[2020-04-18 04:59] LABS: BASOPHILS 0.8 % (0-2); EOSINOPHILS 12.5 % (0-7); HEMATOCRIT 33.3 % (36.0-48.0); HEMOGLOBIN 10.1 g/dL (12-16); IMMATURE GRANULOCYTES 0.3 % (0-5); LYMPHOCYTES 33.4 % (15-50); MCH 26.7 pg (26.0-34.0); MCHC 30.3 g/dL (31.0-37.0); MCV 88.1 fL (80.0-100.0); MEAN PLATELET VOLUME 9.6 fL (7.4-10.4); MONOCYTES 11.3 % (2-11); NEUTROPHILS 41.7 % (40-80); PLATELET COUNT 445 10x3/uL (130-400); RBC 3.78 10x6/uL (4.00-5.40); RDW 15.5 % (11.5-14.5); WBC 6.6 10x3/uL (4.8-10.8)
[2020-04-18 05:20] LABS: ALBUMIN 2.2 g/dL (3.4-5.0); ANION GAP 8.7 mmol/L (8-16); BILIRUBIN - TOTAL 0.42 mg/dL (0.2-1.3); CALCIUM 8.8 mg/dL (8.5-10.1); CARBON DIOXIDE 29.1 mmol/L (21.0-32.0); CREATININE - SERUM 0.8 mg/dL (0.6-1.3); POTASSIUM - SERUM 3.8 mmol/L (3.5-5.1); PROTEIN - SERUM 5.8 g/dL (6.4-8.2)
[2020-04-18] MEDS ORDERED: IPRAT-ALBUT 0.5-3 ML INH (08:09)
[2020-04-18 08:42] VITALS: BP 140/53
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
--- NOTE | 2020-04-18 13:19 | NUR ---
PT DISCHARGED TO RESIDENTIAL VIA WHEELCHAIR. PIV REMOVED WITH CATHETER TIP FULLY INTACT. PT SIGNED PROPER DISCHARGE INSTRUCTIONS AND ALL VALUABLES WERE REMOVED FROM THE ROOM.
--- NOTE | 2020-04-18 14:13 | MORECARE ---
CASE MANAGEMENT DISCHARGE SUMMARY PATIENT: MIKE GONZALEZ UNIT: [id number] ADM DATE: 04/11/20 AGE: 84 : 37 SEX: F ROOM/BED: D.7502 AUTHOR: SHAR EUBANKS PHYSICIAN: REFERRING PHYSICIAN: DOMINICK LOPEZ MD DATE OF SERVICE: 04/18/20 Discharge Plan Patient Name: MIKE GONZALEZ Facility: [facility]:[place] : 1935 Planned Disposition: Inpatient Rehab Facility Anticipated Discharge Date: Discharge Date: 04/18/2020 Expected LOS: 0 Initial Reviewer: [id number] Initial Review Date: 04/15/2020 Generated: 04/18/20 3:13 pm Comments DCP- Discharge Planning Updated by [id number]: Yaneli Kaur on 04/17/20 3:[address] Mcdonald states patient is appropriate for [facility]. Patient's primary nurse notified Dr. Noriega and he will discharge her in the am to [facility] if medically stable. I spoke with in the room and he is agreeable. IMM explained, signed by and copy placed in MR. CM will continue to follow and assist with discharge planning/needs. DCP- Discharge Planning Updated by [id number]: Yaneli Kaur on 04/17/20 10:[address] Rehab note noted. I called Dr. Noriega and order for Dr. Mcdonald consult received. DCP- Discharge Planning Updated by [id number]: Yaneli Kaur on 04/17/20 10:[address] D[address]ed with Dr. Noriega post acute care options. Dr. Noriega would like inpatient rehab at [facility] if possible. I spoke with the patient's , he is in agreement to this and FRANCA signed. I have called and left a message with Megha in inpatient rehab and PT/OT assessments noted. CM will continue to follow and assist with discharge planning/needs. DCP- Discharge Planning Updated by [email or web address]: Yaneli Kaur on 04/15/20 3:[address] Patient Name: MIKE GONZALEZ Admission Status: ER Accout number: [id number] Admission Date: 04-11-2020 : 1935 Admission Diagnosis: Attending: DOMINICK LOPEZ Current LOS: 4 Anticipated DC Date: Planned Disposition: Inpatient Rehab Facility Primary Insurance: MEDICARE A & B Discharge Planning Comments: CM met with patient and in the room to discuss discharge planning/needs. Patient is confused. I spoke with about plan. I informed him that [facility] had denied her on her last admission and that I received a call from Carolyne that she will be unable to return to [place]. I informed him of inpatient rehab and SNF available. He states he will speak with Dr. Noriega tomorrow for his recommendation and let me know the plan. CM will continue to follow and assist with discharge planning/needs. Ios Software Engineer: Yaneli Kaur DCPIA - Discharge Planning Initial Assessment Updated by [id number]: Yaneli Kaur on 04/15/20 4:43 pm * Is the patient Alert and Oriented? No * PCP Dr. Noriega * Pharmacy [facility] * Preadmission Environment [facility] * Facility Name [place] * ADLs Total Dependent * Equipment Walker * List name and contact numbers for known caregivers / representatives who currently or will assist patient after discharge: Dominick Oswaldoaga - spouse - [phone] Aida Jenkins DTR - [phone] * Verbal permission to speak to the caregivers and representatives has been obtained from the patient. Yes * Community resources currently utilized Home Health * Please name any agencies selected above. [facility] in the past * Additional services required to return to the preadmission environment? Yes * Can the patient safely return to the preadmission environment? Yes * Has this patient been hospitalized within the prior 30 days at any hospital? Yes Coverage Notice Reviewer: [id number] Harjeet Kaur Notice Issued Date-Time: 04/17/2020 11:33 Notice Type: Patient Choice Letter Notice Delivered To: Family Member Relationship to Patient: Spouse Biological Science Aide Name: Jitendra Gonzalez Delivery Method: HAND - Hand Delivered Soraya Days: Prior Verbal Notification: Recipient Understood Notice: Yes Recipient Signature: Yes Med Rec Note Co-signed by Attending: Coverage Notice Comment: FRANCA for [facility] inpatient rehab and second choice is [place] Reviewer: [id number] Harjeet Kaur Notice Issued Date-Time: 04/17/2020 16:20 Notice Type: IM Discharge Notice Notice Delivered To: Family Member Relationship to Patient: Spouse Biological Science Aide Name: Jitendra Gonzalez Delivery Method: HAND - Hand Delivered Soraya Days: Prior Verbal Notification: Recipient Understood Notice: Yes Recipient Signature: Yes Med Rec Note Co-signed by Attending: Coverage Notice Comment: IMM explained, signed, given, copy placed in MR Last DP export: 04/17/20 3:26 p Patient Name: MIKE GONZALEZ Page [id number] at 1413 All edits/amendments must be made on the electronic document DICTATION DATE: 04/18/203 ORACLE ETL DEVELOPER: VINCENT 04/18/20 1413 RPT#: [id number] DC DATE:04/18/20 STATUS: DIS IN [facility] [address] [place] [address] END OF REPORT
--- NOTE | 2020-04-18 16:37 | NUR ---
OT NOTE: PT VERY CONFUSED. PT COMPLETED REQUIRED MAX A X2 FOR BED MOB. PT REQUIRED MAX A X2 FOR BED TO CHAIR TRANSFER. PT COMPLETED FACE HYGIENE WITH MIN A. PT COMPLETED ORAL HYGIENE WITH MOD A. PT REQUIRED CONSTANT CUES AND EXHIBITED INCREASED ANXIETY. [phone] SARAH AGUILLON COTA
--- NOTE | 2020-04-21 15:05 | CN ---
PATIENT NAME:MIKE CASANOVA MEDICAL RECORD: [id number] : 37 LOCATION:D.M2 D.2109 ADMIT DATE: 04/11/20 ACCOUNT: [id number] CONSULTING PHYSICIAN: MELVIN DENTON MD REFERRING PHYSICIAN: HUDSON LOPEZ MD DATE OF CONSULTATION: 04/17/2020 IDENTIFYING DATA: The patient is 84 years old and she has been admitted to the hospital secondary to some mental status changes. CHIEF COMPLAINT: Agitation. HISTORY OF PRESENT ILLNESS: The patient has been yelling out, combative and agitated with family and caregivers. She is only partially oriented. ASSESSMENT: Delirium versus dementia. PLAN: The patient's disruptive behaviors need to be addressed in an inpatient behavioral health setting. I have requested that she be transferred to the behavioral unit when medically stabilized. Rehab has declined her secondary to her agitation. TRANSINT:[id number] Voice Confirmation ID: [id number] DOCUMENT ID: [id number] MELVIN DENTON MD at 1505 CC: [id number] DICTATION DATE: 04/17/20 1614 AUTO BODY TECHNICIAN: 04/18/20 0042 DIS IN 04/18/20 [facility] [address] [place] [address]
== END 2020-04-18 13:20 | disposition short-term general hospital (02) | DRG 177 ==
LOC: D.ER 14:28 → D.M2 18:09
PROVIDERS: Family Medicine; ADMIT Family Medicine; ATTEND Family Medicine
DX: J69.0 Pneumonitis due to inhalation of food and vomit (principal); I26.09 Other pulmonary embolism with acute cor pulmonale; J96.01 Acute respiratory failure with hypoxia; G93.41 Metabolic encephalopathy; J98.11 Atelectasis; B37.0 Candidal stomatitis; E87.1 Hypo-osmolality and hyponatremia; J43.9 Emphysema, unspecified; J30.9 Allergic rhinitis, unspecified; D64.9 Anemia, unspecified; E78.5 Hyperlipidemia, unspecified; I10 Essential (primary) hypertension; E87.6 Hypokalemia

== ENCOUNTER 2020-04-18 13:51 | Inpatient (IN) | payer MEDICARE, OTHER ==
[~2020-04-18 13:51] MED LIST changes: +IPRAT-ALBUT 0.5-3 ML INH
[2020-04-18 15:24] VITALS: BP 129/67; BMI 25.3
[2020-04-18 15:32] LABS: CHOL - HDL RATIO 2.6 ratio (2.3-4.1); LDL-HDL RATIO 1.2 ratio (1.5-3.5); THYROID STIMULATING HORMONE 2.21 uIU/mL (0.36-3.74)
--- NOTE | 2020-04-18 15:44 | NUR ---
NEW ADMIT TO DOCTOR CORRIE ON SENIORCARE FROM [facility] MED II FOR INCREASED CONFUSION AND ALTER THOUGHT PROCESS. DURING ADMISSION ON MED II PT WAS ORIENTED TO SELF ONLY, MUMBLING TO HERSELF, INCREASED CONFUSION AND TALKING TO THINGS NOT THERE. PT WAS SEMI UNCOOPERATIVE WITH STAFF UPON ADMISSION. CONSENTS TO TREAT SIGNED BY SPOUSE, HUDSON ELENASUSAN. PT IS A FULL CODE. ALLERGIES TO NSAIDS. HANDBOOK GIVEN TO WITH [employer]. WENT OVER HANDBOOK WITH SPOUSE AND HE VERBALIZIED UNDERSTANDING.
--- NOTE | 2020-04-18 19:08 | NUR ---
CALLED WITH [employer].
[2020-04-18 20:18] VITALS: BP 122/62
--- NOTE | 2020-04-19 00:22 | NUR ---
RECEIVED PATIENT IN DAYROOM, PATIENT IS CONFUSED, FLAT AFFECT, NOT INTERACTING WITH OTHERS, NO PARTICIPATION IN GROUP. WILL MONITOR
[2020-04-19 07:13] LABS: RAPID PLASMA REAGIN Non Reactive (Non Reactive)
--- NOTE | 2020-04-19 08:08 | NUR ---
PT WAS COUGHING AND HAD HUGE CHUNKS OF SPUTUM. NOTIFIED DR. CERVANTES. NEW ORDERS: HOLD TUBE FEEDING UNTIL CHEST X-RAY GETS BACK, CHEST X-RAY TO RULE OUT ASPRIATION, BEGIN UPDRAFT TREATMENTS. WILL CONT TO MONITOR.
[2020-04-19 09:12] VITALS: BP 134/60
[2020-04-19 10:27] VITALS: Wt 62.6 kg
--- NOTE | 2020-04-19 14:56 | NUR ---
The patient continues to talk loudly and call out names. She is anxious and loud and she is hallucinating and having delusions. She was getting her peg tube flushed with water and she began yelling saying "I'm supposed to eat before I get this." Spoke to the patient to let her know that this is the new way she is getting food. The patient is NPO. She is bizarre in her behavior. Provide prescribed meds through her peg tube. She is on oxygen 2L/M per NC. Continue POC.
--- NOTE | 2020-04-19 15:25 | NUR ---
CHEST X-RAY BACK WITH IMPROVEMENT NOTED. PT TUBE FEEDING RECONNECT. PEG PLACEMENT CHECKED. WILL CONT TO MONITOR.
[2020-04-19 20:00] VITALS: BP 119/55
--- NOTE | 2020-04-19 20:52 | NUR ---
RECEIVED PATIENT IN DAYROOM, PATIENT IS VERY CONFUSED, SHE IS ARGUMENTATIVE, VERY AGITATED THIS EVENING. SCREAMING THAT SHE IS THE PHYSICIAN ASST. PULLING AT HER PEG TUBE AND PULLING OFF HER OXYGEN. PRN GIVEN HALDOL AND ATIVAN. WILL MONITOR EFFECTIVENESS AND ADVERSE REACTION.
[2020-04-20 10:35] VITALS: BP 139/48
--- NOTE | 2020-04-20 12:06 | NUR ---
PT IS ANXIOUS, LOUD, HALLUCINATING AND HAVING DELUSIONS AT THIS TIME. SHIFT ASSESSMENT COMPLETED. PT IS NPO PER ORDER. SHE IS BIZARRE IN HER BEHAVIOR. PROVIDE PRESCRIBED MEDS THROUGH HER PEG TUBE. SHE IS ON OXYGEN 2L/M PER NC. WILL CONTINUE POC.
--- NOTE | 2020-04-20 19:53 | NUR ---
RECEIVED IN DAYROOM. SITTING IN A RECLINER WITH A PEER BY HER SIDE. CALM AND COOPERATIVE WITH CARE AND ASSESSMENT. NO SIGNS OF HALLUCINATIONS. REDIRECT AND REORIENT NEEDED. CONTINUES TO SIT QUIETLY IN DAYROOM. CONTINUE PLAN OF CARE.
[2020-04-20 20:00] VITALS: BP 122/52
--- NOTE | 2020-04-20 23:18 | NUR ---
INCREASING ANXIETY. YELLING OUT LOUDLY. UNABLE TO REDIRECT. PRN ATIVAN 0.5 MG IM FOR ANXIETY AND PRN HALDOL 2 MG IM GIVEN FOR PSYCHOTIC BEHAVIOR. CONTINUE TO MONITOR.
--- NOTE | 2020-04-21 03:03 | NUR ---
RESTING QUIETLY IN BED WITH EYES CLOSED.
[2020-04-21 08:18] VITALS: BP 126/52
--- NOTE | 2020-04-21 09:54 | NUR ---
Nutrition Follow-up: NPO. TF regimen goal via PEG: Osmolite 1.5 @ 40mL/hr + H2O @ 25mL/hr Last BM: 04/19/20 Weight: 138# (04/19/20); Admit Wt: 138# (04/18/20) Meds reviewed. Labs noted: A1c 5.7% (04/18/20) Recs: -Continue TF goal as tolerated. -Daily weights at ordered. -RD following.
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
--- NOTE | 2020-04-21 20:00 | NUR ---
RECEIVED IN DAYROOM. SITTING IN A RECLINER WITH PEERS AT HER SIDE. CALM AND COOPERATIVE WITH CARE AND ASSESSMENT. CONFUSED. NO SIGNS OF HALLUCINATIONS. REDIRECT AND REORIENT NEEDED. CONTINUES TO SIT CALMLY IN DAYROOM. CONTINUE PLAN OF CARE.
[2020-04-21 20:50] VITALS: BP 116/53
--- NOTE | 2020-04-22 07:45 | NUR ---
REC'D PT IN BED. PT ALERT TO SELF ONLY. HOB ELEVATED AT 45 DEGREES. PEG TUBE INTACT, PLACEMENT NOTED. DURING SHIFT ASSESSMENT EXCESSIVE UNPRODUCTIVE COUGH, WET LUNGS SOUNDS NOTED AT THIS TIME. SUCTION ORDER OBTAINED. O2 IN PLACE AT 3L/NC PER ORDER. THICK GREEN MUCOUS NOTED IN SUCTION CONTAINER. R.T. AT BEDSIDE AT THIS TIME. PT TOLERATED SUCTION WELL. O2 AT 99% WITH O2 AT 3LPM/NC IN PLACE. BED ALARM IN PLACE. CALL LIGHT WITHIN REACH. HOB ELEVATED AT 45 DEGREES. WILL CONTINUE TO MONITOR.
--- NOTE | 2020-04-22 08:40 | NUR ---
THIS NURSE CHECKED PEG PLACEMENT AND RESIDUAL PER ORDERS. 70 ML NOTED AND RETURNED. MORNING MEDS AND FLUSH ADMINISTERED PER ORDERS. PT TOLERATED WELL AT THIS TIME. CLARISSE ATKINSN NOTIFIED TO REPORT RESIDUAL OF 70 ML NOTED. NEW ORDER OBTAINED TO HOLD FEEDING AND RECHECK RESIDUAL IN WITHIN TWO HOURS. NEW ORDER OBTAINED FOR KUB DUE TO INCREASED PEG RESIDUAL. PT IN RECLINING CHAIR WITH HEAD UP AT THIS TIME. 02 AT 3L/NC IN PLACE PER ORDER. RADIOLOGY NOTIFIED. AWAITING FOR XRAY AT THIS TIME. WILL CONTINUE TO MONITOR FOR ANY CHANGES.
[2020-04-22 08:58] VITALS: BP 122/63
--- NOTE | 2020-04-22 11:00 | NUR ---
RADIOLOGY PRESENT. KUB OBTAINED PER ORDER. AWAITING FOR RESULTS AT THIS TIME. WILL CPOC.
--- NOTE | 2020-04-22 13:07 | PN ---
PATIENT:MIKE CASANOVA MEDICAL RECORD: [id number] LOCATION:[facility] ADMISSION DATE: 04/18/20 PROGRESS NOTE DATE OF SERVICE: 04/21/2020 SUBJECTIVE: The patient's case was discussed with staff. She has no new complaint. OBJECTIVE: The patient has been significantly disruptive. She has very poor insight about her situation. She denies that she would seek to harm herself or others. ASSESSMENT: Dementia. PLAN: The patient's behavior is very disruptive. She will be treated with scheduled dose of Geodon to assist with her disruptive behaviors. TRANSINT:[id number] Voice Confirmation ID: [id number] DOCUMENT ID: [id number] MELVIN DENTON MD at 1307 CC: [id number] DICTATION DATE: 04/21/20 1611 VESSEL CREW MEMBER: 04/22/20 0126 ADM IN [place] [id number] [place] [id number]
--- NOTE | 2020-04-22 16:00 | NUR ---
DR. CERVANTES PRESENT MAKING ROUNDS AT THIS TIME. CXR RESULTS REVIEWED. NEW ORDERS NOTED PER DR. CERVANTES. AZITHROMYCIN 250MG SUSP. X 4 DOSES PER PEG, AZITHROMYCIN 500MG SUSP. X 1 PER PEG, INITIAL DOSE GIVEN PER PEG PER ORDER FOR DX OF LLL PNEUMONIA, PT TOLERATED WELL. ROCEPHIN 1 GM/IM Q 24 HRS ORDERED AND INITIAL DOSE GIVEN. PT TOLERATED WELL. PT RESTING WITH CONFUSION NOTED IN RECLINING CHAIR WITH HEAD OF CHAIR ELEVATED. PEG TUBE INFUSING AT 40ML/HR WITH 20ML OF H2O FLUSH PER ORDER. O2 IN PLACE AT 3L/NC PER ORDER. NO DISTRESS NOTED. CHAIR ALARM INTACT AND WORKING AT THIS TIME. WILL CONTINUE TO MONITOR FOR CHANGES.
--- NOTE | 2020-04-22 16:00 | NUR ---
SW MET WITH PT'S , HUDSON, DURING FAMILY VISIT TIME. HE ASKED SW "WHAT IS NEEDED FROM HERE NOW?" SW STATED PT IS SEVERE AND THIS MIGHT BE HER BASELINE. LANETTE SUGGESTED IF SHE DOESN'T IMPROVE HOSPICE IS AN OPTION. LANETTE EXPLAINED PT HAS NOT BEEN AGITATED AND DELUSIONAL. EDILMA SRIVASTAVA JOINED DISCUSSION TO GIVE HEALTH UPDATE.
--- NOTE | 2020-04-22 18:47 | NUR ---
RECEIVED IN DAYROOM. SITTING IN A RECLINER WITH EYES CLOSED. RESPONDS TO TOUCH. CALM AND COOPERATIVE WITH CARE AND ASSESSMENT. ENCOURAGE TO EXPRESS NEEDS. REDIRECT AND REORIENT NEEDED. CONTINUES TO SIT CALMLY IN DAYROOM. CONTINUE PLAN OF CARE.
[2020-04-22 20:00] VITALS: BP 107/56
--- NOTE | 2020-04-22 20:20 | NUR ---
RADIOLOGY PRESENT. KUB COMPLETED. AWAITING ON RESULTS AT THIS TIME. WILL CPOC.
--- NOTE | 2020-04-22 20:39 | NUR ---
RESIDUAL RECHECKED PER ORDER. 5ML OF RESIDUAL NOTED AND RETURNED. OSMOLITE 1.5 OLIVA 4OML/HR WITH 20ML/HR OF H2O FLUSH RESUMED PER ORDER. HEAD ELEVATED AT 45 DEGREES. NO S/SX OF DISTRESS NOTED AT THIS TIME. PT TOLERATING FEEDING WELL. WILL CPOC.
[2020-04-23 08:00] VITALS: BP 105/47
--- NOTE | 2020-04-23 10:00 | NUR ---
LANETTE RECIEVED A PHONE CALL FROM PT'S DTR KARO. SHE WAS WANTING CLARIFICATION ON WHAT WAS SAID TO PT'S . SW EXPLAINED THAT PT HAS DECLINED AND APPEARS TO BE END STAGE DEMENTIA. SW PT'S ASKED WHAT WERE THE NEXT STEPS IN PROCESS. SW WENT OVER THE OPTIONS FOR ONLINE JOURNALIST CARE AND EDUCATED ON HOSPICE. KARO STATED THEY WERE NOT READY TO GIVE UP ON HER MOTHER. SHE STATED SHE WANTED TO SEE HER MOTHER BEFORE MAKING ANY DECISIONS. LANETTE STATED THE PSYCHIATRIST WILL GIVE HER A PHONE CALL DUE TO THE QUESTIONS BEING ASKED ABOUT MEDICATIONS AND SEVERE DECLINE. LANETTE STATED THOSE QUESTIONS WERE OUT OF HER SCOPE AND WOULD BE BETTER DISCUSSED WITH MD. LANETTE SET UP PHONE CALL WITH .
--- NOTE | 2020-04-23 10:36 | NUR ---
RECEIVED IN HALLWAY OUTSIDE OF NURSES STATION. CALM AND COOPERATIVE WITH CARE AND ASSESSMENT. NO HALLUCINATIONS OR DELUSIONS. REDIRECT AND REORIENT NEEDED. SITTING IN GROUP AT THIS TIME. CONTINUE PLAN OF CARE.
--- NOTE | 2020-04-23 14:04 | PN ---
PATIENT:MIKE CASANOVA MEDICAL RECORD: [id number] LOCATION:[facility] ADMISSION DATE: 04/18/20 PROGRESS NOTE DATE OF SERVICE: 04/22/2020 SUBJECTIVE: The patient's case was discussed with staff. She has no new complaint. OBJECTIVE: The patient slept well last night. She is receiving tube feedings at 40 mL per hour. Dietary has been asked to assess the situation since she has thrown up and I am concerned about aspiration. The patient has an advanced dementia. She is only partially oriented. She has almost no short term memory and is clearly very confused. ASSESSMENT: Dementia. PLAN: Given the patient's overall situation, certainly a detention is appropriate and it may also be appropriate to refer her to hospice or palliative care. TRANSINT:[id number] Voice Confirmation ID: [id number] DOCUMENT ID: [id number] MELVIN DENTON MD at 1404 CC: [id number] DICTATION DATE: 04/22/20 1415 HEMMER AUTOMATIC: 04/23/20 0109 ADM IN [place] [id number] [place] [id number]
--- NOTE | 2020-04-23 14:59 | NUR ---
Nutrition Follow-up: NPO. TF regimen: Osmolite 1.5 @ 40mL/hr + H2O @ 25mL/hr Per chart review TF was held yesterday 2/2 increased residuals (70mL) and vomiting. Pt noted with LLL PNA per MD notes. Apparently TF has been resumed at this time. Last BM: 04/22/20. WT: 138# (04/19/20); Admit WT: 138# (04/18/20) Meds reviewed. No new labs. Recommend continue TF at goal as tolerated. RD following.
[2020-04-23 15:29] LABS: BASOPHILS 0.3 % (0-2); EOSINOPHILS 2.3 % (0-7); HEMATOCRIT 29.9 % (36.0-48.0); HEMOGLOBIN 9.2 g/dL (12-16); IMMATURE GRANULOCYTES 0.3 % (0-5); LYMPHOCYTES 21.6 % (15-50); MCH 26.7 pg (26.0-34.0); MCHC 30.8 g/dL (31.0-37.0); MCV 86.7 fL (80.0-100.0); MEAN PLATELET VOLUME 10.2 fL (7.4-10.4); MONOCYTES 9.7 % (2-11); NEUTROPHILS 65.8 % (40-80); PLATELET COUNT 411 10x3/uL (130-400); RBC 3.45 10x6/uL (4.00-5.40); RDW 15.8 % (11.5-14.5); WBC 10.7 10x3/uL (4.8-10.8)
[2020-04-23 16:15] LABS: BILIRUBIN - TOTAL 0.4 mg/dL (0.2-1.3); CARBON DIOXIDE 28.6 mmol/L (21.0-32.0); PROTEIN - SERUM 5.1 g/dL (6.4-8.2)
[2020-04-23 16:22] LABS: ANION GAP 12.8 mmol/L (8-16); CALCIUM 8.4 mg/dL (8.5-10.1); CREATININE - SERUM 7.8 mg/dL (0.6-1.3)
[2020-04-23 16:27] LABS: POTASSIUM - SERUM 7.4 mmol/L (3.5-5.1)
--- NOTE | 2020-04-23 16:58 | NUR ---
[facility] LAB REPORTED K+: 7.4. LABS: BUN: 65, CREAT: 7.8. VITALS SIGNS: B/P:100/58, P: 95, R:20, T: 97.[address] CERVANTES AWAITING CALLBACK.
--- NOTE | 2020-04-23 17:11 | NUR ---
new orders from dr. pressley. kayexelate 15 gram per PGE, bmp in A.M. and renal consult due to high BUN and Creat. all orders in the computer and will administer medications per order.
--- NOTE | 2020-04-23 18:26 | NUR ---
PEG TUBING CHANGED PER ORDER.
[2020-04-23 20:00] VITALS: BP 127/48
--- NOTE | 2020-04-23 20:49 | NUR ---
B.) PT IS ALERT AND ORIENTED TO SELF ONLY. SHE IS RECEIVED IN THE DAYROOM IN A GERICHAIR. SHE IS ON 3L OF OXYGEN VIA NC. SHE IS CALM AND COOPERATIVE WITH STAFF. I.) PROVIDED PM MEDICATIONS PRESCRIBED. REDIRECT OFTEN. R.) COMPLIANT WITH ALL MEDICATIONS. EASY TO REDIRECT. P.) WILL CONTINUE TO MONITOR.
--- NOTE | 2020-04-24 07:57 | NUR ---
PT IS ALERT AND ORIENTED TO SELF. SHE HAS A BRIGHTER AFFECT THIS MORNING AND IS INTERACTIVE WITH STAFF. HER O2 WAS 97 THIS MORNING WITH HER 3L. HER HOB IS 45 DEGREES. SHE IS CALM AND COOPERATIVE. PREVIOUS SHIFT REPORTED COMPLIANT WITH ALL MEDS. REDIRECT NEEDED. WILL CONTINUE TO MONITOR.
[2020-04-24 07:58] LABS: ANION GAP 12.1 mmol/L (8-16); CALCIUM 8.4 mg/dL (8.5-10.1); CARBON DIOXIDE 28.2 mmol/L (21.0-32.0); CREATININE - SERUM 8.3 mg/dL (0.6-1.3)
[2020-04-24 08:04] LABS: POTASSIUM - SERUM 7.3 mmol/L (3.5-5.1)
--- NOTE | 2020-04-24 08:06 | NUR ---
LAB CALLED WITH A CRITICAL K+ OF 7.3. NOTIFIED DR. CERVANTES. NEW ORDER: KAYEXALATE SUSP 15 GRAM ONCE NOW. WILL ADMINISTER.
[2020-04-24 10:22] VITALS: BP 115/56
--- NOTE | 2020-04-24 12:41 | NUR ---
PAGED DR. CERVANTES IN REGARDS TO PT CONDITION. PT 02 SAT 90% AT 3 LPM VIA N/C. PT IS SWEATING AND AROUSED PT HARD TOUCH. ORDER TO TRANSFER TO MED 2 FOR RESPIRATORY DISTRESS AND RENAL FAILURE. DISCHARGE ORDERS IN THE COMPUTER.
[2020-04-24] MEDS ORDERED: ROCEPHIN 1 GM/D51 G1 IM (12:48)
[2020-04-24] MEDS ORDERED: ZITHROMAX200 MG/5 M PEG (12:48)
--- NOTE | 2020-04-24 12:57 | PN ---
PATIENT:MIKE CASANOVA MEDICAL RECORD: [id number] LOCATION:[facility] ADMISSION DATE: 04/18/20 PROGRESS NOTE DATE OF SERVICE: 04/23/2020 SUBJECTIVE: The patient's case was discussed with staff. She has no new complaint. OBJECTIVE: The patient denies intent to harm herself or others. She is significantly calmer than she has been. She is only oriented to person. ASSESSMENT: Dementia. PLAN: Current medicines have been reviewed and will be maintained. Long-term prognosis is guarded. The hallucinations seem to be better. TRANSINT:[id number] Voice Confirmation ID: [id number] DOCUMENT ID: [id number] MELVIN DENTON MD at 1257 CC: [id number] DICTATION DATE: 04/23/20 1407 FOREIGN BANKNOTE TELLER: 04/23/20 1452 ADM IN [place] [id number] [place] [id number]
--- NOTE | 2020-04-24 13:35 | NUR ---
REC'D ORDERS FROM DR. MCLEOD TO TRANSFER TO ICU. NEW ORDERS: OBTAIN EKG UPON ADMISSION TO ICU, TRANSFER TO ICU, NOTIFY RENAL OF TRANSPORT TO ICU. REPORTED PT CONDITION WILL TRANSFER NOW.
--- NOTE | 2020-04-24 13:50 | NUR ---
NURSE CALLED REPORT TO JEFF IN THE ICU. NURSE AND TECH TRANFERRED PT TO ICU. PT TOLERATED TRANSFER OKAY. PT WAS TRASNFER DUE TO RESP DISTRESS AND RENAL FAILURE. PAPERWORK GIVEN TO STAFF AND ASSISTED WITH BED TRANSFER. NOTIFIED HUDSON CASANOVA WITH TRANSFER ORDERS.
--- NOTE | 2020-04-24 14:23 | NUR ---
NOTIFIED PT OF TRANSFER TO ICU ROOM 2300. HE THANKED STAFF.
== END 2020-04-24 14:05 | disposition short-term general hospital (02) | DRG 56 ==
LOC: D.PSYCH 13:51
PROVIDERS: Family Medicine; ADMIT Psychiatry & Neurology Psychiatry; ATTEND Psychiatry & Neurology Psychiatry
DX: G30.1 Alzheimer's disease with late onset (principal); G93.41 Metabolic encephalopathy; I26.99 Other pulmonary embolism without acute cor pulmonale; J18.1 Lobar pneumonia, unspecified organism; F02.81 Dementia in other diseases classified elsewhere, unspecified severity, with behavioral disturbance; J96.10 Chronic respiratory failure, unspecified whether with hypoxia or hypercapnia; N17.9 Acute kidney failure, unspecified; E46 Unspecified protein-calorie malnutrition; R53.1 Weakness; D50.9 Iron deficiency anemia, unspecified; F41.8 Other specified anxiety disorders; E87.5 Hyperkalemia; K21.9 Gastro-esophageal reflux disease without esophagitis; R13.10 Dysphagia, unspecified

== ENCOUNTER 2020-04-24 14:36 | Inpatient (IN) | payer MEDICARE, OTHER ==
[2020-04-24] VITALS (9 sets, daily range): BP systolic 95–139; BP diastolic 50–65; BMI 35.7
[~2020-04-24] VITALS: Ht 157.5 cm; Wt 93.2 kg
[~2020-04-24 14:36] MED LIST changes: +ROCEPHIN 1 GM/D51 G1 IM; +ZITHROMAX200 MG/5 M PEG
[2020-04-24 15:08] LABS: BASOPHILS 0.5 % (0-2); EOSINOPHILS 3.7 % (0-7); HEMATOCRIT 27.7 % (36.0-48.0); HEMOGLOBIN 8.7 g/dL (12-16); IMMATURE GRANULOCYTES 0.3 % (0-5); MCH 27.1 pg (26.0-34.0); MCHC 31.4 g/dL (31.0-37.0); MCV 86.3 fL (80.0-100.0); MEAN PLATELET VOLUME 10.5 fL (7.4-10.4); MONOCYTES 10.3 % (2-11); NEUTROPHILS 66.2 % (40-80); PLATELET COUNT 472 10x3/uL (130-400); RBC 3.21 10x6/uL (4.00-5.40); RDW 15.6 % (11.5-14.5); WBC 9.9 10x3/uL (4.8-10.8)
[2020-04-24 15:24] LABS: ALBUMIN 2.1 g/dL (3.4-5.0); BILIRUBIN - TOTAL 0.45 mg/dL (0.2-1.3); CALCIUM 8.4 mg/dL (8.5-10.1); CARBON DIOXIDE 29.2 mmol/L (21.0-32.0); CREATININE - SERUM 8.7 mg/dL (0.6-1.3); MAGNESIUM - SERUM 2.1 mg/dL (1.8-2.4); PHOSPHOROUS 5.5 mg/dL (2.5-4.9); PROTEIN - SERUM 5.4 g/dL (6.4-8.2)
[2020-04-24 15:26] LABS: POTASSIUM - SERUM 7.2 mmol/L (3.5-5.1)
[2020-04-24 15:45] LABS: BILIRUBIN NEGATIVE (NEGATIVE); GLUCOSE NEGATIVE (NEGATIVE); KETONE NEGATIVE (NEGATIVE); NITRITE NEGATIVE (NEGATIVE); SPECIFIC GRAVITY 1.005 (1.005-1.020); UROBILINOGEN NORMAL (NORMAL)
[2020-04-24 15:46] LABS: BACTERIA FEW /hpf (NEGATIVE); RED CELLS - URINE OCC /hpf (0-5); WHITE CELLS - URINE >50 /hpf (NEGATIVE)
--- NOTE | 2020-04-24 19:00 | NUR ---
ASSESSMENT COMPLETED PER FLOWSHEETS. PT AWAKE AND FOLLOWS SIMPLE COMMANDS. DR SINCLAIR AT BEDSIDE ASSESSING PT. ST ON CM WITH HR AT 108. PPP. CONT TO MONITOR.
--- NOTE | 2020-04-24 19:27 | NUR ---
DR SINCLAIR CALLED FAMILY INCLUDING DR LANDA PER DAUGHTER DEBBIES REQUEST. SPOKE WITH FAMILY AT GREAT LENGTH FOR 30 MINUTES.
--- NOTE | 2020-04-24 21:00 | NUR ---
DR SINCLAIR CALLED AND NOTED OF PT'S K+ LEVEL. ORDERS REC'D. CONT TO MONITOR.
--- NOTE | 2020-04-24 23:00 | NUR ---
REASSESSMENT COMPLETED. SEE FLOWSHEETS FOR ALL FINDINGS. NO ACUTE CHANGES IN PT'S STATUS NOTED AT THIS TIME. CPOC.
[2020-04-25] VITALS (24 sets, daily range): BP systolic 103–154; BP diastolic 46–92; Ht 157.5 cm; Wt 93.2 kg
--- NOTE | 2020-04-25 01:00 | NUR ---
PT RESTING QUIETLY WITHOUT DISTRESS. VSS. NO NEEDS VOICES. CPOC.
--- NOTE | 2020-04-25 03:00 | NUR ---
REASSESSMENT COMPLETED. SEE FLOWSHEETS FOR ALL FINDINGS. PT AWAKE, RESTLESS IN BED, SCREAM OUT LOUD, PULLED LEADS OFF. UNABLE TO REORIENT OR CALM DOWN. CPOC.
[2020-04-25 03:34] LABS: BASOPHILS 0.6 % (0-2); EOSINOPHILS 5.1 % (0-7); HEMATOCRIT 28.3 % (36.0-48.0); HEMOGLOBIN 8.7 g/dL (12-16); IMMATURE GRANULOCYTES 0.5 % (0-5); LYMPHOCYTES 25.3 % (15-50); MCH 26.4 pg (26.0-34.0); MCHC 30.7 g/dL (31.0-37.0); MCV 85.8 fL (80.0-100.0); MEAN PLATELET VOLUME 10.4 fL (7.4-10.4); MONOCYTES 10.7 % (2-11); NEUTROPHILS 57.8 % (40-80); PLATELET COUNT 453 10x3/uL (130-400); RDW 15.4 % (11.5-14.5); WBC 9.9 10x3/uL (4.8-10.8)
[2020-04-25 04:23] LABS: ALBUMIN 2.5 g/dL (3.4-5.0); ANION GAP 14.7 mmol/L (8-16); BILIRUBIN - TOTAL 0.52 mg/dL (0.2-1.3); CALCIUM 9.3 mg/dL (8.5-10.1); CARBON DIOXIDE 27.5 mmol/L (21.0-32.0); CREATININE - SERUM 8.5 mg/dL (0.6-1.3); PHOSPHOROUS 5.1 mg/dL (2.5-4.9); TROPONIN-I 0.025 ng/mL (0.000-0.060)
[2020-04-25 04:30] LABS: POTASSIUM - SERUM 6.2 mmol/L (3.5-5.1)
--- NOTE | 2020-04-25 04:30 | NUR ---
I&O COMPLETED TO CHART.
--- NOTE | 2020-04-25 06:35 | NUR ---
DR SINCLAIR CALLED VIA PHONE, UPDATED IN PT'S STATUS. ORDERS REC'D.
--- NOTE | 2020-04-25 08:07 | NUR ---
PT TURNED AND MOUTH CARE DONE.
--- NOTE | 2020-04-25 09:02 | NUR ---
DR MCLEOD HERE ON ROUNDS AND IS SPEAKING TO PTS DAUGHTER AT BS.
--- NOTE | 2020-04-25 10:23 | NUR ---
Nutrition consult: Received consult from Dr. Mosqueda to start elemental TF today. Order placed for Osmolite 1.0 monica @ 25 ml/hr with gradual increase go goal rate of 65 ml/hr with 100 ml H2O flush Q 4 hours. Thank you for the consult. RDN following
[2020-04-25 12:08] LABS: ANION GAP 13.2 mmol/L (8-16); CALCIUM 8.8 mg/dL (8.5-10.1); CARBON DIOXIDE 28.8 mmol/L (21.0-32.0); CREATININE - SERUM 8.3 mg/dL (0.6-1.3)
--- NOTE | 2020-04-25 12:15 | NUR ---
DISCUSSED CODE STATUS WITH DAUGHTER AND SHE STATES THAT SHE IS GOING TO ASK HER AND TALK WITH THE NURSING STAFF AFTER THAT.
--- NOTE | 2020-04-25 12:26 | NUR ---
BEDSIDE REPORT RECEIVED. WILL CONT TO MONITOR.
--- NOTE | 2020-04-25 13:00 | NUR ---
SPOKE WITH REGARDING CODE STATUS, STATES HE WANTS HER TO BE A DNR. EXPLAINED IN GREAT DETAIL ABOUT DNR CODE STATUS AND ASKED IF HE UNDERSTANDS, STATED HE UNDERSTANDS AND HIS DOES NOT WANT INTUBATED OR CPR. CHARGE NURSE BOLIVAR SINCLAIR WITNESSED CONVERSATION. WILL CONT TO MONITOR.
--- NOTE | 2020-04-25 14:45 | PN ---
PATIENT:MIKE CASANOVA MEDICAL RECORD: [id number] LOCATION:[facility] D.230 ADMISSION DATE: 04/24/20 PROGRESS NOTE DATE OF SERVICE: 04/24/2020 SUBJECTIVE: The patient's case was discussed with staff. OBJECTIVE: The patient is not doing well medically. She is not responding to me. I had ordered some lab yesterday along with a chest x-ray and the medical consult has been treating her. I see where he is ordered more lab and the results actually looked worse in some ways. At this point, there is nothing I can do for her psychiatrically because whatever is going on with her medically and it looks as though it is multiple problems and is taking precedent. I am going to leave it to the outer diameter grinder involved in her care, but it seems pretty clear that she is going need to be transferred off the behavioral floor. ASSESSMENT: No change in mental health diagnosis. PLAN: The patient is going to be transferred off of the behavioral unit because her medical needs are taking precedent. She has no symptoms that would represent a direct risk to others as far as managing her on the medical floor. If in the future her medical needs improvement and she needs to be transferred back to the psychiatric floor, I would be happy to accept her. I did speak with her son-in-law extensively yesterday. His name is Dr. Bradley. I believe he identified himself as an Emergency Room physician. He gives a longitudinal mental health history that is certainly consistent with a personality disorder and history of depression, but not consistent with dementia. I am unable to reconcile what I have observed from her cognitively with what he has told me. Her MRI from early in March did reveal atrophy and chronic white matter changes, but that is about the same time that her son-in-law says that she was functioning completely normally from a cognitive standpoint. Hopefully, her medical condition will improve enough to where I can reassess the situation. Clinically, the time that she spends here she looks very much like a person with dementia. TRANSINT:[id number] Voice Confirmation ID: [id number] DOCUMENT ID: [id number] MELVIN DENTON MD at 1445 CC: [id number] DICTATION DATE: 04/24/20 1446 HOURLY SIGN LANGUAGE INTERPRETER: 04/24/20 2242 ADM IN [facility] [address] [place] [address]
--- NOTE | 2020-04-25 15:00 | NUR ---
REASSESSMENT COMPLETED PER FLOWSHEET, SEE FLOWSHEET FOR INFORMATION. PT RESTING IN BED WITH EYES CLOSED. PT IS VERY CONFUSED, SHE WILL CRY ONE MINUTE AND THE NEXT MINUTE SHE IS WAVING AND SMILING AT NURSE. WILL CONT TO MONITOR. VSS.
--- NOTE | 2020-04-25 17:00 | NUR ---
PT IN BED YELLING AT STAFF, SCREAMING AT THE WALL. WHEN ASKED WHAT SHE IS SCREAMING AT SHE STATES "THE GIRL UP THERE, CAN YOU NOT SEE HER? SHE'S TRYING TO KILL HIM." REORIENTED PT TO HOSPITAL ROOM AND THERE IS NO ONE ELSE IN ROOM, PT SWINGS AND HITS NURSE. INFORMED PT TO NOT HIT PEOPLE AND THAT WILL NOT HELP HER LEAVE. WILL CONT TO MONITOR.
[2020-04-26] VITALS (24 sets, daily range): BP systolic 106–164; BP diastolic 47–99
--- NOTE | 2020-04-26 01:01 | NUR ---
1900-ASSESSMENT COMPLETED. CONFUSION NOTED. UNABLE TO REORIENT. PATIENT TRYING TO GRAB THERMOMETER OUT OF NURSE HANDS AND SAID "THIS IS MINE." REPOSITIONED. PATIENT TOOK OFF LEFT SCD. PUT BACK ON. 1999-DAUGHTER HERE AT BEDSIDE. UPDATE GIVEN. 2099-REPOSITIONED. DAUGHTER STILL AT BEDSIDE. 2129-REC'D ORDER FROM DR. SINCLAIR TO CHECK POTASSIUM NOW AND NOTIFY HIM IF INCREASED. [id number] COMPLETED. NO CHANGES SINCE LAST ASSESSMENT. PATIENT YELLING OUT ABOUT HER GRANDSON BEING IN DANGER AND SINGING NATIONAL ANTHEM. UNABLE TO REORIENT. 99-EYES CLOSED. VSS. NOT YELLING OUT OR PULLING AT TUBING AT THIS TIME
--- NOTE | 2020-04-26 03:43 | NUR ---
CHG BATH GIVEN WITH COMPLETE LINEN CHANGE. CHANGED ALL DRESSINGS. DENTON HEELS RED, APPLIED HEEL PROTECTORS. CONFUSION CONT. ORAL CARE PROVIDED.
[2020-04-26 03:44] LABS: ANION GAP 14.7 mmol/L (8-16); BILIRUBIN - TOTAL 0.37 mg/dL (0.2-1.3); CREATININE - SERUM 8.2 mg/dL (0.6-1.3); MAGNESIUM - SERUM 1.8 mg/dL (1.8-2.4); PHOSPHOROUS 5.2 mg/dL (2.5-4.9); POTASSIUM - SERUM 5.7 mmol/L (3.5-5.1); PROTEIN - SERUM 5.4 g/dL (6.4-8.2)
[2020-04-26 03:52] LABS: BASOPHILS 0.5 % (0-2); EOSINOPHILS 7.5 % (0-7); HEMATOCRIT 27.2 % (36.0-48.0); HEMOGLOBIN 8.4 g/dL (12-16); IMMATURE GRANULOCYTES 0.5 % (0-5); LYMPHOCYTES 23.4 % (15-50); MCH 26.3 pg (26.0-34.0); MCHC 30.9 g/dL (31.0-37.0); MEAN PLATELET VOLUME 10.3 fL (7.4-10.4); MONOCYTES 11.9 % (2-11); NEUTROPHILS 56.2 % (40-80); PLATELET COUNT 463 10x3/uL (130-400); RDW 15.2 % (11.5-14.5); WBC 9.8 10x3/uL (4.8-10.8)
--- NOTE | 2020-04-26 05:00 | NUR ---
REPOSITIONED, ORAL CARE PROVIDED
--- NOTE | 2020-04-26 06:10 | NUR ---
NO RESIDUALS, INCREASED TUBE FEEDING TO 55 ML/HR PER ORDERS
--- NOTE | 2020-04-26 07:28 | NUR ---
AWAKE IN BED AT THIS TIME. PT ABLE TO STATE NAME, YEAR, AND PRESIDENT. CONFUSION NOTED TO LOCATION AND SITUATION. REORIENTATION PROVIDED, PT WAS ABLE TO BE REORIENTED BUT REQUIRED REORIENTATION AGAIN AFTER A FEW MINUTES.
[2020-04-26 09:10] LABS: HEP B CORE AB TOTAL Negative (Negative); HEPATITIS C ANTIBODY <0.1 S/CO RAT (0.0-0.9)
--- NOTE | 2020-04-26 09:25 | NUR ---
SPOKE WITH MIKE RENAL LODE MINER BLASTING, REGARDING LAB VALUES SUCH POTASSIUM AND PHOSPHORUS WELL TUBE FEED ORDERS. NEW ORDERS RECIEVED TO CHANGE TUBE FEEDS FROM OSMOLYTE TO NEPHRO AT 55ML/HR AND TO CHANGE FLUSH TO 50ML Q4H. RESIDUALS CURRENTLY AT 5ML TO PEG. ALSO STATED TO CHANGE D5 1/2 FLUID RATE FROM 150ML/HR TO 50ML/HR. ALSO STATED WILL PLACE ORDERS REGARDING HIGH POTASSIUM. AND STATED THAT PT CAN TRANSFER TO FLOOR IF OKAY WITH OTHER PHYSICIANS. VSS. WILL CONTINUE PLAN OF CARE.
--- NOTE | 2020-04-26 11:23 | NUR ---
PER DR MCLEOD, KEEP IN ICU. ALSO SPOKE WITH PTS DAUGHTER KARO, UPDATES PROVIDED AFTER CALL IN CODE VERIFIED. VSS. NO ACUTE DISTRESS NOTED. WILL CONTINUE PLAN OF CARE.
--- NOTE | 2020-04-26 13:13 | NUR ---
PT CONFUSED AND AGGITATED. NOTED WHEN ATTEMPTED TO REORIENTATE PT, SHE STATED, "WHAT DO YOU THINK I AM STUPID? I HAVE WORKED HERE FOR OVER TWENTY YEARS!" ATTEMPTED TO REORIENTATE PT, WAS UNSUCCESSFUL. WILL CONTINUE TO ATTEMPT TO REORIENTATE PT. VSS. WILL CONTINUE PLAN OF CARE.
--- NOTE | 2020-04-26 14:26 | NUR ---
LYING IN BED AWAKE AT THIS TIME. VSS. PT STILL HAVING EPISODES OF YELLING OUT FOR KARO AND STATED "KARO COME IN HERE, LET GO OF THAT BABY!" ATTEMPTED TO REORIENTATE PT AND WAS UNSUCCESSFUL. PT CURRENTLY CALM. WILL CONTINUE PLAN OF CARE.
[2020-04-26 14:43] LABS: COMPLEMENT C4 17.2 mg/dL (17.4-52.2)
--- NOTE | 2020-04-26 15:44 | NUR ---
CHG BATH PROVIDED AT THIS TIME. TOTAL LINEN CHANGE PROVIDED. JUDD CARE/KEYANA CARE PROVIDED. BUTT PASTE APPLIED TO KEYANA AREA. WILL CONTNIUE PLAN OF CARE.
--- NOTE | 2020-04-26 16:11 | NUR ---
DR SINCLAIR HERE SPEAKING WITH PTS SON. UPDATES PROVIDED BY PHYSICIAN, ALL QUESTIONS AND CONCERNS ANSWERED.
--- NOTE | 2020-04-26 18:09 | NUR ---
LYING IN BED RESTING AT THIS TIME WITH EYES CLOSED. VSS. OPENS EYES WHEN SPOKEN TO. RESPIRATIONS UNLABORED AND EVEN. TURNED Q2H. WILL CONTINUE PLAN OF CARE.
--- NOTE | 2020-04-26 19:00 | NUR ---
ASSESSMENT COMPLETED. PATIENT TRYING TO TAKE PULSE OX OFF. CONFUSED TO PLACE, TIME, AND SITUATION. ATTEMPTED TO REORIENT. REPOSITIONED. NON PRODUCTIVE COUGH.
--- NOTE | 2020-04-26 21:00 | NUR ---
REPOSITIONED, ORAL CARE PROVIDED. PATIENT YELLING OUT TO "SAVE HIM." PATIENT WAS UNABLE TO EXPLAIN. ATTEMPTED TO REORIENT TO PLACE AND SITUATION BUT UNABLE
[2020-04-26 22:12] LABS: BACTERIA FEW /hpf (NEGATIVE); BILIRUBIN NEGATIVE (NEGATIVE); EPITHELIAL CELLS OCC /hpf (0-5); GLUCOSE NEGATIVE (NEGATIVE); KETONE NEGATIVE (NEGATIVE); NITRITE NEGATIVE (NEGATIVE); RED CELLS - URINE 0-5 /hpf (0-5); UROBILINOGEN NORMAL (NORMAL); WHITE CELLS - URINE OCC /hpf (NEGATIVE)
--- NOTE | 2020-04-26 23:00 | NUR ---
RE-ASSESSMENT COMPLETED. NO CHANGES SINCE LAST ASSESSMENT. ORAL CARE PROVIDED, REPOSITIONED.
[2020-04-27] VITALS (24 sets, daily range): BP systolic 100–167; BP diastolic 46–90
--- NOTE | 2020-04-27 01:00 | NUR ---
REPOSITIONED, ORAL CARE PROVIDED.
--- NOTE | 2020-04-27 03:00 | NUR ---
RE-ASSESSMENT COMPLETED. NO CHANGES SINCE LAST ASSESSMENT. REPOSITIONED.
[2020-04-27 03:52] LABS: BASOPHILS 0.4 % (0-2); EOSINOPHILS 8.3 % (0-7); HEMATOCRIT 28.1 % (36.0-48.0); HEMOGLOBIN 8.7 g/dL (12-16); IMMATURE GRANULOCYTES 0.7 % (0-5); LYMPHOCYTES 28.5 % (15-50); MCH 26.3 pg (26.0-34.0); MCV 84.9 fL (80.0-100.0); MEAN PLATELET VOLUME 10.2 fL (7.4-10.4); NEUTROPHILS 54.1 % (40-80); PLATELET COUNT 535 10x3/uL (130-400); RBC 3.31 10x6/uL (4.00-5.40); RDW 15.1 % (11.5-14.5); WBC 10.8 10x3/uL (4.8-10.8)
[2020-04-27 04:00] LABS: ALBUMIN 1.9 g/dL (3.4-5.0); ANION GAP 13.9 mmol/L (8-16); BILIRUBIN - TOTAL 0.38 mg/dL (0.2-1.3); CALCIUM 8.2 mg/dL (8.5-10.1); CARBON DIOXIDE 23.9 mmol/L (21.0-32.0); MAGNESIUM - SERUM 1.6 mg/dL (1.8-2.4); PHOSPHOROUS 5.6 mg/dL (2.5-4.9); PROTEIN - SERUM 5.4 g/dL (6.4-8.2)
[2020-04-27 04:06] LABS: POTASSIUM - SERUM 4.8 mmol/L (3.5-5.1)
--- NOTE | 2020-04-27 05:00 | NUR ---
REPOSITIONED. VSS. ORAL CARE PROVIDED.
--- NOTE | 2020-04-27 07:38 | NUR ---
LYING IN BED AWAKE AT THIS TIME, PT CONFUSED AT THIS TIME. ABLE TO STATE HER NAME, THAT WE ARE IN [place], AND THE YEAR IS 2019. BUT SHE STATED SHE BELIEVED SHE WAS HERE FOR "CHEAPER LIVING." PT REORIENTATED PT, SHE THEN ASKED MY NAME WHICH I GAVE, PT THEN STATED "I GUESS THEY ARE GOING TO UP THE [place] THEN." REORIENTATION PROVIDED AGAIN. WILL CONTINUE TO ATTEMPT TO REORIENTATE PT. ALSO AT THIS TIME SHE HAD PULLED HER GOWN OFF WHICH I THEN ASSISTED HER IN PUTTING HER GOWN BACK ON. VSS. NO ACUTE DISTRESS NOTED. WILL CONTINUE PLAN OF CARE.
--- NOTE | 2020-04-27 08:05 | NUR ---
PEG FEEDING RESIDUAL NOTED 5ML.
--- NOTE | 2020-04-27 10:17 | NUR ---
NOTED ORDER TO CHANGE OUT JUDD AND REPEAT URINE CULTURE FROM YEAST GROWTH SEEN IN 04/24 CULTURE. NOTIFIED CALEB MCKEON THAT THE JUDD WAS PLACED ON THE AND THAT SINCE THEN A NEW UA AND CULTURE HAD BEEN COLLETED (YESTERDAY). PER ORDERS, ORDER TO CHANGE OUT JUDD DCD. VSS. WILL CONTINUE PLAN OF CARE.
--- NOTE | 2020-04-27 10:28 | NUR ---
PER MIKE, RENAL BAR PILOT, DC D5 1/2 NS AND CHANGE TO NS AT 50ML/HR.
--- NOTE | 2020-04-27 10:45 | NUR ---
DR MCLEOD IN ROOM SPEAKING WITH PT AND HER . VSS. NO ACUTE DISTRESS NOTED.
[2020-04-27 10:53] LABS: ERYTHROCYTE SEDIMENTATION RATE 24 mm/hr (0-30)
--- NOTE | 2020-04-27 12:46 | NUR ---
LYING IN BED AWAKE AT THIS TIME. NO ACUTE DISTRESS NOTED. VSS. PT TURNED Q2H, ORAL CARE PROVIDED Q2H. WILL CONTINUE PLAN OF CARE.
--- NOTE | 2020-04-27 13:07 | NUR ---
PT C/O FEELING HOT, PT FACE FLUSHED. FAN PLACED IN ROOM TO HELP PT COOL OFF. PT STATES SHE FEELS MUCH BETTER WITH THE FAN ON. VSS. WILL CONTINUE PLAN OF CARE.
--- NOTE | 2020-04-27 15:59 | NUR ---
PTS AT BEDSIDE AT THIS TIME. VSS. PT NOTED AGGITATED AND PULLED OFF SCDS AND HEEL PROTECTORS. WHEN ATTEMPTED TO PLACE SCDS AND HEEL PROTECTORS BACK ON PT STATED, "DO NOT PUT THOSE ON! I DON'T WANT THEM THERE." ATTEMPTED TO EXPLAIN TO PT THE PURPOSE OF SCDS AND HEEL PROTECTORS. PT NOTED CONFUSED AND WAS UNABLE TO REORIENTATE. WILL CONTINUE TO ATTEMPT TO PLACE SCDS AND HEEL PROTECTORS BACK ON.
--- NOTE | 2020-04-27 17:35 | NUR ---
TOTAL LINEN CHANGE PROVIDED. ALSO AT THIS TIME PT ALLOWED STAFF TO PLACE SCDS AND HEEL PROTECTORS BACK IN PLACE. VSS. NO ACUTE DISTRESS NOTED. PT STILL CONFUSED, HOWEVER MORE COMPLIANT AT THIS TIME. WILL CONTINUE PLAN OF CARE.
--- NOTE | 2020-04-27 17:38 | NUR ---
DR SINCLAIR ASKED THIS NURSE TO SPEAK WITH DR MCLEOD TO SEE IF OKAY TO START ELIQUIS 2.5MG BID. DR MCLEOD PAGED AT THIS TIME.
--- NOTE | 2020-04-27 19:00 | NUR ---
ASSESSMENT COMPLETED. PATIENT TOOK OFF SCD, APPLIED BACK ON. CONFUSION CONT, CLEARER SPEECH. 5ML RESIDUAL WITH TUBE FEEDINGS. REPOSITIONED
--- NOTE | 2020-04-27 20:36 | NUR ---
FEEDING ORDER UPDATED TO INCLUDE THE AMOUNT OF NEPRO THAT NEEDED TO BE SENT TO UNIT DAILY.
--- NOTE | 2020-04-27 22:08 | NUR ---
PATIENT YELLING, STATED "IF YOU ONLY KNEW HOW MUCH MONEY I HAVE, YOU WOULD NOT HAVE ME WORKING LIKE THIS." ATTEMPTED TO REORIENT BUT UNSUCCESSFUL.
--- NOTE | 2020-04-27 23:00 | NUR ---
RE-ASSESSMENT COMPLETED. PATIENT YELLING, SAYING "I'M SCARED, THERE IS A LADY WITH A LITTLE GIRL TRYING TO SHARE MY ROOM." ATTEMPTED TO REORIENT BUT UNSUCCESSFUL. REPOSITIONED.
[2020-04-28] VITALS (23 sets, daily range): BP systolic 117–176; BP diastolic 57–116
--- NOTE | 2020-04-28 01:00 | NUR ---
PATIENT CONT TO YELL. REFUSED BATH. YELLED "YOU ARE THE BIGGEST LIAR, KARO IS IN THE CAR AND YOU WON'T LET ME SEE HER." TRIED TO REORIENT BUT UNSUCCESSFUL.
--- NOTE | 2020-04-28 03:08 | NUR ---
PATIENT CONT TO YELL. SAYING "RING THE LLANOS." ALLOWING NURSE TO REPOSITION.
--- NOTE | 2020-04-28 05:00 | NUR ---
REPOSITIONED. PATIENT WITH EYES CLOSED, NOT YELLING. ORAL CARE PROVIDED.
[2020-04-28 05:14] LABS: BASOPHILS 0.4 % (0-2); EOSINOPHILS 5.9 % (0-7); HEMATOCRIT 28.5 % (36.0-48.0); HEMOGLOBIN 8.9 g/dL (12-16); IMMATURE GRANULOCYTES 1.1 % (0-5); LYMPHOCYTES 20.3 % (15-50); MCH 26.3 pg (26.0-34.0); MCHC 31.2 g/dL (31.0-37.0); MCV 84.1 fL (80.0-100.0); MEAN PLATELET VOLUME 10.2 fL (7.4-10.4); MONOCYTES 8.9 % (2-11); NEUTROPHILS 63.4 % (40-80); PLATELET COUNT 477 10x3/uL (130-400); RBC 3.39 10x6/uL (4.00-5.40); RDW 15.1 % (11.5-14.5); WBC 10.1 10x3/uL (4.8-10.8)
[2020-04-28 05:35] LABS: ANION GAP 14.3 mmol/L (8-16); BILIRUBIN - TOTAL 0.38 mg/dL (0.2-1.3); CALCIUM 8.1 mg/dL (8.5-10.1); CARBON DIOXIDE 26.4 mmol/L (21.0-32.0); CREATININE - SERUM 7.2 mg/dL (0.6-1.3); MAGNESIUM - SERUM 1.7 mg/dL (1.8-2.4); PHOSPHOROUS 4.8 mg/dL (2.5-4.9); PROTEIN - SERUM 5.7 g/dL (6.4-8.2)
[2020-04-28 05:36] LABS: POTASSIUM - SERUM 3.7 mmol/L (3.5-5.1)
--- NOTE | 2020-04-28 10:02 | NUR ---
Nutrition follow-up: Pt sitting in bed calling to this RDN TF formula changed to Nepro @ 55 ml/hr from Osmolite 1.0 monica 2/2 elevated K+. Pt with GFR of 6. Pt not a candidate for dialysis at this time Nepro @ 55 ml/hr is provided pt with 106 gm protein/day If BUN/Cr continue to rise, may consider changing TF formula toe Suplena @ 55 ml/hr to better meet pts nutritional needs without dialysis RDN following.
--- NOTE | 2020-04-28 16:49 | MORECARE ---
CASE MANAGEMENT DISCHARGE SUMMARY PATIENT: MIKE GONZALEZ UNIT: [id number] ADM DATE: 04/24/20 AGE: 84 : 37 SEX: F ROOM/BED: D.2306 AUTHOR: SHAR EUBANKS PHYSICIAN: REFERRING PHYSICIAN: DARVIN MCLEOD MD DATE OF SERVICE: 04/28/20 Discharge Plan Patient Name: MIKE GONZALEZ Facility: [facility]:[place] : 1935 Planned Disposition: Anticipated Discharge Date: Discharge Date: Expected LOS: 0 Initial Reviewer: [email or web address] Initial Review Date: 04/24/2020 Generated: 04/28/20 5:49 pm Comments DCP- Discharge Planning Updated by [email or web address]: Naida Webb on 04/28/20 3:[address] CM contacted patient's , Dominick Gonzalez, for permission to fax clinical to Rebeka Zurita [facility], for transfer of patient. Spouse gives permission for same. CM faxed information to Rena with [facility]. Patient Name: MIKE GONZALEZ Page [phone] at 1649 All edits/amendments must be made on the electronic document DICTATION DATE: 04/28/201648 GLASSWARE SELECTOR: VINCENT 04/28/201648 RPT#: [id number] DC DATE: STATUS: ADM IN [facility] [address] [place] [address] END OF REPORT
--- NOTE | 2020-04-28 16:59 | MORECARE ---
CASE MANAGEMENT DISCHARGE SUMMARY PATIENT: MIKE GONZALEZ UNIT: [id number] ADM DATE: 04/24/20 AGE: 84 : 37 SEX: F ROOM/BED: D.2306 AUTHOR: SHAR EUBANKS PHYSICIAN: REFERRING PHYSICIAN: DARVIN MCLEOD MD DATE OF SERVICE: 04/28/20 Discharge Plan Patient Name: MIKE GONZALEZ [facility] [facility] 1935 Planned Disposition: Anticipated Discharge Date: Discharge Date: Expected LOS: 0 Initial Reviewer: [email or web address] Initial Review Date: 04/24/2020 Generated: 04/28/20 5:59 pm Comments DCP- Discharge Planning Updated by [email or web address]: Naida Webb on 04/28/20 3:[address] CM contacted patient's , Dominick Gonzalez, for permission to fax clinical to Rebeka Zurita [facility], for transfer of patient. Spouse gives permission for same. CM faxed information to Rena with [facility]. External Providers [facility] Next Contact Date: Service Request Date: Service Type: Resolution: Reviewer: Comments: Last DP export: 04/28/20 3:49 pm Patient Name: MIKE GONZALEZ Page [phone] at 1659 All edits/amendments must be made on the electronic document DICTATION DATE: 04/28/201658 MISSING PERSONS INVESTIGATOR: VINCENT 04/28/201658 RPT#: [id number] DC DATE: STATUS: ADM IN [facility] [address] [place] [address] END OF REPORT
--- NOTE | 2020-04-28 17:06 | MORECARE ---
CASE MANAGEMENT DISCHARGE SUMMARY PATIENT: MIKE GONZALEZ UNIT: [id number] ADM DATE: 04/24/20 AGE: 84 : 37 SEX: F ROOM/BED: D.2306 AUTHOR: SHAR EUBANKS PHYSICIAN: REFERRING PHYSICIAN: DARVIN MCLEOD MD DATE OF SERVICE: 04/28/20 Discharge Plan Patient Name: MIKE GONZALEZ Facility: [facility]:[place] : 1935 Planned Disposition: Anticipated Discharge Date: Discharge Date: Expected LOS: 0 Initial Reviewer: [email or web address] Initial Review Date: 04/24/2020 Generated: 04/28/20 6:05 pm Comments DCP- Discharge Planning Updated by [email or web address]: Naida Webb on 04/28/20 3:[address] CM left a VM for [facility] for this evaluation for admission. Faxed required information. CM contacted patient's , Dominick Gonzalez, for permission to fax clinical to [facility], for transfer of patient. Spouse gives permission for same. CM faxed information to Rena, with [facility]. Last DP export: 04/28/20 3:59 pm Patient Name: MIKE GONZALEZ Page [phone] at 1706 All edits/amendments must be made on the electronic document DICTATION DATE: 04/28/20 170 FOREMAN SHIPPING DEPARTMENT: VINCENT 04/28/20 170 RPT#: [id number] DC DATE: STATUS: ADM IN [facility] [address] [place] [address] END OF REPORT
--- NOTE | 2020-04-28 19:00 | NUR ---
REPORT RECEIVED. PT DISORIENTED TO TIME, PLACE, SITUATION. ASSESSMENT COMPLETE, SEE FLOWSHEET. PIV IN LEFT WRIST INFUSING, SEE IV FLOWSHEET. WILL CONTINUE TO MONITOR.
[2020-04-29] VITALS (7 sets, daily range): BP systolic 138–181; BP diastolic 69–101
[2020-04-29 04:35] LABS: BASOPHILS 0.4 % (0-2); EOSINOPHILS 3.1 % (0-7); HEMATOCRIT 27.8 % (36.0-48.0); HEMOGLOBIN 8.7 g/dL (12-16); IMMATURE GRANULOCYTES 1.3 % (0-5); LYMPHOCYTES 21.5 % (15-50); MCH 26.4 pg (26.0-34.0); MCHC 31.3 g/dL (31.0-37.0); MCV 84.5 fL (80.0-100.0); MEAN PLATELET VOLUME 10.1 fL (7.4-10.4); MONOCYTES 8.5 % (2-11); NEUTROPHILS 65.2 % (40-80); PLATELET COUNT 467 10x3/uL (130-400); RBC 3.29 10x6/uL (4.00-5.40); RDW 15.2 % (11.5-14.5); WBC 9.8 10x3/uL (4.8-10.8)
[2020-04-29 04:48] LABS: ALBUMIN 2.1 g/dL (3.4-5.0); ANION GAP 12.5 mmol/L (8-16); BILIRUBIN - TOTAL 0.28 mg/dL (0.2-1.3); CALCIUM 8.4 mg/dL (8.5-10.1); CARBON DIOXIDE 30.1 mmol/L (21.0-32.0); POTASSIUM - SERUM 3.6 mmol/L (3.5-5.1); PROTEIN - SERUM 5.9 g/dL (6.4-8.2)
--- NOTE | 2020-04-29 06:32 | NUR ---
2100 - PT RESTING IN BED, NO ACUTE DISTRESS NOTED. 2300 - REASSESSMENT COMPLETED, SEE FLOWSHEET. 0100 - PT REPOSITIONED FOR COMFORT. 0300 - REASSESSMENT COMPLETED, SEE FLOWSHEET. 0500 - REPOSITIONED FOR COMFORT, NO ACUTE DISTRESS NOTED.
[2020-04-29 10:10] LABS: ANA REFLEX - DIRECT Negative (Negative)
--- NOTE | 2020-04-29 10:22 | NUR ---
Nutrition follow-up/consult: Received verbal order from Dr. Finney to change TF 2/2 pt with upset stomach. TF formula changed back to Osmolite 1.0 monica @ goal rate of 60 ml/hr with 50 ml H2O flush q 4 hours. Thank you for the consult. RDN following.
--- NOTE | 2020-04-29 14:38 | NUR ---
report called to abdiaziz manuel.
--- NOTE | 2020-04-29 15:14 | NUR ---
[facility] HERE TO CHECK PROCESSOR PT TO TAKE TO [facility].
--- NOTE | 2020-04-30 09:08 | MORECARE ---
CASE MANAGEMENT DISCHARGE SUMMARY PATIENT: MIKE GONZALEZ UNIT: [id number] ADM DATE: 04/24/20 AGE: 84 : 37 SEX: F ROOM/BED: D.2306 AUTHOR: SHAR EUBANKS PHYSICIAN: REFERRING PHYSICIAN: DARVIN MCLEOD MD DATE OF SERVICE: 04/30/20 Discharge Plan Patient Name: MIKE GONZALEZ Facility: [facility]:[place] : 1935 Planned Disposition: Anticipated Discharge Date: Discharge Date: 04/29/2020 Expected LOS: 0 Initial Reviewer: [email or web address] Initial Review Date: 04/24/2020 Generated: 04/30/20 10:07 am Comments DCP- Discharge Planning Updated by [id number]: Naida Webb on 04/28/20 3:[address] CM left a VM for [facility] for this evaluation for admission. Faxed required information. CM contacted patient's , Dominick Gonzalez, for permission to fax clinical to [facility], for transfer of patient. Spouse gives permission for same. CM faxed information to Rena, with [facility]. Coverage Notice Reviewer: [email or web address] Harjeet Whalen Notice Issued Date-Time: 04/29/2020 12:35 Notice Type: IM Discharge Notice Notice Delivered To: Patient Relationship to Patient: Spouse Exploration Geologist Name: Delivery Method: PHONE - Phone Soraya Days: Prior Verbal Notification: Yes Recipient Understood Notice: Yes Recipient Signature: Med Rec Note Co-signed by Attending: Coverage Notice Comment: Last DP export: 04/28/20 4:06 pm Patient Name: MIKE GONZALEZ Page [phone] at 0908 All edits/amendments must be made on the electronic document DICTATION DATE: 04/30/20906 HANDSTITCHING MACHINE ARMHOLE FELLER: VINCENT 04/30/20906 RPT#: [id number] DC DATE:04/29/20 STATUS: DIS IN [facility] [address] [place] [address] END OF REPORT
[2020-04-30 16:09] LABS: ANCA - ANTIMYELOPEROXIDASE <9.0 U/mL (0.0-9.0); ANCA - ANTIPROTEINASE 3 <3.5 U/mL (0.0-3.5); ANCA - ATYPICAL <1:20 titer (Neg:<1:20); ANCA - CYTOPLASMIC <1:20 titer (Neg:<1:20); ANCA - PERINUCLEAR <1:20 titer (Neg:<1:20)
== END 2020-04-29 15:28 | disposition short-term general hospital (02) | DRG 682 ==
LOC: D.ICU 14:36
PROVIDERS: Internal Medicine Nephrology; ADMIT Family Medicine; ATTEND Family Medicine
DX: N17.9 Acute kidney failure, unspecified (principal); I26.99 Other pulmonary embolism without acute cor pulmonale; G93.41 Metabolic encephalopathy; K56.7 Ileus, unspecified; B37.49 Other urogenital candidiasis; E87.5 Hyperkalemia; E86.9 Volume depletion, unspecified; Z66 Do not resuscitate; J43.9 Emphysema, unspecified; K58.9 Irritable bowel syndrome, unspecified; I48.91 Unspecified atrial fibrillation; E83.42 Hypomagnesemia; D64.9 Anemia, unspecified

== ENCOUNTER → 2020-07-17 12:24 | Outpatient (CLI) | payer MEDICARE, OTHER ==
[2020-04-25 09:57] VITALS: BMI 35.1
== END | disposition home or self-care (01) ==
LOC: D.RAD 12:24
PROVIDERS: ATTEND Family Medicine
DX: R13.12 Dysphagia, oropharyngeal phase (principal)

== ENCOUNTER 2020-08-16 17:17 | Emergency (ER) | payer MEDICARE, OTHER ==
[~2020-08-16] VITALS: Ht 157.5 cm; Wt 52.3 kg
[2020-08-16 17:23] VITALS: Ht 157.5 cm; Wt 52.3 kg
[2020-08-16 19:23] VITALS: BP 132/55
== END 2020-08-16 19:24 | disposition home or self-care (01) ==
LOC: D.ER 17:17
DX: K94.23 Gastrostomy malfunction (principal); T85.698A Other mechanical complication of other specified internal prosthetic devices, implants and grafts, initial encounter; J45.909 Unspecified asthma, uncomplicated

== ENCOUNTER → 2020-08-27 09:52 | Outpatient (CLI) | payer MEDICARE, OTHER ==
[2020-08-16 17:23] VITALS: BMI 21.0
== END | disposition home or self-care (01) ==
LOC: D.RAD 09:52
PROVIDERS: ATTEND Surgery
DX: R13.10 Dysphagia, unspecified (principal)

== ENCOUNTER 2020-09-02 07:50 | Day surgery (SDC) | payer MEDICARE, OTHER ==
[2020-09-01 17:44] LABS: BASOPHILS 0.4 % (0-2); EOSINOPHILS 3.7 % (0-7); HEMATOCRIT 37.4 % (36.0-48.0); HEMOGLOBIN 12.1 g/dL (12-16); IMMATURE GRANULOCYTES 0.3 % (0-5); LYMPHOCYTES 31.7 % (15-50); MCH 27.4 pg (26.0-34.0); MCHC 32.4 g/dL (31.0-37.0); MCV 84.8 fL (80.0-100.0); MEAN PLATELET VOLUME 10.5 fL (7.4-10.4); MONOCYTES 7.3 % (2-11); NEUTROPHILS 56.6 % (40-80); RBC 4.41 10x6/uL (4.00-5.40); RDW 14.1 % (11.5-14.5); WBC 10.5 10x3/uL (4.8-10.8)
[2020-09-01 17:47] LABS: PLATELET COUNT 302 10x3/uL (130-400)
[2020-09-01 18:07] LABS: ANION GAP 9.3 mmol/L (8-16); CALCIUM 9.1 mg/dL (8.5-10.1); CARBON DIOXIDE 29.9 mmol/L (21.0-32.0); CREATININE - SERUM 0.9 mg/dL (0.6-1.3); POTASSIUM - SERUM 5.2 mmol/L (3.5-5.1)
[~2020-09-02] VITALS: Ht 157.5 cm; Wt 52.7 kg
[2020-09-02] MEDS ORDERED: ELIQUIS2.5 MG PO (09:11)
[2020-09-02] MEDS ORDERED: ZOFRAN4 MG PO (09:19)
[2020-09-02] MEDS ORDERED: ATIVAN0.5 MG PO (09:20)
[2020-09-02] MEDS ORDERED: ULTRAM50 MG PO (09:20)
[2020-09-02] MEDS ORDERED: COREG6.25 MG (09:21)
[2020-09-02] MEDS ORDERED: BUSPAR5 MG PO (09:22)
[2020-09-02] MEDS ORDERED: OXYBUTYNIN CHLOR5 MG PO (09:22)
[2020-09-02] MEDS ORDERED: QUESTRAN LIG1 PACKET PO (09:23)
[2020-09-02] MEDS ORDERED: GLUCERNA 1.5 C237 M1 PT (09:24)
[2020-09-02] MEDS ORDERED: NUTRISOURCE FI1 EACH PO (09:25)
[2020-09-02] MEDS ORDERED: CELEXA10 MG (09:25)
[2020-09-02] MEDS ORDERED: PEPCID AC20 MG PO (09:26)
[2020-09-02] MEDS ORDERED: FLORANEX / LACT1 TAB PO (09:26)
[2020-09-02 09:32] VITALS: BP 158/68; Ht 157.5 cm; Wt 52.7 kg
--- NOTE | 2020-09-02 15:15 | NUR ---
DISCHARGE INSTRUCTIONS REVIEWED WITH PATIENT AND SPOUSE, DISCHARGED HOME VIA WHEELCHAIR TO PRIVATE VEHICLE WITH SPOUSE
== END 2020-09-02 15:15 | disposition home or self-care (01) ==
LOC: D.OPS 07:50
PROVIDERS: Surgery; ATTEND Surgery
DX: Z93.4 Other artificial openings of gastrointestinal tract status (principal); T30.4 Corrosion of unspecified body region, unspecified degree

== ENCOUNTER → 2021-02-18 12:54 | Outpatient (CLI) | payer MEDICARE, OTHER ==
[2020-09-02 09:32] VITALS: BMI 21.2
[~2021-02-18 12:54] MED LIST changes: +ATIVAN0.5 MG PO; +BUSPAR5 MG PO; +CELEXA10 MG; +COREG6.25 MG; +ELIQUIS2.5 MG PO; +FLORANEX / LACT1 TAB PO; +GLUCERNA 1.5 C237 M1 PT; +NUTRISOURCE FI1 EACH PO; +OXYBUTYNIN CHLOR5 MG PO; +PEPCID AC20 MG PO; +ULTRAM50 MG PO; +ZOFRAN4 MG PO
== END | disposition home or self-care (01) ==
LOC: D.MRI 12:54
PROVIDERS: ATTEND Family Medicine
DX: M47.896 Other spondylosis, lumbar region (principal); S33.4XXA Traumatic rupture of symphysis pubis, initial encounter

== ENCOUNTER → 2021-03-12 10:51 | Outpatient (CLI) | payer MEDICARE, OTHER ==
[2020-09-02 09:32] VITALS: BMI 21.2
== END | disposition home or self-care (01) ==
LOC: D.CT 10:51
PROVIDERS: ATTEND Internal Medicine Gastroenterology
DX: R10.84 Generalized abdominal pain (principal)

== ENCOUNTER 2021-05-03 18:35 | Inpatient (IN) | payer MEDICARE, OTHER ==
[~2021-05-03] VITALS: Ht 157.5 cm; Wt 54.0 kg
[~2021-05-03 18:35] MED LIST changes: -COREG6.25 MG; +COREG6.25 MG PO
[2021-05-03 19:23] LABS: MCV 79.6 fL (80.0-100.0); MEAN PLATELET VOLUME 7.7 fL (7.4-10.4); MONOCYTES 11.6 % (2-11); WBC 6.5 10x3/uL (4.8-10.8)
[2021-05-03 19:25] LABS: BASOPHILS 0.3 % (0-2); EOSINOPHILS 1.4 % (0-7); HEMATOCRIT 21.1 % (36.0-48.0); LYMPHOCYTES 24.5 % (15-50); MCH 26.1 pg (26.0-34.0); MCHC 32.8 g/dL (31.0-37.0); NEUTROPHILS 62.2 % (40-80); RBC 2.65 10x6/uL (4.00-5.40); RDW 16.1 % (11.5-14.5)
[2021-05-03 19:28] LABS: PLATELET COUNT 389 10x3/uL (130-400)
[2021-05-03 19:33] LABS: HEMOGLOBIN 6.9 g/dL (12-16)
--- NOTE | 2021-05-03 19:35 | NUR ---
[facility] CALLED TO NURSE HEMOGLOBIN 6.9 AT 1934
[2021-05-03 19:46] LABS: ALKALINE PHOSPHATASE 58 U/L (30-120); ALT (SGPT) 8 U/L (10-68); AMYLASE - SERUM 11 U/L (25-115); BILIRUBIN - TOTAL 0.31 mg/dL (0.2-1.3); CALC OSMOLALITY 277 mosm/kg (275-300); CALCIUM 7.9 mg/dL (8.5-10.1); CHLORIDE - SERUM 106 mmol/L (98-107); CKMB 1.5 U/L (0.0-3.6); CREATINE KINASE 55 UL (21-215); GLUCOSE 96 mg/dL (74-106); POTASSIUM - SERUM 4.4 mmol/L (3.5-5.1); PROTEIN - SERUM 5.2 g/dL (6.4-8.2); SODIUM 138 mmol/L (136-145); UREA NITROGEN 18 mg/dL (7-18); eGFR NON AFRICAN AMERICAN 56 mL/min (90-120)
[2021-05-03 20:06] LABS: LIPASE 11 U/L (73-393); TROPONIN-I < 0.017 ng/mL (0.000-0.060)
[2021-05-03 20:11] LABS: BILIRUBIN NEGATIVE (NEGATIVE); KETONE NEGATIVE mg/dL (< 1+); NITRITE NEGATIVE (NEGATIVE); SQUAMOUS EPITHELIAL <1 HPF (0-4); UROBILINOGEN NORMAL mg/dL (< 2); WHITE CELLS - URINE 3 HPF (0-4)
[2021-05-03 20:15] LABS: ALBUMIN 2.2 g/dL (3.4-5.0); CARBON DIOXIDE 24.3 mmol/L (21.0-32.0)
--- NOTE | 2021-05-03 20:22 | NUR ---
PT PLACED ON BEDPAN. CALL LIGHT IN REACH
--- NOTE | 2021-05-03 20:34 | NUR ---
PT VOIDED APPROX 200 ML CLEAR YELLOW URINE. STOOL GUAIC SPEC OBTAINED- RESULTS POSITIVE
--- NOTE | 2021-05-03 23:42 | NUR ---
PATIENT REFUSED SECOND IV WHEN NURSE ATTEMPTED TO PLACE IV. PATIENT BECAME AGITATED.
[2021-05-04] VITALS (9 sets, daily range): BP systolic 103–139; BP diastolic 38–79; Ht 157.5 cm; Wt 54.0 kg
--- NOTE | 2021-05-04 00:30 | NUR ---
PT WITH INCREASING CONFUSION. STATES WANTS TO LEAVE. PRIMARY NURSE CALLING DR LOPEZ. STEVEN SUP BROUGHT BED WITH ALARM TO DEPT- PT TRANSFERRED TO BED WITH ALARM ON. NON SKID SOCKS APPLIED. CALL LIGHT IN REACH. BED POSITION LOW.
--- NOTE | 2021-05-04 01:01 | NUR ---
Dr Cornejo called due to patient agitation, confusion increasing , and patient trying to get out of bed. Dr Cornejo gave nurse verbal order for 1mg Ativan IV. Verbal order repeated back to Dr Cornejo by nurse.
--- NOTE | 2021-05-04 01:25 | NUR ---
PT ATTEMPTING TO GET OUT OF BED. VERY AGITATED AND CONFUSED. UNCOOPERATIVE AND REFUSING TO LAY DOWN. CONTACTED DR. LOPEZ FOR ADDITIONAL ORDERS. HE ORDERED 2.5MG OF HALDOL IM. ALSO TO APPLY SOFT RESTRAINTS IF PT DOES NOT CALM DOWN AFTER HALDOL.
--- NOTE | 2021-05-04 01:45 | NUR ---
PT CONTINUES TO ATTEMPT TO GET OUT OF BED. STATES SHE NEEDS CHANGED. NOTED PT HAD WET BRIEF. PT DRIED AND CLEANED. FRESH BRIEF APPLIED.
--- NOTE | 2021-05-04 02:40 | NUR ---
PT STATES SHE NEEDS TO URINATE. REFUSES BEDPAN AND CONTINUES TO ATTEMPT TO GET OUT OF BED.
--- NOTE | 2021-05-04 03:00 | NUR ---
PT HAD SMALL BM AND HAD URINATED. CLEANED AND DRIED AND FRESH BRIEF APPLIED.
[2021-05-04 06:24] LABS: HEMATOCRIT 23.2 % (36.0-48.0); HEMOGLOBIN 7.9 g/dL (12-16); MCH 27.2 pg (26.0-34.0); MCV 80.1 fL (80.0-100.0); MEAN PLATELET VOLUME 7.9 fL (7.4-10.4); PLATELET COUNT 380 10x3/uL (130-400); RBC 2.89 10x6/uL (4.00-5.40)
[2021-05-04 06:28] LABS: ANION GAP 10.3 mmol/L (8-16); CALCIUM 7.8 mg/dL (8.5-10.1); CARBON DIOXIDE 26.6 mmol/L (21.0-32.0); CREATININE - SERUM 0.8 mg/dL (0.6-1.3); POTASSIUM - SERUM 3.9 mmol/L (3.5-5.1)
[2021-05-04 06:48] LABS: WBC 8.3 10x3/uL (4.8-10.8)
[2021-05-04 07:00] LABS: INR 1.74 (0.85-1.17); PROTIME 18.9 SECONDS (11.6-15.0)
--- NOTE | 2021-05-04 08:20 | NUR ---
PERSONAL CARE PROVIDED FOR BOWEL INCONTINENCE. PER OP MEDS ADMINISTERED
--- NOTE | 2021-05-04 08:47 | NUR ---
TO OR FOR EGD WITH BUSINESS CENTER MANAGER
[2021-05-04 14:45] LABS: EOSINOPHILS 1 % (0-7); LYMPHOCYTES 17 % (15-50); MONOCYTES 10 % (2-11); NEUTROPHILS 64 % (40-80); PLATELET ESTIMATE NORMAL
--- NOTE | 2021-05-04 20:00 | NUR ---
PT LYING IN BED RESTING WITH EYES CLOSED. IV LEFT FA INFUSING NS @ 125 AND PROTONIX @ 10. PT ORIENTED TO SELF ONLY. PUREWICK IN PLACE. BEJNA ON. VSS. STARTED UNIT OF PRBC AT THIS TIME. DENIES NEEDS WHEN WOKEN. CL IN REACH
[2021-05-05 04:00] VITALS: BP 121/49
[2021-05-05 07:00] LABS: BASOPHILS 0.6 % (0-2); EOSINOPHILS 0.3 % (0-7); LYMPHOCYTES 20.2 % (15-50); MCH 27.9 pg (26.0-34.0); MCHC 33.6 g/dL (31.0-37.0); MEAN PLATELET VOLUME 7.8 fL (7.4-10.4); MONOCYTES 8.9 % (2-11); PLATELET COUNT 392 10x3/uL (130-400); RDW 16.3 % (11.5-14.5); WBC 8.2 10x3/uL (4.8-10.8)
[2021-05-05 07:09] LABS: HEMATOCRIT 28.8 % (36.0-48.0); HEMOGLOBIN 9.7 g/dL (12-16); MCV 83.1 fL (80.0-100.0); RBC 3.47 10x6/uL (4.00-5.40)
[2021-05-05 07:15] LABS: % SATURATION 12 % (15-55); IRON 20 ug/dl (35-150); TOTAL IRON BIND CAPACITY 158 ug/dl (260-445); UNSAT IRON BIND CAPACITY 138 ug/dl (150-375)
[2021-05-05 07:17] LABS: ANION GAP 19.8 mmol/L (8-16); CARBON DIOXIDE 20.2 mmol/L (21.0-32.0); CREATININE - SERUM 0.9 mg/dL (0.6-1.3)
--- NOTE | 2021-05-05 07:51 | HP ---
PATIENT: MIKE CASANOVA MEDICAL RECORD: [id number] ACCOUNT: [id number] LOCATION:[facility] [id number] : [birth year] ADMISSION DATE: 05/03/21 PCP: No PCP HISTORY AND PHYSICAL EXAMINATION REASON FOR ADMISSION: Abdominal pain, diarrhea, and urinary incontinence. HISTORY OF PRESENT ILLNESS: The patient is an 85-year-old female who has had a stormy course since diverticular perforation and pneumoperitoneum last year. She required ICU hospitalization partial colectomy with reanastomosis. 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 The patient required inpatient rehabilitation and ultimately [facility] for intermediate. She had feeding tube initially and that has since been removed. The patient says she has been doing fairly well until the last 3 or 4 days, she had increasing left-sided abdominal pain, which she says is chronic, but worse recently, loose stools and having to urinate all the time, especially at night. She denies any dysuria, fever, melena, vomiting, or nausea. Her called me today and said she was very weak and I asked him to bring her to the ED. Upon arrival, she appeared very pale. Hemoglobin was 6.9. She is now being admitted for gastrointestinal bleed with heme positive stool, blood transfusion, and ICU placement for GI consultation. PAST MEDICAL HISTORY: As above including chronic anticoagulation for atrial fibrillation, anxiety, urinary incontinence, chronic diarrhea, hyperlipidemia, depression, UTI postmenopausal status. PAST SURGICAL HISTORY: Partial colectomy with reanastomosis, February 2020. PEG tube. Repair of colocutaneous fistula and cataract surgery. Oophorectomy. FAMILY HISTORY: Positive for cancer in her parents. One sibling had cardiovascular disease and diabetes. SOCIAL HISTORY: Lifelong nonsmoker, nondrinker. She is and lives with her . CURRENT MEDICATIONS: 1. Eliquis 2.5 mg b.i.d. 2. Zofran 4 mg p.r.n. nausea. 3. Ativan 0.5 q.6 hours p.r.n. anxiety. 4. Ultram 50 mg q.8 hours p.r.n. pain. 5. Coreg 3.125 mg b.i.d. 6. Buspar 5 mg daily. 7. Ditropan 5 mg at bedtime. 8. Questran Light 1 packet p.o. t.i.d. 9. Glucerna 1 bottle t.i.d. 10. Celexa 10 mg a day. 11. Nutrosource Fiber once daily. 12. Lactobacillus acidophilus 1 tab b.i.d. 13. Pepcid 20 mg b.i.d. REVIEW OF SYSTEMS: GENERAL: Fatigue for the last 3-4 days with poor appetite. Denies fever. HEENT: No recent visual change, sinus congestion, hearing difficulty or sore throat. HISTORY AND PHYSICAL [id number] EVONNE CASANOVACHRISTIAN Yin RESPIRATORY: Denies shortness of breath or cough. CARDIOVASCULAR: Denies chest pain, palpitations. GASTROINTESTINAL: Denies nausea or vomiting, but has had increasing frequency of diarrhea, but she denies bright red blood per rectum or melena. GENITOURINARY: Urinary urgency and frequency at night. She has had to be on the commode most of the night. Denies dysuria or hematuria. She has had a history of UTIs. ALUMNI SECRETARY: No vaginal bleeding. ENDOCRINE: Denies polyuria, polydipsia, heat or cold intolerance. NEUROLOGIC: No history of stroke, TIA, vascular headaches. INTEGUMENT: No rash or itching. PSYCHIATRIC: Admits to depressed mood and anxiety and a great fear of having to be rehospitalized. PHYSICAL EXAMINATION: VITAL SIGNS: Temperature is 98.6, pulse is 113 and regular, respirations are 15, blood pressure 133/61 with a sat of 97% on room air. GENERAL: Alert, anxious female in no acute distress. EYES: Clear. Palpebral conjunctivae are pale. Sclerae nonicteric. Oropharynx unremarkable. NECK: Supple. LUNGS: Chest clear without wheeze or rales. HEART: Tachycardic with occasional ectopic beat. ABDOMEN: Soft, minimally tender in the left lower quadrant. She has a healed midline surgical scar and a left periumbilical abdominal hernia that is reducible. PELVIC: Deferred. EXTREMITIES: Show 1+ pretibial edema. Stool is heme positive. NEUROLOGIC: Oriented to person, place and time. Cranial nerves intact. Gait was not tested. LABORATORY DATA: Shows a hemoglobin of 6.9, hematocrit of 21.1 with a white count of 6500, and platelet count of 389,000. MCV 79.6. Chemistry shows BUN and creatinine of 18 and 1.0 and glucose of 96. Liver functions are normal. Amylase and lipase are normal. Urinalysis shows less than 1 red cell, 3 white cells per high power field with rare mucus. IMPRESSION: 1. Microcytic anemia, most likely of gastrointestinal blood loss. 2. Heme-positive stool. 3. Anxiety and depression. 4. History of pulmonary embolus. PLAN: We will transfuse in the ICU tonight. Dr. Wang has been consulted for anticipated EGD in the morning. I have discussed the patient's diagnosis with her try trying to alleviate her fear, we will give Ativan low dose tonight. Blood pressure remained stable. For her chronic anxiety, which is acutely exacerbated. TRANSINT:[id number] Voice Confirmation ID: [id number] DOCUMENT ID: [id number] HISTORY AND PHYSICAL [id number] MIKE CASANOVA TIMOTHY MD at 0751 CC: [id number] DICTATION DATE: 05/03/212154 LABORATORY CLERK: 05/03/21 2336 ADM IN [place] [id number] [place] [address]
[2021-05-05 09:06] VITALS: BP 116/40
--- NOTE | 2021-05-05 09:37 | NUR ---
PATIENT CONFUSED AND DOESN'T KNOW WHERE SHE IS. STATES SHE IS ON A PLANE ALONE AND NAKED AND WANTS TO SEE RIGHT NOW. ATTEMPTING TO GET OOB. BED ALARM ON. KNOWS NAME AND . REORIENTED PATIENT TO PLACE AND SITUATION BUT PATIENT STILL APPEARS CONFUSED BUT STATES SHE UNDERSTANDS. ADJUSTED AND SET UP IN BED TO EAT BREAKFAST. DENIES FURTHER NEEDS. BED LOW. CALL LLANOS AND PERSONAL ITEMS IN REACH. WILL CONTINUE TO MONITOR.
[2021-05-05 12:00] VITALS: BP 123/56
--- NOTE | 2021-05-05 13:23 | NUR ---
IV PULLED OUT BY PATIENT TO LEFT AC. FOUND IV CATHETER ON FLOOR WITH TIP INTACT. RESITED TO RIGHT WRIST AFTER TWO ATTEMPTS WITH 20G.
--- NOTE | 2021-05-05 14:12 | NUR ---
RESTING IN BED. DENIES NEEDS. WILL CONTINUE TO MONITOR.
--- NOTE | 2021-05-05 20:00 | NUR ---
PT SITTING UP IN BEDSIDE CHAIR WITHOUT DISTRESS, ORIENTED TO SELF ONLY. PROVIDED ICE WATER. CHAIR ALARM ON. DENIES OTHER NEEDS. CL IN REACH
[2021-05-06] VITALS: BP 121/47
[2021-05-06 04:00] VITALS: BP 151/63
[2021-05-06 06:15] LABS: HEMATOCRIT 29.5 % (36.0-48.0); HEMOGLOBIN 9.8 g/dL (12-16); MCH 26.9 pg (26.0-34.0); MCHC 33.3 g/dL (31.0-37.0); MEAN PLATELET VOLUME 7.4 fL (7.4-10.4); PLATELET COUNT 429 10x3/uL (130-400); RBC 3.65 10x6/uL (4.00-5.40); RDW 16.6 % (11.5-14.5); WBC 8.2 10x3/uL (4.8-10.8)
[2021-05-06 06:25] LABS: MCV 80.9 fL (80.0-100.0)
[2021-05-06 06:48] LABS: CALCIUM 7.9 mg/dL (8.5-10.1); CREATININE - SERUM 0.8 mg/dL (0.6-1.3)
[2021-05-06 06:49] LABS: ANION GAP 13.6 mmol/L (8-16); CARBON DIOXIDE 25.7 mmol/L (21.0-32.0); POTASSIUM - SERUM 3.3 mmol/L (3.5-5.1)
[2021-05-06] MEDS ORDERED: PERIACTIN PO (08:16)
[2021-05-06] MEDS ORDERED: FERROUS SULFAT325 MG PO (08:17)
[2021-05-06] MEDS ORDERED: ZOCOR20 MG PO (08:17)
[2021-05-06] MEDS ORDERED: ZOLOFT100 MG PO (08:18)
[2021-05-06] MEDS ORDERED: VALIUM 2 MG TAB2 MG PO (08:18)
[2021-05-06] MEDS ORDERED: BUSPAR5 MG PO (08:18)
[2021-05-06] MEDS ORDERED: SINGULAIR10 MG PO (08:19)
[2021-05-06] MEDS ORDERED: HALOPERIDOL1 MG PO (08:19)
[2021-05-06 08:21] VITALS: BP 157/61
[2021-05-06] MEDS ORDERED: PROTONIX40 MG PO (08:28)
--- NOTE | 2021-05-06 09:18 | NUR ---
ALERT AND CONFUSED UPON ENTERING. REORIENTED PATIENT TO PLACE AND SITUATION. ADMINISTERED MEDICAITON, NO DIFFICULTIES. AMBULATED TO BATHROOM AND BACK TO BED. CHANGED LINENS. BED IN LOWEST POSITION, BED RAILS X3, CALL LIGHT WITHIN REACH. WILL CONTINUE POC. BENJA ALARM ON AND WORKING. ASSESSMENT PERFORMED.
--- NOTE | 2021-05-06 09:33 | MORECARE ---
CASE MANAGEMENT DISCHARGE SUMMARY PATIENT: MIKE CASANOVA UNIT: [id number] ADM DATE: 05/03/21 AGE: 85 : 37 SEX: F ROOM/BED: D.2208 AUTHOR: RAIMUNDO,DOC PHYSICIAN: REFERRING PHYSICIAN: DARVIN MCLEOD MD DATE OF SERVICE: 05/06/21 Case Management Discharge Planning Summary COMMENTS ENTERED DATE: 05/06/21 9:22 CT COMMENT TYPE: Discharge Planning REVIEWER: Alma Souza CM met with patient to complete initial dc planning assessment. CM educated patient on the CM role and verbal consent given by patient to complete assessment. Patient lives at home with her spouse where she is partially dependent with her care. At discharge patient plans to return home and feels this is a safe discharge. CM discussed availability of home health, rehab services, and medical equipment. Patient stated that she has [facility] and is working with Stef Yan with therapy. She said that someone comes 3 times a week to help her from [facility]. She has a walker at home and is starting to use it again. I will notify [facility] of her discharge today. [facility] served and explained. Patient denied known discharge needs at this time. CM will continue to follow and will assist as needed with dc plans/needs. DCP REVIEW SUMMARY ANTICIPATED D/C DATE: EXPECTED LOS : CASE STATUS: DCP Initiated INITIAL REVIEW: 05/03/2021 INITIAL REVIEWER: Alma Souza FINAL DISCHARGE DISPOSITION: : FINAL REVIEWER: FINAL REVIEW DATE: DCP [employer] Questions & Answers QUESTION: ANSWER : PATIENT: MIKE CASANOVA ENCOUNTER: [id number] MEDICAL RECORD#: [id number] ADMISSION DATE: 05/03/2021 DISCHARGE DATE: ATTENDING MD: DARVIN HUFF : AGE: 85 MARITAL STATUS: M DC PLAN ID: [id number] FACILITY: [facility] PRINTED ON: 05/06/21 9:32 CT All edits/amendments must be made on the electronic document DICTATION DATE: 05/06/21931 LOSS PREVENTION DETECTIVE: VINCENT 05/06/21931 RPT#: [id number] DC DATE: STATUS: ADM IN [facility] [address] [place] [address] END OF REPORT
--- NOTE | 2021-05-06 11:08 | NUR ---
REMOVED IV FROM RIGHT WRIST, CATHETER TIP INTACT, COVERED WITH GAUZE AND TAPE. TOLERATED WELL. SIGNED DISCHARGE PAPRERWORK. PATIETN EXITING SHOWER AND GETTING DRESSED. WILL LEAVE VIA WHEELCHAIR ACCOMPANIED BY . DENIES FURTHER NEEDS FROM HOSPITAL/STAFF.
[2021-05-06 12:21] LABS: ANISOCYTOSIS OCC; LYMPHOCYTES 22 % (15-50); MONOCYTES 14 % (2-11); NEUTROPHILS 62 % (40-80); PLATELET ESTIMATE INCREASED
--- NOTE | 2021-05-06 13:30 | MORECARE ---
CASE MANAGEMENT DISCHARGE SUMMARY PATIENT: MIKE CASANOVA UNIT: [id number] ADM DATE: 05/03/21 AGE: 85 : 39 SEX: F ROOM/BED: D.2208 AUTHOR: SHAR EUBANKS PHYSICIAN: REFERRING PHYSICIAN: DARVIN MCLEOD MD DATE OF SERVICE: 05/06/21 Case Management Discharge Planning Summary COMMENTS ENTERED DATE: 05/06/21 9:22 CT COMMENT TYPE: Discharge Planning REVIEWER: Alma Souza CM met with patient to complete initial dc planning assessment. CM educated patient on the CM role and verbal consent given by patient to complete assessment. Patient lives at home with her spouse where she is partially dependent with her care. At discharge patient plans to return home and feels this is a safe discharge. CM discussed availability of home health, rehab services, and medical equipment. Patient stated that she has [facility] and is working with Stef Yan with therapy. She said that someone comes 3 times a week to help her from [facility]. She has a walker at home and is starting to use it again. I will notify [facility] of her discharge today. IMM served and explained. Patient denied known discharge needs at this time. CM will continue to follow and will assist as needed with dc plans/needs. DCP REVIEW SUMMARY ANTICIPATED D/C DATE: EXPECTED LOS : 0 CASE STATUS: DCP Complete INITIAL REVIEW: 05/03/2021 INITIAL REVIEWER: Alma Souza FINAL DISCHARGE DISPOSITION: 06 : Discharged/Trans to Home Under Care of Organized Home Health Service in Anticipation of Skilled Care FINAL REVIEWER: Alma Souza FINAL REVIEW DATE: 05/06/2021 DCP [facility] Questions & Answers QUESTION: ANSWER : PATIENT: MIKE CASANOVA ENCOUNTER: [id number] MEDICAL RECORD#: [id number] ADMISSION DATE: 05/03/2021 DISCHARGE DATE: 05/06/2021 ATTENDING MD: DARVIN HUFF : AGE: 85 MARITAL STATUS: M DC PLAN ID: [id number] FACILITY: [facility] PRINTED ON: 05/06/21 13:30 CT All edits/amendments must be made on the electronic document DICTATION DATE: 05/06/21 133 HOME HEALTH TRAVEL PT: VINCENT 05/06/21 133 RPT#: [id number] DC DATE:05/06/21 STATUS: DIS IN [facility] [address] [place] [address] END OF REPORT
--- NOTE | 2021-05-07 15:35 | MORECARE ---
CASE MANAGEMENT DISCHARGE SUMMARY PATIENT: MIKE CASANOVA UNIT: [id number] ADM DATE: 05/03/21 AGE: 85 : 37 SEX: F ROOM/BED: D.2208 AUTHOR: SHAR EUBANKS PHYSICIAN: REFERRING PHYSICIAN: DARVIN MCLEOD MD DATE OF SERVICE: 05/07/21 Case Management Discharge Planning Summary COMMENTS ENTERED DATE: 05/06/21 9:22 CT COMMENT TYPE: Discharge Planning REVIEWER: Alma Souza CM met with patient to complete initial dc planning assessment. CM educated patient on the CM role and verbal consent given by patient to complete assessment. Patient lives at home with her spouse where she is partially dependent with her care. At discharge patient plans to return home and feels this is a safe discharge. CM discussed availability of home health, rehab services, and medical equipment. Patient stated that she has [facility] and is working with Stef Yan with therapy. She said that someone comes 3 times a week to help her from [facility]. She has a walker at home and is starting to use it again. I will notify [facility] of her discharge today. IMM served and explained. Patient denied known discharge needs at this time. CM will continue to follow and will assist as needed with dc plans/needs. DCP REVIEW SUMMARY ANTICIPATED D/C DATE: EXPECTED LOS : 0 CASE STATUS: DCP Complete INITIAL REVIEW: 05/03/2021 INITIAL REVIEWER: Alma Souza FINAL DISCHARGE DISPOSITION: 06 : Discharged/Trans to Home Under Care of Organized Home Health Service in Anticipation of Skilled Care FINAL REVIEWER: Alma Souza FINAL REVIEW DATE: 05/06/2021 DCP [facility] Questions & Answers QUESTION: ANSWER : PATIENT: MIKE CASANOVA ENCOUNTER: [id number] MEDICAL RECORD#: [id number] ADMISSION DATE: 05/03/2021 DISCHARGE DATE: 05/06/2021 ATTENDING MD: DARVIN HUFF : AGE: 85 MARITAL STATUS: M DC PLAN ID: [id number] FACILITY: [facility] PRINTED ON: 05/07/21 15:34 CT All edits/amendments must be made on the electronic document DICTATION DATE: 05/07/211533 HEAD OF BUSINESS DEVELOPMENT: VINCENT 05/07/211533 RPT#: [id number] DC DATE:05/06/21 STATUS: DIS IN [facility] [address] [place] [address] END OF REPORT
== END 2021-05-06 11:50 | disposition home health service (06) | DRG 813 ==
LOC: D.ER 18:35 → D.MS 21:30 → D.EDHOLD 21:30 → D.MS 05-04 09:21
PROVIDERS: Family Medicine; Internal Medicine Gastroenterology; ADMIT Family Medicine; ATTEND Family Medicine
PROC: 0DJ08ZZ Inspection of Upper Intestinal Tract, Via Natural or Artificial Opening Endoscopic (ICD-10-PCS; principal; 2021-05-04 08:57)
DX: D68.32 Hemorrhagic disorder due to extrinsic circulating anticoagulants (principal); K29.71 Gastritis, unspecified, with bleeding; K57.91 Diverticulosis of intestine, part unspecified, without perforation or abscess with bleeding; I48.91 Unspecified atrial fibrillation; Z79.01 Long term (current) use of anticoagulants; F41.9 Anxiety disorder, unspecified; R32 Unspecified urinary incontinence; E78.5 Hyperlipidemia, unspecified; F32.9 Major depressive disorder, single episode, unspecified; D50.0 Iron deficiency anemia secondary to blood loss (chronic); Z86.711 Personal history of pulmonary embolism; I10 Essential (primary) hypertension; J44.9 Chronic obstructive pulmonary disease, unspecified